=== PATIENT | male | born 1950 | race African-American/Black ===

== ENCOUNTER → 2017-03-17 | Outpatient (CLI) | payer MEDICARE, OTHER ==
--- NOTE | 2017-03-17 13:21 | XR ---
EXAMINATION TYPE: XR foot complete RT DATE OF EXAM: 03/17/2017 12:25 PM COMPARISON: NONE HISTORY: Nonhealing ulcer TECHNIQUE: Three views are submitted. FINDINGS: Arthropathy of all MTP joints with evidence of hammertoe deformities. There is destructive change change involving the base of the proximal phalanx and head of the metatar shaina of the third digit. Diffuse soft tissue edema noted. Ossification along the Achilles insertion in cidentally noted. IMPRESSION: 1. Findings are suggestive of osteoarthritis MTP joint involving proximal phalanx and head metatarsal third digit.
== END | disposition home or self-care (01) ==
LOC: RADXRMAIN 11:58
PROVIDERS: ATTEND Podiatrist Foot & Ankle Surgery
DX: M25.571 Pain in right ankle and joints of right foot (principal)

== ENCOUNTER 2017-03-28 12:04 | Inpatient (IN) | payer MEDICARE, OTHER ==
[2017-03-28] MEDS ORDERED: SODIUM CHLORIDE 0.9% 1,000 ML IV STA (12:18)
[2017-03-28] MEDS ORDERED: ACETAMINOPHEN TAB 500 MG TAB PO STA (12:19)
--- NOTE | 2017-03-28 12:23 | ED ---
Lower Extremity Injury HPI - General Source: patient, RN notes reviewed Mode of arrival: wheelchair Limitations: no limitations <Angeles Hawkins - Last Filed: 03/28/17 15:05> <Kip Kinney - Last Filed: 03/28/17 15:30> - General Chief Complaint: Extremity Injury, Lower Stated Complaint: Foot Infection Time Seen by Provider: 03/28/17 12:14 - History of Present Illness Initial Comments: 66-year-old male presents to the emergency Department chief complaint of right foot wound. Patient has had this on and off for the past 10 days or so. The patient states that he has not had any fever chills that he is aware of. Patient states that he has not had any nausea vomiting. Patient states that he had an x-ray outpatient and was called by his doctor and told to come into the emergency department. Patient states that he sees Dr. Mims as his infectious disease doctor. Patient states he is currently on Keflex. Patient states she was concerned due to his symptoms, he should be evaluated. Patient denies any recent fever, chills, shortness of breath, chest pain, back pain, abdominal pain , nausea vomiting, numbness or tingling, dysuria or hematuria, constipation or diarrhea, headaches or visual changes, or any other current symptoms. (Angeles Hawkins) - Related Data Home Medications Medication Instructions Recorded Confirmed Atorvastatin [Lipitor] 20 mg PO DAILY 03/28/17 03/28/17 Furosemide [Lasix] 20 mg PO DAILY 03/28/17 03/28/17 Insulin NPL/Insulin Lispro 48 unit SQ HS 03/28/17 03/28/17 [humaLOG MIX 75-25 VIAL] Insulin NPL/Insulin Lispro 50 unit SQ QAM 03/28/17 03/28/17 [humaLOG MIX 75-25 VIAL] Lisinopril 20 mg PO DAILY 03/28/17 03/28/17 metFORMIN HCL [Glucophage] 1,000 mg PO BID 03/28/17 03/28/17 oxyCODONE-APAP 10-325MG [Percocet 1 tab PO Q6H PRN 03/28/17 03/28/17 10-325 mg] Allergies Allergy/AdvReac Type Severity Reaction Status Date / Time egg Allergy Rash/Hives Verified 03/28/17 12:38 Review of Systems ROS Other: All systems not noted in ROS Statement are negative. <Angeles Hawkins - Last Filed: 03/28/17 15:05> ROS Other: All systems not noted in ROS Statement are negative. <Kip Kinney - Last Filed: 03/28/17 15:30> ROS Statement: Those systems with pertinent positive or pertinent negative responses have been documented in the HPI. Past Medical History Past Medical History: Diabetes Mellitus, Hyperlipidemia, Hypertension Additional Past Medical History / Comment(s): heart murmur History of Any Multi-Drug Resistant Organisms: None Reported Past Surgical History: Hernia Repair, Orthopedic Surgery Additional Past Surgical History / Comment(s): rt foot Past Psychological History: Depression Smoking Status: Never smoker Past Alcohol Use History: None Reported Past Drug Use History: None Reported <Angeles Hawkins - Last Filed: 03/28/17 15:05> General Exam Limitations: no limitations <Angeles Hawkins - Last Filed: 03/28/17 15:05> <Kip Kinney - Last Filed: 03/28/17 15:30> - General Exam Comments Initial Comments: General: The patient is awake and alert, in no distress, and does not appear acutely ill. Neck: The neck is supple, there is no tenderness. Cardiovascular: There is a regular rate and rhythm. No murmur, rub or gallop is appreciated. Respiratory: Lungs are clear to auscultation, respirations are non-labored, breath sounds are equal. No wheezes, stridor, rales, or rhonchi. Musculoskeletal: Sensation intact with 2+ positive Bernadine found to right knee and right ankle and right foot. Patient does appear to have a wound to the bottom of the right foot. There is no drainage. Does appear to be scabbed over. No associated erythema. Neurological: CN II-XII intact, There are no obvious motor or sensory deficits. Coordination appears grossly intact. Speech is normal. Skin: Skin is warm and dry and no rashes or lesions are noted. Psychiatric: Normal mood and affect. (Angeles Hawkins) Course <Angeles Hawkins - Last Filed: 03/28/17 15:05> <Kip Kinney - Last Filed: 03/28/17 15:30> Vital Signs 03/28/17 12:07 Temperature 99.9 F H Pulse Rate 89 Respiratory 20 Rate Blood Pressure 132/71 O2 Sat by Pulse 98 Oximetry - Reevaluation(s) Reevaluation #1: 03/28/17 15:05 At cole Time the patient is meeting septic criteria. (Angeles Hawkins) Medical Decision Making - Lab Data Result diagrams: 03/28/17 13:30 03/28/17 13:30 - Radiology Data Radiology results: report reviewed, image reviewed <Angeles Hawkins - Last Filed: 03/28/17 15:05> - Lab Data Result diagrams: 03/28/17 13:30 03/28/17 13:30 <Kip Kinney - Last Filed: 03/28/17 15:30> - Medical Decision Making 66-year-old male presents emergency room chief complaint of right foot pain. At this time patient's. Osteomyelitis. His white blood cell count is low. At this time we will start the patient on Unasyn Vanco was initially started due to the patient's presentation however we will add Unasyn due to sepsis protocol. We will admit the patient to admitting physician. Patient is in agreement. (Angeles Hawkins) Patient reevaluated by myself, Dr. Kinney. Patient does have ulcerative lesion on the plantar distal right foot. X-ray with concern for osteomyelitis. Patient does meet sepsis criteria. Case was discussed in detail with Dr. Santos who will admit. Continue Unasyn and Vanco. Consult with Dr. hawkins who patient has previously seen. (Kip Kinney) - Lab Data Lab Results 03/28/17 03/28/17 03/28/17 Range/Units 13:30 13:30 13:30 WBC 3.7 L (3.8-10.6) k/uL RBC 5.44 (4.30-5.90) m/uL Hgb 12.8 L (13.0-17.5) gm/dL Hct 40.7 (39.0-53.0) % MCV 74.7 L (80.0-100.0) fL MCH 23.5 L (25.0-35.0) pg MCHC 31.4 (31.0-37.0) g/dL RDW 15.5 (11.5-15.5) % Plt Count 185 (150-450) k/uL Neutrophils % 61 % Lymphocytes % 29 % Monocytes % 4 % Eosinophils % 5 % Basophils % 1 % Neutrophils # 2.2 (1.3-7.7) k/uL Lymphocytes # 1.1 (1.0-4.8) k/uL Monocytes # 0.1 (0-1.0) k/uL Eosinophils # 0.2 (0-0.7) k/uL Basophils # 0.0 (0-0.2) k/uL Hypochromasia Moderate Microcytosis Slight ESR 8 (0-15) mm/hr Sodium 142 (137-145) mmol/L Potassium 4.6 (3.5-5.1) mmol/L Chloride 108 H (98-107) mmol/L Carbon Dioxide 25 (22-30) mmol/L Anion Gap 9 mmol/L BUN 23 H (9-20) mg/dL Creatinine 1.40 H (0.66-1.25) mg/dL Est GFR (MDRD) Af Amer >60 (>60 ml/min/1.73 sqM) Est GFR (MDRD) Non-Af 51 (>60 ml/min/1.73 sqM) Glucose 181 H (74-99) mg/dL Plasma Lactic Acid Royce 1.4 (0.7-2.0) mmol/L Calcium 9.5 (8.4-10.2) mg/dL Total Bilirubin 0.5 (0.2-1.3) mg/dL AST 17 (17-59) U/L ALT 25 (21-72) U/L Alkaline Phosphatase 87 (38-126) U/L C-Reactive Protein 6.5 (<10.0) mg/L Total Protein 6.6 (6.3-8.2) g/dL Albumin 3.6 (3.5-5.0) g/dL Disposition Time of Disposition: 15:06 Decision Date: 03/28/17 Decision Time: 15:06 <Angeles Hawkins - Last Filed: 03/28/17 15:05> <Kip Kinney - Last Filed: 03/28/17 15:30> Clinical Impression: Sepsis, Foot osteomyelitis, right Disposition: ADMITTED IP TO THIS [facility] Condition: Stable Referrals: Tucker Nieto MD [Primary Care Provider] - 1-2 days
--- NOTE | 2017-03-28 13:12 | XR ---
EXAMINATION TYPE: XR foot complete RT DATE OF EXAM: 03/28/2017 12:56 PM COMPARISON: 03/17/2017 HISTORY: Pain TECHNIQUE: Three views are submitted. FINDINGS: There is loss of cortical margin which appears stable from the previous exam involving the head of th e third metatarsal. Osteomyelitis involving the third digit suspected. Hammertoe deformities noted. A rthropathy of the first MTP joint. Diffuse soft tissue edema. Calcaneal spurs noted. IMPRESSION: 1. Findings are suspicious for osteomyelitis involving the head of the third metatarsal with adjacent soft tissue edema.
[2017-03-28 13:49] LABS: Basophils % (A) 1 %; CH 22.8; CHCM 30.7; Eosinophils # (A) 0.2 k/uL (0-0.7); Eosinophils % (A) 5 %; HCT 40.7 % (39.0-53.0); HDW 2.76; HGB 12.8 gm/dL (13.0-17.5); Hypochromasia Moderate; Luc # (Auto) 0.05; Luc % (Auto) 1; Lymphocytes # (A) 1.1 k/uL (1.0-4.8); Lymphocytes % (A) 29 %; MCH 23.5 pg (25.0-35.0); MCHC 31.4 g/dL (31.0-37.0); MCV 74.7 fL (80.0-100.0); Mean Platelet Volume 6.9; Microcytosis Slight; Monocytes # (A) 0.1 k/uL (0-1.0); Monocytes % (A) 4 %; Neutrophils # (A) 2.2 k/uL (1.3-7.7); Neutrophils % (A) 61 %; RBC 5.44 m/uL (4.30-5.90); RDW 15.5 % (11.5-15.5); WBC 3.7 k/uL (3.8-10.6); WBC (Perox) 3.73
[2017-03-28 14:08] LABS: ALT 25 U/L (21-72); AST 17 U/L (17-59); Alkaline Phosphatase 87 U/L (38-126); Anion Gap 9 mmol/L; Blood Urea Nitrogen 23 mg/dL (9-20); C Reactive Protein 6.5 mg/L (<10.0); Calcium 9.5 mg/dL (8.4-10.2); Carbon Dioxide 25 mmol/L (22-30); Chloride 108 mmol/L (98-107); Glucose 181 mg/dL (74-99); Non-African American GFR(MDRD) 51 (>60 ml/min/1.73 sqM); Potassium 4.6 mmol/L (3.5-5.1); Sodium 142 mmol/L (137-145); Total Bilirubin 0.5 mg/dL (0.2-1.3); Total Protein 6.6 g/dL (6.3-8.2)
[2017-03-28] MEDS ORDERED: IV VANCOMYCIN PER PHARMACY 1 EACH MISC MISCELLANE PRN (14:09)
[2017-03-28 14:41] LABS: Erythrocyte Sedimentation Rate 8 mm/hr (0-15)
[2017-03-28] MEDS ORDERED: VANCOMYCIN 1,750 MG in SODIUM CHLORIDE 0.9% 250 ML IVPB ONE (15:00)
[2017-03-28] MEDS ORDERED: ONDANSETRON 4 MG/2 ML VIAL IVP PRN (15:26)
[2017-03-28] MEDS ORDERED: ACETAMINOPHEN TAB 325 MG TAB PO PRN (15:26)
[2017-03-28] MEDS ORDERED: IBUPROFEN 400 MG TAB PO PRN (15:26)
[2017-03-28] MEDS ORDERED: HYDROcodone/APAP 5-325MG 1 EACH TAB PO PRN (15:26)
[2017-03-28] MEDS ORDERED: NALOXONE 0.4 MG/ML 1 ML VIAL IV PRN (15:26)
[2017-03-28] MEDS ORDERED: AMPICILLIN-SULBACTAM 3 GM in SODIUM CHLORIDE 0.9% 100 ML IVPB STA (15:54)
[2017-03-28 17:24] LABS: Glucose,Whole Blood 76 mg/dL (75-99)
[2017-03-28] MEDS: INSULIN LISPRO (humaLOG) 300 UNIT/3 ML VIAL SQ SCH ×2 (17:39→22:12)
[2017-03-28] MEDS: SODIUM CHLORIDE 0.9% 1,000 ML IV SCH (17:42)
[2017-03-28 20:23] LABS: Glucose,Whole Blood 115 mg/dL (75-99)
[2017-03-28] MEDS ORDERED: INSULIN NPL/INSULIN LISPRO 100 UNIT/ML 10 ML VIAL (Humalog 75/25) SQ SCH (21:15)
[2017-03-29] MEDS ORDERED: AMPICILLIN-SULBACTAM 3 GM in SODIUM CHLORIDE 0.9% 100 ML IVPB SCH ×2
--- NOTE | 2017-03-29 06:36 | CONS ---
DATE OF CONSULTATION: DATE OF SERVICE: 03/28/2017 REASON FOR CONSULTATION: Right foot osteomyelitis. HISTORY OF PRESENT ILLNESS: The patient is a 66-year-old male well known to my service where the patient has been previously treated as an outpatient for an osteomyelitis of the right foot third metatarsal head. Cultures at that time was Proteus and Pseudomonas aeruginosa for which the patient has been treated with Fortaz. The patient had finished antibiotic therapy and his wound has completed healed as of 10/06/2016. Patient apparently continued to follow up with his forensic locksmith and he did mention that about 2 weeks ago he did have an x-ray in his office and he was told that the infection is coming back. The patient mentioned in the office Dr. Lowe did aspirate some poison out of his foot and he was advised to follow up with me in the office for further recommendation regarding antibiotic therapy. The patient subsequently presented to the [facility] ER, where the patient had been evaluated by the ER physician. The patient did have x-ray of the foot which did show suspicious finding of the osteomyelitis of the third metatarsal head with a soft tissue swelling. The patient was started on vancomycin and Unasyn and admitted to the hospital for further workup. The patient did have some dull aching. However, further he did have a small wound on the plantar aspect , but no significant drainage currently. The patient denies any high-grade fever, rigors, chills. Denies any chest pain, shortness of breath or cough. No vomiting. No diarrhea. REVIEW OF SYSTEMS: CONSTITUTIONAL: Positive for weakness. No high-grade fever. EYES: No complaint. ENT: No complaint. RESPIRATORY: No complaint. CARDIOVASCULAR: No complaint. GENITOURINARY: No complaint. GASTROINTESTINAL: No complaint. MUSCULOSKELETAL: As per HPI. INTEGUMENTARY: As per HPI. PSYCHOLOGIC: No complaint. ENDOCRINE: No complaint. NEUROLOGIC: No complaint. PAST MEDICAL HISTORY: Hypertension, hyperlipidemia, diabetes mellitus, history of right foot third metatarsal head osteomyelitis secondary to Proteus mirabilis and Pseudomonas aeruginosa. PAST SURGICAL HISTORY: Hernia repair, right foot surgery. SOCIAL HISTORY: No history of smoking, drinking or drug use. FAMILY HISTORY: No pertinent findings noticed. Allergies to EGG. Medications include the patient is currently include Tylenol, Novinger, Lipitor, Unasyn, vancomycin, pharmacy to dose, Lasix, Motrin, Humalog, Zestril, Narcan. On examination, blood pressure is 148/88 with a pulse of 64, temperature is 96.9. He is 100% on room air. General description is an elderly male, lying in bed in no distress. No tachypnea or accessory muscle of respiration use. HEENT examination shows pallor. No scleral icterus. Oral mucous membranes dry. NECK: Trachea central. No thyromegaly. LUNGS: Unlabored breathing. Clear to auscultation anteriorly. No wheeze or crackle. HEART: S1, S2. Regular rate and rhythm. ABDOMEN: Soft, no tenderness. Right foot on the plantar aspect did have a small wound under the callus, some swelling, no significant drainage. NEUROLOGICAL: The patient is awake, alert, oriented x3. Mood and affect normal. LABS: Hemoglobin is 12.8, white count 3.7, BUN of 23 with a creatinine 1.40. CRP has been normal. X-rays of the foot as mentioned above. DIAGNOSTIC IMPRESSION AND PLAN: Patient admitted to the hospital with an abnormal x-ray of the right foot and patient did have a previous history of osteomyelitis of the third metatarsal head. Currently, I see a small wound, but no significant definite changes surrounding it. Patient's Sed rate and CRP are normal with a question of what we see is a sequelae of his previous episode of osteomyelitis rather than acute osteomyelitis. PLAN: 1. We will obtain a bone scan of his right foot. 2. Patient with vancomycin; however, discontinue Unasy that he grew last time. 3. We will try to obtain a culture report from his podiatry office in the a.m. 4. Will follow up on the clinical condition and cultures to further adjust the medication if needed. Thank you for this consultation. We will follow this patient along with you. RACHEL
[2017-03-29] MEDS: SODIUM CHLORIDE 0.9% 1,000 ML IV SCH ×3 (06:50→23:24)
[2017-03-29 08:06] LABS: Basophils % (A) 1 %; CH 22.8; CHCM 30.2; Eosinophils # (A) 0.2 k/uL (0-0.7); Eosinophils % (A) 4 %; HCT 39.5 % (39.0-53.0); HGB 12.3 gm/dL (13.0-17.5); Hypochromasia Marked; Luc # (Auto) 0.05; Luc % (Auto) 1; Lymphocytes # (A) 1.2 k/uL (1.0-4.8); Lymphocytes % (A) 26 %; MCH 23.5 pg (25.0-35.0); MCHC 31.1 g/dL (31.0-37.0); MCV 75.7 fL (80.0-100.0); Mean Platelet Volume 6.7; Microcytosis Slight; Monocytes # (A) 0.2 k/uL (0-1.0); Monocytes % (A) 4 %; Neutrophils # (A) 2.8 k/uL (1.3-7.7); Neutrophils % (A) 64 %; RBC 5.21 m/uL (4.30-5.90); RDW 15.5 % (11.5-15.5); WBC 4.4 k/uL (3.8-10.6); WBC (Perox) 4.45
[2017-03-29 08:27] LABS: ALT 21 U/L (21-72); AST 16 U/L (17-59); Alkaline Phosphatase 79 U/L (38-126); Anion Gap 9 mmol/L; Blood Urea Nitrogen 23 mg/dL (9-20); Calcium 9.2 mg/dL (8.4-10.2); Carbon Dioxide 25 mmol/L (22-30); Chloride 107 mmol/L (98-107); Glucose 187 mg/dL (74-99); Non-African American GFR(MDRD) 56 (>60 ml/min/1.73 sqM); Sodium 141 mmol/L (137-145); Total Bilirubin 0.7 mg/dL (0.2-1.3); Total Protein 6.7 g/dL (6.3-8.2)
[2017-03-29] MEDS ORDERED: VANCOMYCIN 2,000 MG in SODIUM CHLORIDE 0.9% 500 ML IVPB SCH (09:00)
[2017-03-29 09:17] LABS: Glucose,Whole Blood 287 mg/dL (75-99)
[2017-03-29] MEDS: INSULIN LISPRO (humaLOG) 300 UNIT/3 ML VIAL SQ SCH ×4 (09:34→22:15)
[2017-03-29] MEDS: ATORVASTATIN 20 MG TAB PO SCH (09:34)
[2017-03-29] MEDS: INSULIN NPL/INSULIN LISPRO 100 UNIT/ML 10 ML VIAL (Humalog 75/25) SQ SCH (09:34)
[2017-03-29] MEDS: LISINOPRIL 20 MG TAB PO SCH (09:34)
[2017-03-29] MEDS: FUROSEMIDE 20 MG TAB PO SCH (09:34)
[2017-03-29 09:49] LABS: Erythrocyte Sedimentation Rate 11 mm/hr (0-15)
[2017-03-29 11:28] LABS: Glucose,Whole Blood 243 mg/dL (75-99)
[2017-03-29 11:43] LABS: Hemoglobin A1C 8.3 % (4.2-6.1)
[2017-03-29 13:40] VITALS: BMI 34.2
--- NOTE | 2017-03-29 14:17 | NM ---
EXAMINATION TYPE: NM bone 3 phase DATE OF EXAM: 03/29/2017 2:02 PM COMPARISON: Right foot 28 Mar 2017 HISTORY: Osteomyelitis Triple phase bone scintigraphy was performed following the injection of27.3 mCi Tc 99m MDP. Immediat e images, blood pool and 5.25 hours post injection images acquired. FINDINGS: Increased radiopharmaceutical uptake is noted to the distal forefoot likely in the region of the seco nd or third digit on the right on blood flow and blood pool images. Delayed images also show some rad io pharmaceutical accumulation in this region. Uptake is present bilaterally within the feet on delay ed images as well as the first digits. IMPRESSION: Findings could be indicative of osteomyelitis or cellulitis of the second or third digit. There are a dditional areas of uptake which could possibly be related to degenerative change or neuropathy
[2017-03-29] MEDS ORDERED: oxyCODONE-APAP 10-325MG 1 EACH TAB PO PRN (16:13)
--- NOTE | 2017-03-29 16:13 | P.HPIM ---
History of Present Illness H&P Date: 03/29/17 Chief Complaint: Right foot wound This is a 66-year-old -Mongolian male patient of Dr. Nieto with a past medical history of diabetes mellitus type 2 insulin requiring, diabetic neuropathy, asthma mild intermittent, hypertension, hyperlipidemia. Patient gives history that he initially had a callus on the bottom of his right foot about 5 months ago. He has been following with Dr. hawkins his infectious disease doctor as well as Dr. Mynor Cates from [facility] every 1-2 weeks. He has not seen a vascular surgeon. He thought the wound was getting better. He denies having any pain for the past 2 days. He denies any fever or chills. No nausea, vomiting, diarrhea. He states he has received antibiotics from Dr. Carlos Hall which have been Keflex. Patient states he had x-rays an outpatient and he was called by his doctor to come into [facility] emergency center for evaluation. He has undergone bone scan that is showing osteomyelitis or cellulitis of the second or third digit. There are additional areas of uptake which could possibly related to degenerative changes or neuropathy. The patient has been started on ceftazidime and vancomycin and is followed by Dr. Mims. Review of Systems All systems: negative Constitutional: Denies chills, Denies fever Eyes: denies blurred vision, denies pain Ears, nose, mouth and throat: Denies headache, Denies sore throat Cardiovascular: Denies chest pain, Denies shortness of breath Respiratory: Denies cough Gastrointestinal: Denies abdominal pain, Denies diarrhea, Denies nausea, Denies vomiting Musculoskeletal: Denies myalgias Integumentary: Reports wounds, Denies pruritus, Denies rash Neurological: Denies numbness, Denies weakness Psychiatric: Denies anxiety, Denies depression Endocrine: Denies fatigue, Denies weight change Past Medical History Past Medical History: Asthma, Diabetes Mellitus, Hyperlipidemia, Hypertension, Pneumonia Additional Past Medical History / Comment(s): heart murmur, neuropathy,"i think i had a small bleed behind rt eye" History of Any Multi-Drug Resistant Organisms: None Reported Past Surgical History: Hernia Repair, Orthopedic Surgery, Tonsillectomy Additional Past Surgical History / Comment(s): rt foot Past Anesthesia/Blood Transfusion Reactions: No Reported Reaction Past Psychological History: Depression Smoking Status: Never smoker Past Alcohol Use History: None Reported Additional Past Alcohol Use History / Comment(s): Patient is a lifelong nonsmoker. He denies any medical marijuana, marijuana, street drug or alcohol use. He states he stopped drinking alcohol 28 years ago. Past Drug Use History: None Reported - Past Family History Father Family Medical History: No Reported History Additional Family Medical History / Comment(s): Father at age 65 and patient does not know his medical problems. Mother Family Medical History: Rheumatoid Arthritis (RA) Additional Family Medical History / Comment(s): Mother at age 70 with history of rheumatoid arthritis. granmother also had ra Brother(s) Additional Family Medical History / Comment(s): Patient had 2 brothers and one during service and one from stillbirth. Patient does not have any sisters. Patient has 3 sons and 3 daughters with no major medical problems. Medications and Allergies Home Medications Medication Instructions Recorded Confirmed Type Atorvastatin [Lipitor] 20 mg PO DAILY 03/28/17 03/28/17 History Furosemide [Lasix] 20 mg PO DAILY 03/28/17 03/28/17 History Insulin NPL/Insulin Lispro 48 unit SQ HS 03/28/17 03/28/17 History [humaLOG MIX 75-25 VIAL] Insulin NPL/Insulin Lispro 50 unit SQ QAM 03/28/17 03/28/17 History [humaLOG MIX 75-25 VIAL] Lisinopril 20 mg PO DAILY 03/28/17 03/28/17 History metFORMIN HCL [Glucophage] 1,000 mg PO BID 03/28/17 03/28/17 History oxyCODONE-APAP 10-325MG [Percocet 1 tab PO Q6H PRN 03/28/17 03/28/17 History 10-325 mg] Allergies Allergy/AdvReac Type Severity Reaction Status Date / Time egg Allergy Rash/Hives Verified 03/28/17 20:01 Physical Exam Vitals: Vital Signs Temp Pulse Pulse Resp BP BP Pulse Ox 03/29/17 07:42 96.5 F L 64 16 157/85 99 03/29/17 02:35 98.3 F 63 16 134/53 99 03/28/17 20:00 96.9 F L 64 18 148/88 100 03/28/17 16:30 97.6 F 62 16 174/94 99 03/28/17 16:07 97.5 F L 63 16 165/91 100 Intake and Output 03/28/17 03/29/17 03/29/17 22:59 06:59 14:59 Intake Total 250 1200 480 Balance 250 1200 480 Intake: Intake, IV Titration 1200 Amount Ampicillin-Sulbactam 3 gm 100 In Sodium Chloride 0.9% 100 ml @ 100 mls/hr IVPB Q8HR MYRNA Rx#:[id number] cefTAZidime 2 gm In 1100 Sodium Chloride 0.9% 100 ml @ 100 mls/hr IVPB Q8HR MYRNA Rx#:[id number] Oral 250 480 Other: Voiding Method Toilet # Voids 1 1 Weight 117.934 kg Patient Weight 03/30/17 06:59 Weight 117.934 kg Gen: This is a 66-year-old -Mongolian male. He is laying in bed and appears to be in no acute distress. HEENT: Head is atraumatic, normocephalic. Pupils equal, round. Sclerae is anicteric. NECK: Supple. No JVD. No lymphadenopathy. No thyromegaly. LUNGS: Clear to auscultation. No wheezes or rhonchi. No intercostal retractions. HEART: Regular rate and rhythm. No murmur. ABDOMEN: Soft. Bowel sounds are present. No masses. No tenderness. EXTREMITIES: No pedal edema. No calf tenderness. To the plantar surface of the right foot there is a wound at the third metatarsal. No drainage. Decreased pulses bilaterally. NEUROLOGICAL: Patient is awake, alert and oriented x3. Cranial nerves 2 through 12 are grossly intact. Results CBC & Chem 7: 03/29/17 07:37 03/29/17 07:37 Labs: Abnormal Lab Results - Last 24 Hours (Table) 03/28/17 03/29/17 03/29/17 Range/Units 20:18 07:37 07:37 Hgb 12.3 L (13.0-17.5) gm/dL MCV 75.7 L (80.0-100.0) fL MCH 23.5 L (25.0-35.0) pg BUN (9-20) mg/dL Creatinine (0.66-1.25) mg/dL Glucose (74-99) mg/dL POC Glucose (mg/dL) 115 H (75-99) mg/dL Hemoglobin A1c 8.3 H (4.2-6.1) % AST (17-59) U/L Albumin (3.5-5.0) g/dL 03/29/17 03/29/17 03/29/17 Range/Units 07:37 09:16 11:22 Hgb (13.0-17.5) gm/dL MCV (80.0-100.0) fL MCH (25.0-35.0) pg BUN 23 H (9-20) mg/dL Creatinine 1.29 H (0.66-1.25) mg/dL Glucose 187 H (74-99) mg/dL POC Glucose (mg/dL) 287 H 243 H (75-99) mg/dL Hemoglobin A1c (4.2-6.1) % AST 16 L (17-59) U/L Albumin 3.4 L (3.5-5.0) g/dL Thrombosis Risk Factor Assmnt - DVT/VTE Prophylaxis DVT/VTE Prophylaxis: Pharmacologic Prophylaxis ordered - Choose All That Apply Any of the Below Risk Factors Present?: Yes Each Factor Represents 1 point: Obesity (BMI >25) Other Risk Factors: Yes Each Risk Factor Represents 2 Points: Age 61-74 years Thrombosis Risk Factor Assessment Total Risk Factor Score: 3 Thrombosis Risk Factor Assessment Level: Moderate Risk Assessment and Plan Plan: 1. Chronic nonhealing diabetic ulcer with possible peripheral artery disease as well to the right foot to rule out osteomyelitis in a patient with previous history of osteomyelitis of the third metatarsal head. Patient is followed by Dr Mims. Continue IV antibiotics in the form of ceftazidime and vancomycin. 2. Diabetes mellitus type 2, insulin requiring. Continue Humalog 75/25 50 units in the morning and 48 units at supper, metformin 1000 mg twice daily, Humalog scale before meals and at bedtime 3. Hypertension. Continue lisinopril 20 mg daily 4. Hyperlipidemia. Continue Lipitor 20 mg daily 5. DVT prophylaxis. Lovenox. 6. Gastritis prophylaxis, Pepcid. Patient will be admitted to the hospital for a minimum of 2 night stay. Discharge plan: Return home Impression and plan of care have been directed as dictated by the signing physician. Ro King nurse practitioner acting as scribe for signing physician.
[2017-03-29 17:19] LABS: Glucose,Whole Blood 84 mg/dL (75-99)
--- NOTE | 2017-03-29 17:20 | PN ---
DATE OF SERVICE: 03/29/2017 REASON FOR FOLLOWUP: Right foot osteomyelitis. INTERVAL HISTORY: The patient is afebrile. He has been breathing comfortably. Patient did mention that the swelling and redness of his foot has improved. Denies significant pain. There is no drainage. Denies having any chest pain, shortness of breath or cough. No abdominal pain or any diarrhea. On examination, blood pressure is 140/93 with a pulse of 72, temperature 97.1. He is 98% on room air. General description is an elderly male lying in bed in no distress. RESPIRATORY SYSTEM: Unlabored breathing. Clear to auscultation anteriorly. HEART: S1, S2. Regular rate and rhythm. ABDOMEN: Soft. No tenderness. Right foot is currently dressed up. No drainage was noticed. LABS: Hemoglobin 12.3, white count 4.4. BUN of 23, creatinine 1.29. The patient did have a bone scan completed that has been suspicious for osteomyelitis of the second and third digits. DIAGNOSTIC IMPRESSION AND PLAN: Patient with a wound to his right foot, suspicious for osteomyelitis. Patient did have cultures done by his switchboard operator supervisor, Dr. Cates, which grew Staphylococcus epidermidis, oxacillin-sensitive. These x-rays and bone scan will be reviewed with the radiologist. The patient will likely need a PICC line for outpatient IV antibiotic therapy. Continue with the vancomycin and Fortaz at this point. Continue supportive care.
[2017-03-29] MEDS ORDERED: INSULIN NPL/INSULIN LISPRO 100 UNIT/ML 10 ML VIAL (Humalog 75/25) SQ SCH (17:30)
[2017-03-29] MEDS ORDERED: INSULIN NPL/INSULIN LISPRO 100 UNIT/ML 10 ML VIAL (Humalog 75/25) SQ ONE (17:50)
[2017-03-29 21:29] LABS: Glucose,Whole Blood 77 mg/dL (75-99)
[2017-03-29] MEDS: metFORMIN 500 MG TAB PO SCH (22:15)
[2017-03-30] MEDS ORDERED: VANCOMYCIN 1,750 MG in SODIUM CHLORIDE 0.9% 250 ML IVPB SCH ×2
[2017-03-30 02:23] VITALS: RESP 16
[2017-03-30] MEDS: SODIUM CHLORIDE 0.9% 1,000 ML IV SCH (06:30)
[2017-03-30 07:06] LABS: Glucose,Whole Blood 96 mg/dL (75-99)
[2017-03-30 07:26] LABS: CH 22.8; CHCM 30.5; HCT 41.1 % (39.0-53.0); HDW 2.74; HGB 12.7 gm/dL (13.0-17.5); Hypochromasia Moderate; MCH 23.2 pg (25.0-35.0); MCHC 30.9 g/dL (31.0-37.0); MCV 75.2 fL (80.0-100.0); Mean Platelet Volume 6.7; Microcytosis Slight; RBC 5.47 m/uL (4.30-5.90); RDW 15.4 % (11.5-15.5); WBC 4.9 k/uL (3.8-10.6)
[2017-03-30] MEDS: INSULIN LISPRO (humaLOG) 300 UNIT/3 ML VIAL SQ SCH ×2 (07:52→12:34)
[2017-03-30 07:54] LABS: Anion Gap 9 mmol/L; Blood Urea Nitrogen 20 mg/dL (9-20); Calcium 9.3 mg/dL (8.4-10.2); Carbon Dioxide 23 mmol/L (22-30); Chloride 109 mmol/L (98-107); Glucose 96 mg/dL (74-99); Non-African American GFR(MDRD) 58 (>60 ml/min/1.73 sqM); Potassium 4.5 mmol/L (3.5-5.1); Sodium 141 mmol/L (137-145)
[2017-03-30] MEDS: FUROSEMIDE 20 MG TAB PO SCH (08:32)
[2017-03-30] MEDS: ATORVASTATIN 20 MG TAB PO SCH (08:32)
[2017-03-30] MEDS: metFORMIN 500 MG TAB PO SCH (08:32)
[2017-03-30] MEDS: INSULIN NPL/INSULIN LISPRO 100 UNIT/ML 10 ML VIAL (Humalog 75/25) SQ SCH (08:33)
[2017-03-30] MEDS: LISINOPRIL 20 MG TAB PO SCH (08:33)
[2017-03-30 09:32] VITALS: PULSE 64
[2017-03-30 12:02] LABS: Glucose,Whole Blood 168 mg/dL (75-99)
[2017-03-30] MEDS ORDERED: cefTRIAXone 2,000 MG in SODIUM CHLORIDE 0.9% 100 ML IVPB SCH (14:00)
[2017-03-30] MEDS ORDERED: LIDOCAINE 2% INJ 20 MG/ML SQ ONE (14:31)
[2017-03-30 15:47] VITALS: BP 150/86; TEMP 97.2
[2017-03-31] MEDS ORDERED: VANCOMYCIN TROUGH DUE 1 EACH MISC MISCELLANE ONE (07:00)
--- NOTE | 2017-03-31 08:09 | IR ---
PICC LINE PLACEMENT: HISTORY: Infection requiring long-term antibiotic therapy PROCEDURE: Ultrasound and fluoroscopic guidance of PICC line placement. COMPLICATIONS: None ANESTHESIA: 1. 1% Lidocaine locally. FINDINGS/TECHNIQUE: The procedure was explained to the patient. The risks, complications, benefits and alternatives were discussed and any questions were answered. Informed consent was obtained. The patient was placed supine on the fluoroscopic table and prepped and draped in the usual sterile fash ion. Utilizing a 21 gauge needle and sonographic and fluoroscopic guidance, access in the left ceph alic vein was achieved and there is placement of a 0.018 guidewire. The vein is patent. A 4-F sheat h was placed over the guidewire. The guidewire and dilator were removed and a 4-F. PICC line was chad mohinder through the sheath with the tip at the level of the SVC. The sheath was removed, the catheter wa s flushed and sutured into position. The patient was stable throughout the procedure and remained st able upon discharge from the Department of Radiology. The vein puncture was patent under ultrasound. A cerda scale image was obtained to document patency of the vein punctured. All elements of the maximal barrier technique were utilized. FLUOROSCOPY TIME: 0.8 minute IMPRESSION: Successful PICC line placement under ultrasound and fluoroscopic guidance.
--- NOTE | 2017-03-31 08:17 | PN ---
DATE OF SERVICE: 03/30/2017 REASON FOR FOLLOWUP: Right foot osteomyelitis. INTERVAL HISTORY: The patient was seen on rounds early this afternoon and discussed with the admitting team. The patient remains to be afebrile. Denies any worsening pain to his right foot area. He did have a big callus on the plantar aspect of his right foot. No significant drainage. He denies significant chest pain, shortness of breath or cough. No abdominal pain. No diarrhea. On examination, blood pressure is 150/86 with a pulse of 64, temperature of 97.2, he is 99% on room air. GENERAL DESCRIPTION: An elderly male lying in bed in no distress. RESPIRATORY SYSTEM: Unlabored breathing. Clear to auscultation anteriorly. HEART: S1, S2 with regular rate and rhythm. Right foot plantar aspect with a big callus. Did not appreciate any swelling, redness or any drainage from it. LABS: Hemoglobin 12.7, white count 4.9 with a BUN of 20, creatinine 1.25. Cultures were obtained from Dr. Mynor Rodriguez's office which just showed Staph which isoxacillin sensitive. The x-rays of the foot as well as the bone scan was reviewed with Dr. Goodrich from Radiology and it shows lytic lesion at the third metatarsal head with a corresponding increased uptake on the bone scan on all three. DIAGNOSTIC IMPRESSION AND PLAN: Patient with right foot osteomyelitis at the third metatarsal head. Outpatient cultures with Staph, oxacillin sensitive. We do not have anything to culture during this admission; hence, no cultures were done. Blood cultures are negative. Patient's antibiotic has been adjusted, Rocephin 2 grams will be continued for 6 weeks with outpatient follow-up. Continue supportive care. [facility]
--- NOTE | 2017-03-31 15:47 | P.DS ---
Providers Date of admission: 03/28/17 15:30 Expected date of discharge: 03/30/17 Attending physician: Harmony Santos Consults: 03/28/17 15:27 Consult Physician Routine Consulting Provider: Angelina Mims Consult Reason/Comments: osteomylelitis Do you want consulting provider notified?: Yes Primary care physician: Tucker [facility] Course: This is a 66-year-old -[place] male patient of Dr. Nieto with a past medical history of diabetes mellitus type 2 insulin requiring, diabetic neuropathy, asthma mild intermittent, hypertension, hyperlipidemia. Patient gives history that he initially had a callus on the bottom of his right foot about 5 months ago. He has been following with Dr. hawkins his infectious disease doctor as well as Dr. Mynor Cates from [facility] every 1-2 weeks. He has not seen a vascular surgeon. He thought the wound was getting better. He denies having any pain for the past 2 days. He denies any fever or chills. No nausea, vomiting, diarrhea. He states he has received antibiotics from Dr. Carlos Hall which have been Keflex. Patient states he had x-rays an outpatient and he was called by his doctor to come into [facility] emergency center for evaluation. He has undergone bone scan that is showing osteomyelitis or cellulitis of the second or third digit. There are additional areas of uptake which could possibly related to degenerative changes or neuropathy. The patient has been started on ceftazidime and vancomycin and is followed by Dr. Mims. 03/30: Dr. Mims has clarified home IV antibiotics with ceftriaxone. PICC line has been ordered. Case management is making arrangements for home. Patient will be discharged home today in stable condition. Discharge diagnoses: 1. Chronic nonhealing diabetic ulcer with possible peripheral artery disease as well to the right foot with osteomyelitis 2. Diabetes mellitus type 2, insulin requiring. 3. Hypertension. 4. Hyperlipidemia. Discharge plan: Return home Impression and plan of care have been directed as dictated by the signing physician. Ro King nurse practitioner acting as scribe for signing physician. Patient Condition at Discharge: Good Plan - Discharge Summary New Discharge Prescriptions: cefTRIAXone [Rocephin] 2,000 mg IVPB Q24HR #42 vial Discharge Medication List Atorvastatin [Lipitor] 20 mg PO DAILY 03/28/17 [History] Furosemide [Lasix] 20 mg PO DAILY 03/28/17 [History] Insulin NPL/Insulin Lispro [humaLOG MIX 75-25 VIAL] 48 unit SQ HS 03/28/17 [ History] Insulin NPL/Insulin Lispro [humaLOG MIX 75-25 VIAL] 50 unit SQ QAM 03/28/17 [ History] Lisinopril 20 mg PO DAILY 03/28/17 [History] metFORMIN HCL [Glucophage] 1,000 mg PO BID 03/28/17 [History] oxyCODONE-APAP 10-325MG [Percocet 10-325 mg] 1 tab PO Q6H PRN 03/28/17 [History] cefTRIAXone [Rocephin] 2,000 mg IVPB Q24HR #42 vial 03/30/17 [Rx] Follow up Appointment(s)/Referral(s): Tucker Nieto MD [Primary Care Provider] - 1-2 days (No answer at office. Patient to call and schedule follow up appointment.) [facility], [NON-STAFF] - 1 Week [facility], [REFERRING] - 1 Week Ambulatory/Diagnostic Orders: Basic Metabolic Panel [LAB.AMB] Location: Determined By Patient C Reactive Protein [LAB.AMB] Location: Determined By Patient Complete Blood Count w/diff [LAB.AMB] Location: Determined By Patient Erythrocyte Sedimentation Rate [LAB.AMB] Location: Determined By Patient Discharge Disposition: HOME WITH HOME HEALTH SERVICES
--- NOTE | 2017-04-05 11:01 | P.ARTDOP ---
Arterial Doppler LOWER EXTREMITY ARTERIAL DOPPLER: DATE OF SERVICE: 03/29/2017 Reason for study: Osteomyelitis right foot. Doppler waveforms: Multiphasic bilaterally throughout Pulse volume recording: Normal configuration. Pressure gradients: None. Ankle-brachial indices: Greater than 1 bilaterally. Toe pressures: 138 on the right, 136 on the left Impression: Normal study.
== END 2017-03-30 16:40 | disposition home health service (06) | DRG 638 ==
LOC: EC 12:04 → 3SUR 15:30
PROVIDERS: ADMIT Family Medicine; ATTEND Family Medicine
PROC: 02HV33Z Insertion of Infusion Device into Superior Vena Cava, Percutaneous Approach (ICD-10-PCS; principal; 2017-03-30 14:20)
PROC: B548ZZA Ultrasonography of Superior Vena Cava, Guidance (ICD-10-PCS; 2017-03-30 14:20)
DX: E11.69 Type 2 diabetes mellitus with other specified complication (principal); M86.671 Other chronic osteomyelitis, right ankle and foot; E11.40 Type 2 diabetes mellitus with diabetic neuropathy, unspecified; E11.621 Type 2 diabetes mellitus with foot ulcer; L03.115 Cellulitis of right lower limb; E11.622 Type 2 diabetes mellitus with other skin ulcer; J45.20 Mild intermittent asthma, uncomplicated; I10 Essential (primary) hypertension; E78.5 Hyperlipidemia, unspecified; F32.9 Major depressive disorder, single episode, unspecified; L97.511 Non-pressure chronic ulcer of other part of right foot limited to breakdown of skin; Z79.4 Long term (current) use of insulin; Z79.84 Long term (current) use of oral hypoglycemic drugs; Z79.899 Other long term (current) drug therapy
CPT/HCPCS: 36415; 36569; 76937; 77001; 78315; 80048; 80053; 83036; 83605; 85025; 85027; 85652; 86140; 87040; 93923

== ENCOUNTER 2018-09-28 10:41 | Emergency (ER) | payer MEDICARE, OTHER ==
[2018-09-28] MEDS ORDERED: ONDANSETRON 4 MG/2 ML VIAL IVP STA (10:57)
[2018-09-28] MEDS ORDERED: SODIUM CHLORIDE 0.9% 1,000 ML IV STA (10:57)
--- NOTE | 2018-09-28 11:12 | ED ---
General Adult HPI - General Chief complaint: Nausea/Vomiting/Diarrhea Stated complaint: altered mental status Source: patient, family Mode of arrival: ambulatory - History of Present Illness Initial comments: Dictation was produced using [employer] dictation software. please excuse any grammatical, word or spelling errors. Chief Complaint: 68-year-old male with past medical history of diabetes, dyslipidemia, hypertension presents with chief complaint of nausea, vomiting and diarrhea. History of Present Illness: States he had a large thinks he begin her yesterday. At approximate 10:30 PM last night patient had multiple episodes of nonbilious nonbloody emesis. Patient also had multiple bouts of watery diarrhea. Denies any blood or ileus characteristic to his diarrhea. She states that his emesis appears clear with a reddish tinge to it. Patient ate more food than usual yesterday. Patient denies any abdominal pain. Denies any vertiginous symptoms. Denies any ataxia. States that he feels lightheaded. The ROS documented in this emergency department record has been reviewed and confirmed by me. Those systems with pertinent positive or negative responses have been documented in the HPI. All other systems are other negative and/or noncontributory. - Related Data Home Medications Medication Instructions Recorded Confirmed Atorvastatin [Lipitor] 20 mg PO DAILY 03/28/17 09/28/18 Insulin NPL/Insulin Lispro 48 unit SQ HS 03/28/17 09/28/18 [humaLOG MIX 75-25 VIAL] Insulin NPL/Insulin Lispro 55 unit SQ QAM 03/28/17 09/28/18 [humaLOG MIX 75-25 VIAL] oxyCODONE-APAP 10-325MG [Percocet 1 tab PO Q4-6H PRN 03/28/17 09/28/18 10-325 mg] Liraglutide [Victoza 2-Eugene] 1.8 mg SQ DAILY 09/28/18 09/28/18 Lisinopril 40 mg PO DAILY 09/28/18 09/28/18 amLODIPine [Norvasc] 5 mg PO DAILY 09/28/18 09/28/18 Previous Rx's Medication Instructions Recorded Loperamide HCl [Loperamide] 2 mg PO DAILY PRN #30 capsule 09/28/18 Ondansetron Odt [Zofran Odt] 4 mg PO Q8HR PRN #12 tab 09/28/18 Allergies Allergy/AdvReac Type Severity Reaction Status Date / Time egg Allergy Rash/Hives Verified 09/28/18 11:13 Review of Systems ROS Statement: Those systems with pertinent positive or pertinent negative responses have been documented in the HPI. ROS Other: All systems not noted in ROS Statement are negative. Past Medical History Past Medical History: Asthma, Diabetes Mellitus, Hyperlipidemia, Hypertension, Pneumonia Additional Past Medical History / Comment(s): heart murmur, neuropathy,"i think i had a small bleed behind rt eye" History of Any Multi-Drug Resistant Organisms: None Reported Past Surgical History: Hernia Repair, Orthopedic Surgery, Tonsillectomy Additional Past Surgical History / Comment(s): rt foot Past Anesthesia/Blood Transfusion Reactions: No Reported Reaction Past Psychological History: Depression Smoking Status: Never smoker Past Alcohol Use History: None Reported Past Drug Use History: None Reported - Past Family History Father Family Medical History: No Reported History Additional Family Medical History / Comment(s): Father at age 65 and patient does not know his medical problems. Mother Family Medical History: Rheumatoid Arthritis (RA) Additional Family Medical History / Comment(s): Mother at age 70 with history of rheumatoid arthritis. granmother also had ra Brother(s) Additional Family Medical History / Comment(s): Patient had 2 brothers and one during service and one from stillbirth. Patient does not have any sisters. Patient has 3 sons and 3 daughters with no major medical problems. General Exam - General Exam Comments Initial Comments: PHYSICAL EXAM: General Impression: Alert and oriented x3, not in acute distress HEENT: Normocephalic atraumatic, extra-ocular movements intact, pupils equal and reactive to light bilaterally, mucous membranes moist. Cardiovascular: Heart regular rate and rhythm, S1&S2 audible, no murmurs, rubs or gallops Chest: Lungs clear to auscultation bilaterally, no rhonchi, no wheeze, no rales Abdomen: Bowel sounds present, abdomen soft, non-tender, non-distended, no organomegaly Musculoskeletal: Pulses present and equal in all extremities, no peripheral edema Motor: Power 5/5 bilaterally, no focal deficits noted Neurological: CN II-XII grossly intact, no focal motor or sensory deficits noted , no ataxia, no nystagmus Skin: Intact with no visualized rashes Psych: Normal affect and mood Course Vital Signs 09/28/18 10:45 Temperature 98.3 F Pulse Rate 98 Respiratory 20 Rate Blood Pressure 146/76 O2 Sat by Pulse 99 Oximetry Medical Decision Making - Medical Decision Making ED course: 68-year-old male presents with chief complaint of nausea, vomiting and diarrhea. Patient has any abdominal pain. Vital signs upon arrival are within acceptable limits. Physical examination is benign. Patient shows no signs of vertigo or ataxia.Lavatory evaluation obtained. CBC, metabolic panel and urinalysis are unremarkable. Patient is given Zofran and intravenous fluids. Patient tolerating by mouth at bedside. Patient given prescription for Zofran when necessary nausea and loperamide when necessary diarrhea. Patient told to follow-up with primary care physician upon discharge. Patient understandable and agreeable to plan. - Lab Data Result diagrams: 09/28/18 11:46 09/28/18 11:46 Lab Results 09/28/18 09/28/18 09/28/18 Range/Units 11:46 11:46 14:00 WBC 7.2 (3.8-10.6) k/uL RBC 6.77 H (4.30-5.90) m/uL Hgb 15.5 (13.0-17.5) gm/dL Hct 48.9 (39.0-53.0) % MCV 72.2 L (80.0-100.0) fL MCH 23.0 L (25.0-35.0) pg MCHC 31.8 (31.0-37.0) g/dL RDW 15.4 (11.5-15.5) % Plt Count 172 (150-450) k/uL Neutrophils % 83 % Lymphocytes % 11 % Monocytes % 4 % Eosinophils % 2 % Basophils % 0 % Neutrophils # 5.9 (1.3-7.7) k/uL Lymphocytes # 0.8 L (1.0-4.8) k/uL Monocytes # 0.3 (0-1.0) k/uL Eosinophils # 0.1 (0-0.7) k/uL Basophils # 0.0 (0-0.2) k/uL Hypochromasia Slight Microcytosis Moderate Sodium 140 (137-145) mmol/L Potassium 5.1 (3.5-5.1) mmol/L Chloride 105 (98-107) mmol/L Carbon Dioxide 24 (22-30) mmol/L Anion Gap 11 mmol/L BUN 27 H (9-20) mg/dL Creatinine 1.47 H (0.66-1.25) mg/dL Est GFR (CKD-EPI)AfAm 56 (>60 ml/min/1.73 sqM) Est GFR (CKD-EPI)NonAf 48 (>60 ml/min/1.73 sqM) Glucose 280 H (74-99) mg/dL Calcium 10.2 (8.4-10.2) mg/dL Total Bilirubin 0.8 (0.2-1.3) mg/dL AST 26 (17-59) U/L ALT 26 (21-72) U/L Alkaline Phosphatase 115 (38-126) U/L Total Protein 8.3 H (6.3-8.2) g/dL Albumin 4.3 (3.5-5.0) g/dL Lipase 145 (23-300) U/L Urine Color Yellow Urine Appearance Clear (Clear) Urine pH 5.5 (5.0-8.0) Ur Specific Damar 1.019 (1.001-1.035) Urine Protein 1+ H (Negative) Urine Glucose (UA) 4+ H (Negative) Urine Ketones Negative (Negative) Urine Blood Negative (Negative) Urine Nitrite Negative (Negative) Urine Bilirubin Negative (Negative) Urine Urobilinogen <2.0 (<2.0) mg/dL Ur Leukocyte Esterase Negative (Negative) Urine WBC 1 (0-5) /hpf Calcium Oxalate Crystal Occasional H (None) /hpf Hyaline Casts 1 (0-2) /lpf Urine Mucus Occasional H (None) /hpf Disposition Clinical Impression: Gastroenteritis Disposition: HOME SELF-CARE Instructions: Acute Nausea and Vomiting (ED) Prescriptions: Loperamide HCl [Loperamide] 2 mg PO DAILY PRN #30 capsule PRN Reason: Diarrhea Ondansetron Odt [Zofran Odt] 4 mg PO Q8HR PRN #12 tab PRN Reason: Nausea Is patient prescribed a controlled substance at d/c from ED?: No Referrals: Tucker Nieto MD [Primary Care Provider] - 1-2 days Time of Disposition: 15:00
[2018-09-28 11:54] LABS: Basophils % (A) 0 %; Eosinophils # (A) 0.1 k/uL (0-0.7); Eosinophils % (A) 2 %; HCT 48.9 % (39.0-53.0); HGB 15.5 gm/dL (13.0-17.5); Hypochromasia Slight; Lymphocytes # (A) 0.8 k/uL (1.0-4.8); Lymphocytes % (A) 11 %; MCHC 31.8 g/dL (31.0-37.0); MCV 72.2 fL (80.0-100.0); Mean Platelet Volume 8.5; Microcytosis Moderate; Monocytes # (A) 0.3 k/uL (0-1.0); Monocytes % (A) 4 %; Neutrophils # (A) 5.9 k/uL (1.3-7.7); Neutrophils % (A) 83 %; Platelet Count 172 k/uL (150-450); RBC 6.77 m/uL (4.30-5.90); RDW 15.4 % (11.5-15.5); WBC 7.2 k/uL (3.8-10.6)
[2018-09-28 12:32] LABS: Albumin 4.3 g/dL (3.5-5.0); Calcium 10.2 mg/dL (8.4-10.2); Potassium 5.1 mmol/L (3.5-5.1); Total Bilirubin 0.8 mg/dL (0.2-1.3); Total Protein 8.3 g/dL (6.3-8.2)
--- NOTE | 2018-09-28 12:57 | XR ---
Abdomen HISTORY: Vomiting and abdominal pain Frontal view of the abdomen on 2 images Lung bases are clear. There is no evident bowel obstruction or pneumoperitoneum. Degenerative disc ch anges are present in the visualized spine. No pathologic calcification. IMPRESSION: Nonobstructive bowel gas pattern.
[2018-09-28 14:48] LABS: Appearance,Urine Clear (Clear); Bilirubin,Urine Negative (Negative); Blood,Urine Negative (Negative); Calcium Oxalate Crystals,Urine Occasional /hpf; Color,Urine Yellow; Glucose,Urine (UA) 4+ (Negative); Hyaline Casts,Urine 1 /lpf (0-2); Ketones,Urine Negative (Negative); Leukocyte Esterase,Urine Negative (Negative); Mucus,Urine Occasional /hpf; Nitrite,Urine Negative (Negative); PH, Urine 5.5 (5.0-8.0); Protein,Urine 1+ (Negative); Specific Gravity,Urine 1.019 (1.001-1.035); Urobilinogen,Urine <2.0 mg/dL (<2.0); WBC,Urine 1 /hpf (0-5)
[2018-09-28 15:19] VITALS: BP 154/97; PULSE 101; RESP 18; TEMP 97
== END 2018-09-28 15:06 | disposition home or self-care (01) ==
LOC: EC 10:41
DX: K52.9 Noninfective gastroenteritis and colitis, unspecified (principal); J45.909 Unspecified asthma, uncomplicated; E11.40 Type 2 diabetes mellitus with diabetic neuropathy, unspecified; E78.5 Hyperlipidemia, unspecified; I10 Essential (primary) hypertension; F32.9 Major depressive disorder, single episode, unspecified; Z79.4 Long term (current) use of insulin; Z79.899 Other long term (current) drug therapy; Z91.012 Allergy to eggs
CPT/HCPCS: 36415; 80053; 83690; 85025; 81001; 74018; 99284; 96374; 96361; J2405

== ENCOUNTER 2018-11-25 10:16 | Inpatient (IN) | payer MEDICARE, OTHER ==
--- NOTE | 2018-11-25 10:40 | ED ---
General Adult HPI - General Chief complaint: Extremity Problem,Nontraumatic Stated complaint: Toe infection Time Seen by Provider: 11/25/18 10:30 Source: patient, RN notes reviewed Mode of arrival: wheelchair Limitations: no limitations - History of Present Illness Initial comments: Patient 68-year-old male presented to the emergency room today with a chief complaint of increased infection to the right foot. Patient does admit that started approximately a week and a half ago. He does admit that he has had some drainage coming from the right great toe. Patient admits that there is some pain but is a diabetic. Patient admits that his had increased swelling of the foot and calf area. Denies any injury or trauma. Admits to chills. Patient denies any recent fever, shortness of breath, chest pain, back pain, abdominal pain, nausea or vomiting, headaches or visual changes, or any other complaints. - Related Data Home Medications Medication Instructions Recorded Confirmed Atorvastatin [Lipitor] 20 mg PO DAILY 03/28/17 11/25/18 Insulin NPL/Insulin Lispro 45 unit SQ HS 03/28/17 11/25/18 [humaLOG MIX 75-25 VIAL] Insulin NPL/Insulin Lispro 55 unit SQ QAM 03/28/17 11/25/18 [humaLOG MIX 75-25 VIAL] oxyCODONE-APAP 10-325MG [Percocet 1 tab PO Q4-6H PRN 03/28/17 11/25/18 10-325 mg] Liraglutide [Victoza 2-Eugene] 1.8 mg SQ DAILY 09/28/18 11/25/18 Lisinopril 40 mg PO DAILY 09/28/18 11/25/18 amLODIPine [Norvasc] 5 mg PO DAILY 09/28/18 11/25/18 Previous Rx's Medication Instructions Recorded Loperamide HCl [Loperamide] 2 mg PO DAILY PRN #30 capsule 09/28/18 Allergies Allergy/AdvReac Type Severity Reaction Status Date / Time egg Allergy Rash/Hives Verified 11/25/18 12:29 Review of Systems ROS Statement: Those systems with pertinent positive or pertinent negative responses have been documented in the HPI. ROS Other: All systems not noted in ROS Statement are negative. Past Medical History Past Medical History: Asthma, Diabetes Mellitus, Hyperlipidemia, Hypertension, Pneumonia Additional Past Medical History / Comment(s): heart murmur, neuropathy,"i think i had a small bleed behind rt eye" History of Any Multi-Drug Resistant Organisms: None Reported Past Surgical History: Hernia Repair, Orthopedic Surgery, Tonsillectomy Additional Past Surgical History / Comment(s): rt foot Past Anesthesia/Blood Transfusion Reactions: No Reported Reaction Past Psychological History: Depression Smoking Status: Never smoker Past Alcohol Use History: None Reported Past Drug Use History: None Reported - Past Family History Father Family Medical History: No Reported History Additional Family Medical History / Comment(s): Father at age 65 and patient does not know his medical problems. Mother Family Medical History: Rheumatoid Arthritis (RA) Additional Family Medical History / Comment(s): Mother at age 70 with history of rheumatoid arthritis. granmother also had ra Brother(s) Additional Family Medical History / Comment(s): Patient had 2 brothers and one during service and one from stillbirth. Patient does not have any sisters. Patient has 3 sons and 3 daughters with no major medical problems. General Exam - General Exam Comments Initial Comments: General: The patient is awake and alert, in no distress, and does not appear acutely ill. Neck: The neck is supple. Cardiovascular: There is a regular rate and rhythm. No murmur, rub or gallop is appreciated. Respiratory: Lungs are clear to auscultation, respirations are non-labored, breath sounds are equal. No wheezes, stridor, rales, or rhonchi. Musculoskeletal: Normal ROM, no tenderness. Pedal pulses equal bilaterally 2+ . Neurological: A&O x 3. CN II-XII intact, There are no obvious motor or sensory deficits. Coordination appears grossly intact. Speech is normal. Skin: Patient does have increased redness swelling to the left foot up into the right calf. Does have eschar to the distal tip of the right great toe. Some clear drainage coming from the area. There is some white discharge between the first and second digit. Psychiatric: Cooperative, appropriate mood & affect, normal judgment. Limitations: no limitations Course Vital Signs 11/25/18 11/25/18 10:21 13:30 Temperature 98.3 F 98.3 F Pulse Rate 92 72 Respiratory 16 18 Rate Blood Pressure 120/70 142/85 O2 Sat by Pulse 100 97 Oximetry Medical Decision Making - Medical Decision Making Patient's labs been reviewed no elevated white count. Lactic acid negative. Patient does have an infection to the right great toe. X-ray obtained and does show evidence for osteomyelitis. Wound culture is obtained. Patient started on antibiotics of Zosyn, my severe in emergency room. Ultrasound was obtained of the right lower extremity which was negative for any evidence of DVT. Patient has been seen by attending physician Dr. Delong who did discuss with Dr. Domingo who will admit the patient. - Lab Data Result diagrams: 11/25/18 11:01 11/25/18 11:01 Lab Results 11/25/18 11/25/18 11/25/18 Range/Units 11:01 11: 11:01 WBC 7.3 (3.8-10.6) k/uL RBC 5.87 (4.30-5.90) m/uL Hgb 13.3 (13.0-17.5) gm/dL Hct 42.0 (39.0-53.0) % MCV 71.5 L (80.0-100.0) fL MCH 22.6 L (25.0-35.0) pg MCHC 31.6 (31.0-37.0) g/dL RDW 15.1 (11.5-15.5) % Plt Count 285 (150-450) k/uL Neutrophils % 77 % Lymphocytes % 13 % Monocytes % 6 % Eosinophils % 3 % Basophils % 0 % Neutrophils # 5.7 (1.3-7.7) k/uL Lymphocytes # 1.0 (1.0-4.8) k/uL Monocytes # 0.4 (0-1.0) k/uL Eosinophils # 0.2 (0-0.7) k/uL Basophils # 0.0 (0-0.2) k/uL Hypochromasia Slight Microcytosis Moderate Sodium 142 (137-145) mmol/L Potassium 5.7 H (3.5-5.1) mmol/L Chloride 106 (98-107) mmol/L Carbon Dioxide 30 (22-30) mmol/L Anion Gap 6 mmol/L BUN 38 H (9-20) mg/dL Creatinine 1.92 H (0.66-1.25) mg/dL Est GFR (CKD-EPI)AfAm 40 (>60 ml/min/1.73 sqM) Est GFR (CKD-EPI)NonAf 35 (>60 ml/min/1.73 sqM) Glucose 141 H (74-99) mg/dL Plasma Lactic Acid Royce 1.3 (0.7-2.0) mmol/L Calcium 9.5 (8.4-10.2) mg/dL Total Bilirubin 1.0 (0.2-1.3) mg/dL AST 22 (17-59) U/L ALT 18 L (21-72) U/L Alkaline Phosphatase 98 (38-126) U/L Total Protein 7.7 (6.3-8.2) g/dL Albumin 3.8 (3.5-5.0) g/dL Disposition Clinical Impression: Osteomyelitis of toe of right foot Disposition: ADMITTED IP TO THIS HOSP Condition: Stable Is patient prescribed a controlled substance at d/c from ED?: No Referrals: Tucker Nieto MD [Primary Care Provider] - 1-2 days Time of Disposition: 13:41
[2018-11-25 11:21] LABS: Basophils % (A) 0 %; Eosinophils # (A) 0.2 k/uL (0-0.7); Eosinophils % (A) 3 %; HGB 13.3 gm/dL (13.0-17.5); Hypochromasia Slight; Lymphocytes % (A) 13 %; MCH 22.6 pg (25.0-35.0); MCHC 31.6 g/dL (31.0-37.0); MCV 71.5 fL (80.0-100.0); Mean Platelet Volume 6.9; Microcytosis Moderate; Monocytes # (A) 0.4 k/uL (0-1.0); Monocytes % (A) 6 %; Neutrophils # (A) 5.7 k/uL (1.3-7.7); Neutrophils % (A) 77 %; Platelet Count 285 k/uL (150-450); RBC 5.87 m/uL (4.30-5.90); RDW 15.1 % (11.5-15.5); WBC 7.3 k/uL (3.8-10.6)
[2018-11-25 11:31] LABS: Albumin 3.8 g/dL (3.5-5.0); Calcium 9.5 mg/dL (8.4-10.2); Total Protein 7.7 g/dL (6.3-8.2)
[2018-11-25 11:52] LABS: Potassium 5.7 mmol/L (3.5-5.1)
[2018-11-25] MEDS ORDERED: PIPERACILLIN-TAZOBACTAM 3.375 GM in SODIUM CHLORIDE 0.9% 100 ML IVPB STA (12:01)
[2018-11-25] MEDS ORDERED: VANCOMYCIN IV PER PHARMACY 1 EACH MISC MISCELLANE PRN (12:01)
[2018-11-25] MEDS ORDERED: VANCOMYCIN 2,500 MG in SODIUM CHLORIDE 0.9% 500 ML 500 ML IVPB STA (12:12)
--- NOTE | 2018-11-25 12:26 | XR ---
EXAMINATION TYPE: XR foot complete RT , 3 VIEWS DATE OF EXAM ORDERED: 11/25/2018 HISTORY: Infected great toe. COMPARISON: Previous study dated 03/28/2017. FINDINGS: There is destruction of the distal phalanx of the great toe. There are degenerative change s in the right first MTP joint. There are hammertoe deformities of the second through fifth digits. N o fracture or dislocation is seen. IMPRESSION: DESTRUCTIVE LESION OF THE TUFT OF THE DISTAL PHALANX OF THE RIGHT GREAT TOE. THIS WOULD BE COMPATIBLE WITH OSTEOMYELITIS.
--- NOTE | 2018-11-25 12:53 | US ---
EXAMINATION TYPE: US venous doppler duplex LE RT DATE OF EXAM: 11/25/2018 11:59 AM COMPARISON: CLINICAL HISTORY: Pain. No hx of blood clots. No blood thinners. Swelling. SIDE PERFORMED: Right TECHNIQUE: The lower extremity deep venous system is examined utilizing real time linear array sonog cheyanne with graded compression, doppler sonography and color-flow sonography. VESSELS IMAGED: External Iliac Vein (EIV) Common Femoral Vein Deep Femoral Vein Greater Saphenous Vein * Femoral Vein Popliteal Vein Small Saphenous Vein * Proximal Calf Veins (* superficial vessels) Right Leg: Negative for DVT. Possible Lymph node appearing lesion seen in right groin = 5.9 x 2.8 x 1.8 cm No popliteal fossa lesion is seen. IMPRESSION: THIS EXAMINATION IS NEGATIVE FOR DVT WITHIN THE RIGHT LEG.
[2018-11-25] MEDS ORDERED: ONDANSETRON 4 MG/2 ML VIAL IVP PRN (13:51)
[2018-11-25] MEDS ORDERED: ACETAMINOPHEN TAB 325 MG TAB PO PRN (13:51)
[2018-11-25] MEDS ORDERED: MORPHINE SULFATE 4 MG/ML SYRINGE IV PRN (13:51)
[2018-11-25] MEDS ORDERED: NALOXONE 0.4 MG/ML 1 ML VIAL IV PRN (13:51)
[2018-11-25] MEDS ORDERED: HYDROcodone/APAP 5-325MG 1 EACH TAB PO PRN (13:51)
[2018-11-25] MEDS ORDERED: SODIUM CHLORIDE 0.9% 1,000 ML IV ONE (13:51)
[2018-11-25 15:24] VITALS: BMI 38.1
[2018-11-25 17:10] LABS: Glucose,Whole Blood 187 mg/dL (75-99)
[2018-11-25] MEDS: PIPERACILLIN-TAZOBACTAM 3.375 GM in SODIUM CHLORIDE 0.9% 100 ML IVPB SCH (17:54)
[2018-11-25] MEDS: INSULIN ASPART 100 UNIT/ML 1 ML 10 ML VIAL SQ SCH ×2 (17:55→21:06)
[2018-11-25 18:54] LABS: Amorphous Sediment,Urine Rare /hpf; Appearance,Urine Clear (Clear); Bilirubin,Urine Negative (Negative); Blood,Urine Moderate (Negative); Color,Urine Yellow; Glucose,Urine (UA) Negative (Negative); Ketones,Urine Negative (Negative); Leukocyte Esterase,Urine Small (Negative); Mucus,Urine Rare /hpf; Nitrite,Urine Negative (Negative); PH, Urine 5.5 (5.0-8.0); Protein,Urine 2+ (Negative); RBC,Urine 9 /hpf (0-5); Specific Gravity,Urine 1.017 (1.001-1.035); Squamous Epithelial Cell,Urine <1 /hpf (0-4); Urobilinogen,Urine <2.0 mg/dL (<2.0)
[2018-11-25 20:52] LABS: Glucose,Whole Blood 178 mg/dL (75-99)
[2018-11-25] MEDS: INSULN ASP PRT/INSULIN ASPART 100 UNIT/ML 10 ML VIAL SQ SCH (21:06)
[2018-11-25] MEDS ORDERED: LOPERAMIDE 2 MG CAP PO PRN (22:07)
[2018-11-25] MEDS ORDERED: oxyCODONE-APAP 10-325MG 1 EACH TAB PO PRN (22:07)
[2018-11-26] MEDS: PIPERACILLIN-TAZOBACTAM 3.375 GM in SODIUM CHLORIDE 0.9% 100 ML IVPB SCH ×3 (02:00→18:15)
[2018-11-26 07:18] LABS: Glucose,Whole Blood 91 mg/dL (75-99)
[2018-11-26] MEDS: INSULIN ASPART 100 UNIT/ML 1 ML 10 ML VIAL SQ SCH ×4 (08:12→21:26)
[2018-11-26] MEDS: amLODIPine 5 MG TAB PO SCH (08:13)
[2018-11-26] MEDS: INSULN ASP PRT/INSULIN ASPART 100 UNIT/ML 10 ML VIAL SQ SCH ×2 (08:13→21:26)
[2018-11-26] MEDS: ATORVASTATIN 20 MG TAB PO SCH (08:13)
[2018-11-26 09:56] LABS: Basophils % (A) 0 %; Eosinophils # (A) 0.2 k/uL (0-0.7); Eosinophils % (A) 3 %; HCT 36.5 % (39.0-53.0); HGB 11.3 gm/dL (13.0-17.5); Hypochromasia Slight; Lymphocytes % (A) 15 %; MCH 22.6 pg (25.0-35.0); MCHC 31.1 g/dL (31.0-37.0); MCV 72.7 fL (80.0-100.0); Mean Platelet Volume 6.5; Microcytosis Moderate; Monocytes # (A) 0.3 k/uL (0-1.0); Monocytes % (A) 4 %; Neutrophils # (A) 5.1 k/uL (1.3-7.7); Neutrophils % (A) 76 %; Platelet Count 236 k/uL (150-450); RBC 5.02 m/uL (4.30-5.90); RDW 15.2 % (11.5-15.5); WBC 6.7 k/uL (3.8-10.6)
[2018-11-26 09:58] LABS: Albumin 2.8 g/dL (3.5-5.0); C Reactive Protein 63.1 mg/L (<10.0); Calcium 8.9 mg/dL (8.4-10.2); Potassium 4.8 mmol/L (3.5-5.1); Total Bilirubin 0.4 mg/dL (0.2-1.3); Total Protein 6.1 g/dL (6.3-8.2)
--- NOTE | 2018-11-26 10:03 | P.HPIM ---
History of Present Illness H&P Date: 11/26/18 Chief Complaint: draining right great toe 68 years old -Japanese male with past medical history of asthma, type 2 diabetes, hyperlipidemia, hypertension presents with significant pain and drainage in the right great toe patient states he does have been going on for a few weeks. He denies previous infection in the same foot but did have some abscess in the 440 of the right foot a few years back which got treated with antibiotics with no intervention needed. He does admit to increased swelling of his lower extremities. Denies any injury or trauma. He denies any fever or chills. Vitals updated the ER shows a temp of 98.3 pulse 92 respiratory rate 16 blood pressure 120/70. Lactic acid was obtained. Was negative. Labs obtained with no leukocytosis CBC was unremarkable patient does appear to have chronic kidney disease with a creatinine of 1.92, BUN 38,. Glucose 141 potassium 5.7 and repeat labs were ordered. X-ray of the right lower extremity was positive for osteomyelitis of the great toe. Wound culture and blood culture was sent patient was initiated on Zosyn and vancomycin. ID and vascular surgery has been consulted. Review of Systems Constitutional: Denies chills, Denies fever, Denies lethargy, Denies malaise, Denies poor appetite, Denies weakness, Denies weight loss Eyes: denies decreased vision, denies diplopia, denies discharge, denies pain Ears: deny: decreased hearing Ears, nose, mouth and throat: Denies dental pain, Denies headache, Denies nasal discharge, Denies nose pain Cardiovascular: Denies chest pain, Denies decreased exercise tolerance, Denies edema, Denies high blood pressure, Denies irregular heart beat, Denies palpitations, Denies paroxysmal nocturnal dyspnea, Denies rapid heart beat, Denies shortness of breath Respiratory: Denies congestion, Denies cough, Denies cough with sputum, Denies dyspnea, Denies home oxygen, Denies wheezing Gastrointestinal: Denies abdominal pain, Denies change in bowel habits, Denies coffee ground emesis, Denies early satiety, Denies excessive gas, Denies heartburn, Denies hematemesis, Denies hematochezia, Denies loss of appetite, Denies nausea, Denies vomiting Genitourinary: Denies dysuria, Denies flank pain, Denies kidney stones, Denies menorrhagia, Denies urgency, Denies urinary frequency Musculoskeletal: Denies gait dysfunction, Denies limitation of motion, Denies morning stiffness, Denies muscle cramps endorses significant pain and drainage from the right lower extremity Integumentary: Denies rash, endorses draining wound, Denies brittle nails, Denies change in hair/nails, Denies darkening of skin Neurological: Denies balance difficulties, Denies change in speech, Denies double vision, Denies gait dysfunction, Denies loss of vision, Denies motor disturbance, Denies numbness, Denies paralysis, Denies paresthesias, Denies seizures Psychiatric: Denies anxiety, Denies depression Endocrine: Denies excessive sweating, Denies excessive thirst, Denies high blood sugars, Denies palpitations Hematologic/Lymphatic: Denies easy bruising, Denies lymphadenopathy Past Medical History Past Medical History: Asthma, Diabetes Mellitus, Hyperlipidemia, Hypertension, Pneumonia Additional Past Medical History / Comment(s): heart murmur, neuropathy,"i think i had a small bleed behind rt eye" History of Any Multi-Drug Resistant Organisms: None Reported Past Surgical History: Hernia Repair, Orthopedic Surgery, Tonsillectomy Additional Past Surgical History / Comment(s): rt foot Past Anesthesia/Blood Transfusion Reactions: No Reported Reaction Past Psychological History: Depression Smoking Status: Never smoker Past Alcohol Use History: None Reported Additional Past Alcohol Use History / Comment(s): Patient is a lifelong nonsmoker. He denies any medical marijuana, marijuana, street drug or alcohol use. He states he stopped drinking alcohol 28 years ago. Past Drug Use History: None Reported - Past Family History Father Family Medical History: No Reported History Additional Family Medical History / Comment(s): Father at age 65 and patient does not know his medical problems. Mother Family Medical History: Diabetes Mellitus, Rheumatoid Arthritis (RA) Additional Family Medical History / Comment(s): Mother at age 70 with history of rheumatoid arthritis. granmother also had ra Brother(s) Additional Family Medical History / Comment(s): Patient had 2 brothers and one during service and one from stillbirth. Patient does not have any sisters. Patient has 3 sons and 3 daughters with no major medical problems. Medications and Allergies Home Medications Medication Instructions Recorded Confirmed Type Atorvastatin [Lipitor] 20 mg PO DAILY 03/28/17 11/25/18 History Insulin NPL/Insulin Lispro 45 unit SQ HS 03/28/17 11/25/18 History [humaLOG MIX 75-25 VIAL] Insulin NPL/Insulin Lispro 55 unit SQ QAM 03/28/17 11/25/18 History [humaLOG MIX 75-25 VIAL] oxyCODONE-APAP 10-325MG [Percocet 1 tab PO Q4-6H PRN 03/28/17 11/25/18 History 10-325 mg] Liraglutide [Victoza 2-Eugene] 1.8 mg SQ DAILY 09/28/18 11/25/18 History Lisinopril 40 mg PO DAILY 09/28/18 11/25/18 History Loperamide HCl [Loperamide] 2 mg PO DAILY PRN #30 capsule 09/28/18 11/25/18 Rx amLODIPine [Norvasc] 5 mg PO DAILY 09/28/18 11/25/18 History Allergies Allergy/AdvReac Type Severity Reaction Status Date / Time egg Allergy Rash/Hives Verified 11/25/18 12:29 Physical Exam Vitals: Vital Signs Temp Pulse Pulse Resp BP BP Pulse Ox 11/26/18 07:00 98.0 F 77 16 156/81 99 11/25/18 23:00 98.3 F 80 18 149/60 98 11/25/18 15:23 97.3 F L 78 16 147/88 98 11/25/18 14:44 98.3 F 79 18 138/92 100 11/25/18 13:30 98.3 F 72 18 142/85 97 11/25/18 10:21 98.3 F 92 16 120/70 100 Intake and Output 11/25/18 11/26/18 11/26/18 22:59 06:59 14:59 Other: # Voids 2 Weight 131.088 kg - Constitutional General appearance: cooperative, no acute distress, obese - EENT Eyes: anicteric sclerae, PERRLA, normal appearance with slight blurry vision with evidence of cataract in both eyes ENT: hearing grossly normal - Neck Neck: no lymphadenopathy, normal ROM, no other, no rigidity, no stridor, no thyromegaly - Respiratory Respiratory: bilateral: CTA, negative: diminished, dullness, rales, rhonchi - Cardiovascular Rhythm: regular Heart sounds: normal: S1, S2 Abnormal Heart Sounds: no systolic murmur, no diastolic murmur, no rub, no S3 Gallop, no S4 Gallop, no click, no other - Gastrointestinal General gastrointestinal: normal bowel sounds, soft - Integumentary Integumentary: 5x 5 cm draining skin ulcer with granulomatous base with purulant drainage involving the tip of the great toe - Neurologic Neurologic: CNII-XII intact - Musculoskeletal Musculoskeletal: gait normal, strength equal bilaterally - Psychiatric Psychiatric: A&O x's 3, appropriate affect Results CBC & Chem 7: 11/25/18 11:11/25/18 11:01 Labs: Abnormal Lab Results - Last 24 Hours (Table) 11/25/18 11/25/18 11/25/18 Range/Units 11: 11: 17:08 MCV 71.5 L (80.0-100.0) fL MCH 22.6 L (25.0-35.0) pg Potassium 5.7 H (3.5-5.1) mmol/L BUN 38 H (9-20) mg/dL Creatinine 1.92 H (0.66-1.25) mg/dL Glucose 141 H (74-99) mg/dL POC Glucose (mg/dL) 187 H (75-99) mg/dL ALT 18 L (21-72) U/L Urine Protein (Negative) Urine Blood (Negative) Ur Leukocyte Esterase (Negative) Urine RBC (0-5) /hpf Urine WBC (0-5) /hpf Urine WBC Clumps (None) /hpf Amorphous Sediment (None) /hpf Urine Mucus (None) /hpf 11/25/18 11/25/18 Range/Units 18:30 20:41 MCV (80.0-100.0) fL MCH (25.0-35.0) pg Potassium (3.5-5.1) mmol/L BUN (9-20) mg/dL Creatinine (0.66-1.25) mg/dL Glucose (74-99) mg/dL POC Glucose (mg/dL) 178 H (75-99) mg/dL ALT (21-72) U/L Urine Protein 2+ H (Negative) Urine Blood Moderate H (Negative) Ur Leukocyte Esterase Small H (Negative) Urine RBC 9 H (0-5) /hpf Urine WBC 11 H (0-5) /hpf Urine WBC Clumps Rare H (None) /hpf Amorphous Sediment Rare H (None) /hpf Urine Mucus Rare H (None) /hpf Microbiology - Last 24 Hours (Table) 11/25/18 11:50 Gram Stain - Preliminary Toe - Right First Wound Culture - Preliminary Presumptive MRSA Thrombosis Risk Factor Assmnt - DVT/VTE Prophylaxis DVT/VTE Prophylaxis: Pharmacologic Prophylaxis ordered - Choose All That Apply Each Risk Factor Represents 2 Points: Age 61-74 years Each Risk Factor Represents 3 Points: Family history of DVT/PE Thrombosis Risk Factor Assessment Total Risk Factor Score: 5 Thrombosis Risk Factor Assessment Level: High Risk Assessment and Plan Plan: #1 osteomyelitis of the right foot wound culture sent. Blood cultures ordered. Continue patient on vancomycin and Zosyn. Infectious disease consulted. Vascular surgery consulted for possible debridement.ESR CRP pending. Repeat labs pending. #2 Type 2 diabetes insulin-dependent. HbA1c pending. Continue patient on NPH 75/25 55 units in a.m. and 40 units at bedtime. Hold Victoza while in the hospital. Continue glucose checks before meals and at bedtime #3 chronic kidney disease stage III creatinine at baseline continue to monitor CMP. Avoid nephrotoxic agents. Watch vancomycin trough levels pharmacy to dose vancomycin #4 bilateral lower extremity edema. No history of CHF. Echocardiogram ordered. No shortness of breath concerning for acute exacerbation. Monitor KODY was. Daily weights #5 hyperlipidemia continue Lipitor 20 mg by mouth daily #6 hypertension continue Norvasc 5 mg by mouth daily . #7 DVT prophylaxis with heparin every 12 #8 GI prophylaxis with Pepcid 20 daily CODE STATUS full code
[2018-11-26] MEDS ORDERED: LIDOCAINE 1% INJ 10MG/ML (20 ML MDV) SQ ONE (11:58)
[2018-11-26 12:06] LABS: Erythrocyte Sedimentation Rate 31 mm/hr (0-15)
[2018-11-26 12:13] LABS: Hemoglobin A1C 8.1 % (4.0-6.0)
--- NOTE | 2018-11-26 12:18 | PCN ---
PROCEDURE NOTE PREOPERATIVE DIAGNOSIS: Right foot chronic wound with possible osteo. OPERATION: Excision of the necrotic skin, right foot big toe. Patient was seen in the room, right foot was prepped and draped in a sterile manner and 1% lidocaine was infiltrated. Using a knife, we excised the necrotic skin down to subcutaneous tissue. No active bleeding was noted. Wound was irrigated with saline and dressing applied. Post wound debridement measurement is 1 x 2 cm. We will continue with local wound care. MMODL / IJN: [id number] /
--- NOTE | 2018-11-26 12:18 | CONS ---
CONSULTATION This is a 68-year-old male who has been admitted with the right foot, big toe wound, chronic wound of 2 weeks' duration. No history of trauma. Patient had a foot x-ray which showed osteo of the big toe. Patient is on Zosyn and vancomycin. MEDICAL HISTORY: History of diabetes, history of asthma, history of hypertension. On examination, neck is supple. No bruit appreciated. Chest is clear to auscultation. Abdomen is soft, femorals are palpable, DP not palpable. Foot is warm. The right foot big toe has at the tip of the big toe, there is a skin necrosis with some slight redness noted on around the wound area. Patient had a culture done which showed positive possible MRSA. PLAN: Wound debridement and will do a deep culture. Continue with IV antibiotic and local wound care. Will follow with you. MMODL / IJN: [id number] /
[2018-11-26 12:39] LABS: Glucose,Whole Blood 52 mg/dL (75-99)
[2018-11-26 12:59] LABS: Glucose,Whole Blood 67 mg/dL (75-99)
[2018-11-26] MEDS ORDERED: VANCOMYCIN 2,500 MG in SODIUM CHLORIDE 0.9% 500 ML IVPB SCH (13:00)
[2018-11-26 13:03] LABS: Glucose,Whole Blood 80 mg/dL (75-99)
[2018-11-26 16:57] LABS: Glucose,Whole Blood 173 mg/dL (75-99)
--- NOTE | 2018-11-26 17:11 | ECHOF ---
Referral Reason:LE edema MEASUREMENTS -------- HEIGHT: 185.4 cm WEIGHT: 131.1 kg BP: 156/81 IVSd: 1.4 cm (0.6 - 1.1) LVIDd: 4.5 cm (3.9 - 5.3) LVPWd: 1.4 cm (0.6 - 1.1) IVSs: 1.9 cm LVIDs: 3.1 cm LVPWs: 1.9 cm LA Diam: 3.9 cm (2.7 - 3.8) RVIDd: 3.3 cm (< 3.3) LAESV Index (A-L): 26.22 ml/m Ao Diam: 4.5 cm (2.0 - 3.7) AV Cusp: 2.6 cm (1.5 - 2.6) EPSS: 0.7 cm MV E Kareem: 0.91 m/s MV DecT: 184 ms MV A Kareem: 0.85 m/s MV E/A Ratio: 1.07 MV EF SLOPE: 32.48 mm/s (70 - 150) MV EXCURSION: 12.49 mm (> 18.000) FINDINGS -------- Sinus rhythm. This was a technically adequate study. The left ventricular size is normal. There is moderate concentric left ventricular hypertrophy. O verall left ventricular systolic function is normal with, an EF between 60 - 65 %. The right ventricle is mildly enlarged. Normal LA size by volume 22+/-6 ml/m2. The right atrium is normal in size. The aortic valve is trileaflet and appears structurally normal. The mitral valve is normal. The tricuspid valve appears structurally normal. Trace/mild (physiologic) pulmonic regurgitation. The aortic root is dilated measuring 4.5cm. The inferior vena cava is mildly dilated. There is no pericardial effusion. CONCLUSIONS -------- 1. Sinus rhythm. 2. This was a technically adequate study. 3. The left ventricular size is normal. 4. There is moderate concentric left ventricular hypertrophy. 5. Overall left ventricular systolic function is normal with, an EF between 60 - 65 %. 6. The right ventricle is mildly enlarged. 7. Normal LA size by volume 22+/-6 ml/m2. 8. The right atrium is normal in size. 9. The aortic valve is trileaflet and appears structurally normal. 10. The mitral valve is normal. 11. The tricuspid valve appears structurally normal. 12. Trace/mild (physiologic) pulmonic regurgitation. 13. The aortic root is dilated measuring 4.5cm. 14. The inferior vena cava is mildly dilated. 15. There is no pericardial effusion. [employer] SUPERVISOR: Deborah Phillips RDCS
[2018-11-26] MEDS ORDERED: DAPTOmycin 500 MG in SODIUM CHLORIDE 0.9% 50 ML IVPB SCH (20:00)
[2018-11-26] MEDS ORDERED: PIPERACILLIN-TAZOBACTAM 3.375 GM in SODIUM CHLORIDE 0.9% 100 ML IVPB SCH (21:00)
[2018-11-26] MEDS: HEPARIN SODIUM,PORCINE 5,000 UNIT/ML 1 ML VIAL SQ SCH (21:27)
[2018-11-26 21:34] LABS: Glucose,Whole Blood 170 mg/dL (75-99)
[2018-11-26] MEDS ORDERED: VANCOMYCIN IV PER PHARMACY 1 EACH MISC MISCELLANE PRN (21:53)
--- NOTE | 2018-11-27 00:06 | CONS ---
CONSULTATION DATE OF SERVICE: 11/26/2018 REASON FOR CONSULTATION: Right diabetic toe osteomyelitis. HISTORY OF PRESENT ILLNESS: The patient is a 68-year-old -[place] male, well known to my service, with a previous history of diabetic foot infection, presenting to the ER at [facility] last night with the chief complaints of pain and swelling and redness of his right big toe. The patient was started on antibiotic about 2 weeks ago, and his big toenail was kind of coming off. The patient did not recall any history of any trauma. Subsequently the area was becoming more swollen and red and painful. Pain was described to be throbbing, 6 to 7 out of 10, and no radiation. The patient says he did not have any way to to be brought into the ER and did not want to call the EMS. The patient was evaluated by the ER physician. On presentation to the hospital, the patient did have x-rays of the right great toe which showed destructive lesion of the tuft of the distal phalanx of the great toe, compatible with osteomyelitis. Subsequently the patient was admitted to hospital. He was started on vancomycin and Zosyn. Vascular Surgery saw the patient this morning and he is status post debridement of the necrotic end of the right big toe at the bedside. The patient tolerated the procedure. The patient denies having any chest pain or shortness of breath or cough. No abdominal pain or any diarrhea. REVIEW OF SYSTEMS: Positive points have been mentioned in the HPI. Rest of 14 systems has been negative. PAST MEDICAL HISTORY: 1. Previous history of right foot osteomyelitis. 2. Hypertension. 3. Hyperlipidemia. 4. Diabetes mellitus. PAST SURGICAL HISTORY: 1. Right foot surgery. 2. Hernia repair. SOCIAL HISTORY: No history of smoking, drinking or drug use. FAMILY HISTORY: No pertinent findings noticed. ALLERGIES: NO KNOWN DRUG ALLERGIES. CURRENT MEDICATIONS: 1. Vancomycin, Pharmacy to dose. 2. Tylenol. 3. [place]. 4. Norvasc. 5. Lipitor. 6. Heparin. 7. NovoLog. 8. Imodium. 9. Morphine. 10.Narcan. 11.Zofran. 12.Zosyn. PHYSICAL EXAMINATION: Blood pressure is 158/84 with a pulse of 76, temperature 97.8. He is 99% on room air. General description is an elderly male lying in bed in no distress. No tachypnea or accessory muscle of respiration use. HEENT examination shows slight pallor. No scleral icterus. Oral mucous membrane is dry. No pharyngeal erythema or thrush. NECK: Trachea is central. No thyromegaly. LUNGS: Unlabored breathing. Clear to auscultation anteriorly. No wheeze or crackle. HEART: S1, S2. Regular rate and rhythm. No murmur ABDOMEN: Soft. No tenderness. No guarding or rigidity. EXTREMITIES: No edema of the feet. The right foot big toe wound is currently dressed up. Minimal blood-stained drainage on the dressing. Dressing was not taken off, as the patient just has have surgery before my evaluation. Neurologically patient is awake, alert, oriented x3. Mood and affect normal. LABS: Hemoglobin 11.3, white count 6.7, BUN of 34, creatinine 1.88. Creatinine was 1.92 yesterday. CRP 63.1. UA has been negative. X-rays of the foot show destructive changes at the right big toe distal phalanx. DIAGNOSTIC IMPRESSION AND PLAN: Patient with right diabetic foot infection, Manjeet's grade 3, in this patient who did have osteomyelitis of the right distal phalanx on plain x-rays. This patient did have previous history of diabetic foot infection with culture showing presumptive MRSA, likely the infecting pathogen, with no evidence of any gram-negative, though he did have previous history of pseudomonas and Proteus mirabilis infections. Blood culture has been negative so far. PLAN: 1. Vancomycin, Pharmacy to dose. Target trough trough of 15, while watching his kidney function and blood culture closely. 2. Blood cultures have been obtained that was followed as well as tissue cultures done today. 3. The patient will likely need a PICC line for outpatient IV antibiotic therapy , discharge antibiotics to be determined on the basis of the deep tissue cultures. 4. We will follow up on his clinical condition and cultures to further adjust medication if needed. Thank you for this consultation. Will follow this patient along with you. MMODL / IJN: [id number] / RACHEL
[2018-11-27] MEDS: INSULIN ASPART 100 UNIT/ML 1 ML 10 ML VIAL SQ SCH ×4 (07:40→21:00)
[2018-11-27] MEDS: amLODIPine 5 MG TAB PO SCH (08:09)
[2018-11-27] MEDS: ATORVASTATIN 20 MG TAB PO SCH (08:09)
[2018-11-27] MEDS: HEPARIN SODIUM,PORCINE 5,000 UNIT/ML 1 ML VIAL SQ SCH ×2 (08:09→20:59)
[2018-11-27 08:12] LABS: Glucose,Whole Blood 109 mg/dL (75-99)
[2018-11-27 08:12] LABS: Glucose,Whole Blood 64 mg/dL (75-99)
[2018-11-27 08:12] LABS: Glucose,Whole Blood 62 mg/dL (75-99)
[2018-11-27 10:12] LABS: Glucose,Whole Blood 156 mg/dL (75-99)
[2018-11-27] MEDS: INSULN ASP PRT/INSULIN ASPART 100 UNIT/ML 10 ML VIAL SQ SCH (10:17)
[2018-11-27 12:52] LABS: Glucose,Whole Blood 114 mg/dL (75-99)
[2018-11-27] MEDS ORDERED: VANCOMYCIN 2,500 MG in SODIUM CHLORIDE 0.9% 500 ML IVPB SCH (13:00)
--- NOTE | 2018-11-27 14:21 | P.PN ---
Subjective Progress Note Date: 11/27/18 68 years old -[place] male with past medical history of asthma, type 2 diabetes, hyperlipidemia, hypertension presents with significant pain and drainage in the right great toe patient states he does have been going on for a few weeks. He denies previous infection in the same foot but did have some abscess in the 440 of the right foot a few years back which got treated with antibiotics with no intervention needed. He does admit to increased swelling of his lower extremities. Denies any injury or trauma. He denies any fever or chills. Vitals updated the ER shows a temp of 98.3 pulse 92 respiratory rate 16 blood pressure 120/70. Lactic acid was obtained. Was negative. Labs obtained with no leukocytosis CBC was unremarkable patient does appear to have chronic kidney disease with a creatinine of 1.92, BUN 38,. Glucose 141 potassium 5.7 and repeat labs were ordered. X-ray of the right lower extremity was positive for osteomyelitis of the great toe. Wound culture and blood culture was sent patient was initiated on Zosyn and vancomycin. ID and vascular surgery has been consulted. 11/27: Culture showing no growth after 48 hours and wound culture is positive for MRSA. He is currently on vancomycin. Blood sugars running 109-156 but was low this morning at 62. Insulin will be adjusted at bedtime to 30 units. He has ordered for 55 units this morning but only received 40 units per his request. He has been afebrile, pulse ox 99% on room air, blood pressure 158/79 , heart rate running in the 70s. Dr. Salcedo as performed I&D. Dr. Mims is following. The client will be ordered with possible discharge home tomorrow. Review of Systems Constitutional: Denies chills, Denies fever, Denies lethargy, Denies malaise, Denies poor appetite, Denies weakness Eyes: denies decreased vision, denies diplopia, denies discharge, denies pain Ears: deny: decreased hearing Ears, nose, mouth and throat: Denies dental pain, Denies headache, Denies nasal discharge, Denies nose pain Cardiovascular: Denies chest pain, Denies decreased exercise tolerance, Denies edema, Denies high blood pressure, Denies irregular heart beat, Denies palpitations, Denies paroxysmal nocturnal dyspnea, Denies rapid heart beat, Denies shortness of breath Respiratory: Denies congestion, Denies cough, Denies cough with sputum, Denies dyspnea, Denies home oxygen, Denies wheezing Gastrointestinal: Denies abdominal pain, Denies change in bowel habits, Denies coffee ground emesis, Denies early satiety, Denies excessive gas, Denies heartburn, Denies hematemesis, Denies hematochezia, Denies loss of appetite, Denies nausea, Denies vomiting Genitourinary: Denies dysuria, Denies flank pain, Denies kidney stones, Denies menorrhagia, Denies urgency, Denies urinary frequency Musculoskeletal: Denies gait dysfunction, Denies limitation of motion, Denies morning stiffness, Denies muscle cramps endorses significant pain and drainage from the right lower extremity Integumentary: Denies rash, endorses draining wound, Denies brittle nails, Denies change in hair/nails, Denies darkening of skin Neurological: Denies balance difficulties, Denies change in speech, Denies double vision, Denies gait dysfunction, Denies loss of vision, Denies motor disturbance, Denies numbness, Denies paralysis, Denies paresthesias, Denies seizures Psychiatric: Denies anxiety, Denies depression Endocrine: Denies excessive sweating, Denies excessive thirst, Denies high blood sugars, Denies palpitations Hematologic/Lymphatic: Denies easy bruising, Denies lymphadenopathy Objective - Vital Signs Vital signs: Vital Signs Temp 97.7 F 11/27/18 07:35 Pulse 75 11/27/18 07:35 Resp 18 11/27/18 07:35 BP 158/79 11/27/18 07:35 Pulse Ox 99 11/27/18 07:35 Intake & Output 11/26/18 11/27/18 11/27/18 18:59 06:59 18:59 Intake Total 200 Output Total 500 Balance -300 Weight 131 kg 130 kg Intake: Oral 200 Output: Urine 500 Other: # Voids 3 2 - Exam General appearance: cooperative, no acute distress, obese - EENT Eyes: anicteric sclerae, PERRLA, normal appearance with slight blurry vision with evidence of cataract in both eyes ENT: hearing grossly normal - Neck Neck: no lymphadenopathy, normal ROM, no other, no rigidity, no stridor, no thyromegaly - Respiratory Respiratory: bilateral: CTA, negative: diminished, dullness, rales, rhonchi - Cardiovascular Rhythm: regular Heart sounds: normal: S1, S2 Abnormal Heart Sounds: no systolic murmur, no diastolic murmur, no rub, no S3 Gallop, no S4 Gallop, no click, no other - Gastrointestinal General gastrointestinal: normal bowel sounds, soft - Integumentary Integumentary: 5x 5 cm draining skin ulcer with granulomatous base with purulant drainage involving the tip of the great toe--dressing in place and was not removed for evaluation. - Neurologic Neurologic: CNII-XII intact - Musculoskeletal Musculoskeletal: gait normal, strength equal bilaterally - Psychiatric Psychiatric: A&O x's 3, appropriate affect - Labs CBC & Chem 7: 11/26/18 09:14 11/26/18 09:14 Labs: Abnormal Lab Results - Last 24 Hours (Table) 11/25/18 11/26/18 11/26/18 Range/Units 11:01 09:14 12:19 ESR 31 H (0-15) mm/hr POC Glucose (mg/dL) 52 L (75-99) mg/dL Hemoglobin A1c 8.1 H (4.0-6.0) % 11/26/18 11/26/18 11/26/18 Range/Units 12:44 16:55 21:18 ESR (0-15) mm/hr POC Glucose (mg/dL) 67 L 173 H 170 H (75-99) mg/dL Hemoglobin A1c (4.0-6.0) % 11/27/18 11/27/18 11/27/18 Range/Units 07:34 07:52 08:08 ESR (0-15) mm/hr POC Glucose (mg/dL) 64 L 62 L 109 H (75-99) mg/dL Hemoglobin A1c (4.0-6.0) % 11/27/18 Range/Units 10:10 ESR (0-15) mm/hr POC Glucose (mg/dL) 156 H (75-99) mg/dL Hemoglobin A1c (4.0-6.0) % Microbiology - Last 24 Hours (Table) 11/25/18 11:50 Gram Stain - Final Toe - Right First Wound Culture - Final Methicillin resist S. aureus 11/26/18 12:15 Gram Stain - Preliminary Toe - Right First Tissue Culture - Preliminary Presumptive Staph aureus 11/25/18 11:01 Blood Culture - Preliminary Blood No Growth after 24 hours 11/25/18 18:30 Urine Culture - Preliminary Urine,Clean Catch Assessment and Plan Plan: #1 osteomyelitis of the right foot wound culture sent. Blood cultures ordered. Continue patient on vancomycin and Zosyn. Infectious disease consulted. Dr. Salcedo has provided I&D. PICC line ordered. #2 Type 2 diabetes insulin-dependent. HbA1c pending. Continue patient on NPH 75/25 55 units in a.m. and 40 units at bedtime. Hold Victoza while in the hospital. Continue glucose checks before meals and at bedtime #3 chronic kidney disease stage III creatinine at baseline continue to monitor CMP. Avoid nephrotoxic agents. Watch vancomycin trough levels pharmacy to dose vancomycin #4 bilateral lower extremity edema. No history of CHF. Echocardiogram ordered. No shortness of breath concerning for acute exacerbation. Monitor KODY was. Daily weights #5 hyperlipidemia continue Lipitor 20 mg by mouth daily #6 hypertension continue Norvasc 5 mg by mouth daily . #7 DVT prophylaxis with heparin every 12 #8 GI prophylaxis with Pepcid 20 daily CODE STATUS full code Discharge plan: Home with [facility] on Monday. Impression and plan of care have been directed as dictated by the signing physician. Ro King nurse practitioner acting as scribe for signing physician.
[2018-11-27 17:44] LABS: Glucose,Whole Blood 119 mg/dL (75-99)
[2018-11-27 20:58] LABS: Glucose,Whole Blood 193 mg/dL (75-99)
[2018-11-27] MEDS ORDERED: INSULN ASP PRT/INSULIN ASPART 100 UNIT/ML 10 ML VIAL SQ SCH (21:00)
--- NOTE | 2018-11-28 00:52 | PN ---
PROGRESS NOTE DATE OF SERVICE: 11/27/2018. REASON FOR FOLLOWUP: Right big toe osteomyelitis and MRSA. INTERVAL HISTORY: The patient is currently afebrile. He is breathing comfortably. Denies any chest pain or shortness of breath. No cough, abdominal pain, or any pain to the right big toe area. PHYSICAL EXAMINATION: Blood pressure 167/91 with a pulse of 83, temperature 98.4. He is 99% on room air. GENERAL DESCRIPTION: An elderly male lying in bed in no distress. RESPIRATORY SYSTEM: Unlabored breathing. Clear to auscultation anteriorly. HEART: S1, S2. Regular rate and rhythm. EXTREMITIES: Right big toe with wound. Minimal surrounding swelling. No drainage. DIAGNOSTIC IMPRESSION AND PLAN: Patient with acute right big toe MRSA Osteomyelitis in a patient with underlying diabetes mellitus. The patient will be getting a PICC line for outpatient IV antibiotic therapy. In view of borderline kidney function and high risk of nephrotoxicity. The patient will be transitioned to daptomycin for the duration. Once antibiotics have been arranged can go home from ID standpoint. Continue supportive care. MMODL / IJN: [id number] / RACHEL
[2018-11-28 08:10] LABS: Glucose,Whole Blood 69 mg/dL (75-99)
[2018-11-28] MEDS: INSULIN ASPART 100 UNIT/ML 1 ML 10 ML VIAL SQ SCH ×2 (08:15→11:45)
[2018-11-28 08:28] LABS: Glucose,Whole Blood 83 mg/dL (75-99)
[2018-11-28 08:50] LABS: HCT 39.7 % (39.0-53.0); HGB 12.6 gm/dL (13.0-17.5); Hypochromasia Slight; MCH 22.8 pg (25.0-35.0); MCHC 31.8 g/dL (31.0-37.0); MCV 71.6 fL (80.0-100.0); Mean Platelet Volume 6.9; Microcytosis Moderate; Platelet Count 279 k/uL (150-450); RBC 5.54 m/uL (4.30-5.90); RDW 15.1 % (11.5-15.5); WBC 6.3 k/uL (3.8-10.6)
[2018-11-28] MEDS: ATORVASTATIN 20 MG TAB PO SCH (08:50)
[2018-11-28] MEDS: amLODIPine 5 MG TAB PO SCH (08:50)
[2018-11-28 08:51] VITALS: BP 153/86; PULSE 83; RESP 16; TEMP 98.6
[2018-11-28 09:14] LABS: Calcium 9.1 mg/dL (8.4-10.2)
--- NOTE | 2018-11-28 09:20 | PN ---
PROGRESS NOTE This is a 68-year-old gentleman who had a right big toe chronic wound. We did a debridement. Patient has been treated with local wound care and IV antibiotics. X-ray of the foot shows the destructive changes, possible osteo. We have been treating with Aquacel Silver. PLAN: Patient to have a PICC line today and to start on IV antibiotic. I will follow in the [facility]ound Clinic this Monday. MMODL / IJN: [id number] /
[2018-11-28] MEDS ORDERED: LIDOCAINE 1% INJ 10MG/ML (20 ML MDV) ONE (10:45)
--- NOTE | 2018-11-28 10:50 | CDI ---
Documentation Clarification Form Date: 11/28/2018 10:16:39 AM From: Ruth Foster RN, CCDS Admit Date: 11/25/2018 1:54:00 PM Patient Name: Tex Jones Visit Number: [id number] Discharge Date: ATTENTION: The Clinical Documentation Specialists (CDI) and [facility] Coding Staff appreciate your assistance in clarifying documentation. Please respond to the clarification below the line at the bottom and electronically sign. The CDI & [facility] Coding staff will review the response and follow-up if needed. Please note: Queries are made part of the Legal Health Record. If you have any questions, please contact the author of this message via ITS. Dr. Angelina Mims Osteomyelitis has been documented the ED evaluation, H&P and your consult. History/Risk Factors: Asthma, Diabetes Mellitus, Hypertension Clinical Indicators: Presented with complaint of increased infection to the right great toe. Patient admits that it started approximately a week and a half ago. Patient has eschar to the distal tip of the right great toe with purulent drainage involving the tip of the great toe. Labs: WBC 7.3 CR 1.92, Lactic acid 1.3 X-Ray Results: Destructive lesion of the tuft of the distal phalanx of the right great toe. This would be compatible with osteomyelitis Treatment: Wound culture: MRSA Blood culture: No growth after 48 hours Vancomycin IV (Change to Daptomycin IV) Zosyn IV (DC) ID consult: Right diabetic foot infection Manjeet's grade 3 in this patient who did have osteomyelitis of the right mid and distal phalanx presumptive MRSA Vascular consult: Excision and debridement of necrotic skin right foot big toe In your professional opinion, please specify the acuity of the Osteomyelitis: Acute Osteomyelitis Chronic Osteomyelitis Subacute Osteomyelitis Unable to Determine Associated condition (if applicable): Diabetic Major osseous defect (specify site) Other (please specify): (Last Revision: August 2017) Acute right big toe osteomyelitis and MRSA with underlying diabetes mellitus MTDD
[2018-11-28] MEDS ORDERED: LIDOCAINE 1% INJ 10MG/ML (20 ML MDV) SQ ONE (11:12)
[2018-11-28] MEDS: HEPARIN SODIUM,PORCINE 5,000 UNIT/ML 1 ML VIAL SQ SCH (11:34)
[2018-11-28] MEDS: INSULN ASP PRT/INSULIN ASPART 100 UNIT/ML 10 ML VIAL SQ SCH (11:34)
[2018-11-28 11:36] LABS: Glucose,Whole Blood 173 mg/dL (75-99)
--- NOTE | 2018-11-28 14:03 | P.DS ---
Providers Date of admission: 11/25/18 13:54 Expected date of discharge: 11/28/18 Attending physician: Luz Domingo Consults: 11/25/18 22:32 Consult Physician Routine Consulting Provider: Angelina Mims Consult Reason/Comments: osteomlyelitis Do you want consulting provider notified?: Yes, Notify in am 11/26/18 08:06 Consult Physician Routine Consulting Provider: Olman Salcedo Consult Reason/Comments: right great toe ulcer Do you want consulting provider notified?: Yes Primary care physician: [place] [facility] Course: 68 years old -[place] male with past medical history of asthma, type 2 diabetes, hyperlipidemia, hypertension presents with significant pain and drainage in the right great toe patient states he does have been going on for a few weeks. He denies previous infection in the same foot but did have some abscess in the 440 of the right foot a few years back which got treated with antibiotics with no intervention needed. He does admit to increased swelling of his lower extremities. Denies any injury or trauma. He denies any fever or chills. Vitals updated the ER shows a temp of 98.3 pulse 92 respiratory rate 16 blood pressure 120/70. Lactic acid was obtained. Was negative. Labs obtained with no leukocytosis CBC was unremarkable patient does appear to have chronic kidney disease with a creatinine of 1.92, BUN 38,. Glucose 141 potassium 5.7 and repeat labs were ordered. X-ray of the right lower extremity was positive for osteomyelitis of the great toe. Wound culture and blood culture was sent patient was initiated on Zosyn and vancomycin. ID and vascular surgery has been consulted. 11/27: Culture showing no growth after 48 hours and wound culture is positive for MRSA. He is currently on vancomycin. Blood sugars running 109-156 but was low this morning at 62. Insulin will be adjusted at bedtime to 30 units. He has ordered for 55 units this morning but only received 40 units per his request. He has been afebrile, pulse ox 99% on room air, blood pressure 158/79 , heart rate running in the 70s. Dr. Salcedo as performed I&D. Dr. Mims is following. The client will be ordered with possible discharge home tomorrow. 11/28: Blood sugar was again low this morning and nighttime insulin will be decreased and plan to continue the decreased amount at home. White count was 6.3, BUN 29 creatinine 1.7 to Patient is followed by Dr. Salcedo in the wound center. Dr. Mims has ordered daptomycin for home. Patient will be discharged home today in stable condition. Discharge diagnoses: #1 acute osteomyelitis of the right foot #2 Type 2 diabetes insulin-dependent, uncontrolled with hypoglycemia. HbA1c 8.1. #3 chronic kidney disease stage III #4 bilateral lower extremity edema. No history of CHF. #5 hyperlipidemia #6 hypertension Discharge plan: Home with [facility] and [facility] Impression and plan of care have been directed as dictated by the signing physician. Ro King nurse practitioner acting as scribe for signing physician. Patient Condition at Discharge: Good Plan - Discharge Summary Discharge Rx Participant: No New Discharge Prescriptions: New DAPTOmycin [Daptomycin] 800 mg IV DAILY #40 vial Continue oxyCODONE-APAP 10-325MG [Percocet 10-325 mg] 1 tab PO Q4-6H PRN PRN Reason: Pain amLODIPine [Norvasc] 5 mg PO DAILY Liraglutide [Victoza 2-Eugene] 1.8 mg SQ DAILY Lisinopril 40 mg PO DAILY Loperamide HCl [Loperamide] 2 mg PO DAILY PRN #30 capsule PRN Reason: Diarrhea Changed Insulin NPL/Insulin Lispro [humaLOG MIX 75-25 VIAL] 25 unit SQ HS #0 Insulin NPL/Insulin Lispro [humaLOG MIX 75-25 VIAL] 45 unit SQ QAM #0 Discontinued Atorvastatin [Lipitor] 20 mg PO DAILY Discharge Medication List oxyCODONE-APAP 10-325MG [Percocet 10-325 mg] 1 tab PO Q4-6H PRN 03/28/17 [ History] Liraglutide [Victoza 2-Eugene] 1.8 mg SQ DAILY 09/28/18 [History] Lisinopril 40 mg PO DAILY 09/28/18 [History] Loperamide HCl [Loperamide] 2 mg PO DAILY PRN #30 capsule 09/28/18 [Rx] amLODIPine [Norvasc] 5 mg PO DAILY 09/28/18 [History] DAPTOmycin [Daptomycin] 800 mg IV DAILY #40 vial 11/28/18 [Rx] Insulin NPL/Insulin Lispro [humaLOG MIX 75-25 VIAL] 25 unit SQ HS #0 11/28/18 [ Rx] Insulin NPL/Insulin Lispro [humaLOG MIX 75-25 VIAL] 45 unit SQ QAM #0 11/28/18 [ Rx] Follow up Appointment(s)/Referral(s): Tucker Nieto MD [Primary Care Provider] - 1-2 days [facility], [NON-STAFF] - [facility], [REFERRING] - (Supplies antibiotics.) [facility] [NON-[facility]] - 12/03/18 2:00 pm (With Dr. Salcedo) Angelina Mims MD [STAFF PHYSICIAN] - 1 Week Activity/Diet/Wound Care/Special Instructions: Change PICC line dressing every 7 days by Home care nurse. Discharge Disposition: HOME WITH HOME HEALTH SERVICES
--- NOTE | 2018-11-28 14:16 | PN ---
PROGRESS NOTE DATE OF SERVICE: 11/28/2018 REASON FOR FOLLOWUP: Right big toe osteomyelitis MRSA. INTERVAL HISTORY: The patient is currently afebrile. He is breathing comfortably. The patient did get his PICC line, he is currently waiting for the outpatient IV antibiotic therapy. Denies having any chest pain, shortness of breath or cough. No abdominal pain, no diarrhea. PHYSICAL EXAMINATION: Blood pressure is 153/86, pulse of 83, temperature 98.6, 97% on room air. General description is an elderly male, up in the bed in no distress. RESPIRATORY SYSTEM: Unlabored breathing, clear to auscultation anteriorly. HEART: S1, S2. Regular rate and rhythm. ABDOMEN: Soft, no tenderness. Right toe is dressed, no obviously drainage on the dressing. LABS: Hemoglobin 12.1, white count of 6.3, BUN of 29, creatinine 1.72. DIAGNOSTIC IMPRESSION AND PLAN: Patient with right big toe acute osteomyelitis methicillin-resistant Staphylococcus aureus. With underlying diabetes mellitus Patient High risk nephrotoxicity with vancomycin in the outpatient setting. Hence, switched over to daptomycin 800 mg daily. This about 6 mg/kg for another 40 days, once antibiotic approved by insurance, will go home. Patient's CRP was 60.1, ESR of 31. Will monitor in the outpatient setting. Continue supportive care. MMODL / IJN: [id number] / RACHEL
--- NOTE | 2018-11-28 15:51 | IR ---
EXAMINATION TYPE: IR cvc insert >=5 years DATE OF EXAM: 11/28/2018 COMPARISON: NONE CLINICAL HISTORY: Infection Needs long-term intravenous access for antibiotics. PROCEDURE: After informed consent, the skin overlying the left brachial vein was localized with ultrasound and n oted to be compressible and patent. An ultrasound image was obtained and submitted on the patient's chart. The overlying skin was prepped and draped and Lidocaine was used for local anesthesia. A ski n heather was made with a scalpel. Access was gained to the vein under ultrasound guidance with a 21 ga uge needle and a 0.018 inch wire was advanced. Access site was dilated with Peel-Away sheath and cat heter tailored to the appropriate length and advanced such that the distal tip is at the cavoatrial j unction. Spot image was obtained verifying placement. Catheter was fixed to the skin and a sterile dressing was placed following hemostasis. Catheter was aspirated and flushed with saline. Patient w as discharged in stable condition without complication. Maximal barrier technique is utilized. Ultra sound image is documented on the chart. Ultrasound used with sterile technique. Fluoro time and fluoroscopic images submitted to document procedure: 0.3 minutes fluoroscopy time, 21 intraoperative images document the procedure IMPRESSION: STATUS POST ULTRASOUND AND FLUOROSCOPIC GUIDED PICC LINE PLACEMENT, READY FOR USE. THIS PROCEDURE WAS PERFORMED BY THE UNDERSIGNED.
== END 2018-11-28 14:39 | disposition home health service (06) | DRG 623 ==
LOC: EC 10:16 → 4MS4W 13:54
PROVIDERS: ADMIT Internal Medicine; ATTEND Internal Medicine
PROC: 0JBQ0ZZ Excision of Right Foot Subcutaneous Tissue and Fascia, Open Approach (ICD-10-PCS; principal; 2018-11-26)
PROC: 02HV33Z Insertion of Infusion Device into Superior Vena Cava, Percutaneous Approach (ICD-10-PCS; 2018-11-28)
DX: E11.69 Type 2 diabetes mellitus with other specified complication (principal); M86.171 Other acute osteomyelitis, right ankle and foot; E11.52 Type 2 diabetes mellitus with diabetic peripheral angiopathy with gangrene; I96 Gangrene, not elsewhere classified; B95.62 Methicillin resistant Staphylococcus aureus infection as the cause of diseases classified elsewhere; E11.22 Type 2 diabetes mellitus with diabetic chronic kidney disease; E11.628 Type 2 diabetes mellitus with other skin complications; E78.5 Hyperlipidemia, unspecified; F32.9 Major depressive disorder, single episode, unspecified; I12.9 Hypertensive chronic kidney disease with stage 1 through stage 4 chronic kidney disease, or unspecified chronic kidney disease; J45.909 Unspecified asthma, uncomplicated; L08.9 Local infection of the skin and subcutaneous tissue, unspecified; N18.3 Chronic kidney disease, stage 3 (moderate); R01.1 Cardiac murmur, unspecified; E11.40 Type 2 diabetes mellitus with diabetic neuropathy, unspecified; Z79.4 Long term (current) use of insulin; Z79.899 Other long term (current) drug therapy; Z91.012 Allergy to eggs; Z87.01 Personal history of pneumonia (recurrent); Z83.3 Family history of diabetes mellitus; Z82.61 Family history of arthritis
CPT/HCPCS: 36410; 36415; 36573; 76937; 80048; 80053; 81001; 83036; 83605; 85025; 85027; 85652; 86140; 87040; 87070; 87077; 87086; 87186; 87205; 93005; 93306; 96365; 96366; 96368; 99285

== ENCOUNTER 2018-12-16 10:56 | Emergency (ER) | payer MEDICARE, OTHER ==
[2018-12-16 11:35] VITALS: RESP 18
[2018-12-16 11:45] LABS: Glucose,Whole Blood 79 mg/dL (75-99)
[2018-12-16 11:45] LABS: Glucose,Whole Blood 60 mg/dL (75-99)
[2018-12-16 11:45] LABS: Glucose,Whole Blood 67 mg/dL (75-99)
[2018-12-16] MEDS ORDERED: ONDANSETRON 4 MG/2 ML VIAL IVP STA (11:46)
[2018-12-16] MEDS ORDERED: DEXTROSE 50%-WATER 50 ML SYRINGE IVP STA (11:46)
--- NOTE | 2018-12-16 12:11 | ED ---
General Adult HPI - General Chief complaint: Syncope Stated complaint: SYNCOPAL Time Seen by Provider: 12/16/18 11:15 Source: patient, EMS, RN notes reviewed Mode of arrival: EMS Limitations: no limitations - History of Present Illness Initial comments: Patient is a pleasant 68-year-old male presenting to the emergency department following a syncopal episode. Episode occurred prior to arrival at [facility]. Patient does admit to taking his insulin this morning without eating. Following the incident patient did eat a small amount of a granola bar. Patient feels nauseated and slightly drowsy at this time. No confusion or isolated area of weakness. No speech problems. No chest pain or dyspnea. Patient states recently his blood sugars have been running somewhat high overall normally since his toe infection. Patient has been seen his doctor for this regularly and been treated for. Patient states it is improving. - Related Data Home Medications Medication Instructions Recorded Confirmed oxyCODONE-APAP 10-325MG [Percocet 1 tab PO Q6H PRN 03/28/17 12/16/18 10-325 mg] Liraglutide [Victoza 2-Eugene] 1.8 mg SQ DAILY 09/28/18 12/16/18 Lisinopril 40 mg PO DAILY 09/28/18 12/16/18 amLODIPine [Norvasc] 5 mg PO DAILY 09/28/18 12/16/18 Ammonium Lactate Lotion 1 applic TOPICAL BID 12/16/18 12/16/18 [Lac-Hydrin 12% Lotion] Atorvastatin [Lipitor] 20 mg PO DAILY 12/16/18 12/16/18 Carvedilol [Coreg] 6.25 mg PO BID 12/16/18 12/16/18 DAPTOmycin [Cubicin Rf] 500 mg IV DAILY 12/16/18 12/16/18 Ferrous Sulfate [Feosol] 325 mg PO DAILY 12/16/18 12/16/18 Furosemide [Lasix] 20 mg PO DAILY 12/16/18 12/16/18 Insulin NPL/Insulin Lispro 45 unit SQ BID 12/16/18 12/16/18 [humaLOG MIX 75-25 VIAL] metFORMIN HCL 500 mg PO DAILY 12/16/18 12/16/18 Allergies Allergy/AdvReac Type Severity Reaction Status Date / Time egg Allergy Rash/Hives Verified 12/16/18 11:38 Review of Systems ROS Statement: Those systems with pertinent positive or pertinent negative responses have been documented in the HPI. ROS Other: All systems not noted in ROS Statement are negative. Constitutional: Denies: fever Eyes: Denies: eye pain ENT: Denies: ear pain Respiratory: Denies: cough, dyspnea Cardiovascular: Denies: chest pain Endocrine: Denies: fatigue Gastrointestinal: Reports: nausea. Denies: abdominal pain, vomiting Genitourinary: Denies: dysuria Musculoskeletal: Denies: back pain Skin: Denies: rash Neurological: Denies: headache, weakness, confusion Past Medical History Past Medical History: Asthma, Diabetes Mellitus, Hyperlipidemia, Hypertension, Pneumonia Additional Past Medical History / Comment(s): heart murmur, neuropathy,"i think i had a small bleed behind rt eye". wound rt great toe History of Any Multi-Drug Resistant Organisms: MRSA Date of last positivie culture/infection: 11/26/18 MDRO Source:: toe Past Surgical History: Hernia Repair, Orthopedic Surgery, Tonsillectomy Additional Past Surgical History / Comment(s): rt foot Past Anesthesia/Blood Transfusion Reactions: No Reported Reaction Past Psychological History: Depression Smoking Status: Never smoker Past Alcohol Use History: None Reported Past Drug Use History: None Reported - Past Family History Father Family Medical History: No Reported History Additional Family Medical History / Comment(s): Father at age 65 and patient does not know his medical problems. Mother Family Medical History: Diabetes Mellitus, Rheumatoid Arthritis (RA) Additional Family Medical History / Comment(s): Mother at age 70 with history of rheumatoid arthritis. granmother also had ra Brother(s) Additional Family Medical History / Comment(s): Patient had 2 brothers and one during service and one from stillbirth. Patient does not have any sisters. Patient has 3 sons and 3 daughters with no major medical problems. General Exam Limitations: no limitations General appearance: in no apparent distress Head exam: Present: atraumatic, normocephalic Eye exam: Present: normal appearance, PERRL, EOMI ENT exam: Present: normal oropharynx Neck exam: Present: normal inspection Respiratory exam: Present: normal lung sounds bilaterally Cardiovascular Exam: Present: regular rate, normal rhythm GI/Abdominal exam: Present: soft. Absent: tenderness Extremities exam: Present: pedal edema. Absent: calf tenderness Neurological exam: Present: oriented X3, CN II-XII intact, other (Patient is slightly drowsy.). Absent: motor sensory deficit Expanded Neurological exam: Present: protecting the airway Patient oriented to: Present: person, place, time Speech: Present: fluid speech Cranial nerves: EOM's Intact: Normal Motor strength exam: RUE: 5, LUE: 5, RLE: 5, LLE: 5 Psychiatric exam: Present: normal affect, normal mood Skin exam: Present: other (Ulcer of the left great toe.) Course Vital Signs 12/16/18 12/16/18 12/16/18 11:15 11:19 14:00 Temperature 98.3 F 97.8 F Pulse Rate 77 74 Pulse Rate [ 76 Research And Evaluation Manager ] Respiratory 18 18 Rate Blood Pressure 146/85 150/90 O2 Sat by Pulse 98 97 Oximetry EKG Findings - EKG Comments: EKG Findings:: Normal sinus rhythm 78. For screening AV block with ME of 206. QRS 78. QT 366. QTc 417. Normal axis. Inferior Q waves. No acute ST change. Medical Decision Making - Medical Decision Making Patient reevaluated and resting comfortably in bed, symptom-free. Patient is more alert. Patient states he has been up out of bed several times and did tolerate that well. Blood sugar has improved. Patient does have history of recent osteomyelitis and treatment with Cubicin. This could be partial reason for elevation of CPK. Case was discussed in detail with Dr. Santos who is comfortable with discharge of patient with follow-up and repeat CPK level. She does recommend holding Lipitor at this time. Patient is updated regarding this. - Lab Data Result diagrams: 12/16/18 11:00 12/16/18 11:00 Lab Results 12/16/18 12/16/18 12/16/18 Range/Units 11:00 11:00 11:00 WBC 9.0 (3.8-10.6) k/uL RBC 5.29 (4.30-5.90) m/uL Hgb 11.4 L (13.0-17.5) gm/dL Hct 37.3 L (39.0-53.0) % MCV 70.5 L (80.0-100.0) fL MCH 21.5 L (25.0-35.0) pg MCHC 30.5 L (31.0-37.0) g/dL RDW 16.4 H (11.5-15.5) % Plt Count 240 (150-450) k/uL Neutrophils % 73 % Lymphocytes % 13 % Monocytes % 5 % Eosinophils % 8 % Basophils % 1 % Neutrophils # 6.6 (1.3-7.7) k/uL Lymphocytes # 1.1 (1.0-4.8) k/uL Monocytes # 0.4 (0-1.0) k/uL Eosinophils # 0.7 (0-0.7) k/uL Basophils # 0.1 (0-0.2) k/uL Hypochromasia Slight Anisocytosis Slight Microcytosis Moderate PT (9.0-12.0) sec INR (<1.2) APTT (22.0-30.0) sec Sodium 142 (137-145) mmol/L Potassium 4.7 (3.5-5.1) mmol/L Chloride 109 H (98-107) mmol/L Carbon Dioxide 25 (22-30) mmol/L Anion Gap 8 mmol/L BUN 33 H (9-20) mg/dL Creatinine 2.12 H (0.66-1.25) mg/dL Est GFR (CKD-EPI)AfAm 36 (>60 ml/min/1.73 sqM) Est GFR (CKD-EPI)NonAf 31 (>60 ml/min/1.73 sqM) Glucose 50 L (74-99) mg/dL POC Glucose (mg/dL) (75-99) mg/dL POC Glu [employer] Operator ID Calcium 9.6 (8.4-10.2) mg/dL Total Bilirubin 0.6 (0.2-1.3) mg/dL AST 49 (17-59) U/L ALT 35 (21-72) U/L Alkaline Phosphatase 98 (38-126) U/L Total Creatine Kinase 1104 H* (55-170) U/L CK-MB (CK-2) 3.3 H (0.0-2.4) ng/mL CK-MB (CK-2) Rel Index 0.3 Troponin I <0.012 (0.000-0.034) ng/mL NT-Pro-B Natriuret Pep pg/mL Total Protein 7.1 (6.3-8.2) g/dL Albumin 3.6 (3.5-5.0) g/dL 12/16/18 12/16/18 12/16/18 Range/Units 11:00 11:00 11:02 WBC (3.8-10.6) k/uL RBC (4.30-5.90) m/uL Hgb (13.0-17.5) gm/dL Hct (39.0-53.0) % MCV (80.0-100.0) fL MCH (25.0-35.0) pg MCHC (31.0-37.0) g/dL RDW (11.5-15.5) % Plt Count (150-450) k/uL Neutrophils % % Lymphocytes % % Monocytes % % Eosinophils % % Basophils % % Neutrophils # (1.3-7.7) k/uL Lymphocytes # (1.0-4.8) k/uL Monocytes # (0-1.0) k/uL Eosinophils # (0-0.7) k/uL Basophils # (0-0.2) k/uL Hypochromasia Anisocytosis Microcytosis PT 10.7 (9.0-12.0) sec INR 1.0 (<1.2) APTT 26.7 (22.0-30.0) sec Sodium (137-145) mmol/L Potassium (3.5-5.1) mmol/L Chloride (98-107) mmol/L Carbon Dioxide (22-30) mmol/L Anion Gap mmol/L BUN (9-20) mg/dL Creatinine (0.66-1.25) mg/dL Est GFR (CKD-EPI)AfAm (>60 ml/min/1.73 sqM) Est GFR (CKD-EPI)NonAf (>60 ml/min/1.73 sqM) Glucose (74-99) mg/dL POC Glucose (mg/dL) 60 L (75-99) mg/dL POC Glu [employer] Operator ID Hugo Gonzalezle Calcium (8.4-10.2) mg/dL Total Bilirubin (0.2-1.3) mg/dL AST (17-59) U/L ALT (21-72) U/L Alkaline Phosphatase (38-126) U/L Total Creatine Kinase (55-170) U/L CK-MB (CK-2) (0.0-2.4) ng/mL CK-MB (CK-2) Rel Index Troponin I (0.000-0.034) ng/mL NT-Pro-B Natriuret Pep 764 pg/mL Total Protein (6.3-8.2) g/dL Albumin (3.5-5.0) g/dL 12/16/18 12/16/18 12/16/18 Range/Units 11:23 11:43 12:14 WBC (3.8-10.6) k/uL RBC (4.30-5.90) m/uL Hgb (13.0-17.5) gm/dL Hct (39.0-53.0) % MCV (80.0-100.0) fL MCH (25.0-35.0) pg MCHC (31.0-37.0) g/dL RDW (11.5-15.5) % Plt Count (150-450) k/uL Neutrophils % % Lymphocytes % % Monocytes % % Eosinophils % % Basophils % % Neutrophils # (1.3-7.7) k/uL Lymphocytes # (1.0-4.8) k/uL Monocytes # (0-1.0) k/uL Eosinophils # (0-0.7) k/uL Basophils # (0-0.2) k/uL Hypochromasia Anisocytosis Microcytosis PT (9.0-12.0) sec INR (<1.2) APTT (22.0-30.0) sec Sodium (137-145) mmol/L Potassium (3.5-5.1) mmol/L Chloride (98-107) mmol/L Carbon Dioxide (22-30) mmol/L Anion Gap mmol/L BUN (9-20) mg/dL Creatinine (0.66-1.25) mg/dL Est GFR (CKD-EPI)AfAm (>60 ml/min/1.73 sqM) Est GFR (CKD-EPI)NonAf (>60 ml/min/1.73 sqM) Glucose (74-99) mg/dL POC Glucose (mg/dL) 79 67 L 107 H (75-99) mg/dL POC Glu [employer] Operator Tana Aguiar Nicole Smith, Nicole Calcium (8.4-10.2) mg/dL Total Bilirubin (0.2-1.3) mg/dL AST (17-59) U/L ALT (21-72) U/L Alkaline Phosphatase (38-126) U/L Total Creatine Kinase (55-170) U/L CK-MB (CK-2) (0.0-2.4) ng/mL CK-MB (CK-2) Rel Index Troponin I (0.000-0.034) ng/mL NT-Pro-B Natriuret Pep pg/mL Total Protein (6.3-8.2) g/dL Albumin (3.5-5.0) g/dL 12/16/18 12/16/18 Range/Units 13:09 14:03 WBC (3.8-10.6) k/uL RBC (4.30-5.90) m/uL Hgb (13.0-17.5) gm/dL Hct (39.0-53.0) % MCV (80.0-100.0) fL MCH (25.0-35.0) pg MCHC (31.0-37.0) g/dL RDW (11.5-15.5) % Plt Count (150-450) k/uL Neutrophils % % Lymphocytes % % Monocytes % % Eosinophils % % Basophils % % Neutrophils # (1.3-7.7) k/uL Lymphocytes # (1.0-4.8) k/uL Monocytes # (0-1.0) k/uL Eosinophils # (0-0.7) k/uL Basophils # (0-0.2) k/uL Hypochromasia Anisocytosis Microcytosis PT (9.0-12.0) sec INR (<1.2) APTT (22.0-30.0) sec Sodium (137-145) mmol/L Potassium (3.5-5.1) mmol/L Chloride (98-107) mmol/L Carbon Dioxide (22-30) mmol/L Anion Gap mmol/L BUN (9-20) mg/dL Creatinine (0.66-1.25) mg/dL Est GFR (CKD-EPI)AfAm (>60 ml/min/1.73 sqM) Est GFR (CKD-EPI)NonAf (>60 ml/min/1.73 sqM) Glucose (74-99) mg/dL POC Glucose (mg/dL) 107 H 98 (75-99) mg/dL POC Glu [employer] Operator Tana Aguiar Nicole Calcium (8.4-10.2) mg/dL Total Bilirubin (0.2-1.3) mg/dL AST (17-59) U/L ALT (21-72) U/L Alkaline Phosphatase (38-126) U/L Total Creatine Kinase (55-170) U/L CK-MB (CK-2) (0.0-2.4) ng/mL CK-MB (CK-2) Rel Index Troponin I (0.000-0.034) ng/mL NT-Pro-B Natriuret Pep pg/mL Total Protein (6.3-8.2) g/dL Albumin (3.5-5.0) g/dL - Radiology Data Radiology results: report reviewed (Computed tomography scan of the brain shows suspected old subcortical infarct. No acute process.), image reviewed (Chest x- ray shows no acute process) Disposition Clinical Impression: Hypoglycemia Disposition: HOME SELF-CARE Condition: Stable Instructions (If sedation given, give patient instructions): Hypoglycemia in a Person with Diabetes (ED) Additional Instructions: Do not take insulin without eating. Hold Lipitor until follow-up with your doctor. Please follow-up with your doctor tomorrow. You will need to have repeat blood work done including CPK and kidney function tests. Return for uncontrolled blood sugar, low blood sugar, passing out, worsening or change in symptoms or other concerns. Is patient prescribed a controlled substance at d/c from ED?: No Referrals: Tucker Nieto MD [Primary Care Provider] - 1-2 days Time of Disposition: 15:31
[2018-12-16 12:36] LABS: Anisocytosis Slight; Basophils # (A) 0.1 k/uL (0-0.2); Basophils % (A) 1 %; Eosinophils # (A) 0.7 k/uL (0-0.7); Eosinophils % (A) 8 %; HCT 37.3 % (39.0-53.0); HGB 11.4 gm/dL (13.0-17.5); Hypochromasia Slight; Lymphocytes # (A) 1.1 k/uL (1.0-4.8); Lymphocytes % (A) 13 %; MCH 21.5 pg (25.0-35.0); MCHC 30.5 g/dL (31.0-37.0); MCV 70.5 fL (80.0-100.0); Mean Platelet Volume 6.3; Microcytosis Moderate; Monocytes # (A) 0.4 k/uL (0-1.0); Monocytes % (A) 5 %; Neutrophils # (A) 6.6 k/uL (1.3-7.7); Neutrophils % (A) 73 %; Platelet Count 240 k/uL (150-450); RBC 5.29 m/uL (4.30-5.90); RDW 16.4 % (11.5-15.5)
[2018-12-16 12:46] LABS: Albumin 3.6 g/dL (3.5-5.0); Calcium 9.6 mg/dL (8.4-10.2); Potassium 4.7 mmol/L (3.5-5.1); Total Bilirubin 0.6 mg/dL (0.2-1.3); Total Protein 7.1 g/dL (6.3-8.2)
[2018-12-16 12:48] LABS: Partial Thromboplastin Time 26.7 sec (22.0-30.0); Prothrombin Time 10.7 sec (9.0-12.0)
[2018-12-16 13:02] LABS: Creatine Kinase MB 3.3 ng/mL (0.0-2.4); Troponin I <0.012 ng/mL (0.000-0.034)
--- NOTE | 2018-12-16 13:10 | CT ---
EXAMINATION TYPE: CT brain wo con DATE OF EXAM: 12/16/2018 COMPARISON: None available at this location. INDICATION: Syncope DLP: 1071.4 mGycm, Automated exposure control for dose reduction was used. CONTRAST: None CT of the brain is performed utilizing 3 mm thick sections through the posterior fossa and 3 mm thick sections through the remaining calvarium. Study is performed within 24 hours of arrival to the hosp [facility]. No abnormal hyperdensity is present to suggest an acute intracranial hemorrhage. No mass lesion is evident. No acute infarcts are evident. Appears be an old subcortical infarct in the left centrum semiovale. N o mass effect on the adjacent sulci is evident. If this is felt to be acute, MRI could be performed f or confirmation. Ventricles and sulci are appropriate for the patient age. Paranasal sinuses and mastoid air cells within the [id number]-fmow are clear. IMPRESSIONS: 1. 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 2. No acute intracranial process.
--- NOTE | 2018-12-16 13:40 | XR ---
EXAMINATION TYPE: XR chest 2V DATE OF EXAM: 12/16/2018 COMPARISON: None INDICATION: Syncope cough TECHNIQUE: Frontal and lateral views of the chest are obtained. FINDINGS: The heart size is normal. The pulmonary vasculature is normal. The lungs are clear. IMPRESSION: 1. No acute pulmonary process.
[2018-12-16 13:54] LABS: Creatine Kinase 1104 U/L (55-170)
[2018-12-16 14:21] LABS: Glucose,Whole Blood 107 mg/dL (75-99)
[2018-12-16 14:21] LABS: Glucose,Whole Blood 107 mg/dL (75-99)
[2018-12-16 14:21] LABS: Glucose,Whole Blood 98 mg/dL (75-99)
[2018-12-16 15:47] VITALS: BP 160/98; PULSE 68; TEMP 98.2
[2018-12-16 16:13] LABS: Amorphous Sediment,Urine Occasional /hpf; Appearance,Urine Clear (Clear); Bacteria,Urine Rare /hpf; Bilirubin,Urine Negative (Negative); Blood,Urine Moderate (Negative); Color,Urine Yellow; Glucose,Urine (UA) Negative (Negative); Hyaline Casts,Urine 118 /lpf (0-2); Ketones,Urine Negative (Negative); Leukocyte Esterase,Urine Negative (Negative); Mucus,Urine Occasional /hpf; Nitrite,Urine Negative (Negative); Protein,Urine 2+ (Negative); RBC,Urine 5 /hpf (0-5); Specific Gravity,Urine 1.011 (1.001-1.035); Squamous Epithelial Cell,Urine <1 /hpf (0-4); Urobilinogen,Urine <2.0 mg/dL (<2.0); WBC,Urine 3 /hpf (0-5)
== END 2018-12-16 15:44 | disposition home or self-care (01) ==
LOC: EC 10:56
DX: E11.649 Type 2 diabetes mellitus with hypoglycemia without coma (principal); E78.5 Hyperlipidemia, unspecified; I10 Essential (primary) hypertension; E11.40 Type 2 diabetes mellitus with diabetic neuropathy, unspecified; M86.9 Osteomyelitis, unspecified; Z79.4 Long term (current) use of insulin; Z79.02 Long term (current) use of antithrombotics/antiplatelets; Z79.899 Other long term (current) drug therapy; Z91.012 Allergy to eggs
CPT/HCPCS: 99285 ×2; 96374 ×2; 96375 ×2; 36415; 93005; 83880; 80053; 82550; 82553; 84484; 85025; 85610; 85730; 81001; 71046; 70450; J2405

== ENCOUNTER → 2019-09-13 | Outpatient (CLI) | payer MEDICARE, OTHER ==
[~2019-09-13] MED LIST: ATROPINE SULFATE 0.1 MG/ML 10ML SYRINGE ONE; DOBUTamine DRIP for NUC MED 500 MG in DEXTROSE/WATER 1 250ML.BAG IV ONE; METOPROLOL TARTRATE 5 MG/5 ML VIAL IVP ONE
--- NOTE | 2019-09-13 12:48 | ECHOS ---
STRESS ECHOCARDIOGRAM INDICATIONS: Chest pain. BASELINE HEART RATE: 80 BASELINE BLOOD PRESSURE: 98/70 MAXIMUM HEART RATE: 151 MAXIMUM BLOOD PRESSURE: 149/65 85% MPHR: 128 100% MPHR: 150 MAXIMUM STAGE REACHED: 5 TOTAL EXERCISE TIME: 13:30 CLINICAL INFORMATION: Baseline EKG revealed normal sinus rhythm with nonspecific ST and T-wave abnormality. Patient was administered dobutamine as per protocol. Heart rate went up to 151 beats per minute. There was no evidence of any angina. There were rare PVCs noted. EKG demonstrated nonspecific chest changes making this an inconclusive dobutamine stress test by EKG criteria. Baseline echo images revealed normal wall motion and wall thickening of all segments. Echo contrast was used to enhance the quality of images. With dobutamine administration as per protocol, there was progressive increase in contractility suggesting that there is no evidence of any stress-induced ischemia on this study. FINAL IMPRESSION: 1. By EKG criteria this is an inconclusive stress test because of resting EKG changes, but no angina was reported on the dobutamine stress test. EKG part portion of the stress test is inconclusive because of resting EKG changes. 2. Normal dobutamine stress echocardiogram with progressive increase in contractility without any evidence of angina. MMODL / IJN: [id number] /
== END ==
LOC: RADNMMAIN 09:45
PROVIDERS: ATTEND Family Medicine
DX: R94.31 Abnormal electrocardiogram [ECG] [EKG] (principal); Z91.012 Allergy to eggs
CPT/HCPCS: C8930; J1250; Q9950; 93351

== ENCOUNTER 2020-07-28 10:25 | Emergency (ER) | payer MEDICARE, OTHER ==
--- NOTE | 2020-07-28 10:34 | ED ---
General Adult HPI - General Stated complaint: Altered Mental Time Seen by Provider: 07/28/20 10:33 - History of Present Illness Initial comments: Patient is 76-year-old type II diabetic male presenting to the emergency department with a chief complaint of altered mental status. Patient brought to the ED via EMS. Per EMS, goddaughter states the patient was feeling ill yesterday and he contacted heard this morning that he was feeling worse. Patient brought to the ED with altered mental status, blood glucose levels per EMS was 74. Patient was alert and oriented per EMS. Patient not alert in ED - Related Data Home Medications Medication Instructions Recorded Confirmed oxyCODONE-APAP 10-325MG [Percocet 1 tab PO Q6H PRN 03/28/17 02/04/19 10-325 mg] Liraglutide [Victoza 2-Eugene] 1.8 mg SQ DAILY 09/28/18 02/04/19 amLODIPine [Norvasc] 5 mg PO DAILY 09/28/18 02/04/19 lisinopriL 40 mg PO DAILY 09/28/18 02/04/19 Ammonium Lactate Lotion 1 applic TOPICAL BID 12/16/18 02/04/19 [Lac-Hydrin 12% Lotion] Atorvastatin [Lipitor] 20 mg PO DAILY 12/16/18 02/04/19 DAPTOmycin [Cubicin Rf] 500 mg IV DAILY 12/16/18 02/04/19 Ferrous Sulfate [Feosol] 325 mg PO DAILY 12/16/18 02/04/19 Furosemide [Lasix] 20 mg PO DAILY 12/16/18 02/04/19 Insulin NPL/Insulin Lispro 45 unit SQ BID 12/16/18 02/04/19 [humaLOG MIX 75-25 VIAL] carvediloL [Coreg] 6.25 mg PO BID 12/16/18 02/04/19 metFORMIN HCL 500 mg PO DAILY 12/16/18 02/04/19 Allergies Allergy/AdvReac Type Severity Reaction Status Date / Time egg Allergy Rash/Hives Verified 02/04/19 14:04 Review of Systems ROS Statement: Those systems with pertinent positive or pertinent negative responses have been documented in the HPI. ROS Other: All systems not noted in ROS Statement are negative. Past Medical History Past Medical History: Asthma, Diabetes Mellitus, Hyperlipidemia, Hypertension, Pneumonia Additional Past Medical History / Comment(s): heart murmur, neuropathy,"i think i had a small bleed behind rt eye". wound rt great toe History of Any Multi-Drug Resistant Organisms: MRSA Date of last positivie culture/infection: 11/26/18 MDRO Source:: toe Past Surgical History: Hernia Repair, Orthopedic Surgery, Tonsillectomy Additional Past Surgical History / Comment(s): rt foot Past Anesthesia/Blood Transfusion Reactions: No Reported Reaction Past Psychological History: Depression Past Alcohol Use History: None Reported Past Drug Use History: None Reported - Past Family History Father Family Medical History: No Reported History Additional Family Medical History / Comment(s): Father at age 65 and patient does not know his medical problems. Mother Family Medical History: Diabetes Mellitus, Rheumatoid Arthritis (RA) Additional Family Medical History / Comment(s): Mother at age 70 with history of rheumatoid arthritis. granmother also had ra Brother(s) Additional Family Medical History / Comment(s): Patient had 2 brothers and one during service and one from stillbirth. Patient does not have any sisters. Patient has 3 sons and 3 daughters with no major medical problems. General Exam Limitations: no limitations General appearance: alert, in no apparent distress, obese Head exam: Present: atraumatic, normocephalic, normal inspection Eye exam: Present: normal appearance, PERRL, EOMI. Absent: scleral icterus, conjunctival injection, nystagmus, periorbital swelling, periorbital tenderness Pupils: Present: normal accommodation ENT exam: Present: normal exam, normal oropharynx, mucous membranes moist, TM's normal bilaterally, normal external ear exam Neck exam: Present: normal inspection, full ROM. Absent: tenderness Respiratory exam: Present: normal lung sounds bilaterally. Absent: respiratory distress, wheezes, rales Cardiovascular Exam: Present: regular rate, normal rhythm, normal heart sounds GI/Abdominal exam: Present: soft. Absent: distended, tenderness Extremities exam: Present: normal inspection, normal capillary refill, other (+2 ulnar and radial pulses bilateral. +2 dorsalis pedis and posterior tibialis bilateral.). Absent: tenderness Back exam: Present: normal inspection, full ROM. Absent: tenderness Neurological exam: Present: altered. Absent: alert Skin exam: Present: intact, normal color, diaphoretic Course Vital Signs 07/28/20 07/28/20 07/28/20 10:32 10:53 11:47 Temperature 97.5 F L Pulse Rate 80 73 72 Respiratory 18 16 18 Rate Blood Pressure 97/59 97/51 122/77 O2 Sat by Pulse 96 98 Oximetry EKG Findings - EKG Comments: EKG Findings:: Sinus rhythm. Q waves in lead 3. Ventricular rate 77, IN 206, QRS 70, QTC 434. Similar EKG 12/16/2018 Medical Decision Making - Medical Decision Making Patient is 70-year-old male presenting to emergency Department with a chief complaint of altered mental status. Patient brought to the ED via EMS. On initial evaluation, patient is not alert. He is diaphoretic. Pupils are equal and responsive. Accu-Chek revealed hyperglycemia with blood glucose levels of 44. Patient was immediately given 1 amp of dextrose 50%. Laboratory work was initiated. Chest x-ray and CT of the brain is negative for any acute pathologies. CBC unremarkable. CMP reveals increased BUN and creatinine elbow that appears to be somewhat of his baseline. Patient was also hypotensive initially, IV fluids were initiated. On reevaluation, patient was alert and oriented 3. Patient was answering questions appropriately. He told me that his blood sugar was in the 400s earlier today so he took 65 units of Humalog. States this could've possibly tanked his glucose levels. Patient had food and drinks in the ED. Continuous glucose monitoring revealed improvement. His vitals also improved. Patient was advised to closely monitor his glucose levels at home. He is advised to follow-up with his primary care physician. Strict return parameters were thoroughly discussed with patient was understanding and agreeable. Case discussed with physician. - Lab Data Result diagrams: 07/28/20 10:46 07/28/20 10:46 Lab Results 07/28/20 07/28/20 07/28/20 Range/Units 10:40 10:46 10:46 WBC 4.5 (3.8-10.6) k/uL RBC 6.37 H (4.30-5.90) m/uL Hgb 14.3 (13.0-17.5) gm/dL Hct 45.3 (39.0-53.0) % MCV 71.1 L (80.0-100.0) fL MCH 22.5 L (25.0-35.0) pg MCHC 31.6 (31.0-37.0) g/dL RDW 15.0 (11.5-15.5) % Plt Count 137 L (150-450) k/uL Neutrophils % 70 % Lymphocytes % 20 % Monocytes % 7 % Eosinophils % 1 % Basophils % 2 % Neutrophils # 3.2 (1.3-7.7) k/uL Lymphocytes # 0.9 L (1.0-4.8) k/uL Monocytes # 0.3 (0-1.0) k/uL Eosinophils # 0.1 (0-0.7) k/uL Basophils # 0.1 (0-0.2) k/uL Microcytosis Moderate PT 10.5 (9.0-12.0) sec INR 1.0 (<1.2) APTT 26.1 (22.0-30.0) sec Sodium (137-145) mmol/L Potassium (3.5-5.1) mmol/L Chloride (98-107) mmol/L Carbon Dioxide (22-30) mmol/L Anion Gap mmol/L BUN (9-20) mg/dL Creatinine (0.66-1.25) mg/dL Est GFR (CKD-EPI)AfAm (>60 ml/min/1.73 sqM) Est GFR (CKD-EPI)NonAf (>60 ml/min/1.73 sqM) Glucose (74-99) mg/dL POC Glucose (mg/dL) 43 L (75-99) mg/dL POC Glu Alumni Relations Coordinator ID Sandy Wilson Calcium (8.4-10.2) mg/dL Total Bilirubin (0.2-1.3) mg/dL AST (17-59) U/L ALT (4-49) U/L Alkaline Phosphatase (38-126) U/L Troponin I (0.000-0.034) ng/mL Total Protein (6.3-8.2) g/dL Albumin (3.5-5.0) g/dL Urine Color Urine Appearance (Clear) Urine pH (5.0-8.0) Ur Specific [place] (1.001-1.035) Urine Protein (Negative) Urine Glucose (UA) (Negative) Urine Ketones (Negative) Urine Blood (Negative) Urine Nitrite (Negative) Urine Bilirubin (Negative) Urine Urobilinogen (<2.0) mg/dL Ur Leukocyte Esterase (Negative) Urine Opiates Screen (NotDetected) Ur Oxycodone Screen (NotDetected) Urine Methadone Screen (NotDetected) Ur Propoxyphene Screen (NotDetected) Ur Barbiturates Screen (NotDetected) U Tricyclic Antidepress (NotDetected) Ur Phencyclidine Scrn (NotDetected) Ur Amphetamines Screen (NotDetected) U Methamphetamines Scrn (NotDetected) U Benzodiazepines Scrn (NotDetected) Urine Cocaine Screen (NotDetected) U Marijuana (THC) Screen (NotDetected) Serum Alcohol mg/dL 07/28/20 07/28/20 07/28/20 Range/Units 10:46 10:46 10:56 WBC (3.8-10.6) k/uL RBC (4.30-5.90) m/uL Hgb (13.0-17.5) gm/dL Hct (39.0-53.0) % MCV (80.0-100.0) fL MCH (25.0-35.0) pg MCHC (31.0-37.0) g/dL RDW (11.5-15.5) % Plt Count (150-450) k/uL Neutrophils % % Lymphocytes % % Monocytes % % Eosinophils % % Basophils % % Neutrophils # (1.3-7.7) k/uL Lymphocytes # (1.0-4.8) k/uL Monocytes # (0-1.0) k/uL Eosinophils # (0-0.7) k/uL Basophils # (0-0.2) k/uL Microcytosis PT (9.0-12.0) sec INR (<1.2) APTT (22.0-30.0) sec Sodium 142 (137-145) mmol/L Potassium 4.4 (3.5-5.1) mmol/L Chloride 107 (98-107) mmol/L Carbon Dioxide 24 (22-30) mmol/L Anion Gap 11 mmol/L BUN 31 H (9-20) mg/dL Creatinine 2.01 H (0.66-1.25) mg/dL Est GFR (CKD-EPI)AfAm 38 (>60 ml/min/1.73 sqM) Est GFR (CKD-EPI)NonAf 32 (>60 ml/min/1.73 sqM) Glucose 44 L* (74-99) mg/dL POC Glucose (mg/dL) 147 H (75-99) mg/dL POC Glu Alumni Relations Coordinator ID Sandy Wilson Calcium 9.1 (8.4-10.2) mg/dL Total Bilirubin 0.7 (0.2-1.3) mg/dL AST 52 (17-59) U/L ALT 49 (4-49) U/L Alkaline Phosphatase 99 (38-126) U/L Troponin I <0.012 (0.000-0.034) ng/mL Total Protein 7.1 (6.3-8.2) g/dL Albumin 3.8 (3.5-5.0) g/dL Urine Color Urine Appearance (Clear) Urine pH (5.0-8.0) Ur Specific [place] (1.001-1.035) Urine Protein (Negative) Urine Glucose (UA) (Negative) Urine Ketones (Negative) Urine Blood (Negative) Urine Nitrite (Negative) Urine Bilirubin (Negative) Urine Urobilinogen (<2.0) mg/dL Ur Leukocyte Esterase (Negative) Urine Opiates Screen (NotDetected) Ur Oxycodone Screen (NotDetected) Urine Methadone Screen (NotDetected) Ur Propoxyphene Screen (NotDetected) Ur Barbiturates Screen (NotDetected) U Tricyclic Antidepress (NotDetected) Ur Phencyclidine Scrn (NotDetected) Ur Amphetamines Screen (NotDetected) U Methamphetamines Scrn (NotDetected) U Benzodiazepines Scrn (NotDetected) Urine Cocaine Screen (NotDetected) U Marijuana (THC) Screen (NotDetected) Serum Alcohol <10 mg/dL 07/28/20 07/28/20 Range/Units 11:28 11:46 WBC (3.8-10.6) k/uL RBC (4.30-5.90) m/uL Hgb (13.0-17.5) gm/dL Hct (39.0-53.0) % MCV (80.0-100.0) fL MCH (25.0-35.0) pg MCHC (31.0-37.0) g/dL RDW (11.5-15.5) % Plt Count (150-450) k/uL Neutrophils % % Lymphocytes % % Monocytes % % Eosinophils % % Basophils % % Neutrophils # (1.3-7.7) k/uL Lymphocytes # (1.0-4.8) k/uL Monocytes # (0-1.0) k/uL Eosinophils # (0-0.7) k/uL Basophils # (0-0.2) k/uL Microcytosis PT (9.0-12.0) sec INR (<1.2) APTT (22.0-30.0) sec Sodium (137-145) mmol/L Potassium (3.5-5.1) mmol/L Chloride (98-107) mmol/L Carbon Dioxide (22-30) mmol/L Anion Gap mmol/L BUN (9-20) mg/dL Creatinine (0.66-1.25) mg/dL Est GFR (CKD-EPI)AfAm (>60 ml/min/1.73 sqM) Est GFR (CKD-EPI)NonAf (>60 ml/min/1.73 sqM) Glucose (74-99) mg/dL POC Glucose (mg/dL) 102 H (75-99) mg/dL POC Glu Alumni Relations Coordinator ID Brandon Karyn Calcium (8.4-10.2) mg/dL Total Bilirubin (0.2-1.3) mg/dL AST (17-59) U/L ALT (4-49) U/L Alkaline Phosphatase (38-126) U/L Troponin I (0.000-0.034) ng/mL Total Protein (6.3-8.2) g/dL Albumin (3.5-5.0) g/dL Urine Color Yellow Urine Appearance Clear (Clear) Urine pH 6.0 (5.0-8.0) Ur Specific [place] 1.013 (1.001-1.035) Urine Protein Negative (Negative) Urine Glucose (UA) Negative (Negative) Urine Ketones Negative (Negative) Urine Blood Negative (Negative) Urine Nitrite Negative (Negative) Urine Bilirubin Negative (Negative) Urine Urobilinogen <2.0 (<2.0) mg/dL Ur Leukocyte Esterase Negative (Negative) Urine Opiates Screen Not Detected (NotDetected) Ur Oxycodone Screen Not Detected (NotDetected) Urine Methadone Screen Not Detected (NotDetected) Ur Propoxyphene Screen Not Detected (NotDetected) Ur Barbiturates Screen Not Detected (NotDetected) U Tricyclic Antidepress Not Detected (NotDetected) Ur Phencyclidine Scrn Not Detected (NotDetected) Ur Amphetamines Screen Not Detected (NotDetected) U Methamphetamines Scrn Not Detected (NotDetected) U Benzodiazepines Scrn Not Detected (NotDetected) Urine Cocaine Screen Not Detected (NotDetected) U Marijuana (THC) Screen Not Detected (NotDetected) Serum Alcohol mg/dL Disposition Clinical Impression: Hypoglycemia Disposition: HOME SELF-CARE Condition: Stable Instructions (If sedation given, give patient instructions): Hypoglycemia in a Person with Diabetes (ED) Additional Instructions: Monitor your blood glucose levels closely. Follow with a primary care physician. Return to emergency department if symptoms worsen. Is patient prescribed a controlled substance at d/c from ED?: No Referrals: Cresencio Kim MD [Primary Care Provider] - 1-2 days Time of Disposition: 12:23
[2020-07-28] MEDS ORDERED: DEXTROSE 50% SYRINGE 50 ML IVP STA (10:41)
[2020-07-28 10:50] LABS: Glucose,Whole Blood 43 mg/dL (75-99)
[2020-07-28 10:57] LABS: Basophils # (A) 0.1 k/uL (0-0.2); Basophils % (A) 2 %; Eosinophils # (A) 0.1 k/uL (0-0.7); Eosinophils % (A) 1 %; HCT 45.3 % (39.0-53.0); HGB 14.3 gm/dL (13.0-17.5); Lymphocytes # (A) 0.9 k/uL (1.0-4.8); Lymphocytes % (A) 20 %; MCH 22.5 pg (25.0-35.0); MCHC 31.6 g/dL (31.0-37.0); MCV 71.1 fL (80.0-100.0); Microcytosis Moderate; Monocytes # (A) 0.3 k/uL (0-1.0); Monocytes % (A) 7 %; Neutrophils # (A) 3.2 k/uL (1.3-7.7); Neutrophils % (A) 70 %; Platelet Count 137 k/uL (150-450); RBC 6.37 m/uL (4.30-5.90); WBC 4.5 k/uL (3.8-10.6)
[2020-07-28 10:57] LABS: Glucose,Whole Blood 147 mg/dL (75-99)
[2020-07-28] MEDS ORDERED: SODIUM CHLORIDE 0.9% 1,000 ML IV STA (11:00)
[2020-07-28 11:06] LABS: Partial Thromboplastin Time 26.1 sec (22.0-30.0); Prothrombin Time 10.5 sec (9.0-12.0)
[2020-07-28 11:11] LABS: ALT 49 U/L (4-49); AST 52 U/L (17-59); African American GFR (CKD) 38 (>60 ml/min/1.73 sqM); Albumin 3.8 g/dL (3.5-5.0); Alcohol <10 mg/dL; Alkaline Phosphatase 99 U/L (38-126); Anion Gap 11 mmol/L; Blood Urea Nitrogen 31 mg/dL (9-20); Calcium 9.1 mg/dL (8.4-10.2); Carbon Dioxide 24 mmol/L (22-30); Chloride 107 mmol/L (98-107); Non-African American GFR(CKD) 32 (>60 ml/min/1.73 sqM); Potassium 4.4 mmol/L (3.5-5.1); Sodium 142 mmol/L (137-145); Total Bilirubin 0.7 mg/dL (0.2-1.3); Total Protein 7.1 g/dL (6.3-8.2)
[2020-07-28 11:14] LABS: Glucose 44 mg/dL (74-99)
--- NOTE | 2020-07-28 11:33 | CT ---
EXAMINATION TYPE: CT brain shelliine wo con DATE OF EXAM: 07/28/2020 COMPARISON: 12/16/2018 HISTORY: AMS CT DLP: 1867.8 mGycm Automated exposure control for dose reduction was used. TECHNIQUE: CT scan of the head and cervical spine are performed without contrast. FINDINGS: Intracranial atherosclerotic changes. Moderate generalized degenerative change with low-a ttenuation the white matter most typical remote ischemia. More localized area of low attenuation left parietal lobe is stable from prior exam also compatible with remote ischemic change. No midline shift or mass effect. No acute hemorrhage. Calvarium intact. Hyperostosis of the calvarium noted. There is multilevel degenerative disc disease and facet arthropathy. Multilevel foraminal encroachmen t. Odontoid intact. No compression deformities. Odontoid is intact. Assessment spinal canal is limite d due to artifact and resolution and nondiagnostic. There is severe motion artifact. Shotty adenopath y in the soft tissues of the neck IMPRESSION: 1. There is no acute fracture or dislocation evident in the cervical spine. Multilevel degenerative d isc disease with facet arthropathy and foraminal encroachment. Limited assessment of the spinal canal . 2. No acute intracranial hemorrhage, mass effect, or midline shift is seen. Degenerative and remote i schemic change as discussed above.
[2020-07-28 11:34] LABS: Glucose,Whole Blood 102 mg/dL (75-99)
[2020-07-28 11:49] VITALS: RESP 18
--- NOTE | 2020-07-28 11:49 | XR ---
EXAMINATION TYPE: XR chest 2V DATE OF EXAM: 07/28/2020 COMPARISON: Prior chest x-ray 12/16/2018 HISTORY: Altered mental status, hypertension and asthma TECHNIQUE: Frontal and lateral views of the chest are obtained. FINDINGS: There is no focal air space opacity, pleural effusion, or pneumothorax seen. The cardiac silhouette size is within normal limits accounting for patient rotation, there are overlying cardiac leads. The osseous structures are intact. IMPRESSION: No acute cardiopulmonary process.
[2020-07-28 11:59] LABS: Appearance,Urine Clear (Clear); Bilirubin,Urine Negative (Negative); Blood,Urine Negative (Negative); Color,Urine Yellow; Glucose,Urine (UA) Negative (Negative); Ketones,Urine Negative (Negative); Leukocyte Esterase,Urine Negative (Negative); Nitrite,Urine Negative (Negative); Protein,Urine Negative (Negative); Specific Gravity,Urine 1.013 (1.001-1.035); Urobilinogen,Urine <2.0 mg/dL (<2.0)
[2020-07-28 12:11] LABS: Amphetamine Screen,Urine Not Detected (NotDetected); Barbiturate Screen,Urine Not Detected (NotDetected); Benzodiazepines Screen,Urine Not Detected (NotDetected); Cocaine Screen,Urine Not Detected (NotDetected); Methadone Screen, Urine Not Detected (NotDetected); Opiate Screen,Urine Not Detected (NotDetected); Oxycodone Screen, Urine Not Detected (NotDetected); Phencyclidine Screen,Urine Not Detected (NotDetected); Tricyclic Antidepressant,Urine Not Detected (NotDetected); Urn Cannabinoid Scrn Not Detected (NotDetected)
[2020-07-28 12:22] LABS: Glucose,Whole Blood 98 mg/dL (75-99)
[2020-07-28 13:09] VITALS: BP 108/54; PULSE 78; TEMP 98.3
== END 2020-07-28 13:09 | disposition home or self-care (01) ==
LOC: EC 10:25
DX: E11.649 Type 2 diabetes mellitus with hypoglycemia without coma (principal); I95.9 Hypotension, unspecified; E11.40 Type 2 diabetes mellitus with diabetic neuropathy, unspecified; E78.5 Hyperlipidemia, unspecified; F32.9 Major depressive disorder, single episode, unspecified; I10 Essential (primary) hypertension; Z79.4 Long term (current) use of insulin; Z79.899 Other long term (current) drug therapy; Z91.012 Allergy to eggs; Z86.14 Personal history of Methicillin resistant Staphylococcus aureus infection
CPT/HCPCS: 36415; 93005; 80053; 84484; 85025; 85610; 85730; 81003; 80306; 71046; 72125; 70450; 99285; 96374; 96361; G0480; 80320

== ENCOUNTER 2020-07-30 11:58 | Inpatient (IN) | payer MEDICARE, OTHER ==
--- NOTE | 2020-07-30 12:24 | ED ---
Recheck HPI - General Chief Complaint: Recheck/Abnormal Lab/Rx Stated Complaint: diabetic issues Time Seen by Provider: 07/30/20 12:13 Source: patient, EMS Mode of arrival: EMS Limitations: no limitations - History of Present Illness Initial Comments: 70-year-old male presenting today for chief complaint of fluctuating glucose, fatigue. Patient states he has had fluctuant glucose of past 2 days and felt very fatigued. Patient states he presented 2 days prior and was discharged home he states his symptoms only worsened. He denies a chest pain shortness of breath nausea vomiting abdominal pain fevers upper respiratory symptoms he denies any wounds. Patient denies a chest pain shortness of breath he denies any visual changes because of a specific extremity or sensation deficits. Patient denies speech changes. Patient states he just feels tired remaining review of systems negative upon arrival patient appears fatigued but not lethargic. Pt did take 65units of insulin prior to arrival due to HIGH blood sugar. - Related Data Home Medications Medication Instructions Recorded Confirmed Liraglutide [Victoza 2-Eugene] 1.8 mg SQ DAILY 09/28/18 07/30/20 lisinopriL 40 mg PO DAILY 09/28/18 07/30/20 Ferrous Sulfate [Feosol] 325 mg PO DAILY 12/16/18 07/30/20 Furosemide [Lasix] 20 mg PO DAILY 12/16/18 07/30/20 carvediloL [Coreg] 6.25 mg PO BID 12/16/18 07/30/20 Atorvastatin [Lipitor] 80 mg PO DAILY 07/30/20 07/30/20 Ergocalciferol (Vitamin D2) 50,000 unit PO QMONTHLY 07/30/20 07/30/20 [Vitamin D2] Insuln Asp Prt/Insulin Aspart 54 units SQ HS 07/30/20 07/30/20 [NovoLOG MIX 70-30 VIAL] Insuln Asp Prt/Insulin Aspart 60 units SQ QAM 07/30/20 07/30/20 [NovoLOG MIX 70-30 VIAL] Allergies Allergy/AdvReac Type Severity Reaction Status Date / Time egg Allergy Rash/Hives Verified 07/30/20 13:02 Review of Systems ROS Statement: Those systems with pertinent positive or pertinent negative responses have been documented in the HPI. ROS Other: All systems not noted in ROS Statement are negative. Past Medical History Past Medical History: Asthma, Diabetes Mellitus, Hyperlipidemia, Hypertension, Pneumonia Additional Past Medical History / Comment(s): heart murmur, neuropathy,"i think i had a small bleed behind rt eye". wound rt great toe History of Any Multi-Drug Resistant Organisms: MRSA Date of last positivie culture/infection: 11/26/18 MDRO Source:: toe Past Surgical History: Hernia Repair, Orthopedic Surgery, Tonsillectomy Additional Past Surgical History / Comment(s): rt foot Past Anesthesia/Blood Transfusion Reactions: No Reported Reaction Past Psychological History: Depression Smoking Status: Never smoker Past Alcohol Use History: None Reported Past Drug Use History: None Reported - Past Family History Father Family Medical History: No Reported History Additional Family Medical History / Comment(s): Father at age 65 and patient does not know his medical problems. Mother Family Medical History: Diabetes Mellitus, Rheumatoid Arthritis (RA) Additional Family Medical History / Comment(s): Mother at age 70 with history of rheumatoid arthritis. granmother also had ra Brother(s) Additional Family Medical History / Comment(s): Patient had 2 brothers and one during service and one from stillbirth. Patient does not have any sisters. Patient has 3 sons and 3 daughters with no major medical problems. General Exam - General Exam Comments Initial Comments: General: The patient is awake and alert, in no distress Eye: +3mm pupils are equal, round and reactive to light, extra-ocular movements are intact. No nystagmus. There is normal conjunctiva bilaterally. No signs of icterus. Ears, nose, mouth and throat: There are moist mucous membranes and no oral lesions. Neck: The neck is supple, there is no tenderness or JVD. Cardiovascular: There is a regular rate and rhythm. No murmur, rub or gallop is appreciated. Respiratory: Lungs are clear to auscultation, respirations are non-labored, breath sounds are equal. No wheezes, stridor, rales, or rhonchi. Gastrointestinal: Soft, non-distended, non-tender abdomen without masses or organomegaly noted. There is no rebound or guarding present. Musculoskeletal: Normal ROM, no tenderness. Strength 5/5. Sensation intact. Radial pulses equal bilaterally 2+. Neurological: A&O x 3. CN II-XII intact grossly, There are no obvious motor or sensory deficits. Coordination appears grossly intact. Speech is normal. Skin: Skin is warm and dry and no rashes or lesions are noted. Psychiatric: Cooperative, appropriate mood & affect, normal judgment. Limitations: no limitations Course Vital Signs 07/30/20 12:02 Temperature 98.2 F Pulse Rate 65 Respiratory 18 Rate Blood Pressure 91/58 O2 Sat by Pulse 98 Oximetry Medical Decision Making - Medical Decision Making Glucose remains low despite eating and drinking. Patient has increased Creatinine with concern for KARLY/developing kidney failure, patient also appears dry may be pre-renal in nature. Patient acetone (-). Gap normal. Patient will be placed on D5-45% and admitted for glucose monitoring q30 minutes and further evaluation of kidney function. Dr Emerson is agreeable to care plan and admission speaking with Dr. Kim who is agreeable to care plan/admission and will provide further care for patient beginning 13:47. Ventricular rate 72 beats or minute, CT 184 ms, QRS christian 90 ms, QT/QTC 394/463. There is some artifact noted no ST elevation or depression is appreciated. - Lab Data Result diagrams: 07/30/20 12:31 07/30/20 12:31 Lab Results 07/30/20 07/30/20 07/30/20 Range/Units 12:29 12:31 12:31 WBC 4.0 (3.8-10.6) k/uL RBC 6.43 H (4.30-5.90) m/uL Hgb 14.9 (13.0-17.5) gm/dL Hct 46.4 (39.0-53.0) % MCV 72.3 L (80.0-100.0) fL MCH 23.1 L (25.0-35.0) pg MCHC 32.0 (31.0-37.0) g/dL RDW 15.1 (11.5-15.5) % Plt Count 112 L (150-450) k/uL Neutrophils % 68 % Lymphocytes % 23 % Monocytes % 8 % Eosinophils % 0 % Basophils % 0 % Neutrophils # 2.7 (1.3-7.7) k/uL Lymphocytes # 0.9 L (1.0-4.8) k/uL Monocytes # 0.3 (0-1.0) k/uL Eosinophils # 0.0 (0-0.7) k/uL Basophils # 0.0 (0-0.2) k/uL Hypochromasia Slight Microcytosis Moderate Sodium 141 (137-145) mmol/L Potassium 4.3 (3.5-5.1) mmol/L Chloride 106 (98-107) mmol/L Carbon Dioxide 26 (22-30) mmol/L Anion Gap 9 mmol/L BUN 43 H (9-20) mg/dL Creatinine 3.29 H (0.66-1.25) mg/dL Est GFR (CKD-EPI)AfAm 21 (>60 ml/min/1.73 sqM) Est GFR (CKD-EPI)NonAf 18 (>60 ml/min/1.73 sqM) Glucose 64 L (74-99) mg/dL POC Glucose (mg/dL) 72 L (75-99) mg/dL POC Glu Assessment Expert ID Stephanie Villela Calcium 9.5 (8.4-10.2) mg/dL Phosphorus 3.7 (2.5-4.5) mg/dL Magnesium 2.3 (1.6-2.3) mg/dL Total Bilirubin 0.6 (0.2-1.3) mg/dL AST 60 H (17-59) U/L ALT 56 H (4-49) U/L Alkaline Phosphatase 107 (38-126) U/L Total Protein 7.5 (6.3-8.2) g/dL Albumin 4.1 (3.5-5.0) g/dL Acetone, Qual Negative (Negative) 07/30/20 Range/Units 13:17 WBC (3.8-10.6) k/uL RBC (4.30-5.90) m/uL Hgb (13.0-17.5) gm/dL Hct (39.0-53.0) % MCV (80.0-100.0) fL MCH (25.0-35.0) pg MCHC (31.0-37.0) g/dL RDW (11.5-15.5) % Plt Count (150-450) k/uL Neutrophils % % Lymphocytes % % Monocytes % % Eosinophils % % Basophils % % Neutrophils # (1.3-7.7) k/uL Lymphocytes # (1.0-4.8) k/uL Monocytes # (0-1.0) k/uL Eosinophils # (0-0.7) k/uL Basophils # (0-0.2) k/uL Hypochromasia Microcytosis Sodium (137-145) mmol/L Potassium (3.5-5.1) mmol/L Chloride (98-107) mmol/L Carbon Dioxide (22-30) mmol/L Anion Gap mmol/L BUN (9-20) mg/dL Creatinine (0.66-1.25) mg/dL Est GFR (CKD-EPI)AfAm (>60 ml/min/1.73 sqM) Est GFR (CKD-EPI)NonAf (>60 ml/min/1.73 sqM) Glucose (74-99) mg/dL POC Glucose (mg/dL) 59 L (75-99) mg/dL POC Glu Assessment Expert JORDAN Stephanie Villela Calcium (8.4-10.2) mg/dL Phosphorus (2.5-4.5) mg/dL Magnesium (1.6-2.3) mg/dL Total Bilirubin (0.2-1.3) mg/dL AST (17-59) U/L ALT (4-49) U/L Alkaline Phosphatase (38-126) U/L Total Protein (6.3-8.2) g/dL Albumin (3.5-5.0) g/dL Acetone, Qual (Negative) Disposition Clinical Impression: Low blood glucose measurement, KARLY (acute kidney injury), Generalized weakness Disposition: ADMITTED IP TO THIS [facility] Condition: Stable Is patient prescribed a controlled substance at d/c from ED?: No Referrals: Cresencio Kim MD [Primary Care Provider] - 1-2 days Time of Disposition: 13:28 Decision to Admit Reason: Admit from EC Decision Date: 07/30/20 Decision Time: 13:28
[2020-07-30] MEDS ORDERED: SODIUM CHLORIDE 0.9% 1,000 ML IV SCH (12:30)
[2020-07-30 12:31] LABS: Glucose,Whole Blood 72 mg/dL (75-99)
[2020-07-30 12:56] LABS: ALT 56 U/L (4-49); AST 60 U/L (17-59); African American GFR (CKD) 21 (>60 ml/min/1.73 sqM); Albumin 4.1 g/dL (3.5-5.0); Alkaline Phosphatase 107 U/L (38-126); Anion Gap 9 mmol/L; Blood Urea Nitrogen 43 mg/dL (9-20); Calcium 9.5 mg/dL (8.4-10.2); Carbon Dioxide 26 mmol/L (22-30); Chloride 106 mmol/L (98-107); Glucose 64 mg/dL (74-99); Magnesium 2.3 mg/dL (1.6-2.3); Non-African American GFR(CKD) 18 (>60 ml/min/1.73 sqM); Phosphorus 3.7 mg/dL (2.5-4.5); Potassium 4.3 mmol/L (3.5-5.1); Sodium 141 mmol/L (137-145); Total Bilirubin 0.6 mg/dL (0.2-1.3); Total Protein 7.5 g/dL (6.3-8.2)
[2020-07-30 13:05] LABS: Basophils % (A) 0 %; Eosinophils % (A) 0 %; HCT 46.4 % (39.0-53.0); HGB 14.9 gm/dL (13.0-17.5); Hypochromasia Slight; Lymphocytes # (A) 0.9 k/uL (1.0-4.8); Lymphocytes % (A) 23 %; MCH 23.1 pg (25.0-35.0); MCV 72.3 fL (80.0-100.0); Mean Platelet Volume 7.6; Microcytosis Moderate; Monocytes # (A) 0.3 k/uL (0-1.0); Monocytes % (A) 8 %; Neutrophils # (A) 2.7 k/uL (1.3-7.7); Neutrophils % (A) 68 %; Platelet Count 112 k/uL (150-450); RBC 6.43 m/uL (4.30-5.90); RDW 15.1 % (11.5-15.5)
[2020-07-30] MEDS ORDERED: SODIUM CHLORIDE 0.9% 500 ML 500 ML IV ONE (13:10)
[2020-07-30 13:20] LABS: Glucose,Whole Blood 59 mg/dL (75-99)
[2020-07-30] MEDS ORDERED: DEXTROSE 5%-0.45% NACL 1,000 ML IV ONE (13:23)
[2020-07-30] MEDS ORDERED: NALOXONE 0.4 MG/ML 1 ML VIAL IV PRN (13:28)
[2020-07-30 13:45] LABS: Glucose,Whole Blood 73 mg/dL (75-99)
[2020-07-30 14:27] LABS: Glucose,Whole Blood 90 mg/dL (75-99)
[2020-07-30] MEDS ORDERED: oxyCODONE-APAP 10-325MG 1 EACH TAB PO PRN (16:32)
[2020-07-30 17:02] LABS: Glucose,Whole Blood 97 mg/dL (75-99)
[2020-07-30] MEDS: INSULIN ASPART (NovoLOG) 100 UNIT/ML VIAL SQ SCH ×2 (17:45→21:22)
[2020-07-30 17:49] LABS: Appearance,Urine Clear (Clear); Bilirubin,Urine Negative (Negative); Blood,Urine Trace (Negative); Color,Urine Yellow; Glucose,Urine (UA) Negative (Negative); Hyaline Casts,Urine 54 /lpf (0-2); Ketones,Urine Negative (Negative); Leukocyte Esterase,Urine Negative (Negative); Mucus,Urine Rare /hpf; Nitrite,Urine Negative (Negative); PH, Urine 5.5 (5.0-8.0); Protein,Urine 1+ (Negative); RBC,Urine <1 /hpf (0-5); Specific Gravity,Urine 1.018 (1.001-1.035); Squamous Epithelial Cell,Urine <1 /hpf (0-4); Urobilinogen,Urine <2.0 mg/dL (<2.0); WBC,Urine 2 /hpf (0-5)
[2020-07-30 18:12] LABS: Glucose,Whole Blood 93 mg/dL (75-99)
[2020-07-30 19:35] LABS: Glucose,Whole Blood 122 mg/dL (75-99)
[2020-07-30 20:38] LABS: Glucose,Whole Blood 145 mg/dL (75-99)
[2020-07-30] MEDS: carvediloL 6.25 MG TAB PO SCH (21:10)
[2020-07-30 21:51] LABS: Glucose,Whole Blood 167 mg/dL (75-99)
[2020-07-30 22:47] LABS: Glucose,Whole Blood 178 mg/dL (75-99)
[2020-07-30 23:44] LABS: Glucose,Whole Blood 167 mg/dL (75-99)
[2020-07-31 00:51] LABS: Glucose,Whole Blood 145 mg/dL (75-99)
[2020-07-31 02:25] LABS: Glucose,Whole Blood 179 mg/dL (75-99)
[2020-07-31 03:42] LABS: Glucose,Whole Blood 151 mg/dL (75-99)
[2020-07-31 04:56] LABS: Glucose,Whole Blood 169 mg/dL (75-99)
[2020-07-31 05:52] LABS: Glucose,Whole Blood 145 mg/dL (75-99)
[2020-07-31 07:08] LABS: Glucose,Whole Blood 137 mg/dL (75-99)
[2020-07-31] MEDS: INSULIN ASPART (NovoLOG) 100 UNIT/ML VIAL SQ SCH ×4 (07:34→21:30)
[2020-07-31] MEDS: carvediloL 6.25 MG TAB PO SCH ×2 (07:42→20:54)
[2020-07-31] MEDS: FERROUS SULFATE 325 MG TAB PO SCH (07:42)
[2020-07-31] MEDS: ATORVASTATIN 80 MG TAB PO SCH (07:42)
[2020-07-31] MEDS: FUROSEMIDE 20 MG TAB PO SCH (07:42)
[2020-07-31] MEDS: lisinopriL 20 MG TAB PO SCH (07:42)
[2020-07-31 08:07] LABS: Glucose,Whole Blood 153 mg/dL (75-99)
[2020-07-31 09:57] LABS: Glucose,Whole Blood 198 mg/dL (75-99)
[2020-07-31 11:29] LABS: Glucose,Whole Blood 166 mg/dL (75-99)
[2020-07-31 16:58] LABS: Glucose,Whole Blood 114 mg/dL (75-99)
--- NOTE | 2020-07-31 17:32 | XR ---
EXAMINATION TYPE: XR chest 2V DATE OF EXAM: 07/31/2020 COMPARISON: 07/28/2020 INDICATION: Short of breath TECHNIQUE: Single frontal view of the chest is obtained. FINDINGS: The heart size is normal. The pulmonary vasculature is normal. The lungs are clear. IMPRESSION: 1. No acute pulmonary process.
--- NOTE | 2020-07-31 18:26 | HP ---
HISTORY AND PHYSICAL CHIEF COMPLAINT: Weakness. HISTORY OF PRESENT ILLNESS: This gentleman presented to the emergency room with history weakness and he only had a blood sugar of 62. Despite efforts in the ER, it was difficult to raise and it was felt that he should be admitted. He had called the office early in the day and said his blood sugar was 447 and he took extra insulin. Blood sugars are confusing. In the emergency room, he also had a creatinine of 3.29, and two days ago it had been 2. Last year his creatinine was 1.7. He denied any dysuria, frequency, urgency, edema, etc. REVIEW OF SYSTEMS: He has had no focal neurologic deficits, headaches, change in vision or hearing, chest pain, palpitations, orthopnea, PND, abdominal pain, back pain, difficulty in the extremities, etc. Past medical history, family history, and personal and social histories reveal that he is ALLERGIC TO EGGS. MEDICATIONS: His medications include: 1. Lasix 20 mg once a day. 2. Atorvastatin 80 mg at bedtime. 3. Lisinopril 40 twice a day. 4. Iron 325 once a day. 5. Carvedilol 6.25 twice a day. 6. NovoLog Mix 70/30, 64 units in the morning and 50 at night. 7. Percocet 10 q.4 p.r.n. 8. Victoza 1.8 mg once a day. 9. Vitamin D 50,000 once a month. Remainder of this history is unremarkable. He states he has never smoked. He does not drink. PHYSICAL EXAMINATION: Blood pressure 130/72 with a pulse of 83, respirations of 36, and he is afebrile. In general he appeared to be obese and in no acute distress. Skin color was normal. Skin was warm and dry. Lymph nodes were not enlarged. Head, ears, eyes, nose, mouth and throat were normal. Neck veins were not distended. Thyroid was not enlarged. Chest was clear. Cardiac exam demonstrated normal sinus rhythm and no murmurs or extra sounds. The abdomen was protuberant, soft and nontender without any visceromegaly or masses. Bowel sounds were present. Extremities were normal except for about 2 or 3+ edema. Neurologically he was intact. He was admitted to the hospital with diagnoses: 1. Uncontrolled insulin-dependent diabetes mellitus. 2. Iatrogenic hypotension. 3. Acute and chronic kidney disease. PLAN: 1. Bed rest. 2. IV fluids. 3. Support blood sugars. 4. Follow kidney function. 5. Nephrology consult. MMODL / IJN: [id number] /
[2020-07-31 18:28] LABS: HCT 38.6 % (39.0-53.0); HGB 12.9 gm/dL (13.0-17.5); MCH 23.2 pg (25.0-35.0); MCHC 33.3 g/dL (31.0-37.0); MCV 69.7 fL (80.0-100.0); Mean Platelet Volume 9.2; Microcytosis Moderate; Platelet Count 118 k/uL (150-450); RBC 5.54 m/uL (4.30-5.90); RDW 15.2 % (11.5-15.5); WBC 3.4 k/uL (3.8-10.6)
--- NOTE | 2020-07-31 18:38 | PN ---
PROGRESS NOTE DATE OF SERVICE: 07/31/2020 CHIEF COMPLAINT: Hypoglycemia and acute renal failure. HISTORY OF PRESENT ILLNESS: This gentleman is feeling fairly well and wants to leave the hospital. He was told that the deterioration in his renal function is concerning and that he will be referred to Nephrology. PHYSICAL EXAMINATION: His chest is clear. The cardiac exam is normal. Abdomen is soft, nontender. IMPRESSION: 1. Hypoglycemia. 2. Uncontrolled diabetes. 3. Chronic kidney disease with acute deterioration. PLAN: 1. Continue with IV fluids. 2. Repeat labs. 3. Nephrology consult. MMODL / IJN: [id number] /
[2020-07-31 18:47] LABS: Basophils # (M) 0.03 k/uL (0-0.2); Eosinophils # (M) 0.03 k/uL (0-0.7); Lymphocytes # (M) 1.05 k/uL (1.0-4.8); Monocytes # (M) 0.27 k/uL (0-1.0); Neutrophils # (M) 2.01 k/uL (1.3-7.7); Neutrophils % (M) 59 %; Nucleated Red Blood Cells 0 /100 WBC (0-0); Total Cells Counted 100
[2020-07-31 18:48] LABS: Hypochromasia (M) Present; Poikilocytosis (M) Present; Stomatocytes Present
[2020-07-31 20:06] LABS: Glucose,Whole Blood 115 mg/dL (75-99)
[2020-07-31 20:36] LABS: ALT 57 U/L (4-49); AST 59 U/L (17-59); African American GFR (CKD) 47 (>60 ml/min/1.73 sqM); Albumin 3.7 g/dL (3.5-5.0); Albumin/Globulin Ratio 1.1; Alkaline Phosphatase 105 U/L (38-126); Anion Gap 8 mmol/L; Blood Urea Nitrogen 34 mg/dL (9-20); Carbon Dioxide 24 mmol/L (22-30); Chloride 107 mmol/L (98-107); Globulin 3.4 g/dL; Glucose 129 mg/dL (74-99); Non-African American GFR(CKD) 40 (>60 ml/min/1.73 sqM); Potassium 5.7 mmol/L (3.5-5.1); Sodium 139 mmol/L (137-145); Total Bilirubin 0.6 mg/dL (0.2-1.3); Total Protein 7.1 g/dL (6.3-8.2)
[2020-07-31] MEDS: SODIUM POLYSTYRENE SULFONATE 15 GM/60 ML BOTTLE PO SCH (21:54)
[2020-08-01 06:19] LABS: HCT 45.4 % (39.0-53.0); HGB 14.8 gm/dL (13.0-17.5); Hypochromasia Slight; MCHC 32.5 g/dL (31.0-37.0); MCV 70.7 fL (80.0-100.0); Mean Platelet Volume 9.1; Microcytosis Moderate; Platelet Count 138 k/uL (150-450); RBC 6.42 m/uL (4.30-5.90); RDW 14.9 % (11.5-15.5); WBC 3.6 k/uL (3.8-10.6)
[2020-08-01 06:22] LABS: African American GFR (CKD) 49 (>60 ml/min/1.73 sqM); Anion Gap 9 mmol/L; Blood Urea Nitrogen 31 mg/dL (9-20); Carbon Dioxide 21 mmol/L (22-30); Chloride 108 mmol/L (98-107); Glucose 139 mg/dL (74-99); Non-African American GFR(CKD) 42 (>60 ml/min/1.73 sqM); Potassium 5.7 mmol/L (3.5-5.1); Sodium 138 mmol/L (137-145)
[2020-08-01 07:20] LABS: Glucose,Whole Blood 138 mg/dL (75-99)
[2020-08-01] MEDS: lisinopriL 20 MG TAB PO SCH (08:23)
[2020-08-01] MEDS: carvediloL 6.25 MG TAB PO SCH ×2 (08:24→21:40)
[2020-08-01] MEDS: ATORVASTATIN 80 MG TAB PO SCH (08:24)
[2020-08-01] MEDS: FUROSEMIDE 20 MG TAB PO SCH (08:24)
[2020-08-01] MEDS: SODIUM POLYSTYRENE SULFONATE 15 GM/60 ML BOTTLE PO SCH (08:25)
[2020-08-01] MEDS: FERROUS SULFATE 325 MG TAB PO SCH (08:25)
[2020-08-01] MEDS: INSULIN ASPART (NovoLOG) 100 UNIT/ML VIAL SQ SCH ×4 (08:26→21:40)
--- NOTE | 2020-08-01 11:31 | P.NPCON ---
History of Present Illness - Reason for Consult Consult date: 08/01/20 acute renal failure - Chief Complaint Acute kidney injury - History of Present Illness This is a 70-year-old male seen with acute kidney injury and chronic kidney disease. He was admitted because of low blood sugars. He is somewhat of a difficult historian. He has had no medications were changed, except Percocet was discontinued which she was taking for left thigh and leg. His appetite is less than normal but no nausea vomiting headache no fever chills cough shortness of breath no dysuria frequency diarrhea At home he was on Lasix and lisinopril And Atenolol Insulin Percocet. He has chronic kidney disease with baseline About 1.7 on 01/02/2019 and on admission her creatinine was 2.01 worsened to 3.29 on 07/30/2020 and is down to 1.6 to as of this morning Has not been seen by any motor expert. His urinalysis on 07/30/2020 shows 1+ protein and microscopy was unremarkable except for hyaline casts Past Medical History Past Medical History: Asthma, Diabetes Mellitus, Hyperlipidemia, Hypertension, Pneumonia Additional Past Medical History / Comment(s): heart murmur, neuropathy,"i think i had a small bleed behind rt eye". healed wound rt great toe History of Any Multi-Drug Resistant Organisms: MRSA Date of last positivie culture/infection: 11/26/18 MDRO Source:: toe Past Surgical History: Hernia Repair, Orthopedic Surgery, Tonsillectomy Additional Past Surgical History / Comment(s): rt foot Past Anesthesia/Blood Transfusion Reactions: No Reported Reaction Past Psychological History: Depression Smoking Status: Never smoker Past Alcohol Use History: None Reported Additional Past Alcohol Use History / Comment(s): Patient is a lifelong nonsmoker. He denies any medical marijuana, marijuana, street drug or alcohol use. He states he stopped drinking alcohol 28 years ago. Past Drug Use History: None Reported - Past Family History Father Family Medical History: No Reported History Additional Family Medical History / Comment(s): Father at age 65 and patient does not know his medical problems. Mother Family Medical History: Diabetes Mellitus, Rheumatoid Arthritis (RA) Additional Family Medical History / Comment(s): Mother at age 70 with history of rheumatoid arthritis. granmother also had ra Brother(s) Additional Family Medical History / Comment(s): Patient had 2 brothers and one during service and one from stillbirth. Patient does not have any sisters. Patient has 3 sons and 3 daughters with no major medical problems. Medications and Allergies Home Medications Medication Instructions Recorded Confirmed Type Liraglutide [Victoza 2-Eugene] 1.8 mg SQ DAILY 09/28/18 07/30/20 History lisinopriL 40 mg PO DAILY 09/28/18 07/30/20 History Ferrous Sulfate [Feosol] 325 mg PO DAILY 12/16/18 07/30/20 History Furosemide [Lasix] 20 mg PO DAILY 12/16/18 07/30/20 History carvediloL [Coreg] 6.25 mg PO BID 12/16/18 07/30/20 History Atorvastatin [Lipitor] 80 mg PO DAILY 07/30/20 07/30/20 History Ergocalciferol (Vitamin D2) 50,000 unit PO QMONTHLY 07/30/20 07/30/20 History [Vitamin D2] Insuln Asp Prt/Insulin Aspart 54 units SQ HS 07/30/20 07/30/20 History [NovoLOG MIX 70-30 VIAL] Insuln Asp Prt/Insulin Aspart 60 units SQ QAM 07/30/20 07/30/20 History [NovoLOG MIX 70-30 VIAL] Allergies Allergy/AdvReac Type Severity Reaction Status Date / Time egg Allergy Rash/Hives Verified 07/30/20 13:02 Physical Exam Vitals: Vital Signs Temp Pulse Pulse Resp BP Pulse Ox 08/01/20 05:30 99.6 F 74 18 140/74 95 08/01/20 00:00 14 07/31/20 20:19 100.2 F H 78 14 127/79 97 07/31/20 16:27 98.3 F 71 16 150/79 97 07/31/20 16:21 16 07/31/20 14:44 95 69 20 07/31/20 14:01 98.3 F 69 20 127/76 98 Intake and Output 07/31/20 08/01/20 08/01/20 22:59 06:59 14:59 Intake Total 480 Output Total 300 Balance -300 480 Intake: Oral 480 Output: Urine 300 Other: Voiding Method Toilet Toilet Toilet Urinal Urinal Urinal # Voids 1 2 On examination is awake alert oriented. HEENT exam no JVP neck supple no facial asymmetry Lungs are clear to auscultation with good air entry bilaterally Heart sounds are unremarkable for any murmur rub gallop Abdomen soft nontender no organomegaly ascites masses Extremity exam reveals no edema Neurologically awake alert oriented but slow to answer Results - Lab Results Most recent lab results Calcium 9.0 mg/dL (8.4-10.2) 08/01/20 05:46 Phosphorus 3.7 mg/dL (2.5-4.5) 07/30/20 12:31 Magnesium 2.3 mg/dL (1.6-2.3) 07/30/20 12:31 08/01/20 05:46 08/01/20 05:46 Assessment and Plan Assessment: Impression 1. Chronic kidney disease secondary to nephrosclerosis possible early diabetic nephropathy with 1+ protein baseline creatinine 1.6 2. Acute kidney injury secondary to low intake resolved with IV fluids 3. Mild degree of hyperkalemia potassium is 5.7, secondary to acute kidney injury and also he was on lisinopril at the time of admission, and is being continued. 4. Mild degree of non-gap acidosis from chronic kidney disease and acute kidney injury. Bicarb 24 on admission with a gap of 8, with IV fluids bicarb is down to 21, this is secondary to the normal saline. Recommendation 1. We will try to maintain the lisinopril but does need to be reduced to 20 mg because of the hyperkalemia, he will need to be maintained on Lasix to increase the potassium loss in the urine. 2. Add sodium bicarbonate 650 4 times a day. 3. Monitor lites potassium blood pressure Thank you for this consultation
[2020-08-01 11:44] LABS: Glucose,Whole Blood 155 mg/dL (75-99)
[2020-08-01] MEDS: SODIUM BICARBONATE TAB 650 MG TAB PO SCH ×3 (11:58→21:43)
--- NOTE | 2020-08-01 16:17 | PN ---
PROGRESS NOTE CHIEF COMPLAINT: Acute kidney injury. HISTORY OF PRESENT ILLNESS: This gentleman is feeling fairly well but he seems a little bit lethargic today. His potassium luis to 5.7 and he has been placed on Kayexalate. He is waiting to be seen by Nephrology. PHYSICAL EXAMINATION: His abdomen is soft, nontender. Chest is clear. Cardiac exam is normal. IMPRESSION: 1. Acute kidney injury. 2. Chronic renal failure. 3. Uncontrolled insulin-dependent diabetes mellitus. 4. Hyperkalemia. PLAN: 1. Start Kayexalate. 2. Await echo of the kidneys. 3. Await recommendations from Nephrology. MMODL / IJN: [id number] /
[2020-08-01 17:12] LABS: Glucose,Whole Blood 140 mg/dL (75-99)
[2020-08-01 20:14] LABS: Glucose,Whole Blood 174 mg/dL (75-99)
[2020-08-02 06:23] LABS: Glucose,Whole Blood 201 mg/dL (75-99)
[2020-08-02 07:09] LABS: Glucose,Whole Blood 209 mg/dL (75-99)
[2020-08-02] MEDS: INSULIN ASPART (NovoLOG) 100 UNIT/ML VIAL SQ SCH ×4 (07:34→21:25)
[2020-08-02] MEDS ORDERED: lisinopriL 20 MG TAB PO SCH (09:00)
[2020-08-02] MEDS: FERROUS SULFATE 325 MG TAB PO SCH (09:36)
[2020-08-02] MEDS: FUROSEMIDE 20 MG TAB PO SCH (09:36)
[2020-08-02] MEDS: ATORVASTATIN 80 MG TAB PO SCH (09:36)
[2020-08-02] MEDS: carvediloL 6.25 MG TAB PO SCH ×2 (09:36→21:25)
[2020-08-02] MEDS: SODIUM POLYSTYRENE SULFONATE 15 GM/60 ML BOTTLE PO SCH (09:36)
[2020-08-02] MEDS: SODIUM BICARBONATE TAB 650 MG TAB PO SCH ×4 (09:36→21:25)
[2020-08-02 11:40] LABS: Glucose,Whole Blood 258 mg/dL (75-99)
--- NOTE | 2020-08-02 12:08 | P.PN ---
Subjective Progress Note Date: 08/02/20 Principal diagnosis: This is a 70-year-old male seen in consultation because of acute kidney injury and chronic kidney disease. He was admitted with low blood sugars and is a difficult historian His acute kidney injury is assumed to be from low intake and improving with IV fluids. He has chronic kidney disease secondary to nephrosclerosis with early diabetic nephropathy with 1+ protein. His baseline creatinine is 1.6, This morning he is denying any complaints. He had significant difficulty standing up from the bed to sit in a chair and had to be helped out. He denied any dizziness when he was standing up No nausea vomiting good appetite no fever chills cough no dysuria frequency Is known with diabetes hyperlipidemia and hypertension Objective - Vital Signs Vital signs: Vital Signs Temp 98.4 F 08/02/20 11:44 Pulse 69 08/02/20 11:44 Resp 16 08/02/20 11:44 BP 130/70 08/02/20 11:44 Pulse Ox 95 08/02/20 11:44 Intake & Output 08/01/20 08/02/20 08/02/20 18:59 06:59 18:59 Intake Total 480 Balance 480 Intake: Oral 480 Other: Voiding Method Toilet Toilet Toilet Urinal Urinal Urinal # Voids 3 1 # Bowel Movements 1 Exam general awake alert oriented but fairly profound weakness HEENT exam no JVP neck is supple no facial asymmetry Lungs are clear to auscultation and good air entry bilaterally Heart sounds unremarkable for any murmur rub gallop Abdomen soft nontender Extremity exam reveals no edema Neuro logically awake alert oriented but profoundly weak - Labs CBC & Chem 7: 08/01/20 05:46 08/01/20 05:46 Labs: Abnormal Lab Results - Last 24 Hours (Table) 08/01/20 08/01/20 08/02/20 Range/Units 17:11 20:13 06:13 POC Glucose (mg/dL) 140 H 174 H 201 H (75-99) mg/dL 08/02/20 08/02/20 Range/Units 07:07 11:38 POC Glucose (mg/dL) 209 H 258 H (75-99) mg/dL Assessment and Plan Assessment: Impression 1. Chronic kidney disease secondary to nephrosclerosis possible early diabetic nephropathy with 1+ protein baseline creatinine 1.6 2. Acute kidney injury secondary to low intake resolved with IV fluids. Creatinine peaked at 3.29 is down to 1.6 to baseline 3. Mild degree of hyperkalemia potassium is 5.7, secondary to acute kidney injury and also he was on lisinopril at the time of admission, and is being continued. 4. Mild degree of non-gap acidosis from chronic kidney disease and acute kidney injury. Bicarb 24 on admission with a gap of 8, with IV fluids bicarb is down to 21, this is secondary to the normal saline. Recommendation 1. His lisinopril as this decreased from 40 mg to 20 mg because of the hyperkalemia. 2. Today's labs are pending to see how this lisinopril dose reduction has impacted his potassium 3. His blood sugars slightly high that might be cardioverted waiting his hyperkalemia 4. Watch his bicarb as have started her on oral bicarb 5. We will try to maintain the lisinopril but does need to be reduced to 20 mg because of the hyperkalemia, he will need to be maintained on Lasix to increase the potassium loss in the urine.
--- NOTE | 2020-08-02 12:12 | PN ---
PROGRESS NOTE CHIEF COMPLAINT: Acute kidney injury and diabetes. HISTORY OF PRESENT ILLNESS: This gentleman's kidney function seems to have leveled off. He seems to be lethargic and confused, however. He is not receiving any medications that would account for this. He has no focal neurologic deficits or symptoms. He has no headache. PHYSICAL EXAMINATION: His vital signs are normal. Chest is clear. Cardiac exam is normal. Abdomen is soft, nontender. IMPRESSION: 1. Acute on chronic renal failure. 2. Lethargy, confusion, etiology unknown. 3. Hypoglycemia. 4. Type 2 insulin dependent diabetes mellitus. PLAN: 1. CT of the brain without contrast. 2. EEG and carotid duplex imaging. 3. Repeat labs and follow hyperkalemia. 4. He will be discharged soon pending the outcome of these studies. It is not clear why he is lethargic. NATALIA / YENIFER: [id number] /
--- NOTE | 2020-08-02 12:32 | CT ---
EXAMINATION TYPE: CT brain wo con DATE OF EXAM: 08/02/2020 COMPARISON: 07/28/2020 INDICATION: MS Changes DLP: 1098.8 mGycm, Automated exposure control for dose reduction was used. CONTRAST: None CT of the brain is performed utilizing 3 mm thick sections through the posterior fossa and 3 mm thick sections through the remaining calvarium. Study is performed within 24 hours of arrival to the hosp [facility]. No abnormal hyperdensity is present to suggest an acute intracranial hemorrhage. No mass lesion is evident. No acute infarcts are evident. There is some hypodensity through the left watershed. Ischemic changes favored. This is old. Minimal periventricular white matter hypodensity is present, greatest in the l eft frontal region. Changes could be related to microvascular ischemic change. These findings are sta ble from the comparison. Ventricles and sulci are slightly prominent for the patient age. Paranasal sinuses and mastoid air cells within the [id number] are clear. IMPRESSIONS: 1. Microvascular ischemic changes with mild age-related atrophy. 2. Suspected prior mild infarct left watershed region, present previously.
[2020-08-02 12:43] LABS: ALT 51 U/L (4-49); AST 52 U/L (17-59); African American GFR (CKD) 51 (>60 ml/min/1.73 sqM); Albumin 3.3 g/dL (3.5-5.0); Albumin/Globulin Ratio 1.1; Alkaline Phosphatase 92 U/L (38-126); Anion Gap 8 mmol/L; Blood Urea Nitrogen 32 mg/dL (9-20); Calcium 8.7 mg/dL (8.4-10.2); Carbon Dioxide 24 mmol/L (22-30); Chloride 105 mmol/L (98-107); Glucose 261 mg/dL (74-99); Non-African American GFR(CKD) 44 (>60 ml/min/1.73 sqM); Potassium 5.3 mmol/L (3.5-5.1); Sodium 137 mmol/L (137-145); Total Bilirubin 0.7 mg/dL (0.2-1.3); Total Protein 6.3 g/dL (6.3-8.2)
[2020-08-02 13:57] LABS: Basophils % (A) 1 %; Eosinophils % (A) 1 %; HCT 44.2 % (39.0-53.0); HGB 14.4 gm/dL (13.0-17.5); Hypochromasia Slight; Lymphocytes # (A) 0.7 k/uL (1.0-4.8); Lymphocytes % (A) 21 %; MCH 23.1 pg (25.0-35.0); MCHC 32.6 g/dL (31.0-37.0); MCV 70.8 fL (80.0-100.0); Microcytosis Moderate; Monocytes # (A) 0.3 k/uL (0-1.0); Monocytes % (A) 8 %; Neutrophils # (A) 2.2 k/uL (1.3-7.7); Neutrophils % (A) 67 %; Platelet Count 128 k/uL (150-450); RBC 6.23 m/uL (4.30-5.90); WBC 3.3 k/uL (3.8-10.6)
[2020-08-02 16:22] LABS: Glucose,Whole Blood 240 mg/dL (75-99)
--- NOTE | 2020-08-02 18:27 | US ---
EXAMINATION TYPE: US carotid duplex BILAT DATE OF EXAM: 08/02/2020 COMPARISON: NONE CLINICAL HISTORY: confusion, lethargy. Very difficult and limited exam. Patient is unable to cooperat e, unable to turn his head either direction. EXAM MEASUREMENTS: RIGHT: Peak Systolic Velocity (PSV) cm/sec ----- Right CCA: 73.5 ----- Right ICA: 66.3 ----- Right ECA: 46.9 ICA/CCA ratio: 0.9 RIGHT: End Diastole cm/sec ----- Right CCA: 11.0 ----- Right ICA: 18.3 ----- Right ECA: 0 LEFT: Peak Systolic Velocity (PSV) cm/sec ----- Left CCA: 123.7 ----- Left ICA: Unable to visualize ----- Left ECA: 37.2 LEFT: End Diastole cm/sec ----- Left CCA: 10.7 ----- Left ICA: Unable to visualize ----- Left ECA: 0 VERTEBRALS (direction of flow): Right Vertebral: Antegrade Left Vertebral: Antegrade Rhythm: Normal Moderate amount of plaque and intimal thickening visualized, left greater than right. Unable to visua lize the left ICA. 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 We could not demon strate flow. Limited exam. Criteria for Assigning % of Stenosis / Diameter reduction (Estimation based on the indirect measurements of the internal carotid artery velocities (ICA PSV). 1. Normal (no stenosis)=ICA PSV < 125 cm/s: ratio < 2.0: ICA EDV<40 cm/s. 2. Less than 50% stenosis=ICA PSV < 125 cm/s: ratio < 2.0: ICA EDV<40 cm/s. 3. 50 to 69% stenosis=ICA PSV of 125 to 230 cm/s: ration 2.0 ? 4.0: ICA EDV 40-100 cm/s. 4. Greater than 70% stenosis to near occlusion= ICA PSV > 230 cm/s: ratio > 4.0: ICA EDV > 100 cm/s. 5. Near occlusion= ICA PSV velocities may be low or undetectable: variable ratio and ICA EDV. 6. Total occlusion=unable to detect flow.
[2020-08-02 19:52] LABS: Glucose,Whole Blood 195 mg/dL (75-99)
[2020-08-02] MEDS: INSULIN DETEMIR (LEVEMIR) 100 UNIT/ML SYR SQ SCH (21:25)
[2020-08-03 07:09] LABS: Glucose,Whole Blood 189 mg/dL (75-99)
[2020-08-03] MEDS: SODIUM BICARBONATE TAB 650 MG TAB PO SCH ×4 (08:57→21:24)
[2020-08-03] MEDS: carvediloL 6.25 MG TAB PO SCH ×2 (08:57→21:24)
[2020-08-03] MEDS: SODIUM POLYSTYRENE SULFONATE 15 GM/60 ML BOTTLE PO SCH (08:57)
[2020-08-03] MEDS: FUROSEMIDE 20 MG TAB PO SCH (08:57)
[2020-08-03] MEDS: INSULIN ASPART (NovoLOG) 100 UNIT/ML VIAL SQ SCH ×4 (08:57→21:28)
[2020-08-03] MEDS: ATORVASTATIN 80 MG TAB PO SCH (08:57)
[2020-08-03] MEDS: FERROUS SULFATE 325 MG TAB PO SCH (08:57)
--- NOTE | 2020-08-03 09:59 | XR ---
EXAMINATION TYPE: XR chest 2V DATE OF EXAM: 08/03/2020 COMPARISON: 07/31/2020 TECHNIQUE: PA and lateral views submitted. HISTORY: Shortness of breath FINDINGS: Heart size is normal. There is a interstitial changes seen bilaterally with subsegmental basilar donovan ges. Biapical pleural thickening. Tiny effusions not excluded. Thickening or tiny amount of fluid in the minor fissure. IMPRESSION: 1. Predominant interstitial pattern can be associated with atypical pneumonia, interstitial pneumonit is viral pneumonitis. Correlate clinically to exclude mild venous congestion.
[2020-08-03 11:21] LABS: Glucose,Whole Blood 226 mg/dL (75-99)
--- NOTE | 2020-08-03 11:40 | P.CRDCN ---
History of Present Illness Consult date: 08/03/20 History of present illness: CHIEF COMPLAINT: Increased lung markings HISTORY OF PRESENT ILLNESS: This is a 70-year old male with a past medical history significant for diabetes mellitus, hypertension, hyperlipidemia, and chronic kidney disease. Patient states he does not follow outpatient with a financial assistance advisor We have been asked to see the patient in consultation for increased lung markings. Patient examined this morning at the bedside. He denies chest pain or pressure. He reports mild shortness of breath that he states has been going on for a few days. Denies dizziness or lightheadedness. The patient did fall yesterday after walking back from the bathroom. No LOC or injury reported. However, nursing reports patient had a syncopal episode over the weekend as well. DIAGNOSTICS: EKG reveals sinus mechanism Chest xray predominant interstitial pattern can be associated with atypical pneumonia, interstitial pneumonitis or viral pneumonitis. Correlate clinically to exclude mild venous congestion. Laboratory data: WBC 3.3. Hemoglobin 14.4. Platelet count 128. Sodium 137. Potassium 5.3. BUN 32. Creatinine 1.56. Current home cardiac medications include Lipitor 80 mg daily, lisinopril 40 mg daily, Coreg 6.25 mg twice a day, and Lasix 20 mg daily. REVIEW OF SYSTEMS: At the time of my exam: CONSTITUTIONAL: Denies fever or chills. HEENT: Denies blurred vision, vision changes, or eye pain. Denies hemoptysis CARDIOVASCULAR: Denies chest pain, orthopnea, PND or palpitations RESPIRATORY: No shortness of breath. GASTROINTESTINAL: Denies abdominal pain. Denies nausea or vomiting. HEMATOLOGIC: Denies bleeding disorders. GENITOURINARY: Denies any blood in urine. SKIN: Denies pruitis. Denies rash. PHYSICAL EXAM: VITAL SIGNS: Reviewed. GENERAL: Well-developed in no acute distress. HEENT: Head is normocephalic. Pupils are equal, round. Sclerae anicteric. Mucous membranes of the mouth are moist. Neck supple. No JVD or thyromegaly LUNGS: Respirations even and unlabored. Lungs diminished. HEART: Regular rate and rhythm. S1 and S2 heard. ABDOMEN: Soft. Nondistended. Nontender. EXTREMITIES: Normal range of motion. No clubbing or cyanosis. Peripheral pulses intact. No lower extremity edema NEUROLOGIC: Awake and alert. Oriented x 3. ASSESSMENT: Possible syncope, rule out cardiac etiology Acute on chronic kidney disease Fever with possible pneumonia per CXR, no evidence of heart failure clinically Carotid stenosis, doppler reveals possible occlusion of left internal carotid artery Diabetes mellitus, type II Hypertension Hyperlipidemia Obesity BMI 38.0 PLAN: Continue oral lasix. Check BNP. Obtain 2D echo to assess cardiac structure and function Check orthostatic blood pressures Lisinopril on hold secondary to KARLY and hyperkalemia Infectious disease consulted secondary to fever. Await recommendations. Recommend vascular consult for possible occlusion of left ICA. Will defer to internal medicine. Further recommendations pending patient course Nurse practitioner note has been reviewed by physician. Signing provider agrees with the documented findings, assessment, and plan of care. Past Medical History Past Medical History: Asthma, Diabetes Mellitus, Hyperlipidemia, Hypertension, Pneumonia Additional Past Medical History / Comment(s): heart murmur, neuropathy,"i think i had a small bleed behind rt eye". healed wound rt great toe History of Any Multi-Drug Resistant Organisms: MRSA Date of last positivie culture/infection: 11/26/18 MDRO Source:: toe Past Surgical History: Hernia Repair, Orthopedic Surgery, Tonsillectomy Additional Past Surgical History / Comment(s): rt foot Past Anesthesia/Blood Transfusion Reactions: No Reported Reaction Past Psychological History: Depression Smoking Status: Never smoker Past Alcohol Use History: None Reported Additional Past Alcohol Use History / Comment(s): Patient is a lifelong nons moker. He denies any medical marijuana, marijuana, street drug or alcohol use. He states he stopped drinking alcohol 28 years ago. Past Drug Use History: None Reported - Past Family History Father Family Medical History: No Reported History Additional Family Medical History / Comment(s): Father at age 65 and patient does not know his medical problems. Mother Family Medical History: Diabetes Mellitus, Rheumatoid Arthritis (RA) Additional Family Medical History / Comment(s): Mother at age 70 with history of rheumatoid arthritis. granmother also had ra Brother(s) Additional Family Medical History / Comment(s): Patient had 2 brothers and one during service and one from stillbirth. Patient does not have any sisters. Patient has 3 sons and 3 daughters with no major medical problems. Medications and Allergies Home Medications Medication Instructions Recorded Confirmed Type Liraglutide [Victoza 2-Eugene] 1.8 mg SQ DAILY 09/28/18 07/30/20 History lisinopriL 40 mg PO DAILY 09/28/18 07/30/20 History Ferrous Sulfate [Feosol] 325 mg PO DAILY 12/16/18 07/30/20 History Furosemide [Lasix] 20 mg PO DAILY 12/16/18 07/30/20 History carvediloL [Coreg] 6.25 mg PO BID 12/16/18 07/30/20 History Atorvastatin [Lipitor] 80 mg PO DAILY 07/30/20 07/30/20 History Ergocalciferol (Vitamin D2) 50,000 unit PO QMONTHLY 07/30/20 07/30/20 History [Vitamin D2] Insuln Asp Prt/Insulin Aspart 54 units SQ HS 07/30/20 07/30/20 History [NovoLOG MIX 70-30 VIAL] Insuln Asp Prt/Insulin Aspart 60 units SQ QAM 07/30/20 07/30/20 History [NovoLOG MIX 70-30 VIAL] Allergies Allergy/AdvReac Type Severity Reaction Status Date / Time egg Allergy Rash/Hives Verified 07/30/20 13:02 Physical Exam Vitals: Vital Signs Temp Pulse Resp BP BP BP Pulse Ox 08/03/20 05:00 100.1 F H 78 20 145/77 93 L 08/02/20 23:50 14 08/02/20 21:17 99.1 F 84 14 150/75 95 08/02/20 16:42 95 08/02/20 16:34 81 112/64 95 08/02/20 11:44 98.4 F 69 16 130/70 95 Intake and Output 08/02/20 08/03/20 08/03/20 22:59 06:59 14:59 Intake Total 200 200 Output Total 300 Balance -100 200 Intake: Oral 200 200 Output: Urine 300 Other: Voiding Method Toilet Bedside Commode Bedside Commode Urinal Urinal Urinal # Voids 2 Results 08/02/20 11:39 08/02/20 11:39 Cardiac Enzymes 08/02/20 Range/Units 11:39 AST 52 (17-59) U/L CBC 08/02/20 Range/Units 11:39 WBC 3.3 L (3.8-10.6) k/uL RBC 6.23 H (4.30-5.90) m/uL Hgb 14.4 (13.0-17.5) gm/dL Hct 44.2 (39.0-53.0) % Plt Count 128 L (150-450) k/uL Comprehensive Metabolic Panel 08/02/20 Range/Units 11:39 Sodium 137 (137-145) mmol/L Potassium 5.3 H (3.5-5.1) mmol/L Chloride 105 (98-107) mmol/L Carbon Dioxide 24 (22-30) mmol/L BUN 32 H (9-20) mg/dL Creatinine 1.56 H (0.66-1.25) mg/dL Glucose 261 H (74-99) mg/dL Calcium 8.7 (8.4-10.2) mg/dL AST 52 (17-59) U/L ALT 51 H (4-49) U/L Alkaline Phosphatase 92 (38-126) U/L Total Protein 6.3 (6.3-8.2) g/dL Albumin 3.3 L (3.5-5.0) g/dL Current Medications Generic Name Dose Route Start Last Admin Trade Name Freq PRN Reason Stop Dose Admin Atorvastatin Calcium 80 mg 07/31/20 09:00 08/03/20 08:57 Atorvastatin 80 Mg Tab PO 80 mg DAILY MYRNA Administration Carvedilol 6.25 mg 07/30/20 21:00 08/03/20 08:57 Carvedilol 6.25 Mg Tab PO 6.25 mg BID MYRNA Administration Ferrous Sulfate 325 mg 07/31/20 09:00 08/03/20 08:57 Ferrous Sulfate 325 Mg Tab PO 325 mg DAILY MYRNA Administration Furosemide 20 mg 07/31/20 09:00 08/03/20 08:57 Furosemide 20 Mg Tab PO 20 mg DAILY MYRNA Administration Insulin Aspart 0 unit 07/30/20 17:30 08/03/20 08:57 Insulin Aspart (Novolog) 100 Unit/Ml Vial SQ 2 unit ACHS MYRNA Administration Protocol Insulin Detemir 8 unit 08/02/20 21:00 08/02/20 21:25 Insulin Detemir (Levemir) 100 Unit/Ml Syr SQ 8 unit HS MYRNA Administration Naloxone HCl 0.2 mg 07/30/20 13:28 Naloxone 0.4 Mg/Ml 1 Ml Vial IV Q2M PRN Opioid Reversal Oxycodone/Acetaminophen 1 each 07/30/20 16:32 Oxycodone-Apap 10-325mg 1 Each Tab PO TID PRN Pain Sodium Bicarbonate 650 mg 08/01/20 13:00 08/03/20 08:57 Sodium Bicarbonate Tab 650 Mg Tab PO 650 mg QID MYRNA Administration Sodium Polystyrene Sulfonate 15 gm 07/31/20 21:30 08/03/20 08:57 Sodium Polystyrene Sulfonate 15 Gm/60 Ml Bottle PO 15 gm DAILY MYRNA Administration Intake and Output 08/02/20 08/03/20 08/03/20 22:59 06:59 14:59 Intake Total 200 200 Output Total 300 Balance -100 200 Intake: Oral 200 200 Output: Urine 300 Other: Voiding Method Toilet Bedside Commode Bedside Commode Urinal Urinal Urinal # Voids 2 08/02/20 11:39 08/02/20 11:39
[2020-08-03] MEDS ORDERED: ASPIRIN 325 MG TAB PO STA (14:02)
--- NOTE | 2020-08-03 14:06 | P.CNNES ---
History of Present Illness Consult date: 08/03/20 Requesting physician: Cresencio Kim Reason for Consult: altered mental status History of Present Illness: This is a 70-year-old right-handed gentleman with medical history of diabetes mellitus, chronic kidney injury disease, hypertension, hyperlipidemia, pneumonia and that presented to the ED because of low blood sugars on 07/30/2020. Patient is a poor historian so history is obtained from medical record. Patient's glucose has been labile for the last 2 days prior to presentation. He felt very fatigued. It is documented the patient took 65 units of insulin prior to arrival due to high blood sugar. He has been eating and drinking appropriately according to the documentation. Upon initial presentation that POC glucose was 72. Repeated was 59. He was in the ED was placed on D5 45%. Per the patient's nurse, she stated that the patient had 2 episodes of the loss of consciousness. She stated that yesterday early in the morning he was on a toilet and then he passed out and she is not sure for what was a duration. There is no jerking episode related with this episode episode or any gaze deviation. Then another episode yesterday while the patient was walking back from his bathroom he had another fall episode. It's documented there is no loss of consciousness or injury reported. But the patient's nurse stated it was reported to her that he did lose consciousness but unsure duration. There is no jerking episode related with this. Patient denies history of seizures. He said that he had history of diabetes for years but could not tell me exactly for how long. Work-up in hospital: CT of the head was done and was reported as microvascular ischemic change with mild age-related atrophy. Suspected prior mild infarct left watershed region present previously upon comparison with the 07/28/2020. I personally reviewed it and it looks like an old ischemic infarct over the border of left the temporal occipital region. Carotid duplex was completed and it was reported as there is possible occlusion over the left internal carotid artery at. We could not demonstrate flow. Limited exam. Review of Systems Review of systems Limited but the pertinent positive and negative per HPI. Past Medical History Past Medical History: Asthma, Diabetes Mellitus, Hyperlipidemia, Hypertension, Pneumonia Additional Past Medical History / Comment(s): heart murmur, neuropathy,"i think i had a small bleed behind rt eye". healed wound rt great toe History of Any Multi-Drug Resistant Organisms: MRSA Date of last positivie culture/infection: 11/26/18 MDRO Source:: toe Past Surgical History: Hernia Repair, Orthopedic Surgery, Tonsillectomy Additional Past Surgical History / Comment(s): rt foot Past Anesthesia/Blood Transfusion Reactions: No Reported Reaction Past Psychological History: Depression Smoking Status: Never smoker Past Alcohol Use History: None Reported Additional Past Alcohol Use History / Comment(s): Patient is a lifelong nonsmoker. He denies any medical marijuana, marijuana, street drug or alcohol use. He states he stopped drinking alcohol 28 years ago. Past Drug Use History: None Reported - Past Family History Father Family Medical History: No Reported History Additional Family Medical History / Comment(s): Father at age 65 and patient does not know his medical problems. Mother Family Medical History: Diabetes Mellitus, Rheumatoid Arthritis (RA) Additional Family Medical History / Comment(s): Mother at age 70 with history of rheumatoid arthritis. granmother also had ra Brother(s) Additional Family Medical History / Comment(s): Patient had 2 brothers and one during service and one from stillbirth. Patient does not have any sisters. Patient has 3 sons and 3 daughters with no major medical problems. Medications and Allergies Home Medications Medication Instructions Recorded Confirmed Type Liraglutide [Victoza 2-Eugene] 1.8 mg SQ DAILY 09/28/18 07/30/20 History lisinopriL 40 mg PO DAILY 09/28/18 07/30/20 History Ferrous Sulfate [Feosol] 325 mg PO DAILY 12/16/18 07/30/20 History Furosemide [Lasix] 20 mg PO DAILY 12/16/18 07/30/20 History carvediloL [Coreg] 6.25 mg PO BID 12/16/18 07/30/20 History Atorvastatin [Lipitor] 80 mg PO DAILY 07/30/20 07/30/20 History Ergocalciferol (Vitamin D2) 50,000 unit PO QMONTHLY 07/30/20 07/30/20 History [Vitamin D2] Insuln Asp Prt/Insulin Aspart 54 units SQ HS 07/30/20 07/30/20 History [NovoLOG MIX 70-30 VIAL] Insuln Asp Prt/Insulin Aspart 60 units SQ QAM 07/30/20 07/30/20 History [NovoLOG MIX 70-30 VIAL] Allergies Allergy/AdvReac Type Severity Reaction Status Date / Time egg Allergy Rash/Hives Verified 07/30/20 13:02 Physical Examination - Vital Signs Vital Signs: Vital Signs Temp Pulse Resp BP BP BP Pulse Ox 08/03/20 11:55 98.6 F 94 20 121/74 136/73 92 L 08/03/20 05:00 100.1 F H 78 20 145/77 93 L 08/02/20 23:50 14 08/02/20 21:17 99.1 F 84 14 150/75 95 08/02/20 16:42 95 08/02/20 16:34 81 112/64 95 Intake and Output 08/02/20 08/03/20 08/03/20 22:59 06:59 14:59 Intake Total 200 200 Output Total 300 Balance -100 200 Intake: Oral 200 200 Output: Urine 300 Other: Voiding Method Toilet Bedside Commode Bedside Commode Urinal Urinal Urinal # Voids 2 GENERAL: The patient is lying in bed and is not in acute distress. CHEST: The heart rate is regular rate rhythm. No murmurs to auscultation. LUNG: Clear to auscultation bilaterally no wheezing noted throughout. Not labored breathing. ABDOMEN/GI: Bowel sounds present in all 4 quadrants. No tenderness to palpation throughout. NEUROLOGICAL: Higher mental function: The patient is awake, alert, oriented to self, place and time. Patient is following simple commands but is slow on following commands. No aphasia and no neglect. Cranial nerves: The pupils are round, equal and reactive to light and accommodation. Visual hunter are full to confrontation throughout. Extraocular movement is intact no nystagmus is noted. Facial sensation is normal to touch throughout. The facial strength is normal throughout. Hearing is normal bilaterally to hand rub. Tongue is midline and moved [id number] without any difficulty. No dysarthria is noted. Shoulder shrug is normal bilaterally. Motor: Gait was not assessed because of lack of cooperation. The strength is 5 over 5 throughout. Normal tone and bulk. Cerebellum: Normal finger to nose bilaterally. Sensation: Sensation is normal to touch throughout. Reflexes (right/left): Hard to assess because of patient lack of cooperation (was resisting upon testing his reflexes). Plantars are downgoing bilaterally. Results TSH of 1.880. AST of 52 ALTs of 51. Urinalysis was negative for urinary tract infection. Acetone was negative - Laboratory Findings CBC and BMP: 08/03/20 14:53 08/03/20 14:53 Abnormal Lab Findings: Abnormal Labs 07/30/20 07/30/20 07/30/20 12:29 12:31 12:31 WBC RBC 6.43 H Hgb Hct MCV 72.3 L MCH 23.1 L Plt Count 112 L Lymphocytes # 0.9 L Potassium Chloride Carbon Dioxide BUN Creatinine Glucose POC Glucose (mg/dL) 72 L AST ALT Albumin Urine Protein 1+ H Urine Blood Trace H Hyaline Casts 54 H Urine Mucus Rare H 07/30/20 07/30/20 07/30/20 12:31 13:17 13:44 WBC RBC Hgb Hct MCV MCH Plt Count Lymphocytes # Potassium Chloride Carbon Dioxide BUN 43 H Creatinine 3.29 H Glucose 64 L POC Glucose (mg/dL) 59 L 73 L AST 60 H ALT 56 H Albumin Urine Protein Urine Blood Hyaline Casts Urine Mucus 07/30/20 07/30/20 07/30/20 19:33 20:37 21:41 WBC RBC Hgb Hct MCV MCH Plt Count Lymphocytes # Potassium Chloride Carbon Dioxide BUN Creatinine Glucose POC Glucose (mg/dL) 122 H 145 H 167 H AST ALT Albumin Urine Protein Urine Blood Hyaline Casts Urine Mucus 07/30/20 07/30/20 07/31/20 22:36 23:32 00:50 WBC RBC Hgb Hct MCV MCH Plt Count Lymphocytes # Potassium Chloride Carbon Dioxide BUN Creatinine Glucose POC Glucose (mg/dL) 178 H 167 H 145 H AST ALT Albumin Urine Protein Urine Blood Hyaline Casts Urine Mucus 07/31/20 07/31/20 07/31/20 02:24 03:41 04:44 WBC RBC Hgb Hct MCV MCH Plt Count Lymphocytes # Potassium Chloride Carbon Dioxide BUN Creatinine Glucose POC Glucose (mg/dL) 179 H 151 H 169 H AST ALT Albumin Urine Protein Urine Blood Hyaline Casts Urine Mucus 07/31/20 07/31/20 07/31/20 05:50 07:04 08:05 WBC RBC Hgb Hct MCV MCH Plt Count Lymphocytes # Potassium Chloride Carbon Dioxide BUN Creatinine Glucose POC Glucose (mg/dL) 145 H 137 H 153 H AST ALT Albumin Urine Protein Urine Blood Hyaline Casts Urine Mucus 07/31/20 07/31/20 07/31/20 09:44 11:28 16:57 WBC RBC Hgb Hct MCV MCH Plt Count Lymphocytes # Potassium Chloride Carbon Dioxide BUN Creatinine Glucose POC Glucose (mg/dL) 198 H 166 H 114 H AST ALT Albumin Urine Protein Urine Blood Hyaline Casts Urine Mucus 07/31/20 07/31/20 07/31/20 18:00 19:54 20:05 WBC 3.4 L RBC Hgb 12.9 L Hct 38.6 L MCV 69.7 L MCH 23.2 L Plt Count 118 L Lymphocytes # Potassium 5.7 H Chloride Carbon Dioxide BUN 34 H Creatinine 1.68 H Glucose 129 H POC Glucose (mg/dL) 115 H AST ALT 57 H Albumin Urine Protein Urine Blood Hyaline Casts Urine Mucus 08/01/20 08/01/20 08/01/20 05:46 05:46 07:19 WBC 3.6 L RBC 6.42 H Hgb Hct MCV 70.7 L MCH 23.0 L Plt Count 138 L Lymphocytes # Potassium 5.7 H Chloride 108 H Carbon Dioxide 21 L BUN 31 H Creatinine 1.62 H Glucose 139 H POC Glucose (mg/dL) 138 H AST ALT Albumin Urine Protein Urine Blood Hyaline Casts Urine Mucus 08/01/20 08/01/20 08/01/20 11:43 17:11 20:13 WBC RBC Hgb Hct MCV MCH Plt Count Lymphocytes # Potassium Chloride Carbon Dioxide BUN Creatinine Glucose POC Glucose (mg/dL) 155 H 140 H 174 H AST ALT Albumin Urine Protein Urine Blood Hyaline Casts Urine Mucus 08/02/20 08/02/20 08/02/20 06:13 07:07 11:38 WBC RBC Hgb Hct MCV MCH Plt Count Lymphocytes # Potassium Chloride Carbon Dioxide BUN Creatinine Glucose POC Glucose (mg/dL) 201 H 209 H 258 H AST ALT Albumin Urine Protein Urine Blood Hyaline Casts Urine Mucus 08/02/20 08/02/20 08/02/20 11:39 11:39 16:20 WBC 3.3 L RBC 6.23 H Hgb Hct MCV 70.8 L MCH 23.1 L Plt Count 128 L Lymphocytes # 0.7 L Potassium 5.3 H Chloride Carbon Dioxide BUN 32 H Creatinine 1.56 H Glucose 261 H POC Glucose (mg/dL) 240 H AST ALT 51 H Albumin 3.3 L Urine Protein Urine Blood Hyaline Casts Urine Mucus 08/02/20 08/03/20 08/03/20 19:50 07:01 11:17 WBC RBC Hgb Hct MCV MCH Plt Count Lymphocytes # Potassium Chloride Carbon Dioxide BUN Creatinine Glucose POC Glucose (mg/dL) 195 H 189 H 226 H AST ALT Albumin Urine Protein Urine Blood Hyaline Casts Urine Mucus Assessment and Plan Assessment: Syncopal episodes. One of episode was vasovagal. Possibly cardiac in etiology another possibility is autonomic dysfunction especially with history of diabe summer. Unlikely seizures. 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 2-D echo is pending Recommend checking orthostatic vitals of blood pressure with heart rate. Regarding the carotid stenosis recommend CTA of the head and neck once and creatinine improves or we can repeat the the carotid duplex affect creatinine does not improve. Recommend vascular consult. Patient is currently on the Lipitor 80 mg daily. I'll start the patient on Aspirin 325mg once stat then 81 mg daily. I will not start the patient on the Plavix in addition because of the patient's multiple episodes of passing out to prevent any bleed. Please avoid any episodes of hypotension. Recommend systolic blood pressure to be in the range of 110-150. Ordered lipid profile. Cardiac monitoring PT/OT are on board. There is no family members at bedside. I'll attempt to contact the family via phone. Cardiology is on board. Regarding the patient's management of diabetes as well as episodes of hypoglycemia will defer the management to the primary team. Thank you for the consult. Rick Munoz M.D. Neuro-hospitalist Time with Patient: Greater than 30
[2020-08-03 15:20] LABS: Basophils % (A) 0 %; Eosinophils % (A) 1 %; HCT 47.1 % (39.0-53.0); HGB 14.7 gm/dL (13.0-17.5); Hypochromasia Slight; Lymphocytes # (A) 0.8 k/uL (1.0-4.8); Lymphocytes % (A) 15 %; MCH 22.2 pg (25.0-35.0); MCHC 31.2 g/dL (31.0-37.0); MCV 71.2 fL (80.0-100.0); Mean Platelet Volume 7.2; Microcytosis Moderate; Monocytes # (A) 0.2 k/uL (0-1.0); Monocytes % (A) 4 %; Neutrophils # (A) 4.2 k/uL (1.3-7.7); Neutrophils % (A) 80 %; Platelet Count 148 k/uL (150-450); RBC 6.62 m/uL (4.30-5.90); RDW 14.7 % (11.5-15.5); WBC 5.3 k/uL (3.8-10.6)
--- NOTE | 2020-08-03 15:53 | CDI ---
Documentation Clarification Form Date: 08/03/2020 CDS: Gifty Tapia, CCS, CCDS Admit Date: 07/30/2020 Patient Name: Tex Jones Discharge Date: ATTENTION: The Clinical Documentation Specialists (CDI) and [facility] Coding Staff appreciate your assistance in clarifying documentation. Please respond to the clarification below the line at the bottom and electronically sign. The CDI & [facility] Coding staff will review the response and follow-up if needed. Please note: Queries are made part of the Legal Health Record. If you have any questions, please contact the author of this message via ITS. Dear Dr. Melissa Edgar: Per the 08/01 Nephrology Consult: "Chronic kidney disease secondary to nephrosclerosis possible early diabetic nephropathy with 1+ protein baseline creatinine 1.6." History/Risk Factors: IDDM II, CKD nos, Asthma, Hyperlipidemia, Hypertension, Pneumonia, Heart Murmur. Clinical Indicators: Patient presented to ED on 07/30 via EMS with fatigue & fluctuating glucose levels. Admitted with low blood glucose & Acute kidney injury. Per the Nephrology Consult on 08/01: "He has chronic kidney disease with baseline About 1.7 on 01/02/2019 and on admission her creatinine was 2.01 worsened to 3.29 on 07/30/2020 and is down to 1.6 to as of this morning." LAB 07/30: BUN 43^, Cr 3.29^, Glucose 64*, GFR 44 - 51. Glucose levels: 64 on 07/30 - 258 on 08/02 BUN 07/30: 43 - 31 on 08/01. Creatinine 07/30: 3.29 - 1.56 on 08/02 GFR 05/08/17: 51 - >60 Treatment on admission 07/30: IV fluid 1,000 mls @ 75 mls/hr, IV fluid 500 mls @ 999 mls/hr, IV Dextrose/NaCl 1,000 mls @ 100 mls/hr, Insulin sq, In order to capture the severity of condition, please clarify the stage of the CKD, if known: CKD Stage 2 (GFR 60-89) CKD Stage 3 (GFR 30-59) Other, please specify Unable to determine (Last Revision: December 2019) stage 3 MTDD
--- NOTE | 2020-08-03 16:16 | EEG ---
ELECTROENCEPHALOGRAM REPORT DATE OF SERVICE: 08/03/2020 CLINICAL HISTORY: This is a 70-year-old gentleman with a reported history of diabetes, chronic stroke over the border of the temporo-occipital region who presented to the hospital on 07/30/2020 for labile blood sugar. During the hospital stay he had 2 episodes of loss of consciousness. This video EEG was obtained to evaluate for seizure and epileptiform activity. RELEVANT MEDICATION: None. DESCRIPTION: Wakefulness, drowsiness and stage II sleep are obtained. During wakefulness, there is a posterior-dominant rhythm of low to moderate voltage of 6-7 hertz activity symmetrically. During drowsiness there is slowing and attenuation of the background activity. During stage II sleep there are sleep spindle and K complexes. There is rare to occasional medium to high voltage of 1 to 1.5 hertz of generalized rhythmic delta activity with frontal predominance. Interictal and ictal: None. ACTIVATION PROCEDURE: Photic stimulation did not evoke a posterior driving response. Hyperventilation was not performed because of the patient's clinical history. CLINICAL INTERPRETATION: This is an abnormal awake, drowsy and asleep routine EEG. The background slowing as well as the generalized rhythmic delta activity is suggestive of mild to moderate encephalopathy of unspecified etiology. There is no focal slowing, no epileptiform activity or seizure detected during this routine EEG. Clinical correlation is recommended. MMZEFERINO / ABEN: [id number] / MTDD
[2020-08-03 16:42] LABS: Appearance,Urine Clear (Clear); Bilirubin,Urine Negative (Negative); Blood,Urine Small (Negative); Color,Urine Yellow; Glucose,Urine (UA) 2+ (Negative); Hyaline Casts,Urine 1 /lpf (0-2); Ketones,Urine Negative (Negative); Leukocyte Esterase,Urine Negative (Negative); Mucus,Urine Rare /hpf; Nitrite,Urine Negative (Negative); PH, Urine 5.5 (5.0-8.0); Protein,Urine 2+ (Negative); RBC,Urine <1 /hpf (0-5); Specific Gravity,Urine 1.019 (1.001-1.035); Urobilinogen,Urine <2.0 mg/dL (<2.0); WBC,Urine 1 /hpf (0-5)
--- NOTE | 2020-08-03 16:58 | PN ---
PROGRESS NOTE His serum creatinine has improved with creatinine down to 1.5 yesterday from peak of 3.29 mg/dL. PHYSICAL EXAMINATION: Patient is comfortable. He denies any significant complaints. Blood pressure was 136/73, heart rate 94 per minute, he is afebrile. However, he did have a temp earlier this morning of 100.1 degrees Fahrenheit. Examination of the heart S1, S2. Examination of the lungs, bilateral breath sounds are heard. Abdomen is soft, nontender. Examination of the lower extremities shows no significant edema. NURSE RN BSN exam grossly intact. LABS: Show sodium 137, potassium 5.3 from yesterday, serum creatinine 1.56, BUN 32, hemoglobin of 14.4 g/dL. ASSESSMENT: 1. Chronic kidney disease secondary to nephrosclerosis. Baseline creatinine about 1.5- 1.6 mg/dL. 2. Acute kidney injury, currently improving, associated with acute kidney injury and underlying CKD, fairly stable. 3. Mild non gap metabolic acidosis, maintained on oral sodium bicarb. PLAN: 1. Check labs in a.m. Continue off MARKIE inhibitors for now. Continue with oral Lasix as well. MMODL / IJN: [id number] /
[2020-08-03 17:17] LABS: Glucose,Whole Blood 232 mg/dL (75-99)
--- NOTE | 2020-08-03 18:00 | ECHOF ---
Referral Reason:assess LV function MEASUREMENTS -------- HEIGHT: 177.8 cm WEIGHT: 127.0 kg BP: IVSd: 1.6 cm (0.6 - 1.1) LVIDd: 2.9 cm (3.9 - 5.3) LVPWd: 1.5 cm (0.6 - 1.1) IVSs: 2.2 cm LVIDs: 1.8 cm LVPWs: 1.6 cm Ao Diam: 4.6 cm (2.0 - 3.7) AV Cusp: 1.8 cm (1.5 - 2.6) LA Diam: 3.0 cm (2.7 - 3.8) MV EXCURSION: 12.685 mm (> 18.000) MV EF SLOPE: 34 mm/s (70 - 150) EPSS: 1.1 cm MV E Kareem: 0.60 m/s MV DecT: 288 ms MV A Kareem: 0.87 m/s MV E/A Ratio: 0.69 RAP: 5.00 mmHg RVSP: 9.33 mmHg FINDINGS -------- This was a technically difficult study with suboptimal views. The left ventricular size is normal. There is moderate concentric left ventricular hypertrophy. O verall left ventricular systolic function is low-normal with, an EF between 50 - 55 %. The right ventricle is normal in size. The left atrial size is normal. The right atrial size is normal. 5.0mg of Lumason was utilized for enhancement of images The aortic valve is trileaflet and appears structurally normal. The mitral valve is normal. There is trace mitral regurgitation. The tricuspid valve appears structurally normal. Trace tricuspid regurgitation present. Right ilya tricular systolic pressure is normal at < 35 mmHg. There is no pulmonic regurgitation present. The aortic root is dilated measuring 4.6 cm. IVC Not well visulized. There is no pericardial effusion. CONCLUSIONS -------- 1. The left ventricular size is normal. 2. There is moderate concentric left ventricular hypertrophy. 3. Overall left ventricular systolic function is low-normal with, an EF between 50 - 55 %. 4. There is trace mitral regurgitation. 5. Trace tricuspid regurgitation present. 6. The aortic root is dilated measuring 4.6 cm 7. There is no pericardial effusion. QUALITY ASSURANCE SUPERVISOR CHASSIS: Carmen Downing RD
[2020-08-03 18:43] LABS: Albumin 3.8 g/dL (3.80-4.90); Albumin/Globulin Ratio 1.36 (1.60-3.17); Anion Gap 8.5 mmol/L (4.00-12.00); BUN/Creat Ratio 17.65 Ratio (12.00-20.00); Calcium 8.9 mg/dL (8.7-10.3); Carbon Dioxide 26.5 mmol/L (21.6-31.8); Globulin 2.8 g/dL (1.6-3.3); Non-African American GFR(CKD) 39.7 (60.0-200.0); Potassium 4.7 mmol/L (3.5-5.5); Total Bilirubin 0.7 mg/dL (0.3-1.2); Total Protein 6.6 g/dL (6.2-8.2)
[2020-08-03 18:52] LABS: C Reactive Protein 9.9 mg/dL (0.0-0.8); Chol/HDL Ratio 4.11; LDL Cholesterol,Calculated 37.6 mg/dL (0.0-131.0); VLDL Calculation 18.4 mg/dL (5.00-40.00)
--- NOTE | 2020-08-03 21:23 | P.CONS ---
History of Present Illness - Reason for Consult Consult date: 08/03/20 Fever Requesting physician: Cresencio Kim - Chief Complaint Fatigue and weakness x few days - History of Present Illness Patient is a 70-year-old -[place] male presenting to the hospital 4 days ago on 07/30/2020 for evaluation of fatigue and fluctuating blood sugar have been going off for 2 days before he presented to the hospital, the patient denies having any chest shortness with no nausea no vomiting no bone pain or any diarrhea, on relatively and the patient was afebrile subsequently he did have low-grade fever 100.2 on 07/31/2020 and he did have low-grade fever 100.1 early this morning that probably this infection disease consultation, the patient did have a normal white count during this hospital stay with occasional leukopenia and did have evidence of lymphopenia, patient did have a creatinine of 3.29 on admission that seemed to have improved after IV hydration is down to 1.7 today AST mildly elevated at 50, patient did have a UA done on admission as well as one repeated today and has been negative, patient did have a chest x-ray we did shows predominant interstitial pattern can be associated with atypical pneumonia interstitial pneumonitis for pneumonitis, patient denies significant cough or any sputum reduction for nausea no vomiting no abdominal pain no diarrhea and no urinary symptoms Review of Systems Positive point has been mentioned in the HPI rest of the systems are negative Past Medical History Past Medical History: Asthma, Diabetes Mellitus, Hyperlipidemia, Hypertension, Pneumonia Additional Past Medical History / Comment(s): heart murmur, neuropathy,"i think i had a small bleed behind rt eye". healed wound rt great toe History of Any Multi-Drug Resistant Organisms: MRSA Year Discovered:: 11/26/18 MDRO Source:: toe Past Surgical History: Hernia Repair, Orthopedic Surgery, Tonsillectomy Additional Past Surgical History / Comment(s): rt foot Past Anesthesia/Blood Transfusion Reactions: No Reported Reaction Past Psychological History: Depression Smoking Status: Never smoker Past Alcohol Use History: None Reported Additional Past Alcohol Use History / Comment(s): Patient is a lifelong nonsmoker. He denies any medical marijuana, marijuana, street drug or alcohol use. He states he stopped drinking alcohol 28 years ago. Past Drug Use History: None Reported - Past Family History Father Family Medical History: No Reported History Additional Family Medical History / Comment(s): Father at age 65 and patient does not know his medical problems. Mother Family Medical History: Diabetes Mellitus, Rheumatoid Arthritis (RA) Additional Family Medical History / Comment(s): Mother at age 70 with h istory of rheumatoid arthritis. granmother also had ra Brother(s) Additional Family Medical History / Comment(s): Patient had 2 brothers and one during service and one from stillbirth. Patient does not have any sisters. Patient has 3 sons and 3 daughters with no major medical problems. Medications and Allergies Home Medications Medication Instructions Recorded Confirmed Type Liraglutide [Victoza 2-Eugene] 1.8 mg SQ DAILY 09/28/18 07/30/20 History lisinopriL 40 mg PO DAILY 09/28/18 07/30/20 History Ferrous Sulfate [Feosol] 325 mg PO DAILY 12/16/18 07/30/20 History Furosemide [Lasix] 20 mg PO DAILY 12/16/18 07/30/20 History carvediloL [Coreg] 6.25 mg PO BID 12/16/18 07/30/20 History Atorvastatin [Lipitor] 80 mg PO DAILY 07/30/20 07/30/20 History Ergocalciferol (Vitamin D2) 50,000 unit PO QMONTHLY 07/30/20 07/30/20 History [Vitamin D2] Insuln Asp Prt/Insulin Aspart 54 units SQ HS 07/30/20 07/30/20 History [NovoLOG MIX 70-30 VIAL] Insuln Asp Prt/Insulin Aspart 60 units SQ QAM 07/30/20 07/30/20 History [NovoLOG MIX 70-30 VIAL] Allergies Allergy/AdvReac Type Severity Reaction Status Date / Time egg Allergy Rash/Hives Verified 07/30/20 13:02 Physical Exam Vitals: Vital Signs Temp Pulse Resp BP BP Pulse Ox 08/03/20 11:55 98.6 F 94 20 121/74 136/73 92 L 08/03/20 05:00 100.1 F H 78 20 145/77 93 L 08/02/20 23:50 14 Intake and Output 08/03/20 08/03/20 08/03/20 06:59 14:59 22:59 Intake Total 200 Output Total 400 Balance 200 -400 Intake: Oral 200 Output: Urine 400 Other: Voiding Method Bedside Commode Bedside Commode Bedside Commode Urinal Urinal Urinal # Voids 2 2 GENERAL DESCRIPTION: An elderly male lying in bed, no distress. No tachypnea or accessory muscle of respiration use. HEENT: Shows Pallor , no scleral icterus. Oral mucous membrane is dry. No pharyngeal erythema or thrush NECK: Trachea central, no thyromegaly. LUNGS: Unlabored breathing. Decreased breath sound the bases. No wheeze or crackle. HEART: S1, S2, regular rate and rhythm. No loud murmur ABDOMEN: Soft, no tenderness , guarding or rigidity, no organomegaly EXTREMITIES: No edema of feet. SKIN: No rash, no masses palpable. NEUROLOGICAL: The patient is awake, alert, oriented x3, mood and affect normal. Results CBC & Chem 7: 08/03/20 14:53 08/03/20 14:53 Labs: Abnormal Lab Results - Last 24 Hours (Table) 08/03/20 08/03/20 08/03/20 Range/Units 07:01 11:17 14:53 RBC 6.62 H (4.30-5.90) m/uL MCV 71.2 L (80.0-100.0) fL MCH 22.2 L (25.0-35.0) pg Plt Count 148 L (150-450) k/uL Lymphocytes # 0.8 L (1.0-4.8) k/uL BUN (9.0-27.0) mg/dL Creatinine (0.6-1.5) mg/dL Est GFR (CKD-EPI)AfAm (60.0-200.0) Est GFR (CKD-EPI)NonAf (60.0-200.0) Glucose (70-110) mg/dL POC Glucose (mg/dL) 189 H 226 H (75-99) mg/dL AST (14-35) U/L Lactate Dehydrogenase (120-246) U/L C-Reactive Protein (0.0-0.8) mg/dL Albumin/Globulin Ratio (1.60-3.17) g/dL HDL Cholesterol (40.0-60.0) mg/dL Procalcitonin (0.02-0.09) ng/mL Urine Protein (Negative) Urine Glucose (UA) (Negative) Urine Blood (Negative) Urine Mucus (None) /hpf 08/03/20 08/03/20 08/03/20 Range/Units 14:53 14:53 14:53 RBC (4.30-5.90) m/uL MCV (80.0-100.0) fL MCH (25.0-35.0) pg Plt Count (150-450) k/uL Lymphocytes # (1.0-4.8) k/uL BUN 30.0 H (9.0-27.0) mg/dL Creatinine 1.7 H (0.6-1.5) mg/dL Est GFR (CKD-EPI)AfAm 46.0 L (60.0-200.0) Est GFR (CKD-EPI)NonAf 39.7 L (60.0-200.0) Glucose 202 H (70-110) mg/dL POC Glucose (mg/dL) (75-99) mg/dL AST 50 H (14-35) U/L Lactate Dehydrogenase 376 H (120-246) U/L C-Reactive Protein 9.9 H (0.0-0.8) mg/dL Albumin/Globulin Ratio 1.36 L (1.60-3.17) g/dL HDL Cholesterol 18.0 L (40.0-60.0) mg/dL Procalcitonin 0.15 H (0.02-0.09) ng/mL Urine Protein (Negative) Urine Glucose (UA) (Negative) Urine Blood (Negative) Urine Mucus (None) /hpf 08/03/20 08/03/20 Range/Units 16:20 17:04 RBC (4.30-5.90) m/uL MCV (80.0-100.0) fL MCH (25.0-35.0) pg Plt Count (150-450) k/uL Lymphocytes # (1.0-4.8) k/uL BUN (9.0-27.0) mg/dL Creatinine (0.6-1.5) mg/dL Est GFR (CKD-EPI)AfAm (60.0-200.0) Est GFR (CKD-EPI)NonAf (60.0-200.0) Glucose (70-110) mg/dL POC Glucose (mg/dL) 232 H (75-99) mg/dL AST (14-35) U/L Lactate Dehydrogenase (120-246) U/L C-Reactive Protein (0.0-0.8) mg/dL Albumin/Globulin Ratio (1.60-3.17) g/dL HDL Cholesterol (40.0-60.0) mg/dL Procalcitonin (0.02-0.09) ng/mL Urine Protein 2+ H (Negative) Urine Glucose (UA) 2+ H (Negative) Urine Blood Small H (Negative) Urine Mucus Rare H (None) /hpf Assessment and Plan Assessment: 1- patient presented to the hospital with generalized weakness and inability fluctuating blood sugar this patient was noticed to be dehydrated on admission with elevated BUN and creatinine this seemed to have responded to the high fluids with overall improvement in creatinine at 1.7 now the patient did have low-grade fever of 100.1-100.2F however did not have significant respiratory symptoms though chest x-ray has been suggested of interstitial pneumonitis with question of possible viral versus atypical bacterial pneumonia (1) Fever Current Visit: Yes Status: Acute Code(s): R50.9 - FEVER, UNSPECIFIED SNOMED Code(s): 937756922 (2) Interstitial pneumonitis Current Visit: Yes Status: Acute Code(s): J84.89 - OTHER SPECIFIED INTERSTITIAL PULMONARY DISEASES SNOMED Code(s): 34313927 Plan: 1- Roldan PCR has been requested we'll also request influenza PCR 2-we will check CRP, pro-calcitonin, LDH level 3- empirically add Levaquin 500 mg by mouth daily We will follow on clinical condition and cultures to further adjust medication if needed Thank you for this consultation will follow this patient with you Time with Patient: Greater than 30
[2020-08-03] MEDS: INSULIN DETEMIR (LEVEMIR) 100 UNIT/ML SYR SQ SCH (21:24)
[2020-08-03 21:27] LABS: Glucose,Whole Blood 188 mg/dL (75-99)
[2020-08-03] MEDS ORDERED: LEVOFLOXACIN 500 MG TAB PO SCH (21:30)
[2020-08-04 07:26] LABS: Glucose,Whole Blood 174 mg/dL (75-99)
[2020-08-04] MEDS: SODIUM POLYSTYRENE SULFONATE 15 GM/60 ML BOTTLE PO SCH (08:56)
[2020-08-04] MEDS: INSULIN ASPART (NovoLOG) 100 UNIT/ML VIAL SQ SCH ×4 (09:04→20:41)
[2020-08-04] MEDS: ASPIRIN 81 MG PO SCH (09:04)
[2020-08-04] MEDS: FUROSEMIDE 20 MG TAB PO SCH (09:04)
[2020-08-04] MEDS: FERROUS SULFATE 325 MG TAB PO SCH (09:04)
[2020-08-04] MEDS: SODIUM BICARBONATE TAB 650 MG TAB PO SCH ×4 (09:04→20:41)
[2020-08-04] MEDS: carvediloL 6.25 MG TAB PO SCH ×2 (09:04→20:41)
[2020-08-04] MEDS: ATORVASTATIN 80 MG TAB PO SCH (09:04)
[2020-08-04 11:47] LABS: Glucose,Whole Blood 192 mg/dL (75-99)
--- NOTE | 2020-08-04 11:58 | P.PN ---
Subjective Progress Note Date: 08/04/20 CHIEF COMPLAINT: Increased lung markings HISTORY OF PRESENT ILLNESS: Patient examined this morning at the bedside. He denies shortness of breath. Denies chest pain or pressure. Echocardiogram completed yesterday reveals ejection fraction between 50 and 55%. PHYSICAL EXAM: VITAL SIGNS: Reviewed. GENERAL: Well-developed in no acute distress. HEENT: Head is normocephalic. Pupils are equal, round. Sclerae anicteric. Mucous membranes of the mouth are moist. Neck supple. No JVD or thyromegaly LUNGS: Respirations even and unlabored. Lungs diminished. HEART: Regular rate and rhythm. S1 and S2 heard. ABDOMEN: Soft. Nondistended. Nontender. EXTREMITIES: Normal range of motion. No clubbing or cyanosis. Peripheral pulses intact. No lower extremity edema NEUROLOGIC: Awake and alert. Oriented x 3. ASSESSMENT: Possible syncope Acute Covid 19 Acute on chronic kidney disease Fever with possible pneumonia per CXR, no evidence of heart failure clinically Carotid stenosis, doppler reveals possible occlusion of left internal carotid artery Diabetes mellitus, type II Hypertension Hyperlipidemia Obesity BMI 38.0 PLAN: Obtain orthostatic blood pressures Continue current cardiac medications Lisinopril on hold secondary to KARLY and hyperkalemia Recommend vascular consult for possible occlusion of left ICA. Will defer to internal medicine. We will follow on an as-needed basis. Please call with questions or concerns. Nurse practitioner note has been reviewed by physician. Signing provider agrees with the documented findings, assessment, and plan of care. Objective - Vital Signs Vital signs: Vital Signs Temp 100.2 F H 08/04/20 08:07 Pulse 77 08/04/20 08:20 Resp 20 08/04/20 08:20 BP 154/69 08/04/20 08:07 Pulse Ox 96 08/04/20 08:07 Intake & Output 08/03/20 08/04/20 08/04/20 18:59 06:59 18:59 Intake Total 200 Output Total 400 Balance -400 200 Intake: Oral 200 Output: Urine 400 Other: Voiding Method Bedside Commode Bedside Commode Bedpan Urinal Urinal Urinal # Voids 2 - Labs CBC & Chem 7: 08/03/20 14:53 08/03/20 14:53 Labs: Abnormal Lab Results - Last 24 Hours (Table) 08/03/20 08/03/20 08/03/20 Range/Units 13:00 14:53 14:53 RBC 6.62 H (4.30-5.90) m/uL MCV 71.2 L (80.0-100.0) fL MCH 22.2 L (25.0-35.0) pg Plt Count 148 L (150-450) k/uL Lymphocytes # 0.8 L (1.0-4.8) k/uL BUN 30.0 H (9.0-27.0) mg/dL Creatinine 1.7 H (0.6-1.5) mg/dL Est GFR (CKD-EPI)AfAm 46.0 L (60.0-200.0) Est GFR (CKD-EPI)NonAf 39.7 L (60.0-200.0) Glucose 202 H (70-110) mg/dL POC Glucose (mg/dL) (75-99) mg/dL AST 50 H (14-35) U/L Lactate Dehydrogenase (120-246) U/L C-Reactive Protein (0.0-0.8) mg/dL Albumin/Globulin Ratio 1.36 L (1.60-3.17) g/dL HDL Cholesterol (40.0-60.0) mg/dL Procalcitonin (0.02-0.09) ng/mL Urine Protein (Negative) Urine Glucose (UA) (Negative) Urine Blood (Negative) Urine Mucus (None) /hpf Coronavirus (PCR) Detected H (Not Detected) 08/03/20 08/03/20 08/03/20 Range/Units 14:53 14:53 16:20 RBC (4.30-5.90) m/uL MCV (80.0-100.0) fL MCH (25.0-35.0) pg Plt Count (150-450) k/uL Lymphocytes # (1.0-4.8) k/uL BUN (9.0-27.0) mg/dL Creatinine (0.6-1.5) mg/dL Est GFR (CKD-EPI)AfAm (60.0-200.0) Est GFR (CKD-EPI)NonAf (60.0-200.0) Glucose (70-110) mg/dL POC Glucose (mg/dL) (75-99) mg/dL AST (14-35) U/L Lactate Dehydrogenase 376 H (120-246) U/L C-Reactive Protein 9.9 H (0.0-0.8) mg/dL Albumin/Globulin Ratio (1.60-3.17) g/dL HDL Cholesterol 18.0 L (40.0-60.0) mg/dL Procalcitonin 0.15 H (0.02-0.09) ng/mL Urine Protein 2+ H (Negative) Urine Glucose (UA) 2+ H (Negative) Urine Blood Small H (Negative) Urine Mucus Rare H (None) /hpf Coronavirus (PCR) (Not Detected) 08/03/20 08/03/20 08/04/20 Range/Units 17:04 21:02 07:22 RBC (4.30-5.90) m/uL MCV (80.0-100.0) fL MCH (25.0-35.0) pg Plt Count (150-450) k/uL Lymphocytes # (1.0-4.8) k/uL BUN (9.0-27.0) mg/dL Creatinine (0.6-1.5) mg/dL Est GFR (CKD-EPI)AfAm (60.0-200.0) Est GFR (CKD-EPI)NonAf (60.0-200.0) Glucose (70-110) mg/dL POC Glucose (mg/dL) 232 H 188 H 174 H (75-99) mg/dL AST (14-35) U/L Lactate Dehydrogenase (120-246) U/L C-Reactive Protein (0.0-0.8) mg/dL Albumin/Globulin Ratio (1.60-3.17) g/dL HDL Cholesterol (40.0-60.0) mg/dL Procalcitonin (0.02-0.09) ng/mL Urine Protein (Negative) Urine Glucose (UA) (Negative) Urine Blood (Negative) Urine Mucus (None) /hpf Coronavirus (PCR) (Not Detected) 08/04/20 Range/Units 11:41 RBC (4.30-5.90) m/uL MCV (80.0-100.0) fL MCH (25.0-35.0) pg Plt Count (150-450) k/uL Lymphocytes # (1.0-4.8) k/uL BUN (9.0-27.0) mg/dL Creatinine (0.6-1.5) mg/dL Est GFR (CKD-EPI)AfAm (60.0-200.0) Est GFR (CKD-EPI)NonAf (60.0-200.0) Glucose (70-110) mg/dL POC Glucose (mg/dL) 192 H (75-99) mg/dL AST (14-35) U/L Lactate Dehydrogenase (120-246) U/L C-Reactive Protein (0.0-0.8) mg/dL Albumin/Globulin Ratio (1.60-3.17) g/dL HDL Cholesterol (40.0-60.0) mg/dL Procalcitonin (0.02-0.09) ng/mL Urine Protein (Negative) Urine Glucose (UA) (Negative) Urine Blood (Negative) Urine Mucus (None) /hpf Coronavirus (PCR) (Not Detected)
[2020-08-04] MEDS ORDERED: REMDESIVIR (EUA) 200 MG in SODIUM CHLORIDE 0.9% 250 ML IVPB ONE (14:00)
[2020-08-04] MEDS: ENOXAPARIN 40 MG/0.4 ML SYRINGE SQ SCH (14:51)
[2020-08-04] MEDS: ZINC SULFATE 220 MG CAP PO SCH (14:51)
[2020-08-04] MEDS: dexAMETHasone 2 MG TAB PO SCH (14:51)
--- NOTE | 2020-08-04 15:05 | PN ---
PROGRESS NOTE Patient is seen for followup for acute kidney injury. Renal function has been improving. Patient is currently lying in bed. He denies any significant complaints. PHYSICAL EXAMINATION: Today, blood pressure was 154/69, heart rate 77 per minute. He did have a fever of 100.2 degrees Fahrenheit. Examination of the heart S1, S2. Examination of the lungs, bilateral breath sounds are heard. Abdomen is soft, obese, nontender. Examination of lower extremities edema 1+ bilaterally. PHARMACY TEACHER exam grossly intact. LABS: From yesterday show serum creatinine 1.7, sodium 139, potassium 4.7. No labs available from today. Hemoglobin was 14.7 g/dL. ASSESSMENT: 1. Acute kidney injury, currently improved. Serum creatinine had decreased to 1.5 and then back up to 1.7 yesterday. Lasix is currently at 20 mg p.o. daily. The patient has good urine output. 2. Mild non gap metabolic acidosis, currently improved. Maintained on oral sodium bicarb. 3. COVID-19 pneumonia, currently stable. 4. Chronic kidney disease secondary to nephrosclerosis. Baseline creatinine 1.5-1.6 mg/dL. PLAN: Continue with current dose of Lasix. The patient is also maintained on . Repeat labs in a.m. MMODL / IJN: [id number] /
--- NOTE | 2020-08-04 16:44 | P.GSCN ---
History of Present Illness Consult date: 08/04/20 Reason for Consult: Occlusion left internal carotid artery stenosis Requesting physician: Cresencio Kim History of present illness: This is a 70-year-old gentleman who follows with Dr. Cresencio Kim on an out patient basis. He is past medical history significant for hypertension, hyperlipidemia, obesity, insulin-dependent diabetes mellitus, chronic kidney disease with a baseline creatinine of around 1.7 and asthma. On 07/30/2020 the patient presented to the emergency department here at [facility] with complaints of weakness, fatigue and fluctuating blood glucose. The patient denies any recent fever, chills, focal neurological deficits, change in vision or hearing, presyncope or syncope, orthopnea or edema. On admission his laboratory results showed a WBC count of 4.0, hemoglobin 14.9, platelets 112, BUN 43, creatinine 3.29 and a blood glucose of 64. A 12-lead EKG was completed which showed normal sinus rhythm with occasional PVCs with a heart rate of 72 BPM. Due to the patient's mental status changes and weakness a computed tomography scan of his brain without contrast was completed which the report shows microvascular ischemic changes with mild age-related atrophy and suspected prior mild infarct left watershed region, present previously. For further evaluation a carotid duplex was completed with the impression showing possible occlusion of the left internal carotid artery. The patient is somewhat of a poor historian, although the nursing staff reports that over the weekend the patient did have a syncopal event. On 08/03/2020 the patient did test positive for COVID 19 and is currently on COVID 19 precautions. A 2-D echo was also completed on 08/03/2020 which showed a normal left ventricular size, moderate concentric left ventricular hypertrophy, and overall left ventricular systolic function to be low normal with an ejection fraction between 50 and 55%, trace mitral valve regurgitation and trace tricuspid valve regurgitation. Subsequently, due to the patient's presenting symptoms and findings of possible occlusion of the left internal carotid artery a consult was placed to Dr. Tomi Bernal for further evaluation and treatment recommendations. Review of Systems A 14 point review of systems was completed was negative except as mentioned in the HPI. Past Medical History Past Medical History: Asthma, Diabetes Mellitus, Hyperlipidemia, Hypertension, Pneumonia Additional Past Medical History / Comment(s): heart murmur, diabetic neuropathy,"i think i had a small bleed behind rt eye". healed wound rt great toe History of Any Multi-Drug Resistant Organisms: MRSA Year Discovered:: 11/26/18 MDRO Source:: toe Past Surgical History: Hernia Repair, Orthopedic Surgery, Tonsillectomy Additional Past Surgical History / Comment(s): rt foot Past Anesthesia/Blood Transfusion Reactions: No Reported Reaction Past Psychological History: Depression Smoking Status: Never smoker Past Alcohol Use History: None Reported Additional Past Alcohol Use History / Comment(s): Patient is a lifelong nonsmoker. He denies any medical marijuana, marijuana, street drug or alcohol use. He states he stopped drinking alcohol 28 years ago. Past Drug Use History: None Reported - Past Family History Father Family Medical History: No Reported History Additional Family Medical History / Comment(s): Father at age 65 and patient does not know his medical problems. Mother Family Medical History: Diabetes Mellitus, Rheumatoid Arthritis (RA) Additional Family Medical History / Comment(s): Mother at age 70 with history of rheumatoid arthritis. granmother also had ra Brother(s) Additional Family Medical History / Comment(s): Patient had 2 brothers and one during service and one from stillbirth. Patient does not have any sisters. Patient has 3 sons and 3 daughters with no major medical problems. Medications and Allergies Home Medications Medication Instructions Recorded Confirmed Type Liraglutide [Victoza 2-Eugene] 1.8 mg SQ DAILY 09/28/18 07/30/20 History lisinopriL 40 mg PO DAILY 09/28/18 07/30/20 History Ferrous Sulfate [Feosol] 325 mg PO DAILY 12/16/18 07/30/20 History Furosemide [Lasix] 20 mg PO DAILY 12/16/18 07/30/20 History carvediloL [Coreg] 6.25 mg PO BID 12/16/18 07/30/20 History Atorvastatin [Lipitor] 80 mg PO DAILY 07/30/20 07/30/20 History Ergocalciferol (Vitamin D2) 50,000 unit PO QMONTHLY 07/30/20 07/30/20 History [Vitamin D2] Insuln Asp Prt/Insulin Aspart 54 units SQ HS 07/30/20 07/30/20 History [NovoLOG MIX 70-30 VIAL] Insuln Asp Prt/Insulin Aspart 60 units SQ QAM 07/30/20 07/30/20 History [NovoLOG MIX 70-30 VIAL] Allergies Allergy/AdvReac Type Severity Reaction Status Date / Time egg Allergy Rash/Hives Verified 07/30/20 13:02 Surgical - Exam Vital Signs Temp Pulse Resp BP Pulse Ox 98.2 F 65 18 91/58 98 07/30/20 12:02 07/30/20 12:02 07/30/20 12:02 07/30/20 12:02 07/30/20 12:02 - General well developed, well nourished, no distress, no pain, obese - Eyes PERRL, normal ocular movement - ENT normal pinna, normal nares, normal mucosa, no hearing loss, no congestion - Neck Neck is supple, no lymphadenopathy. no masses, no bruits, trachea midline, no venous distension - Respiratory Lungs sounds essentially clear throughout, diminished to his bilateral bases. Respirations are symmetrical and nonlabored. No wheezes, rhonchi or crackles. - Cardiovascular Regular rhythm and rate. S1 and S2 present, negative for S3, gallop or murmur. No edema present. - Abdomen Abdomen is soft, nontender and nondistended. Normal bowel sounds present in all 4 abdominal quadrants. No guarding or rigidity. No organomegaly appreciated. - Genitourinary Deferred - Rectum Deferred - Integumentary no rash, no growths, no abnormal pigmentation - Neurologic Cranial nerves II through XII intact. He is awake, alert and oriented 3. - Musculoskeletal Generalized weakness. normal gait, normal posture - Psychiatric oriented to time, oriented to person, oriented to place, speech is normal, memory intact Results - Labs 08/03/20 14:53 08/03/20 14:53 Abnormal Lab Results - Last 24 Hours (Table) 08/03/20 08/03/20 08/03/20 Range/Units 13:00 14:53 14:53 RBC 6.62 H (4.30-5.90) m/uL MCV 71.2 L (80.0-100.0) fL MCH 22.2 L (25.0-35.0) pg Plt Count 148 L (150-450) k/uL Lymphocytes # 0.8 L (1.0-4.8) k/uL BUN 30.0 H (9.0-27.0) mg/dL Creatinine 1.7 H (0.6-1.5) mg/dL Est GFR (CKD-EPI)AfAm 46.0 L (60.0-200.0) Est GFR (CKD-EPI)NonAf 39.7 L (60.0-200.0) Glucose 202 H (70-110) mg/dL POC Glucose (mg/dL) (75-99) mg/dL AST 50 H (14-35) U/L Lactate Dehydrogenase (120-246) U/L C-Reactive Protein (0.0-0.8) mg/dL Albumin/Globulin Ratio 1.36 L (1.60-3.17) g/dL HDL Cholesterol (40.0-60.0) mg/dL Procalcitonin (0.02-0.09) ng/mL Urine Protein (Negative) Urine Glucose (UA) (Negative) Urine Blood (Negative) Urine Mucus (None) /hpf Coronavirus (PCR) Detected H (Not Detected) 08/03/20 08/03/20 08/03/20 Range/Units 14:53 14:53 16:20 RBC (4.30-5.90) m/uL MCV (80.0-100.0) fL MCH (25.0-35.0) pg Plt Count (150-450) k/uL Lymphocytes # (1.0-4.8) k/uL BUN (9.0-27.0) mg/dL Creatinine (0.6-1.5) mg/dL Est GFR (CKD-EPI)AfAm (60.0-200.0) Est GFR (CKD-EPI)NonAf (60.0-200.0) Glucose (70-110) mg/dL POC Glucose (mg/dL) (75-99) mg/dL AST (14-35) U/L Lactate Dehydrogenase 376 H (120-246) U/L C-Reactive Protein 9.9 H (0.0-0.8) mg/dL Albumin/Globulin Ratio (1.60-3.17) g/dL HDL Cholesterol 18.0 L (40.0-60.0) mg/dL Procalcitonin 0.15 H (0.02-0.09) ng/mL Urine Protein 2+ H (Negative) Urine Glucose (UA) 2+ H (Negative) Urine Blood Small H (Negative) Urine Mucus Rare H (None) /hpf Coronavirus (PCR) (Not Detected) 08/03/20 08/03/20 08/04/20 Range/Units 17:04 21:02 07:22 RBC (4.30-5.90) m/uL MCV (80.0-100.0) fL MCH (25.0-35.0) pg Plt Count (150-450) k/uL Lymphocytes # (1.0-4.8) k/uL BUN (9.0-27.0) mg/dL Creatinine (0.6-1.5) mg/dL Est GFR (CKD-EPI)AfAm (60.0-200.0) Est GFR (CKD-EPI)NonAf (60.0-200.0) Glucose (70-110) mg/dL POC Glucose (mg/dL) 232 H 188 H 174 H (75-99) mg/dL AST (14-35) U/L Lactate Dehydrogenase (120-246) U/L C-Reactive Protein (0.0-0.8) mg/dL Albumin/Globulin Ratio (1.60-3.17) g/dL HDL Cholesterol (40.0-60.0) mg/dL Procalcitonin (0.02-0.09) ng/mL Urine Protein (Negative) Urine Glucose (UA) (Negative) Urine Blood (Negative) Urine Mucus (None) /hpf Coronavirus (PCR) (Not Detected) 08/04/20 Range/Units 11:41 RBC (4.30-5.90) m/uL MCV (80.0-100.0) fL MCH (25.0-35.0) pg Plt Count (150-450) k/uL Lymphocytes # (1.0-4.8) k/uL BUN (9.0-27.0) mg/dL Creatinine (0.6-1.5) mg/dL Est GFR (CKD-EPI)AfAm (60.0-200.0) Est GFR (CKD-EPI)NonAf (60.0-200.0) Glucose (70-110) mg/dL POC Glucose (mg/dL) 192 H (75-99) mg/dL AST (14-35) U/L Lactate Dehydrogenase (120-246) U/L C-Reactive Protein (0.0-0.8) mg/dL Albumin/Globulin Ratio (1.60-3.17) g/dL HDL Cholesterol (40.0-60.0) mg/dL Procalcitonin (0.02-0.09) ng/mL Urine Protein (Negative) Urine Glucose (UA) (Negative) Urine Blood (Negative) Urine Mucus (None) /hpf Coronavirus (PCR) (Not Detected) Diabetes panel 08/03/20 08/03/20 Range/Units 14:53 14:53 Sodium 139 (135-145) mmol/L Potassium 4.7 (3.5-5.5) mmol/L Chloride 104 (96-109) mmol/L Carbon Dioxide 26.5 (21.6-31.8) mmol/L BUN 30.0 H (9.0-27.0) mg/dL Creatinine 1.7 H (0.6-1.5) mg/dL Glucose 202 H (70-110) mg/dL Calcium 8.9 (8.7-10.3) mg/dL AST 50 H (14-35) U/L ALT 47 (10-49) U/L Alkaline Phosphatase 98 (41-126) U/L Total Protein 6.6 (6.2-8.2) g/dL Albumin 3.80 (3.80-4.90) g/dL Triglycerides 92.0 (0.0-149.0) mg/dL HDL Cholesterol 18.0 L (40.0-60.0) mg/dL Calcium panel 08/03/20 Range/Units 14:53 Calcium 8.9 (8.7-10.3) mg/dL Albumin 3.80 (3.80-4.90) g/dL Pituitary panel 08/03/20 Range/Units 14:53 Sodium 139 (135-145) mmol/L Potassium 4.7 (3.5-5.5) mmol/L Chloride 104 (96-109) mmol/L Carbon Dioxide 26.5 (21.6-31.8) mmol/L BUN 30.0 H (9.0-27.0) mg/dL Creatinine 1.7 H (0.6-1.5) mg/dL Glucose 202 H (70-110) mg/dL Calcium 8.9 (8.7-10.3) mg/dL Adrenal panel 08/03/20 Range/Units 14:53 Sodium 139 (135-145) mmol/L Potassium 4.7 (3.5-5.5) mmol/L Chloride 104 (96-109) mmol/L Carbon Dioxide 26.5 (21.6-31.8) mmol/L BUN 30.0 H (9.0-27.0) mg/dL Creatinine 1.7 H (0.6-1.5) mg/dL Glucose 202 H (70-110) mg/dL Calcium 8.9 (8.7-10.3) mg/dL Total Bilirubin 0.7 (0.3-1.2) mg/dL AST 50 H (14-35) U/L ALT 47 (10-49) U/L Alkaline Phosphatase 98 (41-126) U/L Total Protein 6.6 (6.2-8.2) g/dL Albumin 3.80 (3.80-4.90) g/dL - Imaging Additional studies: Carotid duplex studies results discussed with Dr. Bernal. Assessment and Plan Assessment: 1. Carotid duplex study shows left carotid occlusion, likely chronic in nature 2. Possible syncopal event, rule out cardiac etiology 3. Hypertension 4. Hyperlipidemia 5. Uncontrolled insulin-dependent diabetes mellitus 6. Acute on chronic kidney disease 7. Obesity with a current BMI 38.0 kg/m Plan: The patient was seen and examined at his bedside on the medical surgical unit. His case was discussed in detail with Dr. Tomi Bernal from vascular surgery. The carotid duplex results showed a possible occlusion of the left internal carotid artery which is probably chronic in nature. No surgical intervention is warranted at this time and the patient can be followed up on an outpatient basis and 2-3 weeks. Continue to maximize medical therapy. Medical and other comorbidities management per primary care service, neurology, cardiology and nephrology. Thank you Dr. Kim for this consult and please call Dr. Bernal for any further questions. Time with Patient: Greater than 30
[2020-08-04 17:20] LABS: Glucose,Whole Blood 229 mg/dL (75-99)
--- NOTE | 2020-08-04 18:17 | PN ---
PROGRESS NOTE DATE OF SERVICE: 08/03/2020 CHIEF COMPLAINT: Unstable diabetes and acute kidney injury. HISTORY OF PRESENT ILLNESS: This gentleman is still having trouble. He still seems a little bit lethargic and he is running low-grade temperatures up to around 100.1. He has had no cough, urinary complaints, etc. He did apparently fall during the night. REVIEW OF SYSTEMS: He denies any pain, shortness of breath, etc. He does seem lethargic. This is not normal for him. PHYSICAL EXAMINATION: His chest is clear and the cardiac exam is normal. The abdomen is soft and nontender. Neck is supple. IMPRESSION: 1. Mental status changes. 2. Low-grade fever. 3. Uncontrolled diabetes. PLAN: Re-evaluate, especially given his elevated temperature. Will obtain blood cultures, UA, C&S and a chest x-ray. He will also be seen by Neurology and Infectious Disease. Lactic acid, CBC and chem profile will be obtained along with a COVID-19 swab. MMODL / IJN: [id number] /
--- NOTE | 2020-08-04 18:32 | PN ---
PROGRESS NOTE DATE OF SERVICE: 08/04/2020 CHIEF COMPLAINT: SARS, COV2. HISTORY OF PRESENT ILLNESS: This gentleman is just about the same. He still seems a little bit lethargic. Vital signs have been normal. PHYSICAL EXAMINATION: His chest is clear. The cardiac exam is normal. The abdomen is soft, nontender. IMPRESSION: 1. COVID-19 infection and pneumonitis. 2. Hypertension. PLAN: Continue with supportive care. At the present time he seems stable. MMODL / IJN: [id number] /
--- NOTE | 2020-08-04 18:42 | P.PN ---
Subjective Progress Note Date: 08/04/20 She was seen at bedside and he denies of any complaints. He denies of any weakness any numbness any visual disturbance. Objective - Vital Signs Vital signs: Vital Signs Temp 97.5 F L 08/04/20 13:00 Pulse 67 08/04/20 16:15 Resp 16 08/04/20 16:15 BP 123/74 08/04/20 17:12 Pulse Ox 93 L 08/04/20 13:00 Intake & Output 08/03/20 08/04/20 08/04/20 18:59 06:59 18:59 Intake Total 200 Output Total 400 400 Balance -400 200 -400 Intake: Oral 200 Output: Urine 400 400 Other: Voiding Method Bedside Commode Bedside Commode Bedpan Urinal Urinal Urinal # Voids 2 2 # Bowel Movements 1 - Exam GENERAL: The patient is lying in bed and is not in acute distress. CHEST: The heart rate is regular rate rhythm. No murmurs to auscultation. LUNG: Clear to auscultation bilaterally no wheezing noted throughout. Not labored breathing. ABDOMEN/GI: Bowel sounds present in all 4 quadrants. No tenderness to palpation throughout. NEUROLOGICAL: Higher mental function: The patient is awake, alert, oriented to self, place and time. Patient is following simple commands but is slow on following commands. No aphasia and no neglect. Cranial nerves: The pupils are round, equal and reactive to light and accommodation. Visual hunter are full to confrontation throughout. Extraocular movement is intact no nystagmus is noted. Facial sensation is normal to touch throughout. The facial strength is normal throughout. Hearing is normal bilaterally to hand rub. Tongue is midline and moved [id number] without any difficulty. No dysarthria is noted. Shoulder shrug is normal bilaterally. Motor: Gait was not assessed because of lack of cooperation. The strength is 5 over 5 throughout. Normal tone and bulk. Cerebellum: Normal finger to nose bilaterally. Sensation: Sensation is normal to touch throughout. Reflexes (right/left): Hard to assess because of patient lack of cooperation (was resisting upon testing his reflexes). Plantars are downgoing bilaterally. - Labs CBC & Chem 7: 08/03/20 14:53 08/03/20 14:53 Labs: Abnormal Lab Results - Last 24 Hours (Table) 08/03/20 08/03/20 08/03/20 Range/Units 13:00 14:53 14:53 BUN 30.0 H (9.0-27.0) mg/dL Creatinine 1.7 H (0.6-1.5) mg/dL Est GFR (CKD-EPI)AfAm 46.0 L (60.0-200.0) Est GFR (CKD-EPI)NonAf 39.7 L (60.0-200.0) Glucose 202 H (70-110) mg/dL POC Glucose (mg/dL) (75-99) mg/dL AST 50 H (14-35) U/L Lactate Dehydrogenase 376 H (120-246) U/L C-Reactive Protein 9.9 H (0.0-0.8) mg/dL Albumin/Globulin Ratio 1.36 L (1.60-3.17) g/dL HDL Cholesterol 18.0 L (40.0-60.0) mg/dL Coronavirus (PCR) Detected H (Not Detected) 08/03/20 08/04/20 08/04/20 Range/Units 21:02 07:22 11:41 BUN (9.0-27.0) mg/dL Creatinine (0.6-1.5) mg/dL Est GFR (CKD-EPI)AfAm (60.0-200.0) Est GFR (CKD-EPI)NonAf (60.0-200.0) Glucose (70-110) mg/dL POC Glucose (mg/dL) 188 H 174 H 192 H (75-99) mg/dL AST (14-35) U/L Lactate Dehydrogenase (120-246) U/L C-Reactive Protein (0.0-0.8) mg/dL Albumin/Globulin Ratio (1.60-3.17) g/dL HDL Cholesterol (40.0-60.0) mg/dL Coronavirus (PCR) (Not Detected) 08/04/20 Range/Units 17:05 BUN (9.0-27.0) mg/dL Creatinine (0.6-1.5) mg/dL Est GFR (CKD-EPI)AfAm (60.0-200.0) Est GFR (CKD-EPI)NonAf (60.0-200.0) Glucose (70-110) mg/dL POC Glucose (mg/dL) 229 H (75-99) mg/dL AST (14-35) U/L Lactate Dehydrogenase (120-246) U/L C-Reactive Protein (0.0-0.8) mg/dL Albumin/Globulin Ratio (1.60-3.17) g/dL HDL Cholesterol (40.0-60.0) mg/dL Coronavirus (PCR) (Not Detected) Microbiology - Last 24 Hours (Table) 08/03/20 14:53 Blood Culture - Preliminary Blood No Growth after 24 hours Assessment and Plan Assessment: Syncopal episodes. One of episode was vasovagal. Possibly cardiac in etiology another possibility is autonomic dysfunction especially with history of diabetes. Unlikely seizures. 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 There is no focal slowing, epileptiform activity or seizure activity. 2-D echo: Left ventricular systolic function is 50-55%. There is moderate concentric left ventricular hypertrophy. Recommend checking orthostatic vitals of blood pressure with heart rate. The lungs that was performed recently did not have a heart rate recommend repeating in that the with heart rate. Regarding the carotid stenosis recommend CTA of the head and neck once and creatinine improves or we can repeat the the carotid duplex affect creatinine does not improve. Surgical team evaluated patient for carotid stenosis and they stated that patient is not a surgical candidate at this time. Continue Lipitor 80 mg daily. Continue Aspirin 81 mg daily. Did not start Plavix 75mg because patient multiple episode of passing out. Please avoid any episodes of hypotension. Recommend systolic blood pressure to be in the range of 110-150. lipid profile: Triglyceride of 92, cholesterol 74, LDLs 37, HDL of 18 Cardiac monitoring PT/OT are on board. Cardiology is on board. Regarding the patient's management of diabetes as well as episodes of hypoglycemia will defer the management to the primary team. Rick Munoz M.D. Neuro-hospitalist Time with Patient: Greater than 30
[2020-08-04 20:38] LABS: Glucose,Whole Blood 247 mg/dL (75-99)
[2020-08-04] MEDS: LEVOFLOXACIN 250 MG TAB PO SCH (20:41)
[2020-08-04] MEDS: INSULIN DETEMIR (LEVEMIR) 100 UNIT/ML SYR SQ SCH (20:41)
--- NOTE | 2020-08-05 00:59 | PN ---
PROGRESS NOTE DATE OF SERVICE: 08/04/2020 REASON FOR FOLLOWUP: Acute COVID-19 pneumonia. The patient is currently afebrile, has been breathing, complaining of shortness of breath. He did have a cough, not bringing up any sputum. No nausea, no vomiting. No abdominal pain. No diarrhea. PHYSICAL EXAMINATION: Blood pressure 120/71 with a pulse of 57, temperature 98.8. He is 95% on 2 L nasal cannula. General description is an elderly male up in the chair in no distress. Respiratory system: Unlabored breathing, decreased intensity of breath sounds. No wheeze. Heart S1, S2. Regular rate and rhythm. Abdomen soft, no tenderness. LABS: No new labs have been obtained today. IMPRESSION/PLAN: Patient with acute COVID-19 infection. The patient has been started Remdesivir after discussion with the pharmacy. Dexamethasone and Lovenox has been added along with zinc and monitor clinical course closely. Continue supportive care. MMODL / ABEN: [id number] /
[2020-08-05 07:49] LABS: Glucose,Whole Blood 275 mg/dL (75-99)
[2020-08-05] MEDS: carvediloL 6.25 MG TAB PO SCH ×2 (08:31→21:31)
[2020-08-05] MEDS: ENOXAPARIN 40 MG/0.4 ML SYRINGE SQ SCH (08:31)
[2020-08-05] MEDS: dexAMETHasone 2 MG TAB PO SCH (08:31)
[2020-08-05] MEDS: ASPIRIN 81 MG PO SCH (08:31)
[2020-08-05] MEDS: INSULIN ASPART (NovoLOG) 100 UNIT/ML VIAL SQ SCH ×4 (08:31→21:32)
[2020-08-05] MEDS: ZINC SULFATE 220 MG CAP PO SCH (08:31)
[2020-08-05] MEDS: FERROUS SULFATE 325 MG TAB PO SCH (08:31)
[2020-08-05] MEDS: FUROSEMIDE 20 MG TAB PO SCH (08:31)
[2020-08-05] MEDS: ATORVASTATIN 80 MG TAB PO SCH (08:31)
[2020-08-05] MEDS: SODIUM BICARBONATE TAB 650 MG TAB PO SCH ×4 (08:32→21:31)
[2020-08-05] MEDS: SODIUM POLYSTYRENE SULFONATE 15 GM/60 ML BOTTLE PO SCH (08:33)
--- NOTE | 2020-08-05 08:49 | CDI ---
Documentation Clarification Form Date: 08/05/2020 08:24:09 AM From: Gifty SextonTapiaTHOR, CCDS Admit Date: 07/30/2020 01:28:00 PM Patient Name: Tex Jones Visit Number: [id number] Discharge Date: ATTENTION: The Clinical Documentation Specialists (CDI) and [facility] Coding Staff appreciate your assistance in clarifying documentation. Please respond to the clarification below the line at the bottom and electronically sign. The CDI & [facility] Coding staff will review the response and follow-up if needed. Please note: Queries are made part of the Legal Health Record. If you have any questions, please contact the author of this message via ITS. Dr. Cresencio Kim: Per the 08/04 Attending Progress Note: "COVID-19 infection and pneumonitis." History/Risk Factors: IDDM II, Chronic kidney disease, Asthma, Hyperlipidemia, Hypertension, Pneumonia and MRSA. Clinical Indicators: Patient presented to the ED on 07/30 with fluctuating glucose & fatigue. Patient had presented to the ED 2 days prior & was discharged. Admitted with Low Blood Glucose, KARLY & Generalized Weakness, Pneumonia & COVID positive. 07/30 VS: T 98.2, P 65, R 18, BP 91/58*, PO 98 RA 07/30 LAB: Pl Ct 112*, BUN 43^, Cr 3.29^, Glucose 64*, AST 60^, ALT 56^. 07/31 Glucose 129 - 08/02 261^ 08/03: COVID Positive Treatment 07/30: IV fluid 1,000 mls @ 75, IV fluid 500 mls @ 999 mls/hr, IV Dextrose 1,000 mls @ 100 mls/hr. Treatment 08/04: IV Remdesivir & po Levaquin Definition of Present on Admission (POA): A diagnosis present at the time the order for admission to inpatient status was written. For each diagnosis, documentation must be clear to determine if the condition was present at the time of the patients inpatient admission or developed during the hospital stay. Please clarify if COVID was POA: ____Y = Yes, the condition was present at the time of the order for inpatient admission. ____N = No, the condition was not present at the time of the order for inpatient admission. (Last Revision: Oct 2018) MTDD
--- NOTE | 2020-08-05 09:07 | CDI ---
Documentation Clarification Form Date: 08/05/2020 08:52:24 AM From: Gifty SextonTapiaTHOR santana, CCDS Admit Date: 07/30/2020 01:28:00 PM Patient Name: Tex Jones Visit Number: [id number] Discharge Date: ATTENTION: The Clinical Documentation Specialists (CDI) and [facility] Coding Staff appreciate your assistance in clarifying documentation. Please respond to the clarification below the line at the bottom and electronically sign. The CDI & [facility] Coding staff will review the response and follow-up if needed. Please note: Queries are made part of the Legal Health Record. If you have any questions, please contact the author of this message via ITS. Dr. Rick Munoz: Per the 08/03 Neurology Consult: "Reason for Consult: Altered mental status. Per the patient's nurse, the patient had two episodes of loss of consciousness at home. Patient did have a fall at home with no injury. Assessment: Syncopal episodes. One episode was vasovagal. Possibly cardiac in etiology, another possibility is autonomic dysfunction with history of diabetes." History/Risk Factors: Asthma, IDDM II, Hyperlipidemia, Hypertension, Pneumonia, Heart Murmur, Neuropathy, previous bleed behind right eye, Wound rt great toe, MRSA. Clinical Indicators: Patient presented to the ED on 07/30 with fluctuating blood sugars & syncopal episode. Admitted with Low blood glucose, KARLY & generalized weakness. Patient was diagnosed with Pneumonia & COVID-19 on 08/04 per Serology & Chest Xray. Labs 07/30: Pl Ct 112*, BUN 43^, Cr 3.29^, Gluc 64*, Cr 3.29^, Glucose 64*, AST 60^, ALT 56^. UA: clear, 1+ protein, Trace Blood, Hyaline Cast 54. Acetone negative EEG 08/03: Abnormal awake, drowsy & asleep routine EEG. Background slowing as well as generalized rhythmic delta activity suggestive of mild to moderate encephalopathy of unspecified etiology. CT Brain 08/02: Microvascular ischemic changes with mild age-related atrophy. Suspected prior mild infarct left watershed region, present previously. Treatment 07/30: Telemetry, Blood glucose monitoring, Insulin sliding scale, IV fluid 1,000 mls @ 75 mls/hr, IV 500 mls @ 999 mls/hr, IV Dextrose 1,000 mls @ 100 mls/hr, 08/03: Orthostatic blood pressures 08/04 IV Remdesiviir 200 mg 250 mls @ 250 mls/hr, po Levaquin. In your professional opinion, can you please clarify the specific type of Encephalopathy, if known? Metabolic Encephalopathy<----- Toxic Encephalopathy Other, please specify Unable to determine (Last Revision: February 2018) MTDD
[2020-08-05 10:34] LABS: Anion Gap 16.2 mmol/L (4.00-12.00); BUN/Creat Ratio 24.71 Ratio (12.00-20.00); Carbon Dioxide 20.8 mmol/L (21.6-31.8); Non-African American GFR(CKD) 39.7 (60.0-200.0); Potassium 4.7 mmol/L (3.5-5.5)
[2020-08-05 11:32] LABS: Glucose,Whole Blood 319 mg/dL (75-99)
--- NOTE | 2020-08-05 15:54 | PN ---
PROGRESS NOTE Patient is seen for followup for acute kidney injury. Currently he is being treated for COVID infection and acute COVID-19 pneumonia. The patient is status post remdesivir. Overall, he has improved. His mentation is better today. Patient is sitting up on a bedside chair. He is comfortable. Denies any significant complaints. PHYSICAL EXAMINATION: Blood pressure is 123/73, heart rate 90 per minute. He is afebrile. Abdomen is soft, nontender. Examination of lower extremities shows no evidence of significant edema. OAKES MACHINE OPERATOR exam grossly intact. Patient is moving all 4 extremities. LABS: Labs from today show sodium 140, potassium 4.7. CO2 is 20.8, BUN 42, serum creatinine 1.7 mg/dL. ASSESSMENT: 1. Acute kidney injury, acute tubular necrosis, currently nonoliguric with good urine output. Patient is maintained on a small dose of oral Lasix, which I will hold off for now since he has not been eating much and does not appear to be volume- overloaded. ATN and acute kidney injury can be directly caused by underlying COVID- 19 infection as well. 2. pneumonia, status post remdesivir. 3. Metabolic acidosis, maintained on sodium bicarb. 4. Mental status changes, currently improving. 5. Chronic kidney disease secondary to nephrosclerosis. Baseline creatinine 1.5 to 1.6 mg/dL. PLAN: Hold Lasix. Encourage increased oral intake. May continue with the current dose of Coreg. Repeat labs in a.m. MMBRITTANYL / IJN: [id number] /
[2020-08-05] MEDS: REMDESIVIR (EUA) 100 MG in SODIUM CHLORIDE 0.9% 250 ML IVPB SCH (16:01)
[2020-08-05 16:57] LABS: Glucose,Whole Blood 378 mg/dL (75-99)
--- NOTE | 2020-08-05 19:09 | P.PN ---
Subjective Progress Note Date: 08/05/20 Patient was seen at bedside and that he said that he is doing well. Denies any new weakness numbness. Patient had orthostatic done on him and the patient the supine blood pressure is 134/83 with a heart rate of 81 sitting is 123/73 with a heart rate of 84 and standing is the one 113/84 with a heart rate of 90 Objective - Vital Signs Vital signs: Vital Signs Temp 98.1 F 08/05/20 14:50 Pulse 78 08/05/20 16:00 Resp 16 08/05/20 16:00 BP 132/79 08/05/20 14:50 Pulse Ox 92 L 08/05/20 14:50 Intake & Output 08/05/20 08/05/20 08/06/20 06:59 18:59 06:59 Intake Total 150 1000 Output Total 450 Balance -300 1000 Intake: Intake, IV Titration 250 Amount Remdesivir (Eua) 100 mg 250 In Sodium Chloride 0.9% 250 ml @ 250 mls/hr IVPB Q24H [facility] Rx#:[id number] Oral 150 750 Output: Urine 450 Other: Voiding Method Bedpan Bedpan Urinal Urinal # Voids 4 # Bowel Movements 1 1 - Exam GENERAL: The patient is lying in bed and is not in acute distress. CHEST: The heart rate is regular rate rhythm. No murmurs to auscultation. LUNG: Clear to auscultation bilaterally no wheezing noted throughout. Not labored breathing. ABDOMEN/GI: Bowel sounds present in all 4 quadrants. No tenderness to palpation throughout. NEUROLOGICAL: Higher mental function: The patient is awake, alert, oriented to self, place and time. Patient is following simple commands but is slow on following commands. No aphasia and no neglect. Cranial nerves: The pupils are round, equal and reactive to light and ac commodation. Visual hunter are full to confrontation throughout. Extraocular movement is intact no nystagmus is noted. Facial sensation is normal to touch throughout. The facial strength is normal throughout. Hearing is normal bilaterally to hand rub. Tongue is midline and moved [id number] without any difficulty. No dysarthria is noted. Shoulder shrug is normal bilaterally. Motor: Gait was not assessed because of lack of cooperation. The strength is 5 over 5 throughout. Normal tone and bulk. Cerebellum: Normal finger to nose bilaterally. Sensation: Sensation is normal to touch throughout. Reflexes (right/left): Hard to assess because of patient lack of cooperation (was resisting upon testing his reflexes). Plantars are downgoing bilaterally. - Labs CBC & Chem 7: 08/03/20 14:53 08/05/20 06:13 Labs: Abnormal Lab Results - Last 24 Hours (Table) 08/04/20 08/05/20 08/05/20 Range/Units 20:37 06:13 07:48 Carbon Dioxide 20.8 L (21.6-31.8) mmol/L Anion Gap 16.20 H (4.00-12.00) mmol/L BUN 42.0 H (9.0-27.0) mg/dL Creatinine 1.7 H (0.6-1.5) mg/dL Est GFR (CKD-EPI)AfAm 46.0 L (60.0-200.0) Est GFR (CKD-EPI)NonAf 39.7 L (60.0-200.0) BUN/Creatinine Ratio 24.71 H (12.00-20.00) Ratio Glucose 299 H (70-110) mg/dL POC Glucose (mg/dL) 247 H 275 H (75-99) mg/dL 08/05/20 08/05/20 Range/Units 11:30 16:52 Carbon Dioxide (21.6-31.8) mmol/L Anion Gap (4.00-12.00) mmol/L BUN (9.0-27.0) mg/dL Creatinine (0.6-1.5) mg/dL Est GFR (CKD-EPI)AfAm (60.0-200.0) Est GFR (CKD-EPI)NonAf (60.0-200.0) BUN/Creatinine Ratio (12.00-20.00) Ratio Glucose (70-110) mg/dL POC Glucose (mg/dL) 319 H 378 H (75-99) mg/dL Microbiology - Last 24 Hours (Table) 08/03/20 14:53 Blood Culture - Preliminary Blood No Growth after 48 hours Assessment and Plan Assessment: Syncopal episodes. One of episode was vasovagal. Possibly cardiac in etiology another possibility is autonomic dysfunction especially with history of diabetes. Unlikely seizures. 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 There is no focal slowing, epileptiform activity or seizure activity. 2-D echo: Left ventricular systolic function is 50-55%. There is moderate concentric left ventricular hypertrophy. Regarding the carotid stenosis recommend CTA of the head and neck once and crea tinine improves or we can repeat the the carotid duplex affect creatinine does not improve. Surgical team evaluated patient for carotid stenosis and they stated that patient is not a surgical candidate at this time. Continue Lipitor 80 mg daily. Continue Aspirin 81 mg daily. Did not start Plavix 75mg because patient multiple episode of passing out. Please avoid any episodes of hypotension. Recommend systolic blood pressure to be in the range of 110-150. lipid profile: Triglyceride of 92, cholesterol 74, LDLs 37, HDL of 18 Cardiac monitoring PT/OT are on board. Cardiology is on board. Regarding the patient's management of diabetes as well as episodes of hypoglycemia will defer the management to the primary team. No further workup is needed from neurology perspective. We'll sign off. Please reconsult if needed Rick Munoz M.D. Neuro-hospitalist Time with Patient: Greater than 30
[2020-08-05 21:09] LABS: Glucose,Whole Blood 310 mg/dL (75-99)
[2020-08-05] MEDS: LEVOFLOXACIN 250 MG TAB PO SCH (21:32)
--- NOTE | 2020-08-06 03:22 | PN ---
PROGRESS NOTE DATE OF SERVICE: 08/05/2020 REASON FOR FOLLOWUP: Acute COVID-19 pneumonia. INTERVAL HISTORY: The patient is currently afebrile. Patient is breathing comfortably. Denies having any chest pain or shortness of breath. No nausea, vomiting or diarrhea. PHYSICAL EXAMINATION: Blood pressure 109/71 with a pulse of 82, temperature 98.1. He is 94% on room air. General description is an elderly male lying in bed in no distress. RESPIRATORY SYSTEM: Unlabored breathing. Decreased intense breath sounds. No wheeze. HEART: S1, S2. Regular rate and rhythm. ABDOMEN: Soft. No tenderness. LABS: BUN of 22, creatinine 1.7. Blood cultures have been negative. DIAGNOSTIC IMPRESSION AND PLAN: Patient with acute COVID-19 pneumonia. Patient seemed to have shown some clinical improvement. Fever resolved. He is his breathing more comfortably. The patient to continue with dexamethasone, Lovenox, and Remdesivir and will monitor his clinical course closely. MMODL / IJN: [id number] /
[2020-08-06] MEDS ORDERED: INSULIN DETEMIR (LEVEMIR) 100 UNIT/ML SYR SQ SCH (07:00)
[2020-08-06 07:44] LABS: Glucose,Whole Blood 323 mg/dL (75-99)
[2020-08-06] MEDS: SODIUM POLYSTYRENE SULFONATE 15 GM/60 ML BOTTLE PO SCH (09:02)
[2020-08-06] MEDS: ZINC SULFATE 220 MG CAP PO SCH (09:06)
[2020-08-06] MEDS: ASPIRIN 81 MG PO SCH (09:06)
[2020-08-06] MEDS: SODIUM BICARBONATE TAB 650 MG TAB PO SCH ×4 (09:06→21:00)
[2020-08-06] MEDS: INSULIN ASPART (NovoLOG) 100 UNIT/ML VIAL SQ SCH ×4 (09:06→20:59)
[2020-08-06] MEDS: ENOXAPARIN 40 MG/0.4 ML SYRINGE SQ SCH (09:06)
[2020-08-06] MEDS: FERROUS SULFATE 325 MG TAB PO SCH (09:06)
[2020-08-06] MEDS: carvediloL 6.25 MG TAB PO SCH ×2 (09:06→21:00)
[2020-08-06] MEDS: ATORVASTATIN 80 MG TAB PO SCH (09:06)
[2020-08-06] MEDS: dexAMETHasone 2 MG TAB PO SCH (09:06)
[2020-08-06 11:42] LABS: Glucose,Whole Blood 352 mg/dL (75-99)
[2020-08-06 13:21] VITALS: BMI 38.0
[2020-08-06 15:27] LABS: Basophils % (A) 0 %; Eosinophils % (A) 0 %; HCT 48.1 % (39.0-53.0); HGB 14.9 gm/dL (13.0-17.5); Hypochromasia Slight; Lymphocytes # (A) 0.4 k/uL (1.0-4.8); Lymphocytes % (A) 4 %; MCH 21.9 pg (25.0-35.0); MCHC 30.9 g/dL (31.0-37.0); MCV 70.9 fL (80.0-100.0); Mean Platelet Volume 9.3; Microcytosis Moderate; Monocytes # (A) 0.3 k/uL (0-1.0); Monocytes % (A) 3 %; Neutrophils # (A) 10.1 k/uL (1.3-7.7); Neutrophils % (A) 92 %; Platelet Count 235 k/uL (150-450); RBC 6.79 m/uL (4.30-5.90); RDW 14.9 % (11.5-15.5)
--- NOTE | 2020-08-06 15:59 | XR ---
EXAMINATION TYPE: XR chest 1V portable DATE OF EXAM: 08/06/2020 COMPARISON: 08/03/2020 HISTORY: Cough TECHNIQUE: Single frontal view of the chest is obtained. FINDINGS: Left perihilar lower lobe infiltrate with coarsened central interstitium. No pneumothorax. Heart size stable. Findings are unchanged. IMPRESSION: 1. Stable findings correlate for pneumonia or atypical pneumonia. Venous congestion not excluded.
[2020-08-06 16:00] LABS: Hemoglobin A1C 9.1 % (4.0-6.0)
[2020-08-06] MEDS: REMDESIVIR (EUA) 100 MG in SODIUM CHLORIDE 0.9% 250 ML IVPB SCH (16:17)
[2020-08-06 16:48] LABS: Glucose,Whole Blood 312 mg/dL (75-99)
--- NOTE | 2020-08-06 17:12 | PN ---
PROGRESS NOTE Patient is seen for followup for acute kidney injury. Renal function is fairly stable, with creatinine about 1.7 yesterday. Overall patient is doing better. His Lasix was discontinued. He has had good urine output. There was no urine retention noted. Patient is also eating better and he states he wants to go home. PHYSICAL EXAMINATION: On examination today, blood pressure 158/83, heart rate 61 per minute. He is afebrile. Examination of lower extremities shows no significant edema. MIDDLE SCHOOL ART TEACHER exam is grossly intact. LABS: Labs from yesterday show serum creatinine 1.7, sodium 140, potassium 4.7. CO2 is 20.8. ASSESSMENT: 1. Acute kidney injury, nonoliguric, currently stable, mostly acute tubular necrosis. Lasix was held yesterday. Etiology COVID-19 infection. 2. COVID-19 pneumonia, status post remdesivir. 3. Metabolic acidosis, maintained on sodium bicarb. 4. Chronic kidney disease secondary to nephrosclerosis. Baseline creatinine 1.5 to 1.6 mg/dL. PLAN: Continue to hold off on Lasix. Encourage increased oral intake. Repeat labs in a.m. MMODL / IJN: [id number] /
[2020-08-06 20:18] LABS: Glucose,Whole Blood 289 mg/dL (75-99)
[2020-08-06] MEDS: INSULIN DETEMIR (LEVEMIR) 100 UNIT/ML SYR SQ SCH (20:58)
[2020-08-06] MEDS: LEVOFLOXACIN 250 MG TAB PO SCH (21:00)
[2020-08-07 00:21] LABS: Anion Gap 14.2 mmol/L (4.00-12.00); Calcium 9.4 mg/dL (8.7-10.3); Carbon Dioxide 19.8 mmol/L (21.6-31.8); Non-African American GFR(CKD) 39.7 (60.0-200.0); Potassium 5.3 mmol/L (3.5-5.5)
--- NOTE | 2020-08-07 02:31 | PN ---
PROGRESS NOTE DATE OF SERVICE: 08/05/2020 CHIEF COMPLAINT: 1. Pneumonitis. 2. COVID-19. HISTORY OF PRESENT ILLNESS: This gentleman seems to be doing a little bit better. Mentally he seems a little bit quicker and a little bit more clear. He has had no fever, chills, shortness of breath, chest pain, etc. PHYSICAL EXAMINATION: The chest is more clear, but there are fewer rales and rhonchi. Cardiac exam is normal. Abdomen is soft, nontender. IMPRESSION: 1. Pneumonitis. 2. Encephalopathy. 3. COVID-19. 4. Obesity. 5. Diabetes. PLAN: Continue with current treatment and if he continues to improve, he will be able to go home in the next day or 2. MMODL / IJN: [id number] /
--- NOTE | 2020-08-07 03:31 | PN ---
PROGRESS NOTE DATE OF SERVICE: 08/06/2020 CHIEF COMPLAINT: COVID pneumonia. HISTORY OF PRESENT ILLNESS: This gentleman is doing better. He is more awake and more alert. He is oriented to time, place, and person today. PHYSICAL EXAMINATION: Chest is actually fairly clear. There are very few rales or rhonchi. Cardiac exam is normal. IMPRESSION: 1. Slowly resolving COVID pneumonia. 2. Uncontrolled diabetes. 3. Renal failure. PLAN: If he continues to do this well, he will probably go home soon. Blood sugars have been slightly elevated and these will be addressed. This may be related to the steroids. Labs and chest x-ray will be repeated. MMODL / IJN: [id number] /
[2020-08-07 04:07] LABS: Albumin 3.8 g/dL (3.80-4.90); Albumin/Globulin Ratio 1.36 (1.60-3.17); Bilirubin, Conjugated 0.3 mg/dL (0.20-0.40); Bilirubin,Unconjugated 0.3 mg/dL; Globulin 2.8 g/dL (1.6-3.3); Total Bilirubin 0.6 mg/dL (0.3-1.2); Total Protein 6.6 g/dL (6.2-8.2)
--- NOTE | 2020-08-07 04:52 | PN ---
PROGRESS NOTE DATE OF SERVICE: 08/06/2020 REASON FOR FOLLOWUP: Acute COVID-19 pneumonia. INTERVAL HISTORY: The patient is currently afebrile. Patient is breathing comfortably on room air. Denies having any chest pain, shortness of breath. Occasional cough. No nausea, no vomiting. No abdominal pain, no diarrhea. PHYSICAL EXAMINATION: Blood pressure 144/69 with a pulse of 53, temperature is 97.7. He is 96% on room air. General description is an elderly male lying in bed in no distress. RESPIRATORY SYSTEM: Unlabored breathing, decreased intense breath sounds in the bases. No wheeze. HEART: S1, S2. Regular rate and rhythm. ABDOMEN: Soft, no tenderness. LABS: Hemoglobin is 14.9, white count 11. Blood culture negative. DIAGNOSTIC IMPRESSION AND PLAN: Patient with acute COVID-19 pneumonia. The patient clinically responded to the remdesivir, dexamethasone and Lovenox, to continue. X-rays with stable findings and monitor clinical course closely. MMODL / IJN: [id number] /
[2020-08-07 08:26] LABS: Glucose,Whole Blood 232 mg/dL (75-99)
--- NOTE | 2020-08-07 08:38 | CDI ---
Documentation Clarification Form Date: 08/07/2020 08:28:23 AM From: Gifty Tapia CCS, CCDS Admit Date: 07/30/2020 01:28:00 PM Patient Name: Tex Jones Visit Number: [id number] Discharge Date: ATTENTION: The Clinical Documentation Specialists (CDI) and [facility] Coding Staff appreciate your assistance in clarifying documentation. Please respond to the clarification below the line at the bottom and electronically sign. The CDI & [facility] Coding staff will review the response and follow-up if needed. Please note: Queries are made part of the Legal Health Record. If you have any questions, please contact the author of this message via ITS. Dr. Cresencio Kim: Per the 08/06 Attending Progress Note: "Uncontrolled diabetes." "Blood sugars have been slightly elevated and these will be addressed. This may be related to the steroids. Labs and chest x-ray will be repeated." History/Risk Factors: IDDM II, Hyperlipidemia, Hypertension, Pneumonia. Clinical Indicators: Presented to the ED on 07/30 with fluctuating blood sugars. Admitted with low blood glucose, KARLY & generalized weakness. Glucose 07/30: 64*. 07/31: 129. 08/06: 350^. Treatment 07/30: IV fluid 1,000 mls @ 75 mls/hr, IV fluid bolus 500 mls @ 999 mls/hr, IV Dextrose 1,000 mls @ 100 mls/hr, Insulin sq ACHS. 08/04 IV Remdesivir, po Levaquin, Insulin 14 unit sq Daily. In order to capture the severity of Illness and necessary documentation specificity, please clarify: IDDM Type 2 With Hyperglycemia, please specify cause if known: Without Hyperglycemia, please specify cause if known: Other, please specify Unable to Determine (Last Revision: August 2017) MTDD
[2020-08-07] MEDS: ZINC SULFATE 220 MG CAP PO SCH (09:54)
[2020-08-07] MEDS: FERROUS SULFATE 325 MG TAB PO SCH (09:55)
[2020-08-07] MEDS: carvediloL 6.25 MG TAB PO SCH (09:55)
[2020-08-07] MEDS: INSULIN ASPART (NovoLOG) 100 UNIT/ML VIAL SQ SCH ×4 (09:55→21:36)
[2020-08-07] MEDS: ASPIRIN 81 MG PO SCH (09:55)
[2020-08-07] MEDS: ATORVASTATIN 80 MG TAB PO SCH (09:55)
[2020-08-07] MEDS: SODIUM BICARBONATE TAB 650 MG TAB PO SCH ×4 (09:55→21:36)
[2020-08-07] MEDS: ENOXAPARIN 40 MG/0.4 ML SYRINGE SQ SCH (09:55)
[2020-08-07] MEDS: dexAMETHasone 2 MG TAB PO SCH (09:55)
[2020-08-07] MEDS: SODIUM POLYSTYRENE SULFONATE 15 GM/60 ML BOTTLE PO SCH (09:56)
[2020-08-07 11:47] LABS: Glucose,Whole Blood 247 mg/dL (75-99)
--- NOTE | 2020-08-07 14:56 | PN ---
PROGRESS NOTE Patient is seen for followup for acute kidney injury. Renal function is stable. He is being treated for Covid-19 pneumonia. Serum creatinine staying at 1.7 mg/dL. Patient denies any chest pains or shortness of breath. He is not on any IV fluids or diuretics currently. PHYSICAL EXAMINATION: On examination today, blood pressure was 142/79, heart rate 52 per minute. Patient is afebrile. Examination: No significant edema is noted. Chronic skin changes lower extremities. TRICOT KNITTING MACHINE OPERATOR exam grossly intact. LABS: Not available from today. On 08/06/2020, serum creatinine 1.7, BUN 51, CO2 19.8, sodium 137, potassium 5.3. ASSESSMENT: 1. Acute kidney injury ATN currently stable. 2. Chronic kidney disease, baseline creatinine 1.5-1.6. Renal function close to baseline NKF stage III, secondary to nephrosclerosis. 3. Covid-19 pneumonia status post Remdesivir. 4. Metabolic acidosis maintained on oral sodium bicarb. 5. Mental status changes secondary to underlying COVID-19 pneumonia and infection currently improved. 6. Hypertension, stable. PLAN: May continue with the sodium bicarb. Encourage increased oral intake. The patient will need followup as outpatient post discharge. MMODL / IJN: [id number] /
[2020-08-07] MEDS: REMDESIVIR (EUA) 100 MG in SODIUM CHLORIDE 0.9% 250 ML IVPB SCH (15:12)
[2020-08-07 16:56] LABS: Glucose,Whole Blood 235 mg/dL (75-99)
--- NOTE | 2020-08-07 19:44 | PN ---
PROGRESS NOTE DATE OF SERVICE: 08/07/2020 CHIEF COMPLAINT: Covid pneumonia, encephalopathy. HISTORY OF PRESENT ILLNESS: This gentleman is doing better. He is a little bit more awake and alert and his orientation is definitely improved. He is back to normal with regard to that. PHYSICAL EXAMINATION: Chest demonstrated scattered rales and occasional rhonchi. Cardiac exam is normal. The abdomen is protuberant, soft. IMPRESSION: 1. Covid pneumonia. 2. Encephalopathy. 3. Hypertension. 4. Elevated blood sugars. PLAN: He is doing quite well and will probably be able to be discharged in the next day or 2. MMODL / IJN: [id number] /
--- NOTE | 2020-08-07 20:14 | PN ---
PROGRESS NOTE DATE OF SERVICE: 08/07/2020 CHIEF COMPLAINT: Pneumonitis, COVID-19. HISTORY OF PRESENT ILLNESS: This gentleman is improving. He is much more awake and alert now. He is doing better. He is less short of breath. PHYSICAL EXAMINATION: Chest is improving. There are very few rales or rhonchi. Cardiac exam is normal. The abdomen is soft and nontender. Extremities are normal. IMPRESSION: 1. Pneumonitis. 2. COVID-19. 3. Encephalopathy, improving. 4. Hypertension. 5. Diabetes. PLAN: Probably home tomorrow. MMODL / IJN: [id number] /
[2020-08-07 20:40] LABS: Glucose,Whole Blood 214 mg/dL (75-99)
--- NOTE | 2020-08-07 21:26 | PN ---
PROGRESS NOTE DATE OF SERVICE: 08/07/2020. REASON FOR FOLLOW UP: Acute COVID-19 pneumonia. INTERVAL HISTORY: Patient is currently afebrile. The patient is breathing comfortably. The patient denies having any chest pain, shortness of breath or cough. No nausea, vomiting. No abdominal pain or diarrhea. PHYSICAL EXAMINATION: Blood pressure 144/70 with a pulse of 61, temperature 97.5. He is 100% on room air. General description: The patient is an elderly male lying in bed in no distress. Respiratory system: Unlabored breathing, decreased intensity of breath sounds. No wheeze. HEART: S1, S2. Regular rate and rhythm. ABDOMEN: Soft, no tenderness. LABS: No new labs have been obtained today. DIAGNOSTIC IMPRESSION AND PLAN: Patient with acute COVID-19 pneumonia in this patient whose infection has clinically improved with response to Zinc, Lovenox and dexamethasone. He will complete his 5-day course of steroids by tomorrow. As the patient, is clinically improved, he will be able to go home. All his questions and concerns were answered. MMODL / IJN: [id number] /
[2020-08-07] MEDS: INSULIN DETEMIR (LEVEMIR) 100 UNIT/ML SYR SQ SCH (21:36)
[2020-08-07] MEDS: LEVOFLOXACIN 250 MG TAB PO SCH (21:36)
[2020-08-08] MEDS: carvediloL 6.25 MG TAB PO SCH ×2 (04:25→08:01)
[2020-08-08 07:15] LABS: Basophils % (A) 0 %; Eosinophils % (A) 1 %; HCT 50.1 % (39.0-53.0); HGB 15.5 gm/dL (13.0-17.5); Hypochromasia Moderate; Lymphocytes % (A) 13 %; MCH 21.9 pg (25.0-35.0); MCHC 30.9 g/dL (31.0-37.0); MCV 71.1 fL (80.0-100.0); Mean Platelet Volume 8.7; Microcytosis Moderate; Monocytes # (A) 0.4 k/uL (0-1.0); Monocytes % (A) 6 %; Neutrophils # (A) 5.8 k/uL (1.3-7.7); Neutrophils % (A) 79 %; Platelet Count 232 k/uL (150-450); RDW 14.6 % (11.5-15.5); WBC 7.3 k/uL (3.8-10.6)
[2020-08-08 07:16] LABS: RBC 7.05 m/uL (4.30-5.90)
[2020-08-08 07:44] LABS: Glucose,Whole Blood 187 mg/dL (75-99)
--- NOTE | 2020-08-08 07:46 | XR ---
EXAMINATION TYPE: XR chest 1V portable DATE OF EXAM: 08/08/2020 COMPARISON: Prior chest x-ray 08/06/2020 HISTORY: Pneumonia TECHNIQUE: Single frontal view of the chest is obtained. FINDINGS: Lung volumes are low. Heart size is stable. Patchy densities present bilaterally within th e lungs. No evident pneumothorax or pleural effusion. IMPRESSION: Findings consistent with patient's history of pneumonia, edema not excluded. Expiratory rotated exam. Follow-up suggested.
--- NOTE | 2020-08-08 07:52 | MISC ---
MISCELLANOUS REPORT QUERY The answer is no. Condition was not present at the time of the order for inpatient admission. Hypoglycemia due to diabetes mellitus. MMODL / IJN: [id number] /
[2020-08-08] MEDS: ENOXAPARIN 40 MG/0.4 ML SYRINGE SQ SCH (08:00)
[2020-08-08] MEDS: INSULIN ASPART (NovoLOG) 100 UNIT/ML VIAL SQ SCH ×2 (08:01→12:59)
[2020-08-08] MEDS: FERROUS SULFATE 325 MG TAB PO SCH (08:01)
[2020-08-08] MEDS: SODIUM BICARBONATE TAB 650 MG TAB PO SCH ×2 (08:01→14:24)
[2020-08-08] MEDS: ZINC SULFATE 220 MG CAP PO SCH (08:01)
[2020-08-08] MEDS: dexAMETHasone 2 MG TAB PO SCH (08:01)
[2020-08-08] MEDS: ASPIRIN 81 MG PO SCH (08:01)
[2020-08-08] MEDS: ATORVASTATIN 80 MG TAB PO SCH (08:01)
[2020-08-08] MEDS: SODIUM POLYSTYRENE SULFONATE 15 GM/60 ML BOTTLE PO SCH (08:02)
[2020-08-08 09:35] VITALS: BP 145/87; PULSE 69; RESP 18; TEMP 97.7
[2020-08-08 10:01] LABS: C Reactive Protein 3.1 mg/dL (0.0-0.8)
--- NOTE | 2020-08-08 10:42 | P.PN ---
Subjective patient is seen in follow-up for acute kidney injury and chronic kidney disease. creatinine stable at 1.7 as of yesterday. Awake and alert. Denies chest pain or shortness of breath. No vomiting or diarrhea. Oral intake is good. Good urine output. Vital signs are stable. General: The patient appeared well nourished and normally developed. HEENT: Head exam is unremarkable. Neck is without jugular venous distension. LUNGS: Lungs are clear to auscultation and percussion. Breath sounds decreased. HEART: Rate and Rhythm are regular. First and second heart sounds normal. No murmurs, rubs or gallops. ABDOMEN: soft, nontender. EXTREMITITES: No clubbing, cyanosis, or edema. Objective - Vital Signs Vital signs: Vital Signs Temp 97.7 F 08/08/20 07:00 Pulse 69 08/08/20 07:00 Resp 18 08/08/20 07:00 BP 145/87 08/08/20 07:00 Pulse Ox 94 L 08/08/20 07:00 Intake & Output 08/07/20 08/08/20 08/08/20 18:59 06:59 18:59 Intake Total 600 Output Total 600 Balance 600 -600 Intake: Oral 600 Output: Urine 600 Other: # Voids 3 - Labs CBC & Chem 7: 08/08/20 06:13 08/06/20 13:17 Labs: Abnormal Lab Results - Last 24 Hours (Table) 08/07/20 08/07/20 08/07/20 Range/Units 11:44 16:54 20:39 RBC (4.30-5.90) m/uL MCV (80.0-100.0) fL MCH (25.0-35.0) pg MCHC (31.0-37.0) g/dL D-Dimer (<0.60) mg/L FEU POC Glucose (mg/dL) 247 H 235 H 214 H (75-99) mg/dL Lactate Dehydrogenase (120-246) U/L C-Reactive Protein (0.0-0.8) mg/dL 08/08/20 08/08/20 08/08/20 Range/Units 06:13 06:13 06:13 RBC 7.05 H (4.30-5.90) m/uL MCV 71.1 L (80.0-100.0) fL MCH 21.9 L (25.0-35.0) pg MCHC 30.9 L (31.0-37.0) g/dL D-Dimer 2.60 H (<0.60) mg/L FEU POC Glucose (mg/dL) (75-99) mg/dL Lactate Dehydrogenase 396 H (120-246) U/L C-Reactive Protein 3.1 H (0.0-0.8) mg/dL 08/08/20 Range/Units 07:37 RBC (4.30-5.90) m/uL MCV (80.0-100.0) fL MCH (25.0-35.0) pg MCHC (31.0-37.0) g/dL D-Dimer (<0.60) mg/L FEU POC Glucose (mg/dL) 187 H (75-99) mg/dL Lactate Dehydrogenase (120-246) U/L C-Reactive Protein (0.0-0.8) mg/dL Microbiology - Last 24 Hours (Table) 08/03/20 14:53 Blood Culture - Preliminary Blood No Growth after 96 hours Assessment and Plan Plan: assessment: 1. acute kidney injury secondary to ATN secondary to COVID-19 infection. Renal function stable. 2. Chronic kidney disease stage III with baseline creatinine 1.5-1.6. Etiology is nephrosclerosis. 3. Covid 19 pneumonia status post remdesivir. maintained on steroids and zinc. 4. Hypertension with chronic kidney disease. Controlled. 5. Metabolic acidosis secondary to chronic kidney disease maintained on oral bicarb. 6. Insulin-dependent diabetes mellitus. plan: no changes from nephrology standpoint. Tight blood sugar control. Avoid nephrotoxins. Follow up outpatient in 1-2 weeks.
[2020-08-08 11:25] LABS: Glucose,Whole Blood 233 mg/dL (75-99)
[2020-08-08] MEDS: REMDESIVIR (EUA) 100 MG in SODIUM CHLORIDE 0.9% 250 ML IVPB SCH (14:25)
--- NOTE | 2020-08-08 17:16 | PN ---
PROGRESS NOTE DATE OF SERVICE: 08/08/2020 REASON FOR FOLLOWUP: Acute COVID-19 pneumonia. INTERVAL HISTORY: The patient is currently afebrile. The patient is breathing comfortably on room air. Denies having any chest pain or shortness of breath. No nausea, vomiting, abdominal pain or diarrhea. PHYSICAL EXAMINATION: Blood pressure 145/87, pulse of 69, temperature is 97.7, he is 94% on room air. General description is an elderly male lying in bed in no distress. Respiratory system: Unlabored breathing, clear to auscultation anteriorly. Heart S1, S2. Regular rate and rhythm. Abdomen soft, no tenderness. LABS: Hemoglobin is 15.5, white count 7.3, creatinine 3.1. LDH is 396. IMPRESSION/PLAN: Patient has acute COVID-19 pneumonia. Patient seemed to have shown improvement. He has completed a 5-day course of ertapenem 7. He will be continued on dexamethasone for about a week ( ) and close outpatient followup. MMODL / IJN: [id number] /
--- NOTE | 2020-08-08 18:31 | DS ---
DISCHARGE SUMMARY CHIEF COMPLAINT: Erratic blood sugars with hypertension. HISTORY OF PRESENT ILLNESS AND PHYSICAL EXAMINATION: Details of this man's history and physical can be found in the initial workup. LABORATORY STUDIES: While he was in the hospital, he had laboratory studies, details of which can be found in the laboratory section of his chart. COURSE IN THE HOSPITAL: After admission, he was placed on bedrest, started on intravenous fluids and efforts are being made to control blood sugars. He started to develop a fever and went on to develop pneumonia. His SARs COV2 swab came back positive and he was started on the Remdesivir and steroids. He was fairly confused for several days, but this was improving. Blood sugars were still a bit high, but this was thought to be related to the steroids that he was on to a certain extent. It was felt that he could go home on the . He will go home on light activity about the house and will be followed up in the office in several days. FINAL DIAGNOSES: 1. Uncontrolled insulin-dependent diabetes mellitus. 2. Covid-19 pneumonitis. 3. Viral encephalopathy. 4. Elevated blood sugars. OPERATIONS: None. CONSULTATIONS: Infectious Disease. He is improved. MMODL / IJN: [id number] /
[2020-08-08] MEDS ORDERED: INSULIN DETEMIR (LEVEMIR) 100 UNIT/ML SYR SQ SCH (21:00)
== END 2020-08-08 15:44 | disposition home or self-care (01) | DRG 637 ==
LOC: EC 11:58 → 6NMEDSUR 13:28 → 4SSUR 08-04 01:59
PROVIDERS: ADMIT Family Medicine; ATTEND Family Medicine
DX: E11.649 Type 2 diabetes mellitus with hypoglycemia without coma (principal); U07.1 COVID-19; J12.89 Other viral pneumonia; G93.41 Metabolic encephalopathy; E87.2 Acidosis; N17.0 Acute kidney failure with tubular necrosis; J84.89 Other specified interstitial pulmonary diseases; E11.40 Type 2 diabetes mellitus with diabetic neuropathy, unspecified; E11.22 Type 2 diabetes mellitus with diabetic chronic kidney disease; E86.0 Dehydration; E87.5 Hyperkalemia; E66.9 Obesity, unspecified; E78.5 Hyperlipidemia, unspecified; I12.9 Hypertensive chronic kidney disease with stage 1 through stage 4 chronic kidney disease, or unspecified chronic kidney disease; I49.3 Ventricular premature depolarization; W19.XXXA Unspecified fall, initial encounter; I65.22 Occlusion and stenosis of left carotid artery; N18.30 Chronic kidney disease, stage 3 unspecified; Z79.899 Other long term (current) drug therapy; Z91.012 Allergy to eggs; Z83.3 Family history of diabetes mellitus; Z68.38 Body mass index [BMI] 38.0-38.9, adult; Z79.52 Long term (current) use of systemic steroids; Z79.4 Long term (current) use of insulin; Z86.14 Personal history of Methicillin resistant Staphylococcus aureus infection
CPT/HCPCS: 36415; 70450; 71045; 71046; 72125; 80048; 80053; 80061; 80076; 80306; 80320; 81001; 81003; 82009; 83036; 83605; 83615; 83735; 83880; 84100; 84145; 84443; 84484; 85025; 85027; 85379; 85610; 85730; 86140; 87040; 87502; 93005; 93306; 93880; 95816; 96360; 96361; 96374; 99285

== ENCOUNTER 2020-08-13 17:19 | Inpatient (IN) | payer MEDICARE, OTHER ==
[2020-08-13] MEDS ORDERED: SODIUM CHLORIDE 0.9% 1,000 ML IV STA ×2 (17:42)
--- NOTE | 2020-08-13 17:46 | ED ---
General Adult HPI - General Chief complaint: Shortness of Breath Stated complaint: Weakness Time Seen by Provider: 08/13/20 17:31 Source: patient, EMS, RN notes reviewed, old records reviewed Mode of arrival: EMS Limitations: no limitations - History of Present Illness Initial comments: Patient is a pleasant 70-year-old male presenting to the emergency department with complaints of general weakness. Patient is a poor historian. Patient has no specific complaints however admits to feeling fatigued and generally weak. Apparently expanded function dental assistant feels patient is having difficulty taking care of himself at home. Patient denies dyspnea. No isolated area of weakness. No confusion. Sugars have been as high as 280. No urinary symptoms. Patient reportedly had similar symptoms previously and was in the hospital. - Related Data Home Medications Medication Instructions Recorded Confirmed lisinopriL 40 mg PO DAILY 09/28/18 08/13/20 Ferrous Sulfate [Iron (65 MG 325 mg PO DAILY 12/16/18 08/13/20 Elemental)] Furosemide [Lasix] 20 mg PO DAILY 12/16/18 08/13/20 carvediloL [Coreg] 6.25 mg PO BID 12/16/18 08/13/20 Atorvastatin [Lipitor] 80 mg PO DAILY 07/30/20 08/13/20 Ergocalciferol (Vitamin D2) 50,000 unit PO Q30D 07/30/20 08/13/20 [Vitamin D2] Liraglutide [Victoza 3-Eugene] 1.8 mg SQ DAILY 08/13/20 08/13/20 Previous Rx's Medication Instructions Recorded Aspirin 81 mg PO DAILY #100 chew 08/08/20 Insulin Detemir (Levemir) [Levemir] 36 unit SQ HS 30 Days #1 pen 08/08/20 Sodium Bicarbonate Tab 650 mg PO QID #120 tab 08/08/20 Sodium Polystyrene Sulfonate 15 gm PO DAILY #30 ml 08/08/20 [Kayexalate] Zinc Sulfate [Orazinc] 220 mg PO DAILY #30 cap 08/08/20 dexAMETHasone [Hexadrol] 6 mg PO DAILY #10 tab 08/08/20 Allergies Allergy/AdvReac Type Severity Reaction Status Date / Time egg Allergy Rash/Hives Verified 08/13/20 18:18 Review of Systems ROS Statement: Those systems with pertinent positive or pertinent negative responses have been documented in the HPI. ROS Other: All systems not noted in ROS Statement are negative. Constitutional: Denies: fever Eyes: Denies: eye pain ENT: Denies: ear pain Respiratory: Denies: cough Cardiovascular: Denies: chest pain Endocrine: Denies: fatigue Gastrointestinal: Denies: abdominal pain Genitourinary: Denies: dysuria Musculoskeletal: Denies: back pain Skin: Denies: rash Neurological: Reports: as per HPI. Denies: headache, confusion Past Medical History Past Medical History: Asthma, Heart Failure, COPD, Diabetes Mellitus, Hyperlipidemia, Hypertension, Pneumonia Additional Past Medical History / Comment(s): heart murmur, diabetic neuropathy,"i think i had a small bleed behind rt eye". healed wound rt great toe History of Any Multi-Drug Resistant Organisms: MRSA Date of last positivie culture/infection: 11/26/18 MDRO Source:: toe Past Surgical History: Hernia Repair, Orthopedic Surgery, Tonsillectomy Additional Past Surgical History / Comment(s): rt foot Past Anesthesia/Blood Transfusion Reactions: No Reported Reaction Past Psychological History: Depression Smoking Status: Never smoker Past Alcohol Use History: None Reported Past Drug Use History: None Reported - Past Family History Father Family Medical History: No Reported History Additional Family Medical History / Comment(s): Father at age 65 and pa tient does not know his medical problems. Mother Family Medical History: Diabetes Mellitus, Rheumatoid Arthritis (RA) Additional Family Medical History / Comment(s): Mother at age 70 with history of rheumatoid arthritis. granmother also had ra Brother(s) Additional Family Medical History / Comment(s): Patient had 2 brothers and one during service and one from stillbirth. Patient does not have any sisters. Patient has 3 sons and 3 daughters with no major medical problems. General Exam Limitations: physical limitation General appearance: alert, in no apparent distress Head exam: Present: normocephalic Eye exam: Present: normal appearance, PERRL, EOMI ENT exam: Present: mucous membranes dry Neck exam: Present: normal inspection Respiratory exam: Present: normal lung sounds bilaterally Cardiovascular Exam: Present: regular rate, normal rhythm GI/Abdominal exam: Present: soft. Absent: tenderness Extremities exam: Present: normal inspection. Absent: pedal edema, calf tenderness Neurological exam: Present: alert, oriented X3, CN II-XII intact. Absent: motor sensory deficit Expanded Neurological exam: Present: protecting the airway Patient oriented to: Present: person, place, time Speech: Present: fluid speech Cranial nerves: EOM's Intact: Normal Sensory exam: Upper Extremity Light Touch: Normal, Lower Extremity Light Touch: Normal Motor strength exam: RUE: 5, LUE: 5, RLE: 5, LLE: 5 Eye Response: (3) open to voice Motor Response: (6) obeys commands Verbal Response: (5) oriented Psychiatric exam: Present: normal affect, normal mood Skin exam: Present: normal color Course Vital Signs 08/13/20 08/13/20 08/13/20 17:20 17:31 18:05 Temperature 97.8 F Pulse Rate 90 89 82 Respiratory 14 14 14 Rate Blood Pressure 88/68 88/68 110/74 O2 Sat by Pulse 93 L 94 L 97 Oximetry 08/13/20 08/13/20 18:52 20:05 Temperature 98.1 F Pulse Rate 84 80 Respiratory 14 18 Rate Blood Pressure 118/70 144/94 O2 Sat by Pulse 96 95 Oximetry EKG Findings - EKG Comments: EKG Findings:: Normal sinus rhythm at 80. WI 180. QRS 64. QT 406. QTc 468. Left axis. Inferior Q waves. Septal Q waves. No acute ST change. Motion artifact is present. Medical Decision Making - Medical Decision Making Patient reevaluated and unchanged. Case was discussed in detail with Dr. Kim who is familiar with this patient and will admit. He does request neurology consult and computed tomography scan of the brain. Blood pressure has improved. - Lab Data Result diagrams: 08/13/20 17:49 08/13/20 17:49 Lab Results 08/13/20 08/13/20 08/13/20 Range/Units 17:49 17:49 17:49 WBC 8.6 (3.8-10.6) k/uL RBC 7.37 H (4.30-5.90) m/uL Hgb 16.2 (13.0-17.5) gm/dL Hct 53.0 (39.0-53.0) % MCV 72.0 L (80.0-100.0) fL MCH 21.9 L (25.0-35.0) pg MCHC 30.5 L (31.0-37.0) g/dL RDW 14.8 (11.5-15.5) % Plt Count 226 (150-450) k/uL Neutrophils % 83 % Lymphocytes % 10 % Monocytes % 4 % Eosinophils % 1 % Basophils % 1 % Neutrophils # 7.1 (1.3-7.7) k/uL Lymphocytes # 0.9 L (1.0-4.8) k/uL Monocytes # 0.3 (0-1.0) k/uL Eosinophils # 0.1 (0-0.7) k/uL Basophils # 0.0 (0-0.2) k/uL Hypochromasia Moderate Microcytosis Moderate PT 11.7 (9.0-12.0) sec INR 1.1 (<1.2) APTT 25.1 (22.0-30.0) sec Sodium 139 (137-145) mmol/L Potassium 5.7 H (3.5-5.1) mmol/L Chloride 108 H (98-107) mmol/L Carbon Dioxide 16 L (22-30) mmol/L Anion Gap 15 mmol/L BUN 52 H (9-20) mg/dL Creatinine 2.11 H (0.66-1.25) mg/dL Est GFR (CKD-EPI)AfAm 35 (>60 ml/min/1.73 sqM) Est GFR (CKD-EPI)NonAf 31 (>60 ml/min/1.73 sqM) Glucose 243 H (74-99) mg/dL Lactic Ac Sepsis Rflx Plasma Lactic Acid Royce (0.7-2.0) mmol/L Calcium 9.8 (8.4-10.2) mg/dL Magnesium 2.1 (1.6-2.3) mg/dL Total Bilirubin 1.8 H (0.2-1.3) mg/dL AST 39 (17-59) U/L ALT 39 (4-49) U/L Alkaline Phosphatase 112 (38-126) U/L Creatine Kinase 96 (55-170) U/L Troponin I (0.000-0.034) ng/mL Total Protein 7.7 (6.3-8.2) g/dL Albumin 3.8 (3.5-5.0) g/dL TSH 1.820 (0.465-4.680) mIU/L Free T4 2.10 (0.78-2.19) ng/dL Free T3 pg/mL 2.4 L (2.8-5.3) pg/ml Urine Color Urine Appearance (Clear) Urine pH (5.0-8.0) Ur Specific [place] (1.001-1.035) Urine Protein (Negative) Urine Glucose (UA) (Negative) Urine Ketones (Negative) Urine Blood (Negative) Urine Nitrite (Negative) Urine Bilirubin (Negative) Urine Urobilinogen (<2.0) mg/dL Ur Leukocyte Esterase (Negative) 08/13/20 08/13/20 08/13/20 Range/Units 17:49 17:49 18:12 WBC (3.8-10.6) k/uL RBC (4.30-5.90) m/uL Hgb (13.0-17.5) gm/dL Hct (39.0-53.0) % MCV (80.0-100.0) fL MCH (25.0-35.0) pg MCHC (31.0-37.0) g/dL RDW (11.5-15.5) % Plt Count (150-450) k/uL Neutrophils % % Lymphocytes % % Monocytes % % Eosinophils % % Basophils % % Neutrophils # (1.3-7.7) k/uL Lymphocytes # (1.0-4.8) k/uL Monocytes # (0-1.0) k/uL Eosinophils # (0-0.7) k/uL Basophils # (0-0.2) k/uL Hypochromasia Microcytosis PT (9.0-12.0) sec INR (<1.2) APTT (22.0-30.0) sec Sodium (137-145) mmol/L Potassium (3.5-5.1) mmol/L Chloride (98-107) mmol/L Carbon Dioxide (22-30) mmol/L Anion Gap mmol/L BUN (9-20) mg/dL Creatinine (0.66-1.25) mg/dL Est GFR (CKD-EPI)AfAm (>60 ml/min/1.73 sqM) Est GFR (CKD-EPI)NonAf (>60 ml/min/1.73 sqM) Glucose (74-99) mg/dL Lactic Ac Sepsis Rflx Y Plasma Lactic Acid Royce 2.3 H* (0.7-2.0) mmol/L Calcium (8.4-10.2) mg/dL Magnesium (1.6-2.3) mg/dL Total Bilirubin (0.2-1.3) mg/dL AST (17-59) U/L ALT (4-49) U/L Alkaline Phosphatase (38-126) U/L Creatine Kinase (55-170) U/L Troponin I <0.012 (0.000-0.034) ng/mL Total Protein (6.3-8.2) g/dL Albumin (3.5-5.0) g/dL TSH (0.465-4.680) mIU/L Free T4 (0.78-2.19) ng/dL Free T3 pg/mL (2.8-5.3) pg/ml Urine Color Urine Appearance (Clear) Urine pH (5.0-8.0) Ur Specific [place] (1.001-1.035) Urine Protein (Negative) Urine Glucose (UA) (Negative) Urine Ketones (Negative) Urine Blood (Negative) Urine Nitrite (Negative) Urine Bilirubin (Negative) Urine Urobilinogen (<2.0) mg/dL Ur Leukocyte Esterase (Negative) 08/13/20 Range/Units 20:05 WBC (3.8-10.6) k/uL RBC (4.30-5.90) m/uL Hgb (13.0-17.5) gm/dL Hct (39.0-53.0) % MCV (80.0-100.0) fL MCH (25.0-35.0) pg MCHC (31.0-37.0) g/dL RDW (11.5-15.5) % Plt Count (150-450) k/uL Neutrophils % % Lymphocytes % % Monocytes % % Eosinophils % % Basophils % % Neutrophils # (1.3-7.7) k/uL Lymphocytes # (1.0-4.8) k/uL Monocytes # (0-1.0) k/uL Eosinophils # (0-0.7) k/uL Basophils # (0-0.2) k/uL Hypochromasia Microcytosis PT (9.0-12.0) sec INR (<1.2) APTT (22.0-30.0) sec Sodium (137-145) mmol/L Potassium (3.5-5.1) mmol/L Chloride (98-107) mmol/L Carbon Dioxide (22-30) mmol/L Anion Gap mmol/L BUN (9-20) mg/dL Creatinine (0.66-1.25) mg/dL Est GFR (CKD-EPI)AfAm (>60 ml/min/1.73 sqM) Est GFR (CKD-EPI)NonAf (>60 ml/min/1.73 sqM) Glucose (74-99) mg/dL Lactic Ac Sepsis Rflx Plasma Lactic Acid Royce (0.7-2.0) mmol/L Calcium (8.4-10.2) mg/dL Magnesium (1.6-2.3) mg/dL Total Bilirubin (0.2-1.3) mg/dL AST (17-59) U/L ALT (4-49) U/L Alkaline Phosphatase (38-126) U/L Creatine Kinase (55-170) U/L Troponin I (0.000-0.034) ng/mL Total Protein (6.3-8.2) g/dL Albumin (3.5-5.0) g/dL TSH (0.465-4.680) mIU/L Free T4 (0.78-2.19) ng/dL Free T3 pg/mL (2.8-5.3) pg/ml Urine Color Yellow Urine Appearance Clear (Clear) Urine pH 5.0 (5.0-8.0) Ur Specific [place] 1.019 (1.001-1.035) Urine Protein Trace H (Negative) Urine Glucose (UA) Trace H (Negative) Urine Ketones 1+ H (Negative) Urine Blood Negative (Negative) Urine Nitrite Negative (Negative) Urine Bilirubin Negative (Negative) Urine Urobilinogen 3.0 (<2.0) mg/dL Ur Leukocyte Esterase Negative (Negative) - Radiology Data Radiology results: image reviewed (Chest x-ray shows stable findings concerning for multifocal bronchopneumonia) Critical Care Time Critical Care Time: Yes Total Critical Care Time: 31 Disposition Clinical Impression: Hypotension, Encephalopathy, Coronavirus infection, Dehydration Disposition: ADMITTED IP TO THIS HOSP Condition: Serious Is patient prescribed a controlled substance at d/c from ED?: No Referrals: Cresencio Kim MD [Primary Care Provider] - 1-2 days Decision Time: 20:28
[2020-08-13 18:04] LABS: Basophils % (A) 1 %; Eosinophils # (A) 0.1 k/uL (0-0.7); Eosinophils % (A) 1 %; HGB 16.2 gm/dL (13.0-17.5); Hypochromasia Moderate; Lymphocytes # (A) 0.9 k/uL (1.0-4.8); Lymphocytes % (A) 10 %; MCH 21.9 pg (25.0-35.0); MCHC 30.5 g/dL (31.0-37.0); Mean Platelet Volume 7.4; Microcytosis Moderate; Monocytes # (A) 0.3 k/uL (0-1.0); Monocytes % (A) 4 %; Neutrophils # (A) 7.1 k/uL (1.3-7.7); Neutrophils % (A) 83 %; Platelet Count 226 k/uL (150-450); RBC 7.37 m/uL (4.30-5.90); RDW 14.8 % (11.5-15.5); WBC 8.6 k/uL (3.8-10.6)
[2020-08-13 18:05] LABS: INR 1.1 (<1.2); Partial Thromboplastin Time 25.1 sec (22.0-30.0); Prothrombin Time 11.7 sec (9.0-12.0)
--- NOTE | 2020-08-13 18:22 | XR ---
EXAMINATION: XR chest 2V DATE AND TIME: 08/13/2020 6:02 PM CLINICAL INDICATION: PHH; Weakness TECHNIQUE: Departmental protocol COMPARISON: 08/08/2020 FINDINGS: The previously seen multifocal ill-defined consolidated opacities are redemonstrated, with overall similar distribution as when compared to the examination 5 days ago. The pleural spaces are negative as seen. The cardiac silhouette is not enlarged. The remainder of the mediastinal silhouette is unremarkable. The skeletal structures and soft tissues are negative for acute findings. IMPRESSION: Stable radiographic appearance; radiographic findings can correlate with a clinical diagnosis of mult ifocal bronchopneumonia.
[2020-08-13 18:23] LABS: T4, Free (Free Thyroxine) 2.1 ng/dL (0.78-2.19)
[2020-08-13 18:41] LABS: Albumin 3.8 g/dL (3.5-5.0); Calcium 9.8 mg/dL (8.4-10.2); Magnesium 2.1 mg/dL (1.6-2.3); Potassium 5.7 mmol/L (3.5-5.1); Total Bilirubin 1.8 mg/dL (0.2-1.3); Total Protein 7.7 g/dL (6.3-8.2)
[2020-08-13 20:18] LABS: Appearance,Urine Clear (Clear); Bilirubin,Urine Negative (Negative); Blood,Urine Negative (Negative); Color,Urine Yellow; Glucose,Urine (UA) Trace (Negative); Ketones,Urine 1+ (Negative); Leukocyte Esterase,Urine Negative (Negative); Nitrite,Urine Negative (Negative); Protein,Urine Trace (Negative); Specific Gravity,Urine 1.019 (1.001-1.035)
[2020-08-13] MEDS ORDERED: ACETAMINOPHEN TAB 325 MG TAB PO PRN (20:29)
[2020-08-13] MEDS ORDERED: NALOXONE 0.4 MG/ML 1 ML VIAL IV PRN (20:29)
--- NOTE | 2020-08-13 21:27 | CT ---
EXAMINATION: CT brain wo con DATE AND TIME: 08/13/2020 9:01 PM CLINICAL INDICATION: PHH; ams TECHNIQUE: Standard departmental protocol DLP: 1099.4 mGy-cm COMPARISON: 08/02/2020 FINDINGS: The calvarium is intact. There is no intracranial hemorrhage. There is no intracranial mass or mass effect. No definite new intra-axial or extra-axial attenuation defect. The previously seen left parietal encephalomalacia is redemonstrated, without interval change. The paranasal sinuses, middle ear cavities, and mastoid sinus air cells are clear. The orbits are unremarkable. IMPRESSION: NO ACUTE PROCESS.
[2020-08-13 22:33] LABS: Glucose,Whole Blood 175 mg/dL (75-99)
[2020-08-13] MEDS: SODIUM CHLORIDE 0.9% 1,000 ML IV SCH (22:38)
[2020-08-13] MEDS: INSULIN ASPART (NovoLOG) 100 UNIT/ML VIAL SQ SCH (22:41)
[2020-08-14 07:12] LABS: Glucose,Whole Blood 118 mg/dL (75-99)
[2020-08-14] MEDS: INSULIN ASPART (NovoLOG) 100 UNIT/ML VIAL SQ SCH ×4 (08:52→20:43)
[2020-08-14] MEDS: lisinopriL 20 MG TAB PO SCH (09:02)
[2020-08-14] MEDS: SODIUM BICARBONATE TAB 650 MG TAB PO SCH ×4 (09:02→20:43)
[2020-08-14] MEDS: carvediloL 6.25 MG TAB PO SCH ×2 (09:04→17:05)
[2020-08-14] MEDS: ATORVASTATIN 80 MG TAB PO SCH (09:04)
[2020-08-14] MEDS: ASPIRIN 81 MG PO SCH (09:04)
[2020-08-14] MEDS: ZINC SULFATE 220 MG CAP PO SCH (09:04)
[2020-08-14] MEDS: dexAMETHasone 2 MG TAB PO SCH ×4 (09:04→20:43)
[2020-08-14] MEDS: FERROUS SULFATE 325 MG TAB PO SCH (09:04)
[2020-08-14] MEDS: FUROSEMIDE 20 MG TAB PO SCH (09:04)
[2020-08-14 10:51] LABS: Urine Alcohol Negative (Negative); Urine Barbiturate Negative (Negative); Urine Cocaine Negative (Negative); Urine Methadone Negative (Negative); Urine Opiates Negative (Negative); Urine Phencyclidine Negative (Negative)
[2020-08-14 11:46] LABS: Glucose,Whole Blood 191 mg/dL (75-99)
[2020-08-14] MEDS: SODIUM CHLORIDE 0.9% 1,000 ML IV SCH (11:58)
--- NOTE | 2020-08-14 13:42 | MR ---
EXAMINATION TYPE: MR brain/cspine wo DATE OF EXAM: 08/14/2020 COMPARISON: CT brain from yesterday and older CTs. CT cervical spine July 28, 2020 HISTORY: AMS and neck pain. TECHNIQUE: Multiplanar, multisequence imaging of the cervical spine, brain, and brainstem are all per formed without IV contrast. FINDINGS: BRAIN: Diffusion weighted images demonstrate no evidence of a recent infarct or other diffusion abnormality. There is no worrisome extra-axial fluid collection. Moderate diffuse ventricular and sulcal prominenc e redemonstrated. Scattered focal and confluent areas of T2 hyperintensity throughout the deep and pe riventricular white matter again seen. There is old infarct left parietal lobe near axial image 21 no yifan. Midline structures demonstrate normal morphology. The craniocervical junction appears within normal limits. Normal vascular flow voids are present. The visualized sinuses are clear and the globes are i ntact. IMPRESSION: No MRI evidence for recent infarct. 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 MRI CERVICAL SPINE: FINDINGS: Coronal images show levoconvex scoliotic curvature centered upper thoracic spine Sagittal i mages of the cervical spine show the craniocervical junction to appear within normal limits. The cer vical and upper thoracic spinal cord is normal in course, caliber, and signal. Slight grade 1 retroli sthesis C3 on C4 and C4-C5 redemonstrated. The vertebral body and intravertebral disk heights are no rmal. The bone marrow signal intensity is within normal limits. Axial images show C2-C3 level to appear within normal limits. Axial images at C3-C4 level show uncovertebral facet spurring causing moderate bilateral neural daisy inal narrowing. Axial images at C4-C5 level showed broad based posterior disc protrusion and uncovertebral facet spur ring, there is effacement of the anterior thecal sac, there is severe left and moderate right-sided n eural foraminal narrowing. Axial images at C5-C6 level shows a right paracentral/foraminal disc protrusion effaces the anterolat eral thecal sac and causing moderate to severe right-sided neural foraminal narrowing. Axial images at C6-C7 levels with left paracentral/foraminal disc protrusion and uncovertebral facet spurring effacing anteriorly on the thecal sac and causing severe left-sided neural foraminal narrowi ng, [id number] right-sided neural foraminal narrowing noted due to right-sided disc herniation. Axial images at C7-T1 level are thought within normal limits. IMPRESSION: Multilevel spondylolisthesis and degenerative changes in cervical spine as detailed above .
--- NOTE | 2020-08-14 14:06 | XR ---
EXAMINATION TYPE: XR chest 2V DATE OF EXAM: 08/14/2020 COMPARISON: Prior chest x-ray 08/13/2020 HISTORY: Pneumonitis, abnormal chest x-ray TECHNIQUE: Frontal and lateral views of the chest are obtained. FINDINGS: Patchy bilateral airspace disease is again seen. There is no evident pneumothorax or pleur al effusion. Heart is stable. IMPRESSION: Correlate for pneumonia.
--- NOTE | 2020-08-14 15:45 | P.CNNES ---
History of Present Illness Consult date: 08/14/20 Requesting physician: Kip Kinney Reason for Consult: altered mental status History of Present Illness: This is a 70-year-old right-handed gentleman with medical history of Chronic left parietal stroke, left carotid stenosis, recent positive COVID-19 (08/03/2020) diabetes, chronic kidney disease, hypertension, hyperlipidemia that presented to the emergency department on 08/13/2020 for generalized weakness. Patient is on not presented to the ED he stated that she just feels fatigue and generally weak. Caregiver felt patient's having difficulty getting care of himself at home. Sugars at home has been in the 280s. Upon seeing the patient, he was drowsy but was responsive and he stated he is currently in the hospital because of low blood sugar. He said that the he hasn't been eating well since he was discharged recently because he doesn't like the food that was performed. He denies of any weakness, numbness or any visual disturbance. He denies of any dizziness or feeling lightheaded. In the hospital consisted of: Initial vital signs is a blood pressure of 88/68, heart rate of 90, respiratory of 14, temperature of 97.8 Fahrenheit orally and pulse ox of 93 L at room air. CT of the head was reported as no acute process. There was left parietal encephalomalacia redemonstrated. I did review the CT of the head and I do agree there is no acute ischemia, hemorrhage. I do appreciate the Ancef unless over the left parietal region. Initial blood tests as a plasma lactic acid is 2.3. His glucose serum was 243. EKG was reported as normal sinus rhythm. Ventricular rate of 80. Inferior infarct, age undetermined. Anterior infarct, age undetermined. Abnormal EKG. Chest x-ray was reported as stable radiographic appearance; radiographic finding can correlate with the clinical diagnosis of multifocal bronchopneumonia. Primary team ordered MRI of the spine, C-spine as well as EEG. MRI the brain as well as C-spine was ordered by the primary team. MRI Brain was reported as no evidence for recent infarct. Background moderate diffuse cerebral atrophy and chronic small vessel ischemic change with old left parietal lobe infarct are old redemonstrated. MRI the C-spine was reported as multilevel spondylolithiasis and degenerative change in the cervical spine. At C4 to C5 there is severe left and moderate right sided neural former knowing. At C5 and C6 shows moderate to severe right- sided neural former and narrowing. C6 to C7 there is severe left-sided neural foraminal narrowing with mild to moderate right-sided neuroforaminal narrowing. I personally saw the patient on 08/03/2020 for also altered mental status. During that time patient had low blood sugar and the in the hospital was 59. During that admission patient had the 2 episodes of loss of consciousness. He was on a toilet then passed out and should have duration. There is no jerk in of any extremities related that with the episode. And another episode the patient was walking back from his bathroom and he had another fall episode. Workup in the hospital consisted of an EEG and was abnormal. There was background slowing and generalized rhythmic activity with frontal predominance. This slowing was mild to moderate encephalopathy. There is no focal slowing, ablative from activity or seizure during the EEG. Positive COVID-19 (08/03/2020) Carotid duplex and it was reported moderate moderate plaque and intimal thickening visualized, left greater than the right. Unable to visualize the left ICA. Very limited evaluation of the left carotid artery. On an impression was reported as there is possible occlusion of the left internal carotid artery. Vascular at team was consulted for the carotid stenosis and they stated that the patient is not a surgical candidate. Follow-up in 2-3 weeks. Patient was on aspirin 81 mg and and Lipitor 80 mg. 2-D echo showed left ventricular systolic function of 50-55%. There is moderate concentric left ventricular hypertrophy. Lipid profile: Triglyceride 92, cholesterol 74, LDL 37 and HDL is 18. Onset the patient's episodes were more syncopal one of him was possibly vasovagal in the other possibly autonomic dysfunction with a history of diabetes. Patient uses a cane but could not tell for what reason. Review of Systems Review of system is limited but per her positive and negative per HPI. Past Medical History Past Medical History: Asthma, Heart Failure, COPD, Diabetes Mellitus, Hyperlipid emia, Hypertension, Pneumonia Additional Past Medical History / Comment(s): heart murmur, diabetic neuropathy,"i think i had a small bleed behind rt eye". healed wound rt great toe History of Any Multi-Drug Resistant Organisms: MRSA Date of last positivie culture/infection: 11/26/18 MDRO Source:: toe Past Surgical History: Hernia Repair, Orthopedic Surgery, Tonsillectomy Additional Past Surgical History / Comment(s): rt foot Past Anesthesia/Blood Transfusion Reactions: No Reported Reaction Past Psychological History: Depression Smoking Status: Never smoker Past Alcohol Use History: None Reported Additional Past Alcohol Use History / Comment(s): Patient is a lifelong nonsmoker. He denies any medical marijuana, marijuana, street drug or alcohol use. He states he stopped drinking alcohol 28 years ago. Past Drug Use History: None Reported - Past Family History Father Family Medical History: No Reported History Additional Family Medical History / Comment(s): Father at age 65 and patient does not know his medical problems. Mother Family Medical History: Diabetes Mellitus, Rheumatoid Arthritis (RA) Additional Family Medical History / Comment(s): Mother at age 70 with history of rheumatoid arthritis. granmother also had ra Brother(s) Additional Family Medical History / Comment(s): Patient had 2 brothers and one during service and one from stillbirth. Patient does not have any sisters. Patient has 3 sons and 3 daughters with no major medical problems. Medications and Allergies Home Medications Medication Instructions Recorded Confirmed Type lisinopriL 40 mg PO DAILY 09/28/18 08/13/20 History Ferrous Sulfate [Iron (65 MG 325 mg PO DAILY 12/16/18 08/13/20 History Elemental)] Furosemide [Lasix] 20 mg PO DAILY 12/16/18 08/13/20 History carvediloL [Coreg] 6.25 mg PO BID 12/16/18 08/13/20 History Atorvastatin [Lipitor] 80 mg PO DAILY 07/30/20 08/13/20 History Ergocalciferol (Vitamin D2) 50,000 unit PO Q30D 07/30/20 08/13/20 History [Vitamin D2] Aspirin 81 mg PO DAILY #100 chew 08/08/20 08/13/20 Rx Insulin Detemir (Levemir) [Levemir] 36 unit SQ HS 30 Days #1 pen 08/08/20 08/13/20 Rx Sodium Bicarbonate Tab 650 mg PO QID #120 tab 08/08/20 08/13/20 Rx Sodium Polystyrene Sulfonate 15 gm PO DAILY #30 ml 08/08/20 08/13/20 Rx [Kayexalate] Zinc Sulfate [Orazinc] 220 mg PO DAILY #30 cap 08/08/20 08/13/20 Rx dexAMETHasone [Hexadrol] 6 mg PO DAILY #10 tab 08/08/20 08/13/20 Rx Liraglutide [Victoza 3-Eugene] 1.8 mg SQ DAILY 08/13/20 08/13/20 History Allergies Allergy/AdvReac Type Severity Reaction Status Date / Time egg Allergy Rash/Hives Verified 08/13/20 18:18 Physical Examination - Vital Signs Vital Signs: Vital Signs Temp Pulse Pulse Resp BP BP Pulse Ox 08/14/20 07:07 97.8 F 73 16 145/85 95 08/14/20 01:16 98.0 F 69 20 112/71 95 08/14/20 00:00 84 08/13/20 22:24 99.5 F 84 22 134/83 97 08/13/20 21:35 86 17 130/80 96 08/13/20 20:05 80 18 144/94 95 08/13/20 18:52 98.1 F 84 14 118/70 96 08/13/20 18:05 82 14 110/74 97 08/13/20 17:31 89 14 88/68 94 L 08/13/20 17:20 97.8 F 90 14 88/68 93 L Intake and Output 08/13/20 08/14/20 08/14/20 22:59 06:59 14:59 Intake Total 600 Output Total 350 Balance 250 Intake: Intake, IV Titration 600 Amount Sodium Chloride 0.9% 1, 600 000 ml @ 75 mls/hr IV . [id number] [facility] Rx#:[id number] Output: Urine 350 Other: Voiding Method Urinal # Voids 3 Weight 127.006 kg 127.006 kg GENERAL: The patient is lying in bed and is not in acute distress. CHEST: The heart rate is regular rate rhythm. No murmurs to auscultation. No carotid bruit bilaterally. LUNG: Clear to auscultation bilaterally no wheezing noted throughout. Not labored breathing. ABDOMEN/GI: Bowel sounds present in all 4 quadrants. No tenderness to palpation throughout. NEUROLOGICAL: Higher mental function: The patient is drowsy but awakeable, oriented to self, place and time. Patient is following commands. No aphasia and no neglect. Cranial nerves: The pupils are round, equal and reactive to light and accommodation. Visual hunter are full to confrontation throughout. Extraocular movement is intact no nystagmus is noted. Facial sensation is normal to touch throughout. The facial strength is normal throughout. Hearing is normal bilaterally to hand rub. Tongue is midline and moved [id number] without any difficulty. No dysarthria is noted. Shoulder shrug is normal bilaterally. Motor: Gait is deferred. The strength is 5 over 5 throughout. Normal tone and bulk. Cerebellum: Normal finger to nose bilaterally. Sensation: Sensation is normal to touch throughout. Reflexes (right/left): 1+ throughout. Plantars are downgoing bilaterally. Results Creatinine is 2.1. Baseline is 1.3-1.7. And previous hospital visit he presented with the creatinine of the 2.01 but a got as high as 3.29 and upon discharged was 1.7. AST of 39, ALT of 39 as well. All call possibly the 112. TSH of 1.82, free T4 is 2.10. Free T3 is 2.4. Calcium of 9.8. Vibration study: PT of 11.7, INR 1.1, PTT of 25.1. Urinalysis is negative for urinary tract infection Urine toxicology screen is negative. - Laboratory Findings CBC and BMP: 08/14/20 15:32 08/13/20 17:49 Abnormal Lab Findings: Abnormal Labs 08/13/20 08/13/20 08/13/20 17:49 17:49 17:49 RBC 7.37 H MCV 72.0 L MCH 21.9 L MCHC 30.5 L Lymphocytes # 0.9 L Potassium 5.7 H Chloride 108 H Carbon Dioxide 16 L BUN 52 H Creatinine 2.11 H Glucose 243 H POC Glucose (mg/dL) Plasma Lactic Acid Royce 2.3 H* Total Bilirubin 1.8 H Free T3 pg/mL 2.4 L Urine Protein Urine Glucose (UA) Urine Ketones 08/13/20 08/13/20 08/14/20 20:05 22:32 07:08 RBC MCV MCH MCHC Lymphocytes # Potassium Chloride Carbon Dioxide BUN Creatinine Glucose POC Glucose (mg/dL) 175 H 118 H Plasma Lactic Acid Royce Total Bilirubin Free T3 pg/mL Urine Protein Trace H Urine Glucose (UA) Trace H Urine Ketones 1+ H 08/14/20 11:42 RBC MCV MCH MCHC Lymphocytes # Potassium Chloride Carbon Dioxide BUN Creatinine Glucose POC Glucose (mg/dL) 191 H Plasma Lactic Acid Royce Total Bilirubin Free T3 pg/mL Urine Protein Urine Glucose (UA) Urine Ketones Assessment and Plan Assessment: Toxic metabolic encephalopathy--improving (KARLY on CKD, recent COVID and possible pneumonia) Generalized weakness--improved Chronic Left parietal stroke (likely artery to artery) Left ICA stenosis Recent COVID-19 +ve (08/03/2020) Syncopal episodes Acute kidney injury on chronic kidney insufficiency. Diabetes type 2 with previous episodes of hypoglycemia Plan: MR the brain did not show any acute stroke. EEG is pending. Order vitamin B12 as well as folate. Also ordered ammonia level. There is no reason to repeat TSH since it was recently performed and was normal. Because of the patient prior two episodes of falls, recommend getting orthostatics (blood pressure as well as heart rate) once the patient is stable t o participate. Consider a tilt table test if orthostatics are negative. PT and OT are consulted. Regarding the patient's old stroke to continue on aspirin 81mg and Lipitor 80 mg daily for secondary stroke prophylaxis. I did not start Plavix because of the patient falls episodes (to avoid risk of bleed). If patient has no further falls and condition improves then we'll consider placing him on dual antiplatelets because of the carotid stenosis. Vascular surgery seen the patient on previous recent admission they said that he is not surgical candidate. And to follow up with them in 2-3 weeks. Regarding the patient the management of his diabetes, KARLY on CKD as well as the rest of medical management will defer to the primary team. Thank you for the consultation. Rick Munoz M.D. Neuro-hospitalist Time with Patient: Greater than 30
[2020-08-14 16:18] LABS: Basophils % (A) 0 %; Eosinophils % (A) 1 %; HCT 50.6 % (39.0-53.0); HGB 15.5 gm/dL (13.0-17.5); Hypochromasia Marked; Lymphocytes # (A) 0.4 k/uL (1.0-4.8); Lymphocytes % (A) 6 %; MCH 22.5 pg (25.0-35.0); MCHC 30.6 g/dL (31.0-37.0); MCV 73.3 fL (80.0-100.0); Mean Platelet Volume 8.5; Microcytosis Slight; Monocytes # (A) 0.2 k/uL (0-1.0); Monocytes % (A) 2 %; Neutrophils # (A) 6.3 k/uL (1.3-7.7); Neutrophils % (A) 91 %; Platelet Count 135 k/uL (150-450); RDW 14.8 % (11.5-15.5); WBC 6.9 k/uL (3.8-10.6)
[2020-08-14 17:02] LABS: Glucose,Whole Blood 252 mg/dL (75-99)
--- NOTE | 2020-08-14 18:16 | EEG ---
ELECTROENCEPHALOGRAM REPORT DATE OF SERVICE: 08/14/2020. CLINICAL HISTORY: This is a 70-year-old gentleman with history of left parietal stroke, diabetes, labile blood sugar, that presented to the hospital for generalized weakness and altered mental status. This video EEG was obtained to evaluate for seizure and epileptiform activity. RELEVANT MEDICATION: The patient is not on any centrally active medication. EEG TYPE: A routine 21 channel EEG was performed with video using the 10/20 electrode placement system. DESCRIPTION: Wakefulness and drowsiness are only obtained. During wakefulness, there is a posterior dominant rhythm of low to moderate voltage, reactive, well modulated, of 8-8.5 hertz activity. During drowsiness, there is slowing attenuation of the background. There is no physiological stage 2 sleep seen. There are rare moderate voltage of 1-1.5 hertz generalized rhythmic delta activity with frontal predominance. INTERICTAL AND ICTAL: None. ACTIVATION PROCEDURE: Photic stimulation did not evoke a posterior driving response. Hyperventilation was not performed because of the patient clinical history. CLINICAL INTERPRETATION: This is an abnormal routine EEG. The generalized rhythmic delta activity with frontal predominance is suggestive of mild encephalopathy of unspecified etiology. There are no focal slowing, epileptiform activity or seizures seen during this study. Clinical correlation is recommended. MMODL / IJN: [id number] / MTDD
[2020-08-14 19:06] LABS: Hemoglobin A1C 9.8 % (4.0-6.0)
--- NOTE | 2020-08-14 19:16 | HP ---
HISTORY AND PHYSICAL CHIEF COMPLAINT: Uncontrolled diabetes in an encephalopathy. HISTORY OF PRESENT ILLNESS: This 70-year-old Afro-[place]ov[place] male just left the hospital several days ago. When he was in the hospital he was treated for pneumonia and found to have Covid-19. He received a 7 or 8 day course of Remdesivir. His mentation improved while he was in the hospital but he went home and on two different telehealth visits, he seemed to be confused and having difficulty talking. He lives with a relative who thought he was getting worse. They checked his blood sugar and it was "over 500." He was sent to the emergency room. In the emergency room, his blood sugar was around 250. There has been confusion as to whether or not he appropriately can administer insulin and/or perform Accu-Cheks. He is having more difficulty with speech and he is admitted because of progressive mental status changes, cognitive decline, uncontrolled diabetes and presumed encephalopathy. REVIEW OF SYSTEMS: Unobtainable. Past medical history, family history and personal and social histories are all unchanged from his recent admission and discharge. It is not entirely clear what medications he is taking at this time. PHYSICAL EXAMINATION: Blood pressure is 129/64 with a pulse of 81, respirations of 16 and he is afebrile. In general, he appeared to be well developed, well nourished, but he appeared to be dehydrated. He looks as though he is losing weight. Head, ears, eyes, nose and mouth were normal. Neck veins were not distended. The chest was clear. Breath sounds were diminished. Cardiac exam demonstrates sinus rhythm. Abdomen is soft, nontender and there are no masses. Extremities seem to be normal. Neurologically, he had slurred speech and seemed to be slow and inappropriate in answering questions. Sensory and motor exam was difficult to assess. He is admitted to the hospital with diagnoses: 1. Progressive mental status changes. 2. Encephalopathy, etiology unknown. 3. Uncontrolled diabetes mellitus. 4. Recent Covid-19 pneumonitis. PLAN: 1. Bedrest. 2. IV fluids. 3. Frequent monitoring of his neurologic status and vital signs. 4. Neurology consult. 5. EEG. 6. Probable MRI and MRA. MMODL / IJN: [id number] /
--- NOTE | 2020-08-14 19:53 | PN ---
PROGRESS NOTE CHIEF COMPLAINT: Encephalopathy. HISTORY OF PRESENT ILLNESS: This gentleman, indeed, is having difficulty with speech as well as loss of cognitive function. He complains of no other symptoms including diplopia, change in vision or hearing, localized weakness, etc. PHYSICAL EXAMINATION: Chest is clear. Cardiac exam is normal. Abdomen is soft, nontender. IMPRESSION: Encephalopathy, etiology unknown. PLAN: 1. EEG. 2. Neurology evaluation. MMODL / IJN: [id number] /
[2020-08-14 20:40] LABS: Glucose,Whole Blood 259 mg/dL (75-99)
[2020-08-14] MEDS ORDERED: INSULIN DETEMIR (LEVEMIR) 100 UNIT/ML SYR SQ SCH (21:00)
[2020-08-15] MEDS: SODIUM CHLORIDE 0.9% 1,000 ML IV SCH ×2 (03:12→12:10)
[2020-08-15 03:26] LABS: African American GFR (CKD) 53.5 (60.0-200.0); Albumin 3.3 g/dL (3.80-4.90); Albumin/Globulin Ratio 1.06 (1.60-3.17); Anion Gap 9.9 mmol/L (4.00-12.00); BUN/Creat Ratio 29.33 Ratio (12.00-20.00); Carbon Dioxide 22.1 mmol/L (21.6-31.8); Globulin 3.1 g/dL (1.6-3.3); Non-African American GFR(CKD) 46.2 (60.0-200.0); Potassium 5.6 mmol/L (3.5-5.5); Total Bilirubin 1.1 mg/dL (0.2-1.2); Total Protein 6.4 g/dL (6.2-8.2)
[2020-08-15 03:34] LABS: Folate, Serum 8.1 ng/mL
[2020-08-15 06:34] LABS: Basophils % (A) 0 %; Eosinophils # (A) 0.1 k/uL (0-0.7); Eosinophils % (A) 1 %; HCT 46.9 % (39.0-53.0); HGB 15.1 gm/dL (13.0-17.5); Hypochromasia Slight; Lymphocytes # (A) 0.7 k/uL (1.0-4.8); Lymphocytes % (A) 6 %; MCH 23.3 pg (25.0-35.0); MCHC 32.2 g/dL (31.0-37.0); MCV 72.5 fL (80.0-100.0); Mean Platelet Volume 7.8; Microcytosis Slight; Monocytes # (A) 0.3 k/uL (0-1.0); Monocytes % (A) 2 %; Neutrophils # (A) 11.8 k/uL (1.3-7.7); Neutrophils % (A) 91 %; Platelet Count 177 k/uL (150-450); RBC 6.47 m/uL (4.30-5.90); RDW 14.8 % (11.5-15.5)
[2020-08-15 07:56] LABS: Glucose,Whole Blood 239 mg/dL (75-99)
[2020-08-15] MEDS: SODIUM BICARBONATE TAB 650 MG TAB PO SCH ×4 (08:04→20:32)
[2020-08-15] MEDS: FERROUS SULFATE 325 MG TAB PO SCH (08:04)
[2020-08-15] MEDS: ZINC SULFATE 220 MG CAP PO SCH (08:04)
[2020-08-15] MEDS: lisinopriL 20 MG TAB PO SCH (08:04)
[2020-08-15] MEDS: ASPIRIN 81 MG PO SCH (08:04)
[2020-08-15] MEDS: ATORVASTATIN 80 MG TAB PO SCH (08:04)
[2020-08-15] MEDS: dexAMETHasone 2 MG TAB PO SCH ×4 (08:04→20:30)
[2020-08-15] MEDS: FUROSEMIDE 20 MG TAB PO SCH (08:04)
[2020-08-15] MEDS: carvediloL 6.25 MG TAB PO SCH ×2 (08:04→17:03)
[2020-08-15] MEDS: Liraglutide [Victoza] 0.6 MG/0.1 ML SQ SCH (08:05)
[2020-08-15] MEDS: INSULIN ASPART (NovoLOG) 100 UNIT/ML VIAL SQ SCH ×4 (08:05→20:31)
[2020-08-15] MEDS: SODIUM POLYSTYRENE SULFONATE 15 GM/60 ML BOTTLE PO SCH (08:13)
[2020-08-15 09:34] LABS: African American GFR (CKD) 63.6 (60.0-200.0); Anion Gap 10.2 mmol/L (4.00-12.00); BUN/Creat Ratio 31.54 Ratio (12.00-20.00); Calcium 9.3 mg/dL (8.7-10.3); Carbon Dioxide 19.8 mmol/L (21.6-31.8); Non-African American GFR(CKD) 54.9 (60.0-200.0); Potassium 5.1 mmol/L (3.5-5.5)
[2020-08-15 12:04] LABS: Glucose,Whole Blood 242 mg/dL (75-99)
--- NOTE | 2020-08-15 16:06 | PN ---
PROGRESS NOTE DATE OF SERVICE: 08/15/2020 CHIEF COMPLAINT: Mental status changes. HISTORY OF PRESENT ILLNESS: This gentleman seems a lot better. He is seems a lot more alert and oriented. Blood sugars are still slightly high as is his blood pressure. PHYSICAL EXAMINATION: Chest is clear. Cardiac exam is normal. Abdomen is soft, nontender. Extremities are normal. IMPRESSION: 1. Mental status changes. 2. Encephalopathy, etiology unknown. 3. Uncontrolled diabetes. 4. Uncontrolled hypertension. PLAN: 1. Increase Levemir from 36 to 46 units. 2. Start Apresoline 25 mg q.i.d. 3. Continue to monitor him neurologically. MMODL / IJN: [id number] /
[2020-08-15 16:52] LABS: Glucose,Whole Blood 265 mg/dL (75-99)
[2020-08-15] MEDS: hydrALAZINE HCL 25 MG TAB PO SCH ×3 (17:00→20:30)
--- NOTE | 2020-08-15 17:16 | P.PN ---
Subjective Progress Note Date: 08/15/20 The patient is a 70-year-old male who is seen in neurologic follow-up via teleneurology, on August 15, 2020. The patient reports that he is feeling better today. He is not quite sure why he is in the hospital. He does feel as if it may be related to his blood sugar. History of chief complaint is reviewed. Chart results are reviewed. Objective - Vital Signs Vital signs: Vital Signs Temp 97.8 F 08/15/20 15:00 Pulse 70 08/15/20 15:00 Resp 16 08/15/20 15:00 BP 131/78 08/15/20 15:00 Pulse Ox 92 L 08/15/20 15:00 Intake & Output 08/14/20 08/15/20 08/15/20 18:59 06:59 18:59 Weight 127.006 kg 134 kg Other: Voiding Method Urinal # Voids 3 2 3 - Exam Gen.: The patient is well-nourished, well-developed and in no acute distress. HEENT: Has atraumatic, normocephalic. Fundus not visualized. There is no scleral icterus. Neurological examination Mental status: The patient is awake, alert and oriented 3. His speech is clear. He is able to accurately report the date. He is unable to accurately state the day of the week. He believes it is Monday. Cranial nerves: 2-12 grossly intact Gait: The patient is observed walking to and from the restroom. There is no evidence of ataxia. Motor: Strength is full - Labs CBC & Chem 7: 08/15/20 06:09 08/15/20 06:09 Labs: Abnormal Lab Results - Last 24 Hours (Table) 08/13/20 08/14/20 08/14/20 Range/Units 17:49 15:32 16:59 WBC (3.8-10.6) k/uL RBC (4.30-5.90) m/uL MCV (80.0-100.0) fL MCH (25.0-35.0) pg Neutrophils # (1.3-7.7) k/uL Lymphocytes # (1.0-4.8) k/uL Potassium 5.6 H (3.5-5.5) mmol/L Carbon Dioxide (21.6-31.8) mmol/L BUN 44.0 H (9.0-27.0) mg/dL Est GFR (CKD-EPI)AfAm 53.5 L (60.0-200.0) Est GFR (CKD-EPI)NonAf 46.2 L (60.0-200.0) BUN/Creatinine Ratio 29.33 H (12.00-20.00) Ratio Glucose 274 H (70-110) mg/dL POC Glucose (mg/dL) 252 H (75-99) mg/dL Hemoglobin A1c 9.8 H (4.0-6.0) % Albumin 3.30 L (3.80-4.90) g/dL Albumin/Globulin Ratio 1.06 L (1.60-3.17) g/dL Vitamin B12 1619.0 H (200.0-944.0) pg/mL 08/14/20 08/15/20 08/15/20 Range/Units 20:39 06:09 06:09 WBC 13.0 H (3.8-10.6) k/uL RBC 6.47 H (4.30-5.90) m/uL MCV 72.5 L (80.0-100.0) fL MCH 23.3 L (25.0-35.0) pg Neutrophils # 11.8 H (1.3-7.7) k/uL Lymphocytes # 0.7 L (1.0-4.8) k/uL Potassium (3.5-5.5) mmol/L Carbon Dioxide 19.8 L (21.6-31.8) mmol/L BUN 41.0 H (9.0-27.0) mg/dL Est GFR (CKD-EPI)AfAm (60.0-200.0) Est GFR (CKD-EPI)NonAf 54.9 L (60.0-200.0) BUN/Creatinine Ratio 31.54 H (12.00-20.00) Ratio Glucose 241 H (70-110) mg/dL POC Glucose (mg/dL) 259 H (75-99) mg/dL Hemoglobin A1c (4.0-6.0) % Albumin (3.80-4.90) g/dL Albumin/Globulin Ratio (1.60-3.17) g/dL Vitamin B12 (200.0-944.0) pg/mL 08/15/20 08/15/20 Range/Units 07:48 11:49 WBC (3.8-10.6) k/uL RBC (4.30-5.90) m/uL MCV (80.0-100.0) fL MCH (25.0-35.0) pg Neutrophils # (1.3-7.7) k/uL Lymphocytes # (1.0-4.8) k/uL Potassium (3.5-5.5) mmol/L Carbon Dioxide (21.6-31.8) mmol/L BUN (9.0-27.0) mg/dL Est GFR (CKD-EPI)AfAm (60.0-200.0) Est GFR (CKD-EPI)NonAf (60.0-200.0) BUN/Creatinine Ratio (12.00-20.00) Ratio Glucose (70-110) mg/dL POC Glucose (mg/dL) 239 H 242 H (75-99) mg/dL Hemoglobin A1c (4.0-6.0) % Albumin (3.80-4.90) g/dL Albumin/Globulin Ratio (1.60-3.17) g/dL Vitamin B12 (200.0-944.0) pg/mL Assessment and Plan Assessment: 1. Toxic-metabolic encephalopathy-clearing Normal ammonia level. B12 and folate levels have not resulted yet 2. Poorly controlled diabetes mellitus Plan: 1. Continue your medical care Thank you for allowing me to participate in care of this patient if there are any questions is on hesitate to contact me. Will sign off at this time Time with Patient: Less than 30 (spent 25 minutes with patient via teleneurology)
[2020-08-15 20:21] LABS: Glucose,Whole Blood 272 mg/dL (75-99)
[2020-08-16] MEDS: SODIUM CHLORIDE 0.9% 1,000 ML IV SCH ×2 (05:39→17:28)
[2020-08-16 07:24] LABS: Basophils % (A) 0 %; Eosinophils # (A) 0.1 k/uL (0-0.7); Eosinophils % (A) 1 %; HCT 49.3 % (39.0-53.0); HGB 15.7 gm/dL (13.0-17.5); Hypochromasia Slight; Lymphocytes # (A) 0.8 k/uL (1.0-4.8); Lymphocytes % (A) 5 %; MCH 23.1 pg (25.0-35.0); MCHC 31.8 g/dL (31.0-37.0); MCV 72.5 fL (80.0-100.0); Microcytosis Slight; Monocytes # (A) 0.5 k/uL (0-1.0); Monocytes % (A) 3 %; Neutrophils # (A) 13.7 k/uL (1.3-7.7); Neutrophils % (A) 90 %; Platelet Count 193 k/uL (150-450); RDW 14.8 % (11.5-15.5); WBC 15.2 k/uL (3.8-10.6)
[2020-08-16 07:26] LABS: Glucose,Whole Blood 210 mg/dL (75-99)
[2020-08-16] MEDS: hydrALAZINE HCL 25 MG TAB PO SCH ×4 (09:06→20:50)
[2020-08-16] MEDS: lisinopriL 20 MG TAB PO SCH (09:06)
[2020-08-16] MEDS: SODIUM POLYSTYRENE SULFONATE 15 GM/60 ML BOTTLE PO SCH (09:07)
[2020-08-16] MEDS: ZINC SULFATE 220 MG CAP PO SCH (09:07)
[2020-08-16] MEDS: dexAMETHasone 4 MG TAB PO SCH ×4 (09:07→20:50)
[2020-08-16] MEDS: ATORVASTATIN 80 MG TAB PO SCH (09:07)
[2020-08-16] MEDS: FUROSEMIDE 20 MG TAB PO SCH (09:07)
[2020-08-16] MEDS: FERROUS SULFATE 325 MG TAB PO SCH (09:07)
[2020-08-16] MEDS: ASPIRIN 81 MG PO SCH (09:07)
[2020-08-16] MEDS: INSULIN ASPART (NovoLOG) 100 UNIT/ML VIAL SQ SCH ×4 (09:07→20:50)
[2020-08-16] MEDS: carvediloL 6.25 MG TAB PO SCH ×2 (09:07→17:33)
[2020-08-16] MEDS: SODIUM BICARBONATE TAB 650 MG TAB PO SCH ×4 (09:08→20:50)
[2020-08-16] MEDS: Liraglutide [Victoza] 0.6 MG/0.1 ML SQ SCH (09:08)
[2020-08-16] MEDS: INSULIN DETEMIR (LEVEMIR) 100 UNIT/ML SYR SQ SCH (09:08)
[2020-08-16 11:31] LABS: Glucose,Whole Blood 267 mg/dL (75-99)
[2020-08-16 11:52] LABS: African American GFR (CKD) 58.2 (60.0-200.0); Anion Gap 10.5 mmol/L (4.00-12.00); BUN/Creat Ratio 27.86 Ratio (12.00-20.00); Calcium 9.6 mg/dL (8.7-10.3); Carbon Dioxide 21.5 mmol/L (21.6-31.8); Non-African American GFR(CKD) 50.2 (60.0-200.0); Potassium 5.5 mmol/L (3.5-5.5)
--- NOTE | 2020-08-16 11:57 | PN ---
PROGRESS NOTE CHIEF COMPLAINT: Encephalopathy. HISTORY OF PRESENT ILLNESS: This gentleman is doing much better. He is clearing significantly in terms of mental function. PHYSICAL EXAMINATION: Vital signs are normal. Chest is clear. Cardiac exam is normal. Abdomen is soft, nontender. IMPRESSION: 1. Encephalopathy, etiology unknown. 2. Recent Covid-19 pneumonitis. 3. Diabetes mellitus. PLAN: Increase activity and possibly home tomorrow. His sugars are still slightly high, but he could be further managed regarding his insulin as an outpatient and will hopefully get him home tomorrow. MMODL / IJN: [id number] /
[2020-08-16 16:32] LABS: Glucose,Whole Blood 314 mg/dL (75-99)
[2020-08-16 20:43] LABS: Glucose,Whole Blood 267 mg/dL (75-99)
[2020-08-17] MEDS: SODIUM CHLORIDE 0.9% 1,000 ML IV SCH (03:20)
[2020-08-17 06:50] LABS: Glucose,Whole Blood 251 mg/dL (75-99)
[2020-08-17 07:36] VITALS: BP 137/84; PULSE 50; TEMP 97.7
[2020-08-17] MEDS: Liraglutide [Victoza] 0.6 MG/0.1 ML SQ SCH (08:04)
[2020-08-17] MEDS: FUROSEMIDE 20 MG TAB PO SCH (08:09)
[2020-08-17] MEDS: hydrALAZINE HCL 25 MG TAB PO SCH (08:09)
[2020-08-17] MEDS: carvediloL 6.25 MG TAB PO SCH (08:09)
[2020-08-17] MEDS: ATORVASTATIN 80 MG TAB PO SCH (08:09)
[2020-08-17] MEDS: FERROUS SULFATE 325 MG TAB PO SCH (08:09)
[2020-08-17] MEDS: lisinopriL 20 MG TAB PO SCH (08:10)
[2020-08-17] MEDS: ASPIRIN 81 MG PO SCH (08:10)
[2020-08-17] MEDS: SODIUM BICARBONATE TAB 650 MG TAB PO SCH (08:10)
[2020-08-17] MEDS: INSULIN ASPART (NovoLOG) 100 UNIT/ML VIAL SQ SCH (08:11)
[2020-08-17] MEDS: INSULIN DETEMIR (LEVEMIR) 100 UNIT/ML SYR SQ SCH (08:11)
[2020-08-17] MEDS: dexAMETHasone 4 MG TAB PO SCH (08:13)
[2020-08-17] MEDS: SODIUM POLYSTYRENE SULFONATE 15 GM/60 ML BOTTLE PO SCH (08:15)
[2020-08-17] MEDS: ZINC SULFATE 220 MG CAP PO SCH (08:46)
[2020-08-17 09:18] VITALS: RESP 18
[2020-08-17 11:15] LABS: Glucose,Whole Blood 223 mg/dL (75-99)
[2020-08-17 13:37] VITALS: BMI 38.0
--- NOTE | 2020-08-17 18:06 | DS ---
DISCHARGE SUMMARY DATE OF SERVICE/DISCHARGE: 08/17/2020 CHIEF COMPLAINT: Encephalopathy. HISTORY OF PRESENT ILLNESS AND PHYSICAL EXAMINATION: The details of this man's history and physical can be found in the initial workup. LABORATORY STUDIES: While he was in the hospital he had laboratory studies, details of which can be found in the laboratory section of his chart. COURSE IN THE HOSPITAL: After admission he was placed on bedrest, started on intravenous fluids and started on a neurologic workup and evaluation. He was quite lethargic and confused initially and had difficulty with speech. However, while he was in a hospital his mentation slowly cleared. His sensory and motor and function, cranial nerve capacity and cognitive function returned over the next 3-4 days. He was doing quite well and it was felt that he could go home on August 17. He will be followed as an outpatient. He will go home on his usual activity, diet and medications, but he will be given a Medrol Dosepak by way of tapering him off the steroids. FINAL DIAGNOSES: 1. Encephalopathy. 2. COVID-19 pneumonitis. 3. Diabetes. OPERATIONS: None. CONSULTATION: Neurology. He is improved. MMODL / IJN: [id number] /
[2020-08-18] MEDS ORDERED: INSULIN DETEMIR (LEVEMIR) 100 UNIT/ML SYR SQ SCH (07:00)
== END 2020-08-17 11:51 | disposition home health service (06) | DRG 92 ==
LOC: EC 17:19 → 4SSUR 20:29
PROVIDERS: ADMIT Family Medicine; ATTEND Family Medicine
DX: G92 Toxic encephalopathy (principal); N17.9 Acute kidney failure, unspecified; I13.0 Hypertensive heart and chronic kidney disease with heart failure and stage 1 through stage 4 chronic kidney disease, or unspecified chronic kidney disease; E78.5 Hyperlipidemia, unspecified; E11.22 Type 2 diabetes mellitus with diabetic chronic kidney disease; E11.40 Type 2 diabetes mellitus with diabetic neuropathy, unspecified; E11.65 Type 2 diabetes mellitus with hyperglycemia; E86.0 Dehydration; I65.22 Occlusion and stenosis of left carotid artery; I50.9 Heart failure, unspecified; N18.9 Chronic kidney disease, unspecified; Z79.4 Long term (current) use of insulin; Z79.82 Long term (current) use of aspirin; Z79.899 Other long term (current) drug therapy; Z83.3 Family history of diabetes mellitus; Z86.73 Personal history of transient ischemic attack (TIA), and cerebral infarction without residual deficits; Z86.19 Personal history of other infectious and parasitic diseases
CPT/HCPCS: 36415; 70450; 70551; 71046; 72141; 80048; 80053; 80306; 81003; 82024; 82140; 82550; 82607; 82746; 82747; 83036; 83605; 83735; 84439; 84443; 84481; 84484; 85025; 85610; 85730; 93005; 95816; 96360; 96361; 99291

== ENCOUNTER 2020-08-28 12:52 | Inpatient (IN) | payer MEDICARE, OTHER ==
[2020-08-28] MEDS ORDERED: SODIUM CHLORIDE 0.9% 1,000 ML IV ONE ×2 (13:17→13:28)
[2020-08-28] MEDS ORDERED: SODIUM CHLORIDE 0.9% 1,000 ML IV STA (13:19)
[2020-08-28 13:26] LABS: Glucose,Whole Blood 196 mg/dL (75-99)
--- NOTE | 2020-08-28 13:36 | ED ---
Weakness HPI - General Chief complaint: Weakness Stated complaint: Weakness Time Seen by Provider: 08/28/20 12:55 Source: patient, EMS Mode of arrival: EMS Limitations: no limitations - History of Present Illness Initial comments: 70-year-old male with past medical history of COPD, diabetes who presents to the emergency department with generalized weakness. Patient is a very poor historian and cannot provide much history. It was reported by EMS that he sustained a fall in the bathroom onto his shoulder however he did not hit his head. Patient arrives and states that he was weak. Denies syncope. Denies hitting his head. Denies chest pain or shortness of breath. Admits to nausea. Poor appetite. Denies any fevers or chills. The patient was recently hospitalized he was positive for Covid. No other alleviating, precipitating or modifying factors - Related Data Home Medications Medication Instructions Recorded Confirmed lisinopriL 40 mg PO DAILY 09/28/18 08/28/20 Ferrous Sulfate [Iron (65 MG 325 mg PO DAILY 12/16/18 08/28/20 Elemental)] Furosemide [Lasix] 20 mg PO DAILY 12/16/18 08/28/20 carvediloL [Coreg] 6.25 mg PO BID 12/16/18 08/28/20 Atorvastatin [Lipitor] 80 mg PO DAILY 07/30/20 08/28/20 Ergocalciferol (Vitamin D2) 50,000 unit PO Q30D 07/30/20 08/28/20 [Vitamin D2] Liraglutide [Victoza 3-Eugene] 1.8 mg SQ DAILY 08/13/20 08/28/20 Insulin Detemir [Levemir Flextouch] 60 units SQ DAILY 08/28/20 08/28/20 Previous Rx's Medication Instructions Recorded Sodium Polystyrene Sulfonate 15 gm PO DAILY #30 ml 08/08/20 [Kayexalate] Allergies Allergy/AdvReac Type Severity Reaction Status Date / Time egg Allergy Rash/Hives Verified 08/28/20 15:53 Review of Systems ROS Statement: Those systems with pertinent positive or pertinent negative responses have been documented in the HPI. ROS Other: All systems not noted in ROS Statement are negative. Past Medical History Past Medical History: Asthma, Heart Failure, COPD, Diabetes Mellitus, Hyperlipidemia, Hypertension, Pneumonia Additional Past Medical History / Comment(s): heart murmur, diabetic neuropathy,"i think i had a small bleed behind rt eye". healed wound rt great toe History of Any Multi-Drug Resistant Organisms: MRSA Date of last positivie culture/infection: 11/26/18 MDRO Source:: toe Past Surgical History: Hernia Repair, Orthopedic Surgery, Tonsillectomy Additional Past Surgical History / Comment(s): rt foot Past Anesthesia/Blood Transfusion Reactions: No Reported Reaction Past Psychological History: Depression Smoking Status: Never smoker Past Alcohol Use History: None Reported Past Drug Use History: None Reported - Past Family History Father Family Medical History: No Reported History Additional Family Medical History / Comment(s): Father at age 65 and pat jerson does not know his medical problems. Mother Family Medical History: Diabetes Mellitus, Rheumatoid Arthritis (RA) Additional Family Medical History / Comment(s): Mother at age 70 with history of rheumatoid arthritis. granmother also had ra Brother(s) Additional Family Medical History / Comment(s): Patient had 2 brothers and one during service and one from stillbirth. Patient does not have any sisters. Patient has 3 sons and 3 daughters with no major medical problems. General Exam Limitations: altered mental status General appearance: lethargic, other (arouses to verbal stimuli) Head exam: Present: atraumatic, normocephalic, normal inspection Eye exam: Present: normal appearance, PERRL, EOMI. Absent: scleral icterus, conjunctival injection, periorbital swelling ENT exam: Present: mucous membranes dry Neck exam: Present: normal inspection. Absent: tenderness, meningismus, lymphadenopathy Respiratory exam: Present: normal lung sounds bilaterally. Absent: respiratory distress, wheezes, rales, rhonchi, stridor Cardiovascular Exam: Present: regular rate, normal rhythm, normal heart sounds. Absent: systolic murmur, diastolic murmur, rubs, gallop, clicks GI/Abdominal exam: Present: soft, normal bowel sounds. Absent: distended, tende rness, guarding, rebound, rigid Extremities exam: Present: normal inspection, full ROM, normal capillary refill. Absent: tenderness, pedal edema, joint swelling, calf tenderness Back exam: Present: normal inspection Neurological exam: Present: altered (sedated), CN II-XII intact Psychiatric exam: Present: flat affect Skin exam: Present: warm, dry, intact, normal color. Absent: rash Course Vital Signs 08/28/20 08/28/20 08/28/20 12:55 13:54 14:34 Temperature 97.9 F 97.4 F L Pulse Rate 80 71 75 Respiratory 18 18 16 Rate Blood Pressure 76/43 78/57 103/90 O2 Sat by Pulse 99 94 L 99 Oximetry 08/28/20 08/28/20 15:50 17:10 Temperature 98.2 F Pulse Rate 71 75 Respiratory 18 16 Rate Blood Pressure 100/69 128/80 O2 Sat by Pulse 95 97 Oximetry EKG Findings - EKG Comments: EKG Findings:: EKG demonstrates a normal sinus rhythm with a ventricular rate of 83. [place] interval 176. QRS 82. QTC 439. No acute ST segment elevations or depressions concerning for ischemic changes Medical Decision Making - Medical Decision Making Upon arrival the patient is placed into room 30. Vitals are obtained and the patient is hypotensive. He is moved to room 5. Peripheral IV is established. The patient was given a 2 L bolus and does have rapid improvement in his blood pressures. His mentation does improve with improved blood pressures. I did conduct laboratory studies. Laboratory studies are remarkable for a creatinine of 2.5 which is much worse than the patient's baseline. Accu-Cheks are stable. Urinalysis is clean of infection. Chest x-ray demonstrates a continued pneumonia. I discussed the results with the patient. I did recommend hospital admission for jason and dehydration for which patient did agree to. Bridging orders were placed. Discussed the case with Dr. Kim who accepted admission - Lab Data Result diagrams: 08/29/20 08:07 08/29/20 08:07 Lab Results 08/28/20 08/28/20 08/28/20 Range/Units 13:25 13:49 13:49 WBC 7.7 (3.8-10.6) k/uL RBC 6.44 H (4.30-5.90) m/uL Hgb 14.7 (13.0-17.5) gm/dL Hct 46.4 (39.0-53.0) % MCV 72.1 L (80.0-100.0) fL MCH 22.8 L (25.0-35.0) pg MCHC 31.6 (31.0-37.0) g/dL RDW 15.1 (11.5-15.5) % Plt Count 125 L (150-450) k/uL Neutrophils % 73 % Lymphocytes % 17 % Monocytes % 4 % Eosinophils % 5 % Basophils % 0 % Neutrophils # 5.6 (1.3-7.7) k/uL Lymphocytes # 1.3 (1.0-4.8) k/uL Monocytes # 0.3 (0-1.0) k/uL Eosinophils # 0.4 (0-0.7) k/uL Basophils # 0.0 (0-0.2) k/uL Hypochromasia Slight Microcytosis Moderate PT 11.2 (9.0-12.0) sec INR 1.1 (<1.2) APTT 23.4 (22.0-30.0) sec Sodium (137-145) mmol/L Potassium (3.5-5.1) mmol/L Chloride (98-107) mmol/L Carbon Dioxide (22-30) mmol/L Anion Gap mmol/L BUN (9-20) mg/dL Creatinine (0.66-1.25) mg/dL Est GFR (CKD-EPI)AfAm (>60 ml/min/1.73 sqM) Est GFR (CKD-EPI)NonAf (>60 ml/min/1.73 sqM) Glucose (74-99) mg/dL POC Glucose (mg/dL) 196 H (75-99) mg/dL POC Glu Statuary Painter ID [facility] Plasma Lactic Acid Royce (0.7-2.0) mmol/L Calcium (8.4-10.2) mg/dL Magnesium (1.6-2.3) mg/dL Total Bilirubin (0.2-1.3) mg/dL AST (17-59) U/L ALT (4-49) U/L Alkaline Phosphatase (38-126) U/L Creatine Kinase (55-170) U/L Troponin I (0.000-0.034) ng/mL NT-Pro-B Natriuret Pep pg/mL Total Protein (6.3-8.2) g/dL Albumin (3.5-5.0) g/dL TSH (0.465-4.680) mIU/L Urine Color Urine Appearance (Clear) Urine pH (5.0-8.0) Ur Specific [place] (1.001-1.035) Urine Protein (Negative) Urine Glucose (UA) (Negative) Urine Ketones (Negative) Urine Blood (Negative) Urine Nitrite (Negative) Urine Bilirubin (Negative) Urine Urobilinogen (<2.0) mg/dL Ur Leukocyte Esterase (Negative) 08/28/20 08/28/20 08/28/20 Range/Units 13:49 13:49 13:49 WBC (3.8-10.6) k/uL RBC (4.30-5.90) m/uL Hgb (13.0-17.5) gm/dL Hct (39.0-53.0) % MCV (80.0-100.0) fL MCH (25.0-35.0) pg MCHC (31.0-37.0) g/dL RDW (11.5-15.5) % Plt Count (150-450) k/uL Neutrophils % % Lymphocytes % % Monocytes % % Eosinophils % % Basophils % % Neutrophils # (1.3-7.7) k/uL Lymphocytes # (1.0-4.8) k/uL Monocytes # (0-1.0) k/uL Eosinophils # (0-0.7) k/uL Basophils # (0-0.2) k/uL Hypochromasia Microcytosis PT (9.0-12.0) sec INR (<1.2) APTT (22.0-30.0) sec Sodium 134 L (137-145) mmol/L Potassium 5.5 H (3.5-5.1) mmol/L Chloride 104 (98-107) mmol/L Carbon Dioxide 23 (22-30) mmol/L Anion Gap 7 mmol/L BUN 50 H (9-20) mg/dL Creatinine 2.50 H (0.66-1.25) mg/dL Est GFR (CKD-EPI)AfAm 29 (>60 ml/min/1.73 sqM) Est GFR (CKD-EPI)NonAf 25 (>60 ml/min/1.73 sqM) Glucose 218 H (74-99) mg/dL POC Glucose (mg/dL) (75-99) mg/dL POC Glu Statuary Painter ID Plasma Lactic Acid Royce 1.6 (0.7-2.0) mmol/L Calcium 9.3 (8.4-10.2) mg/dL Magnesium 2.0 (1.6-2.3) mg/dL Total Bilirubin 1.3 (0.2-1.3) mg/dL AST 25 (17-59) U/L ALT 27 (4-49) U/L Alkaline Phosphatase 80 (38-126) U/L Creatine Kinase 32 L (55-170) U/L Troponin I (0.000-0.034) ng/mL NT-Pro-B Natriuret Pep pg/mL Total Protein 6.2 L (6.3-8.2) g/dL Albumin 3.0 L (3.5-5.0) g/dL TSH 3.810 (0.465-4.680) mIU/L Urine Color Yellow Urine Appearance Clear (Clear) Urine pH 5.5 (5.0-8.0) Ur Specific [place] 1.011 (1.001-1.035) Urine Protein Trace H (Negative) Urine Glucose (UA) Negative (Negative) Urine Ketones Negative (Negative) Urine Blood Negative (Negative) Urine Nitrite Negative (Negative) Urine Bilirubin Negative (Negative) Urine Urobilinogen <2.0 (<2.0) mg/dL Ur Leukocyte Esterase Negative (Negative) 08/28/20 08/28/20 Range/Units 13:49 13:49 WBC (3.8-10.6) k/uL RBC (4.30-5.90) m/uL Hgb (13.0-17.5) gm/dL Hct (39.0-53.0) % MCV (80.0-100.0) fL MCH (25.0-35.0) pg MCHC (31.0-37.0) g/dL RDW (11.5-15.5) % Plt Count (150-450) k/uL Neutrophils % % Lymphocytes % % Monocytes % % Eosinophils % % Basophils % % Neutrophils # (1.3-7.7) k/uL Lymphocytes # (1.0-4.8) k/uL Monocytes # (0-1.0) k/uL Eosinophils # (0-0.7) k/uL Basophils # (0-0.2) k/uL Hypochromasia Microcytosis PT (9.0-12.0) sec INR (<1.2) APTT (22.0-30.0) sec Sodium (137-145) mmol/L Potassium (3.5-5.1) mmol/L Chloride (98-107) mmol/L Carbon Dioxide (22-30) mmol/L Anion Gap mmol/L BUN (9-20) mg/dL Creatinine (0.66-1.25) mg/dL Est GFR (CKD-EPI)AfAm (>60 ml/min/1.73 sqM) Est GFR (CKD-EPI)NonAf (>60 ml/min/1.73 sqM) Glucose (74-99) mg/dL POC Glucose (mg/dL) (75-99) mg/dL POC Glu Statuary Painter ID Plasma Lactic Acid Royce (0.7-2.0) mmol/L Calcium (8.4-10.2) mg/dL Magnesium (1.6-2.3) mg/dL Total Bilirubin (0.2-1.3) mg/dL AST (17-59) U/L ALT (4-49) U/L Alkaline Phosphatase (38-126) U/L Creatine Kinase (55-170) U/L Troponin I <0.012 (0.000-0.034) ng/mL NT-Pro-B Natriuret Pep 125 pg/mL Total Protein (6.3-8.2) g/dL Albumin (3.5-5.0) g/dL TSH (0.465-4.680) mIU/L Urine Color Urine Appearance (Clear) Urine pH (5.0-8.0) Ur Specific [place] (1.001-1.035) Urine Protein (Negative) Urine Glucose (UA) (Negative) Urine Ketones (Negative) Urine Blood (Negative) Urine Nitrite (Negative) Urine Bilirubin (Negative) Urine Urobilinogen (<2.0) mg/dL Ur Leukocyte Esterase (Negative) Disposition Clinical Impression: Acute encephalopathy, Acute hypotension, Fall, Coronavirus infection, Gene ralized weakness Disposition: ADMITTED IP TO THIS HOSP Condition: Serious Is patient prescribed a controlled substance at d/c from ED?: No Decision to Admit Reason: Admit from EC Decision Date: 08/28/20 Decision Time: 14:53
[2020-08-28 13:59] LABS: Basophils % (A) 0 %; Eosinophils # (A) 0.4 k/uL (0-0.7); Eosinophils % (A) 5 %; HCT 46.4 % (39.0-53.0); HGB 14.7 gm/dL (13.0-17.5); Hypochromasia Slight; Lymphocytes # (A) 1.3 k/uL (1.0-4.8); Lymphocytes % (A) 17 %; MCH 22.8 pg (25.0-35.0); MCHC 31.6 g/dL (31.0-37.0); MCV 72.1 fL (80.0-100.0); Mean Platelet Volume 9.2; Microcytosis Moderate; Monocytes # (A) 0.3 k/uL (0-1.0); Monocytes % (A) 4 %; Neutrophils # (A) 5.6 k/uL (1.3-7.7); Neutrophils % (A) 73 %; Platelet Count 125 k/uL (150-450); RBC 6.44 m/uL (4.30-5.90); RDW 15.1 % (11.5-15.5); WBC 7.7 k/uL (3.8-10.6)
[2020-08-28 14:11] LABS: Calcium 9.3 mg/dL (8.4-10.2); Total Bilirubin 1.3 mg/dL (0.2-1.3); Total Protein 6.2 g/dL (6.3-8.2)
[2020-08-28 14:17] LABS: Potassium 5.5 mmol/L (3.5-5.1)
[2020-08-28 14:24] LABS: INR 1.1 (<1.2); Partial Thromboplastin Time 23.4 sec (22.0-30.0); Prothrombin Time 11.2 sec (9.0-12.0)
--- NOTE | 2020-08-28 14:37 | XR ---
EXAMINATION TYPE: XR chest 1V portable DATE OF EXAM: 08/28/2020 COMPARISON: Prior chest x-ray 08/14/2020 HISTORY: Weakness TECHNIQUE: Single frontal view of the chest is obtained. FINDINGS: Exam is expiratory and rotated, there are overlying cardiac leads. Patchy bilateral densit y within the lungs is again noted. There is no evident pneumothorax or pleural effusion. Heart is lik mason stable. Aorta is dense. IMPRESSION: Expiratory rotated exam. Correlate for possible pneumonia. Follow-up is recommended.
[2020-08-28] MEDS ORDERED: NALOXONE 0.4 MG/ML 1 ML VIAL IV PRN (14:53)
[2020-08-28 15:57] LABS: Appearance,Urine Clear (Clear); Bilirubin,Urine Negative (Negative); Blood,Urine Negative (Negative); Color,Urine Yellow; Glucose,Urine (UA) Negative (Negative); Ketones,Urine Negative (Negative); Leukocyte Esterase,Urine Negative (Negative); Nitrite,Urine Negative (Negative); PH, Urine 5.5 (5.0-8.0); Protein,Urine Trace (Negative); Specific Gravity,Urine 1.011 (1.001-1.035); Urobilinogen,Urine <2.0 mg/dL (<2.0)
[2020-08-28 15:59] LABS: Glucose,Whole Blood 176 mg/dL (75-99)
[2020-08-28 20:10] LABS: Glucose,Whole Blood 130 mg/dL (75-99)
--- NOTE | 2020-08-28 21:05 | CT ---
EXAMINATION TYPE: CT brain wo con DATE OF EXAM: 08/28/2020 COMPARISON: 08/13/2020. HISTORY: Fall. CT DLP: 1173.[address] images of the brain was performed without contrast. Coronal and sagittal reformats were gene rated and reviewed. Automated exposure control for dose reduction was used. FINDINGS: There is no acute intracranial hemorrhage, midline shift or hydrocephalus. 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 Otherwise mild parenchymal volume loss and white matter disease. No calvarial f racture. The paranasal sinuses and mastoid air cells are adequately aerated. IMPRESSION: NO ACUTE INTRACRANIAL ABNORMALITY.
[2020-08-29 06:12] LABS: Glucose,Whole Blood 130 mg/dL (75-99)
[2020-08-29] MEDS: INSULIN DETEMIR (LEVEMIR) 100 UNIT/ML SYR SQ SCH (06:28)
[2020-08-29] MEDS ORDERED: INSULIN DETEMIR (LEVEMIR) 100 UNIT/ML SYR SQ SCH (07:00)
[2020-08-29 08:32] LABS: Basophils # (A) 0.1 k/uL (0-0.2); Basophils % (A) 1 %; Eosinophils # (A) 0.3 k/uL (0-0.7); Eosinophils % (A) 4 %; HCT 43.9 % (39.0-53.0); HGB 13.6 gm/dL (13.0-17.5); Hypochromasia Slight; Lymphocytes # (A) 1.1 k/uL (1.0-4.8); Lymphocytes % (A) 15 %; MCH 22.6 pg (25.0-35.0); MCHC 30.9 g/dL (31.0-37.0); Mean Platelet Volume 8.6; Microcytosis Slight; Monocytes # (A) 0.3 k/uL (0-1.0); Monocytes % (A) 5 %; Neutrophils # (A) 5.3 k/uL (1.3-7.7); Neutrophils % (A) 74 %; Platelet Count 103 k/uL (150-450); RBC 6.01 m/uL (4.30-5.90); WBC 7.1 k/uL (3.8-10.6)
[2020-08-29 08:42] LABS: Calcium 9.1 mg/dL (8.4-10.2); Potassium 4.6 mmol/L (3.5-5.1)
[2020-08-29] MEDS ORDERED: ATORVASTATIN 80 MG TAB PO SCH (09:00)
[2020-08-29] MEDS: SODIUM POLYSTYRENE SULFONATE 15 GM/60 ML BOTTLE PO SCH (09:23)
[2020-08-29 11:16] LABS: Albumin 2.9 g/dL (3.5-5.0); Total Bilirubin 0.9 mg/dL (0.2-1.3); Total Protein 5.9 g/dL (6.3-8.2)
[2020-08-29 11:46] LABS: Glucose,Whole Blood 137 mg/dL (75-99)
--- NOTE | 2020-08-29 15:42 | XR ---
EXAMINATION TYPE: XR chest 1V portable DATE OF EXAM: 08/29/2020 COMPARISON: Yesterday HISTORY: Short of breath TECHNIQUE: FINDINGS: There is some patchy infiltrate which is predominantly interstitial in the lower lung field s. This is more on the left side. There is no heart failure. There are chest leads. Costophrenic angl es are clear. IMPRESSION: Bilateral pneumonia that is worse on the left side and unchanged compared to yesterday. N o heart failure seen.
[2020-08-29 16:56] LABS: Glucose,Whole Blood 149 mg/dL (75-99)
--- NOTE | 2020-08-29 17:09 | HP ---
HISTORY AND PHYSICAL CHIEF COMPLAINT: Weakness, hypertension, encephalopathy, and possible pneumonia. HISTORY OF PRESENT ILLNESS: This is another recent admission for this 70-year-old white male. He was recently in the hospital for a pneumonitis and was found to have coronavirus. At that time, he seemed to become more lethargic and confused. It was felt that he probably had encephalopathy. This seemed to clear and he was sent home and seemed to be doing well, but then his roommate stated that he had become weak, more confused and unsteady. He was brought to the emergency room where he also had a low blood pressure 79/43, and he was admitted. BUN was up to 50 with a creatinine of 2.5. He was lethargic. REVIEW OF SYSTEMS: Not reliably obtained due to his lethargy and encephalopathy. Past medical history, family history and personal and social histories are essentially unchanged from his recent admitting and discharge summaries. He is on carvedilol 6.25 twice a day, furosemide 20 mg once a day, atorvastatin 80 mg once a day, lisinopril 40 once a day, ferrous sulfate 325 once a day, NovoLog 70/30 64 units in the morning and 50 at night, Percocet p.r.n., and Victoza. He does not smoke or drink. PHYSICAL EXAMINATION: Blood pressure is 76/43 with a pulse of 59, respirations of 16 and he is afebrile. In general he appeared to be slightly dehydrated. He is awake, but slow to respond. Head, ears, eyes, nose, mouth, throat were normal except for dry mucous membranes. Chest is clear. Respiratory effort was low. Cardiac exam demonstrated what sounded like normal sinus rhythm and no murmurs or extra sounds. Abdomen is soft and no masses or visceromegaly. Extremities are normal. IMPRESSION: 1. Hypotension. 2. Dehydration. 3. Encephalopathy. 4. Generalized weakness. 5. Possible pneumonitis. 6. Insulin-dependent diabetes mellitus. 7. Prerenal azotemia. 8. Chronic renal failure. PLAN: 1. Bedrest. 2. IV fluids. 3. Monitor renal function. 4. Physical therapy and occupational therapy. 5. Monitor blood sugars. 6. Consider different discharge plan. MMODL / IJN: [id number] /
--- NOTE | 2020-08-29 17:09 | PN ---
PROGRESS NOTE DATE: 08/29/2020. CHIEF COMPLAINT: Lethargy, hypotension, dehydration, renal failure. HISTORY OF PRESENT ILLNESS: This gentleman seems a little bit better. He is still dehydrated. He is still cognitively slow. He denies any pain, shortness of breath, etc. PHYSICAL EXAM: Pupils equally round and reactive and gaze is conjugate. Neck veins are not distended. Chest is clear. Cardiac exam demonstrates normal sinus rhythm and no murmurs or extra sounds. Abdomen is soft and nontender without any masses or visceromegaly. Extremities are normal. IMPRESSION: 1. Hypotension. 2. Encephalopathy. 3. Dehydration. 4. Prerenal azotemia. 5. Renal failure. 6. Insulin-dependent diabetes mellitus. PLAN: Repeat blood work and continue with IV fluids. He may require further neurologic evaluation and a better discharge plan. MMODL / IJN: [id number] /
[2020-08-29 20:00] LABS: Glucose,Whole Blood 126 mg/dL (75-99)
[2020-08-29 21:16] LABS: Hemoglobin A1C 9.8 % (4.0-6.0)
[2020-08-30 06:17] LABS: Glucose,Whole Blood 123 mg/dL (75-99)
[2020-08-30] MEDS: INSULIN DETEMIR (LEVEMIR) 100 UNIT/ML SYR SQ SCH (07:02)
[2020-08-30 11:50] LABS: Glucose,Whole Blood 162 mg/dL (75-99)
[2020-08-30 14:02] VITALS: BMI 26.3
[2020-08-30] MEDS: SODIUM POLYSTYRENE SULFONATE 15 GM/60 ML BOTTLE PO SCH (16:25)
[2020-08-30 16:53] LABS: Glucose,Whole Blood 174 mg/dL (75-99)
--- NOTE | 2020-08-30 20:02 | PN ---
PROGRESS NOTE CHIEF COMPLAINT: Weakness, encephalopathy and possible pneumonitis as well as hypotension. HISTORY OF PRESENT ILLNESS: This gentleman seems to be doing a lot better. His blood pressure is improving with his lowest one being 105/56 in the last 24 hours. Rest of his vital signs are normal. Laboratory studies reveal that his blood sugars are in reasonably good range. His BUN is 40 with a creatinine of 1.825. PHYSICAL EXAMINATION: His hydration is better and he is more alert. Seems that his orientation and speech seem improved. Chest is clear. Cardiac exam is normal. Abdomen is soft, nontender. Extremities are normal. IMPRESSION: 1. Hypotension. 2. Dehydration. 3. Insulin dependent diabetes mellitus. 4. Encephalopathy. 5. CKD. PLAN: Increase activity and he might be able to go home in the next day or 2. MMODL / IJN: [id number] /
[2020-08-30 20:06] LABS: Glucose,Whole Blood 196 mg/dL (75-99)
[2020-08-31 06:31] LABS: Glucose,Whole Blood 110 mg/dL (75-99)
[2020-08-31] MEDS: INSULIN DETEMIR (LEVEMIR) 100 UNIT/ML SYR SQ SCH (07:02)
[2020-08-31] MEDS: SODIUM POLYSTYRENE SULFONATE 15 GM/60 ML BOTTLE PO SCH (09:42)
[2020-08-31 10:00] VITALS: BP 118/72; PULSE 76; RESP 18; TEMP 98
--- NOTE | 2020-08-31 10:33 | CDI ---
Documentation Clarification Form Date: 08/31/2020 09:57:00 AM From: Ruth Foster RN, CCDS Admit Date: 08/28/2020 03:03:00 PM Patient Name: Tex Jones Visit Number: [id number] Discharge Date: ATTENTION: The Clinical Documentation Specialists (CDI) and [facility] Coding Staff appreciate your assistance in clarifying documentation. Please respond to the clarification below the line at the bottom and electronically sign. The CDI & [facility] Coding staff will review the response and follow-up if needed. Please note: Queries are made part of the Legal Health Record. If you have any questions, please contact the author of this message via ITS. Dr. Cresencio Kim Altered Mental Status was documented in the H/P and subsequent progress notes as encephalopathy. Please provide further specificity of the type of encephalopathy. History/Risk Factors: Diabetes Mellitus, Heart failure, Hypertension, Asthma, pneumonia, Covid-19 positive Clinical Indicators: 70-year-old male who present to ED on 08/28 with generalized weakness. 08/28 Labs: WBC 7.7, Plt Count 125, Sodium 134, Potassium 5.5 BUN 50, Cr 2.50 GFR 25 08/28 CXR: Correlate for possible pneumonia; CXR: Bilateral pneumonia that is worse on the left side and unchanged compared to 08/28. [address]: No acute intracranial abnormality Treatment: Neurological assessment per protocol .9NS 1,000 mls bolus x2 08/28 In your professional opinion, please clarify the etiology of the Altered Mental Status, if known. Metabolic Encephalopathy (specify Underlying Medical Illness) Other condition (please specify) Unable to determine (Last Revision: February 2018) MTDD
--- NOTE | 2020-08-31 11:33 | MISC ---
MISCELLANOUS REPORT QUERY: Etiology of altered mental status is COVID-19. MMODL / IJN: [id number] /
[2020-08-31 12:31] LABS: Glucose,Whole Blood 145 mg/dL (75-99)
--- NOTE | 2020-08-31 18:15 | DS ---
DISCHARGE SUMMARY CHIEF COMPLAINT: Fall, syncope, mental status changes and hypotension. HISTORY OF PRESENT ILLNESS AND PHYSICAL EXAMINATION: Details of this man's history and physical can be found in the initial workup. LABORATORY STUDIES: While he was in the hospital he had laboratory studies, details of which can be found in the laboratory section of his chart. COURSE IN THE HOSPITAL: After admission he was placed on bedrest and started on intravenous fluids. Medication dosages were dropped back, and when his blood pressure came up, he did quite well. His mentation improved and his strength and ambulation also improved. He was doing well enough that it was felt that he could be discharged home on 08/31/2020. He will go home on light activity about the house and his usual diet, and he will be set up for home care. We will follow him in the office in several days and continue to monitor his neurologic status and blood pressure. FINAL DIAGNOSES: 1. Syncope. 2. Hypotension. 3. Dehydration. 4. Encephalopathy. 5. Recent SARS COV-2 infection. 6. Insulin-dependent diabetes mellitus. OPERATIONS: None. CONSULTATIONS: None. He is improved. MMODL / IJN: [id number] /
--- NOTE | 2020-09-01 08:45 | CDI ---
Documentation Clarification Form Date: 09/01/2020 08:38:28 AM From: Ruth Foster RN, CCDS Admit Date: 08/28/2020 03:03:00 PM Patient Name: Tex Jones Visit Number: [id number] Discharge Date: 08/31/2020 01:32:00 PM ATTENTION: The Clinical Documentation Specialists (CDI) and [facility] Coding Staff appreciate your assistance in clarifying documentation. Please respond to the clarification below the line at the bottom and electronically sign. The CDI & [facility] Coding staff will review the response and follow-up if needed. Please note: Queries are made part of the Legal Health Record. If you have any questions, please contact the author of this message via ITS. Dr. Cresencio Kim Altered Mental Status was documented in the H/P and subsequent progress notes as encephalopathy. Please provide further specificity of the type of encephalopathy. History/Risk Factors: Diabetes Mellitus, Heart failure, Hypertension, Asthma, pneumonia, Recent history Covid-19 Clinical Indicators: 70-year-old male who present to ED on 08/28 with generalized weakness. 08/28 Labs: WBC 7.7, Plt Count 125, Sodium 134, Potassium 5.5 BUN 50, Cr 2.50 GFR 25 08/28 CXR: Correlate for possible pneumonia; 08/29 CXR: Bilateral pneumonia that is worse on the left side and unchanged compared to 08/28. [address]: No acute intracranial abnormality Treatment: Neurological assessment per protocol .9NS 1,000 mls bolus x2 08/28 In your professional opinion, please clarify the type of the Altered Mental Status, if known. Metabolic Encephalopathy (specify Underlying Medical Illness) Other condition (please specify) Unable to determine (Last Revision: February 2018) MTDD
--- NOTE | 2020-09-01 09:33 | CDI ---
Documentation Clarification Form Date: 09/01/2020 08:46:32 AM From: Ruth Foster RN, CCDS Admit Date: 08/28/2020 03:03:00 PM Patient Name: Tex Jones Visit Number: [id number] Discharge Date: 08/31/2020 01:32:00 PM ATTENTION: The Clinical Documentation Specialists (CDI) and [facility] Coding Staff appreciate your assistance in clarifying documentation. Please respond to the clarification below the line at the bottom and electronically sign. The CDI & [facility] Coding staff will review the response and follow-up if needed. Please note: Queries are made part of the Legal Health Record. If you have any questions, please contact the author of this message via ITS. Dr. Cresencio Kim Acute kidney injury was documented in the ED assessment on 08/28. H/P and subsequent documentation has chronic renal failure. Please render your opinion on the most appropriate diagnosis. History/Risk Factors: Diabetes Mellitus, Heart failure, Hypertension, Asthma, pneumonia, Recent history Covid-19 Patients baseline 08/01/2020 Nephrology () CR 1.7 Clinical Indicators: 70-year-old male who present to ED on 08/28 with generalized weakness. ED assessment found him to be hypotensive. His creatinine of 2.5 which is much worse than the patient's baseline per ED. 08/28 Vital signs: 76/43 80 18 97.9 99 % RA. ED recommend hospital admission for acute kidney injury and dehydration. 08/28 BUN 50, Cr 2.50 GFR 29 08/29 BUN40 Cr 1.85 GFR 42 Treatment: Monitor renal function .9NS 1,000 ML Bolus x2 08/28 In order to capture the severity of condition, please clarify if the condition signifies: Acute renal failure, Please specify etiology (if known): Cortical Necrosis Medullary Necrosis Tubular Necrosis Acute kidney injury Acute on chronic renal failure CKD Stage 1 GFR >90 CKD Stage 2 GFR 60-89 CKD Stage 3 GFR 30-59 (Specify stage 3a or stage 3b) CKD Stage 4 GFR 15-29 CKD Stage 5 GFR <15 Chronic renal failure/Chronic Kidney disease (CKD) please stage (if known): CKD Stage 1 GFR >90 CKD Stage 2 GFR 60-89 CKD Stage 3 GFR 30-59 (Specify stage 3a or stage 3b) CKD Stage 4 GFR 15-29 CKD Stage 5 GFR <15 Other, please specify Unable to determine (Last Revision: February 2018) MTDD
--- NOTE | 2020-09-01 09:56 | CDI ---
Documentation Clarification Form Date: 09/01/2020 09:41:21 AM From: Ruth Foster RN, CCDS Admit Date: 08/28/2020 03:03:00 PM Patient Name: Tex Jones Visit Number: [id number] Discharge Date: 08/31/2020 01:32:00 PM ATTENTION: The Clinical Documentation Specialists (CDI) and [facility] Coding Staff appreciate your assistance in clarifying documentation. Please respond to the clarification below the line at the bottom and electronically sign. The CDI & [facility] Coding staff will review the response and follow-up if needed. Please note: Queries are made part of the Legal Health Record. If you have any questions, please contact the author of this message via ITS. Dr. Cresencio Kim CHF is documented in the past medical history with current ongoing treatment. Please clarify the type and acuity of the heart failure. History/Risk Factors: Diabetes Mellitus, Heart failure, Hypertension, Asthma, pneumonia, Recent history Covid-19 Clinical Indicators: 70-year-old male who present to ED on 08/28 with generalized weakness 08/28 Vital signs: 76/43 80 18 97.9 99 % RA 08/28 BNP: 1125 08/03/2020 Echocardiogram Results: Overall left systolic function is low-normal with, an EF 50-55 % 08/28 Chest X Ray: Correlate for possible pneumonia 08/29 Chest X-ray: Bilateral pneumonia that is worse on the left side and unchanged compared to yesterday (08/28). No heart failure seen. Treatment: Lipitor 80 mg po daily Lasix 20 mg po daily (discharge medication list) Corge 6.25 po twice a day (discharge medication list) Lisinopril 40 mg po daily (discharge medication list) In your professional opinion, can you please clarify the acuity and type of CHF if known? Chronic Systolic Heart Failure: Chronic Diastolic Heart Failure: Chronic Systolic & Diastolic Heart Failure: Unable to Determine Other, please specify (Last Revision: February 2018) MTDD
--- NOTE | 2020-09-01 12:59 | MISC ---
MISCELLANOUS REPORT QUERY: Metabolic cephalopathy secondary to COVID-19. GFR is 42 after rehydration, so that would be stage IIIB chronic renal failure. Chronic diastolic. MMODL / IJN: [id number] /
--- NOTE | 2020-09-04 13:36 | CDI ---
Documentation Clarification Form Date: 09/04/2020 12:25:00 PM From: Rochelle Juarez Phone: If you have a question about this query, please contact Robyn Tejada, Medical Billing Representative at [phone] between 8am and 5pm. Admit Date: 08/28/2020 03:03:00 PM Patient Name: Tex Jones Visit Number: [id number] Discharge Date: 08/31/2020 01:32:00 PM ATTENTION: The Clinical Documentation Specialists (CDI) and [facility] Coding Staff appreciate your assistance in clarifying documentation. Please respond to the clarification below the line at the bottom and electronically sign. The CDI & [facility] Coding staff will review the response and follow-up if needed. Please note: Queries are made part of the Legal Health Record. If you have any questions, please contact the author of this message via ITS. Dr. Cresencio Kim Hypotension is documented in the ED notes, PN's and DCS. Patient is hypotensive.in ER and given 2/L Bolus which rapidly improves blood pressure and mentation. History/Risk Factors: Recnt Covid, dehydration Patients B/P: 76/43 Labs: Sodium low at 134 Potassium high at 5.5 Treatment: 2L bolus In your professional opinion, can you please specify the etiology of the hypotension if known? Iatrogenic Hypotension Neurogenic Orthostatic Hypotension Dehydration Orthostatic Hypotension Postural Hypotension Idiopathic Hypotension Chronic Hypotension Other Condition, please specify Unable to determine MTDD
--- NOTE | 2020-09-05 13:40 | MISC ---
MISCELLANOUS REPORT ADDENDUM: Hypotension and dehydration. MMODL / IJN: [id number] /
== END 2020-08-31 13:32 | disposition home health service (06) | DRG 640 ==
LOC: EC 12:52 → 3SCARD 15:03
PROVIDERS: ADMIT Family Medicine; ATTEND Family Medicine
DX: E86.0 Dehydration (principal); G93.41 Metabolic encephalopathy; I13.0 Hypertensive heart and chronic kidney disease with heart failure and stage 1 through stage 4 chronic kidney disease, or unspecified chronic kidney disease; I50.32 Chronic diastolic (congestive) heart failure; I95.9 Hypotension, unspecified; E11.22 Type 2 diabetes mellitus with diabetic chronic kidney disease; E11.40 Type 2 diabetes mellitus with diabetic neuropathy, unspecified; N18.32 Chronic kidney disease, stage 3b; B94.8 Sequelae of other specified infectious and parasitic diseases; J44.9 Chronic obstructive pulmonary disease, unspecified; Z87.01 Personal history of pneumonia (recurrent); Z91.81 History of falling; F32.9 Major depressive disorder, single episode, unspecified; Z83.3 Family history of diabetes mellitus; Z82.61 Family history of arthritis; Z91.012 Allergy to eggs; Z79.4 Long term (current) use of insulin; Z79.899 Other long term (current) drug therapy; Z86.19 Personal history of other infectious and parasitic diseases
CPT/HCPCS: 36415; 70450; 71045; 80053; 81003; 82550; 83036; 83605; 83735; 83880; 84443; 84484; 85025; 85610; 85730; 93005; 96360; 96361; 99285

== ENCOUNTER 2020-10-04 05:43 | Emergency (ER) | payer MEDICARE, OTHER ==
[2020-10-04] MEDS ORDERED: MORPHINE SULFATE 4 MG/ML SYRINGE IV STA (05:55)
[2020-10-04] MEDS: MORPHINE SULFATE 4 MG/ML SYRINGE IM STA ×2 (06:11→07:15)
[2020-10-04 06:32] LABS: Glucose,Whole Blood 100 mg/dL (75-99)
--- NOTE | 2020-10-04 06:35 | ED ---
General Adult HPI - General Source: patient, EMS, RN notes reviewed Mode of arrival: EMS Limitations: no limitations <Hal Reid - Last Filed: 10/04/20 08:07> <Hay Roman - Last Filed: 10/04/20 08:38> - General Chief complaint: Fall Stated complaint: Fall Time Seen by Provider: 10/04/20 06:10 - History of Present Illness Initial comments: 70-year-old male with a past medical history of asthma, heart failure, COPD, diabetes mellitus, hyperlipidemia, hypertension presents to the emergency room for a chief complaint of fall. Patient states that this morning he woke up and was trying to the bathroom. States he felt very dizzy and lightheaded. Patient states he couldn't keep his balance and fell hitting his head and neck on the dresser. Patient states he broke his tooth. Patient also complaining of jaw pain. Patient complaining of lower abdominal pain as well. Denies hip pain. (Hal Sandoval) - Related Data Home Medications Medication Instructions Recorded Confirmed lisinopriL 40 mg PO DAILY 09/28/18 08/28/20 Ferrous Sulfate [Iron (65 MG 325 mg PO DAILY 12/16/18 08/28/20 Elemental)] Furosemide [Lasix] 20 mg PO DAILY 12/16/18 08/28/20 carvediloL [Coreg] 6.25 mg PO BID 12/16/18 08/28/20 Atorvastatin [Lipitor] 80 mg PO DAILY 07/30/20 08/28/20 Ergocalciferol (Vitamin D2) 50,000 unit PO Q30D 07/30/20 08/28/20 [Vitamin D2] Liraglutide [Victoza 3-Eugene] 1.8 mg SQ DAILY 08/13/20 08/28/20 Insulin Detemir [Levemir Flextouch] 60 units SQ DAILY 08/28/20 08/28/20 Previous Rx's Medication Instructions Recorded Sodium Polystyrene Sulfonate 15 gm PO DAILY #30 ml 08/08/20 [Kayexalate] Allergies Allergy/AdvReac Type Severity Reaction Status Date / Time egg Allergy Rash/Hives Verified 08/28/20 15:53 Review of Systems ROS Other: All systems not noted in ROS Statement are negative. <Hal Reid - Last Filed: 10/04/20 08:07> ROS Other: All systems not noted in ROS Statement are negative. <Hay Roman - Last Filed: 10/04/20 08:38> ROS Statement: Those systems with pertinent positive or pertinent negative responses have been documented in the HPI. Past Medical History Past Medical History: Asthma, Heart Failure, COPD, Diabetes Mellitus, Hyperlipidemia, Hypertension, Pneumonia Additional Past Medical History / Comment(s): heart murmur, diabetic neuropathy,"i think i had a small bleed behind rt eye". healed wound rt great toe History of Any Multi-Drug Resistant Organisms: MRSA Date of last positivie culture/infection: 11/26/18 MDRO Source:: toe Past Surgical History: Hernia Repair, Orthopedic Surgery, Tonsillectomy Additional Past Surgical History / Comment(s): rt foot Past Anesthesia/Blood Transfusion Reactions: No Reported Reaction Past Psychological History: Depression Smoking Status: Never smoker Past Alcohol Use History: None Reported Past Drug Use History: None Reported - Past Family History Father Family Medical History: No Reported History Additional Family Medical History / Comment(s): Father at age 65 and patient does not know his medical problems. Mother Family Medical History: Diabetes Mellitus, Rheumatoid Arthritis (RA) Additional Family Medical History / Comment(s): Mother at age 70 with history of rheumatoid arthritis. granmother also had ra Brother(s) Additional Family Medical History / Comment(s): Patient had 2 brothers and one during service and one from stillbirth. Patient does not have any sisters. Patient has 3 sons and 3 daughters with no major medical problems. <Hal Reid - Last Filed: 10/04/20 08:07> General Exam Limitations: no limitations General appearance: alert, in no apparent distress Head exam: Present: atraumatic, normocephalic, normal inspection Eye exam: Present: normal appearance, PERRL, EOMI. Absent: scleral icterus, conjunctival injection, periorbital swelling ENT exam: Present: normal exam, normal oropharynx, mucous membranes moist, TM's normal bilaterally, normal external ear exam, other (front tooth broken) Neck exam: Present: normal inspection, full ROM. Absent: tenderness, meningismus, lymphadenopathy Respiratory exam: Present: normal lung sounds bilaterally. Absent: respiratory distress, wheezes, rales, rhonchi, stridor Cardiovascular Exam: Present: regular rate, normal rhythm, normal heart sounds. Absent: systolic murmur, diastolic murmur, rubs, gallop, clicks GI/Abdominal exam: Present: soft, tenderness (mild lower abdominal tenderness), normal bowel sounds. Absent: distended, guarding, rebound, rigid Extremities exam: Present: full ROM (moving all extremities. ) Back exam: Absent: CVA tenderness (R), CVA tenderness (L), vertebral tenderness (no thoracic or lumbar spine tenderness) Neurological exam: Present: alert, oriented X3, other (GCS 15) <Hal Reid - Last Filed: 10/04/20 08:07> - General Exam Comments Initial Comments: No trauma to bilateral upper extremities. Full range of motion. No contusions. Patient complaining of left hip pain however he has full flexion of the left hip, DP pulse 2+. Patient does have some pain with external rotation of the left hip. (Hal Reid) Course Vital Signs 10/04/20 10/04/20 05:45 06:00 Temperature 97.8 F Pulse Rate 88 Respiratory 16 Rate Blood Pressure 87/61 86/59 O2 Sat by Pulse 97 Oximetry EKG Findings - EKG Comments: EKG Findings:: Normal sinus rhythm, ventricular rate 82, NV interval 196, QTC 401 <Hal Reid - Last Filed: 10/04/20 08:07> Medical Decision Making - Lab Data Result diagrams: 10/04/20 07:05 10/04/20 07:05 <Hal Reid - Last Filed: 10/04/20 08:07> - Lab Data Result diagrams: 10/04/20 07:05 10/04/20 07:05 <Hay Roman - Last Filed: 10/04/20 08:38> - Medical Decision Making Patient was seen at bedside. Patient was found to be hypotensive with a systolic in the 80s. priority one trauma was activated given patient's fall in junction with hypotension. Dr Kan did come evaluate. HPI and physical exam as documented. Pertinent for a minimal lower abdominal tenderness. Patient was immediately taken to CAT scan given priority [address] brain and C-spine shows no acute fracture or dislocation. No acute hemorrhage or midline shift is seen. No acute displaced facial bone fracture. C BC unremarkable. CMP does show potassium of 5.7 which could be traumatic. Patient does have KARLY which he does have a history of, patient will be hydrated. CT chest abdomen and pelvis was ordered given trauma mechanism and abdominal pain. This does show bilateral pulmonary emboli without evidence for right ventricular strain. No posttraumatic findings. There are multifocal lower lung peripheral groundglass opacities, correlate for Covid 19. Patient was admitted over 1 month ago for this. There is an unusual appearance to L2. Consider subacute or chronic pathologic fracture correlate clinically. There is also evidence of a thoracic aortic aneurysm measuring up to 4.[address] arted on high dose heparin given PE. Admission accepted by Dr Kan, recommends neuro consult in addition to pulm and medicine. Pulmonology recoomends vascular consult. Dr. Callahan spoke with Dr. Trotter, recommending transfer to [facility] for PKOS. Dr. Correa in the emergency room did accept. (Hal Reid) I saw this patient in conjunction with the physician optical assistant. I performed independent history and physical exam. Agree with case management. I did spend critical care time in caring for this patient, including performing history and physical, pit recorder, interpretation of studies, discussion with the trauma surgeon, the official greeter, the vascular surgeon, discussing results with patient (Hay Roman) - Lab Data Lab Results 10/04/20 10/04/20 10/04/20 Range/Units 06:30 07:05 07:05 WBC 5.8 (3.8-10.6) k/uL RBC 6.04 H (4.30-5.90) m/uL Hgb 13.2 (13.0-17.5) gm/dL Hct 42.4 (39.0-53.0) % MCV 70.3 L (80.0-100.0) fL MCH 21.9 L (25.0-35.0) pg MCHC 31.2 (31.0-37.0) g/dL RDW 16.5 H (11.5-15.5) % Plt Count 152 (150-450) k/uL MPV 9.4 Neutrophils % 65 % Lymphocytes % 25 % Monocytes % 5 % Eosinophils % 3 % Basophils % 1 % Neutrophils # 3.8 (1.3-7.7) k/uL Lymphocytes # 1.4 (1.0-4.8) k/uL Monocytes # 0.3 (0-1.0) k/uL Eosinophils # 0.2 (0-0.7) k/uL Basophils # 0.0 (0-0.2) k/uL Hypochromasia Slight Anisocytosis Slight Microcytosis Marked PT 11.4 (9.0-12.0) sec INR 1.1 (<1.2) APTT 22.6 (22.0-30.0) sec Sodium (137-145) mmol/L Potassium (3.5-5.1) mmol/L Chloride (98-107) mmol/L Carbon Dioxide (22-30) mmol/L Anion Gap mmol/L BUN (9-20) mg/dL Creatinine (0.66-1.25) mg/dL Est GFR (CKD-EPI)AfAm (>60 ml/min/1.73 sqM) Est GFR (CKD-EPI)NonAf (>60 ml/min/1.73 sqM) Glucose (74-99) mg/dL POC Glucose (mg/dL) 100 H (75-99) mg/dL POC Glu Pot Press Operator ID Nancy Callahan Plasma Lactic Acid Royce (0.7-2.0) mmol/L Calcium (8.4-10.2) mg/dL Total Bilirubin (0.2-1.3) mg/dL AST (17-59) U/L ALT (4-49) U/L Alkaline Phosphatase (38-126) U/L Troponin I (0.000-0.034) ng/mL Total Protein (6.3-8.2) g/dL Albumin (3.5-5.0) g/dL Serum Alcohol mg/dL Blood Type Blood Type Confirm Blood Type Recheck Bld Type Recheck Status Antibody Screen Spec Expiration Date 10/04/20 10/04/20 10/04/20 Range/Units 07:05 07:05 07:05 WBC (3.8-10.6) k/uL RBC (4.30-5.90) m/uL Hgb (13.0-17.5) gm/dL Hct (39.0-53.0) % MCV (80.0-100.0) fL MCH (25.0-35.0) pg MCHC (31.0-37.0) g/dL RDW (11.5-15.5) % Plt Count (150-450) k/uL MPV Neutrophils % % Lymphocytes % % Monocytes % % Eosinophils % % Basophils % % Neutrophils # (1.3-7.7) k/uL Lymphocytes # (1.0-4.8) k/uL Monocytes # (0-1.0) k/uL Eosinophils # (0-0.7) k/uL Basophils # (0-0.2) k/uL Hypochromasia Anisocytosis Microcytosis PT (9.0-12.0) sec INR (<1.2) APTT (22.0-30.0) sec Sodium 135 L (137-145) mmol/L Potassium 5.7 H (3.5-5.1) mmol/L Chloride 101 (98-107) mmol/L Carbon Dioxide 25 (22-30) mmol/L Anion Gap 9 mmol/L BUN 39 H (9-20) mg/dL Creatinine 2.80 H (0.66-1.25) mg/dL Est GFR (CKD-EPI)AfAm 25 (>60 ml/min/1.73 sqM) Est GFR (CKD-EPI)NonAf 22 (>60 ml/min/1.73 sqM) Glucose 115 H (74-99) mg/dL POC Glucose (mg/dL) (75-99) mg/dL POC Glu Pot Press Operator ID Plasma Lactic Acid Royce (0.7-2.0) mmol/L Calcium 10.0 (8.4-10.2) mg/dL Total Bilirubin 1.3 (0.2-1.3) mg/dL AST 44 (17-59) U/L ALT 67 H (4-49) U/L Alkaline Phosphatase 100 (38-126) U/L Troponin I <0.012 (0.000-0.034) ng/mL Total Protein 6.7 (6.3-8.2) g/dL Albumin 3.4 L (3.5-5.0) g/dL Serum Alcohol <10 mg/dL Blood Type O Positive Blood Type Confirm Blood Type Recheck No Previous Record Bld Type Recheck Status CABO Indicated Antibody Screen NEGATIVE Spec Expiration Date 10/07/2020201910/04/20 10/04/20 Range/Units 07:05 07:12 WBC (3.8-10.6) k/uL RBC (4.30-5.90) m/uL Hgb (13.0-17.5) gm/dL Hct (39.0-53.0) % MCV (80.0-100.0) fL MCH (25.0-35.0) pg MCHC (31.0-37.0) g/dL RDW (11.5-15.5) % Plt Count (150-450) k/uL MPV Neutrophils % % Lymphocytes % % Monocytes % % Eosinophils % % Basophils % % Neutrophils # (1.3-7.7) k/uL Lymphocytes # (1.0-4.8) k/uL Monocytes # (0-1.0) k/uL Eosinophils # (0-0.7) k/uL Basophils # (0-0.2) k/uL Hypochromasia Anisocytosis Microcytosis PT (9.0-12.0) sec INR (<1.2) APTT (22.0-30.0) sec Sodium (137-145) mmol/L Potassium (3.5-5.1) mmol/L Chloride (98-107) mmol/L Carbon Dioxide (22-30) mmol/L Anion Gap mmol/L BUN (9-20) mg/dL Creatinine (0.66-1.25) mg/dL Est GFR (CKD-EPI)AfAm (>60 ml/min/1.73 sqM) Est GFR (CKD-EPI)NonAf (>60 ml/min/1.73 sqM) Glucose (74-99) mg/dL POC Glucose (mg/dL) (75-99) mg/dL POC Glu Pot Press Operator ID Plasma Lactic Acid Royce 1.5 (0.7-2.0) mmol/L Calcium (8.4-10.2) mg/dL Total Bilirubin (0.2-1.3) mg/dL AST (17-59) U/L ALT (4-49) U/L Alkaline Phosphatase (38-126) U/L Troponin I (0.000-0.034) ng/mL Total Protein (6.3-8.2) g/dL Albumin (3.5-5.0) g/dL Serum Alcohol mg/dL Blood Type Blood Type Confirm O Positive Blood Type Recheck Bld Type Recheck Status Antibody Screen Spec Expiration Date Critical Care Time Critical Care Time: Yes Total Critical Care Time: 33 <Hal Reid - Last Filed: 10/04/20 08:07> Critical Care Time: Yes <Hay Roman - Last Filed: 10/04/20 08:38> Critical Care Time: Critical care time was spent on multiple bedside evaluations, activation of 31 trauma, initiation of high-dose heparin given coronary embolisms, and consult with several specialists including general surgery, pulmonology, and vascular surgery. (Hal Reid) Disposition Is patient prescribed a controlled substance at d/c from ED?: No Time of Disposition: 07:50 - Out of Hospital Transfer - Req. Specs Out of Hospital Transfer - Requested Specifics: Other Emergency Center ([facility]) <Hal Reid - Last Filed: 10/04/20 08:07> <Hay Roman - Last Filed: 10/04/20 08:38> Clinical Impression: Pulmonary embolism, Syncope, near, Fall, Acute hypotension, KARLY (acute kidney injury), Interstitial pneumonitis Disposition: TRANSFER TO PSYCH HOSP/UNIT Referrals: Cresencio Kim MD [Primary Care Provider] - 1-2 days
[2020-10-04] MEDS ORDERED: SODIUM CHLORIDE 0.9% 500 ML 500 ML IV STA ×2 (06:37→07:35)
[2020-10-04 07:18] LABS: Anisocytosis Slight; Basophils % (A) 1 %; Eosinophils # (A) 0.2 k/uL (0-0.7); Eosinophils % (A) 3 %; HCT 42.4 % (39.0-53.0); HGB 13.2 gm/dL (13.0-17.5); Hypochromasia Slight; Lymphocytes # (A) 1.4 k/uL (1.0-4.8); Lymphocytes % (A) 25 %; MCH 21.9 pg (25.0-35.0); MCHC 31.2 g/dL (31.0-37.0); MCV 70.3 fL (80.0-100.0); Mean Platelet Volume 9.4; Microcytosis Marked; Monocytes # (A) 0.3 k/uL (0-1.0); Monocytes % (A) 5 %; Neutrophils # (A) 3.8 k/uL (1.3-7.7); Neutrophils % (A) 65 %; Platelet Count 152 k/uL (150-450); RBC 6.04 m/uL (4.30-5.90); RDW 16.5 % (11.5-15.5); WBC 5.8 k/uL (3.8-10.6)
--- NOTE | 2020-10-04 07:26 | CT ---
EXAMINATION TYPE: CT brain cspine wo con, CT facial bones wo con DATE OF EXAM: 10/04/2020 COMPARISON: CT brain August 28, 2020. CT cervical spine July 28, 2020 HISTORY: Fall injury with headache, neck pain, and facial pain, CT DLP: 1216.3 (accession [id number]), Included in Brain & C spine (accession [id number]) mGycm. Automate d Exposure Control for Dose Reduction was Utilized. TECHNIQUE: CT scan of the head, facial bones, and cervical spine are performed without contrast. FINDINGS: There is no acute intracranial hemorrhage or midline shift identified. Moderate diffuse v entricular and sulcal prominence redemonstrated. Moderate low attenuation in deep and periventricular white matter again seen. 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 The calvarium is intac t. CT facial bones suboptimal as protocol is wrong. Nasal bones are intact. Orbital floors and wolff are intact. Globes appear intact bilaterally. Zygomatic arches are intact. The pterygoid plates are inta ct. The mandible is intact. Temporomandibular joints are maintained bilaterally. Paranasal sinuses ar e grossly clear. Small degree of cerumen in the bilateral external auditory canals right greater than left. Mastoid air cells show no suspicious opacification. Cervical spine is visualized in its entirety from C1 through upper thoracic levels and redemonstrates slight dextroconvex scoliotic curvature on coronal images. No acute fracture or dislocation is seen . Prevertebral soft tissue remains within normal limits. The C1-C2 articulation is within normal villaseñor its on the coronal images. Vertebral body heights and disc space heights are maintained. Spinal maren l is grossly preserved. Axial images show marginal spurring contributing to multilevel neural foramin al narrowing greatest left C4-C5 and right C5-C6 levels. Prominent anterior spurring near C6 vertebra right aspect is redemonstrated. Thyroid gland is stable and felt within normal limits. Lung apices s how no pneumothorax. IMPRESSION: 1. There is no acute fracture or dislocation evident in the cervical spine. 2. No acute intracranial hemorrhage or midline shift is seen. Background moderate diffuse cerebral at rophy and chronic small vessel ischemic changes redemonstrated. 3. No acute displaced facial bone fracture.
[2020-10-04 07:32] LABS: ALT 67 U/L (4-49); AST 44 U/L (17-59); African American GFR (CKD) 25 (>60 ml/min/1.73 sqM); Albumin 3.4 g/dL (3.5-5.0); Alcohol <10 mg/dL; Alkaline Phosphatase 100 U/L (38-126); Anion Gap 9 mmol/L; Blood Urea Nitrogen 39 mg/dL (9-20); Carbon Dioxide 25 mmol/L (22-30); Chloride 101 mmol/L (98-107); Glucose 115 mg/dL (74-99); Non-African American GFR(CKD) 22 (>60 ml/min/1.73 sqM); Potassium 5.7 mmol/L (3.5-5.1); Sodium 135 mmol/L (137-145); Total Bilirubin 1.3 mg/dL (0.2-1.3); Total Protein 6.7 g/dL (6.3-8.2)
[2020-10-04] MEDS ORDERED: HEPARIN SODIUM,PORCINE 5,000 UNIT/ML 1 ML VIAL IV PRN (07:33)
[2020-10-04] MEDS ORDERED: HEPARIN SODIUM,PORCINE 10,000 UNIT/ML 1 ML VIAL IV ONE (07:33)
--- NOTE | 2020-10-04 07:37 | CT ---
EXAMINATION TYPE: CT ChestAbdPelvis w con DATE OF EXAM: 10/04/2020 COMPARISON: None. HISTORY: Fall injury with pain. CT DLP: 1455.4 mGycm. Automated Exposure Control for Dose Reduction was Utilized. CONTRAST: CT scan of the thorax, abdomen and pelvis is performed with IV Contrast, patient injected with 100 mL of Isovue 300. Trauma protocol. FINDINGS: The evaluation slightly suboptimal due to artifact from scanning through adjacent upper ext remities. LUNGS: Multifocal areas of increased groundglass opacity in the mid to lower lungs greatest in the pe riphery are identified, for reference 1.9 cm area anterior right mid lung axial image 30. No pleural effusion or pneumothorax seen bilaterally. Low lung volumes are present. MEDIASTINUM: There are no greater than 1 cm hilar or mediastinal lymph nodes. No cardiomegaly or pe ricardial effusion is seen. Coronary artery calcifications and stents noted. Large clot in the dista l right pulmonary artery branching into upper middle and lower lobar branches begins axial image 22. There is smaller clot burden in the distal left pulmonary artery, there is left upper lung lobar bran ches with segmental extension. There is left lower lobe are partially occlusive embolism with segment al and subsegmental extension. No suspicious left ventricular dilatation. No enlarged main pulmonary artery. Root of aorta is dilated up to 4.6 cm coronal image 49. Ascending aorta measures 3.8 cm in di ameter LIVER/GB: There is diffusely low-density consistent with fatty infiltration. Subcentimeter lesion pos terior right hepatic lobe. PANCREAS: No significant abnormality is seen. SPLEEN: No significant abnormality is seen. ADRENALS: No significant abnormality is seen. KIDNEYS: No significant abnormality is seen. BOWEL: No significant abnormality is seen. GENITAL ORGANS: Enlarged prostate gland consistent with BPH LYMPH NODES: No greater than 1cm abdominal or pelvic lymph nodes are appreciated. OSSEOUS STRUCTURES: Abnormal appearance to the L2 vertebra. There is mild height loss with prominent trabeculation and surrounding periostitis. Slight posterior retropulsion. There is narrowing of the b ilateral sacroiliac joints right greater than left. There is moderate narrowing and acetabular spurri ng of both hips. There are some prominent right lateral spurring in the mid to lower thoracic spine. OTHER: No significant additional abnormality is seen. IMPRESSION: 1. No acute posttraumatic finding in particular no osseous fracture, suspicious free fluid, or eviden ce of solid organ injury. 2. Bilateral pulmonary emboli. No CT evidence for right ventricular strain. 3. Multifocal lower lung predominantly peripheral groundglass opacities, correlate for covid 19 infec tion. 4. Unusual appearance to the L2 vertebra. Consider subacute or chronic pathologic fracture with under lying Paget's disease. Correlate clinically. 5. Thoracic aortic aneurysm up to 4.6 cm at annulus or root. Case discussed with ER physician via telephone at time of dictation. Patient has history of recent co vid 19 infection 1 month earlier.
[2020-10-04 07:38] LABS: INR 1.1 (<1.2); Partial Thromboplastin Time 22.6 sec (22.0-30.0); Prothrombin Time 11.4 sec (9.0-12.0)
[2020-10-04] MEDS ORDERED: HEPARIN SOD,PORK IN 0.45% NACL 25,000 UNIT in 0.45% NACL 1 250ML.BAG IV SCH (07:45)
[2020-10-04 08:41] LABS: Appearance,Urine Clear (Clear); Bilirubin,Urine Negative (Negative); Blood,Urine Negative (Negative); Color,Urine Yellow; Glucose,Urine (UA) Negative (Negative); Hyaline Casts,Urine 86 /lpf (0-2); Ketones,Urine 1+ (Negative); Leukocyte Esterase,Urine Negative (Negative); Mucus,Urine Moderate /hpf; Nitrite,Urine Negative (Negative); PH, Urine 5.5 (5.0-8.0); Protein,Urine 1+ (Negative); RBC,Urine 1 /hpf (0-5); Specific Gravity,Urine 1.025 (1.001-1.035); Sperm,Urine Rare /hpf; Squamous Epithelial Cell,Urine <1 /hpf (0-4); WBC,Urine 2 /hpf (0-5)
[2020-10-04 09:58] VITALS: BP 120/70; PULSE 86; RESP 18; TEMP 97.7
--- NOTE | 2020-10-04 10:50 | P.GSCN ---
History of Present Illness Consult date: 10/04/20 History of present illness: 70-year-old male presents to the ED after a fall and states that he did hit his face and neck on a dresser. Initially, he was not called as a priority trauma, however due to hypotension episode, he was upgraded to a priority 1 trauma. I did present within 30 minutes of priority 1 trauma activation. On my arrival, the patient did have a GCS of 15 and was answering questions appropriately. He states that he did have a fall and hit his face and neck. He denied any loss of consciousness. He denied any recent fevers, chills, chest pain or shortness of breath. He states that he was feeling dizzy prior to his fall. He is complaining of some neck pain and thoracic and lumbar back pain. He denies any focal deficits and denies any chest or abdominal pain. He is noted not to have any abrasions or ecchymosis on the head. He is noted to have a mild laceration of the upper lip measuring less than 1 cm and not actively bleeding. He is concerned that he did chip a tooth and is noticed to have significantly poor dentition. He has no abrasions or ecchymosis on the neck or chest or abdomen. He is able to move all of his extremities and appears to have 5 out of 5 strength. He has no additional complaints at this time. He did mention that he was diagnosed with Covid in August. Review of Systems All systems: negative Past Medical History Past Medical History: Asthma, Heart Failure, COPD, Diabetes Mellitus, Hyperlipidemia, Hypertension, Pneumonia Additional Past Medical History / Comment(s): heart murmur, diabetic rohini ropathy,"i think i had a small bleed behind rt eye". healed wound rt great toe History of Any Multi-Drug Resistant Organisms: MRSA Year Discovered:: 11/26/18 MDRO Source:: toe Past Surgical History: Hernia Repair, Orthopedic Surgery, Tonsillectomy Additional Past Surgical History / Comment(s): rt foot Past Anesthesia/Blood Transfusion Reactions: No Reported Reaction Past Psychological History: Depression Smoking Status: Never smoker Past Alcohol Use History: None Reported Past Drug Use History: None Reported - Past Family History Father Family Medical History: No Reported History Additional Family Medical History / Comment(s): Father at age 65 and patient does not know his medical problems. Mother Family Medical History: Diabetes Mellitus, Rheumatoid Arthritis (RA) Additional Family Medical History / Comment(s): Mother at age 70 with history of rheumatoid arthritis. granmother also had ra Brother(s) Additional Family Medical History / Comment(s): Patient had 2 brothers and one during service and one from stillbirth. Patient does not have any sisters. Patient has 3 sons and 3 daughters with no major medical problems. Medications and Allergies Home Medications Medication Instructions Recorded Confirmed Type lisinopriL 40 mg PO DAILY 09/28/18 08/28/20 History Ferrous Sulfate [Iron (65 MG 325 mg PO DAILY 12/16/18 08/28/20 History Elemental)] Furosemide [Lasix] 20 mg PO DAILY 12/16/18 08/28/20 History carvediloL [Coreg] 6.25 mg PO BID 12/16/18 08/28/20 History Atorvastatin [Lipitor] 80 mg PO DAILY 07/30/20 08/28/20 History Ergocalciferol (Vitamin D2) 50,000 unit PO Q30D 07/30/20 08/28/20 History [Vitamin D2] Sodium Polystyrene Sulfonate 15 gm PO DAILY #30 ml 08/08/20 08/28/20 Rx [Kayexalate] Liraglutide [Victoza 3-Eugene] 1.8 mg SQ DAILY 08/13/20 08/28/20 History Insulin Detemir [Levemir Flextouch] 60 units SQ DAILY 08/28/20 08/28/20 History Allergies Allergy/AdvReac Type Severity Reaction Status Date / Time egg Allergy Rash/Hives Verified 08/28/20 15:53 Surgical - Exam Osteopathic Statement: *. No significant issues noted on an osteopathic structural exam other than those noted in the History and Physical/Consult. Vital Signs Temp Pulse Resp BP Pulse Ox 97.8 F 88 16 87/61 97 10/04/20 05:45 10/04/20 05:45 10/04/20 05:45 10/04/20 05:45 10/04/20 05:45 - General well developed, well nourished, no distress - Eyes PERRL, normal ocular movement - ENT No hearing loss, no obvious hemorrhage from the nares or from the ear canals, mild upper lip laceration of less than 1 cm with no active hemorrhage, extremely poor dentition - Neck no masses, no bruits, trachea midline - Respiratory normal respiratory effort - Abdomen Soft, nontender, nondistended, no rebound, no guarding, no ecchymosis, no abrasions, no lacerations - Integumentary no rash, no growths - Neurologic normal coordination, normal sensation - Psychiatric oriented to time, oriented to person, oriented to place Results - Labs 10/04/20 07:05 10/04/20 07:05 Abnormal Lab Results - Last 24 Hours (Table) 10/04/20 10/04/20 10/04/20 Range/Units 06:30 07:05 07:05 RBC 6.04 H (4.30-5.90) m/uL MCV 70.3 L (80.0-100.0) fL MCH 21.9 L (25.0-35.0) pg RDW 16.5 H (11.5-15.5) % Sodium 135 L (137-145) mmol/L Potassium 5.7 H (3.5-5.1) mmol/L BUN 39 H (9-20) mg/dL Creatinine 2.80 H (0.66-1.25) mg/dL Glucose 115 H (74-99) mg/dL POC Glucose (mg/dL) 100 H (75-99) mg/dL ALT 67 H (4-49) U/L Albumin 3.4 L (3.5-5.0) g/dL Urine Protein (Negative) Urine Ketones (Negative) Hyaline Casts (0-2) /lpf Urine Mucus (None) /hpf 10/04/20 Range/Units 07:51 RBC (4.30-5.90) m/uL MCV (80.0-100.0) fL MCH (25.0-35.0) pg RDW (11.5-15.5) % Sodium (137-145) mmol/L Potassium (3.5-5.1) mmol/L BUN (9-20) mg/dL Creatinine (0.66-1.25) mg/dL Glucose (74-99) mg/dL POC Glucose (mg/dL) (75-99) mg/dL ALT (4-49) U/L Albumin (3.5-5.0) g/dL Urine Protein 1+ H (Negative) Urine Ketones 1+ H (Negative) Hyaline Casts 86 H (0-2) /lpf Urine Mucus Moderate H (None) /hpf Diabetes panel 10/04/20 Range/Units 07:05 Sodium 135 L (137-145) mmol/L Potassium 5.7 H (3.5-5.1) mmol/L Chloride 101 (98-107) mmol/L Carbon Dioxide 25 (22-30) mmol/L BUN 39 H (9-20) mg/dL Creatinine 2.80 H (0.66-1.25) mg/dL Glucose 115 H (74-99) mg/dL Calcium 10.0 (8.4-10.2) mg/dL AST 44 (17-59) U/L ALT 67 H (4-49) U/L Alkaline Phosphatase 100 (38-126) U/L Total Protein 6.7 (6.3-8.2) g/dL Albumin 3.4 L (3.5-5.0) g/dL Calcium panel 10/04/20 Range/Units 07:05 Calcium 10.0 (8.4-10.2) mg/dL Albumin 3.4 L (3.5-5.0) g/dL Pituitary panel 10/04/20 Range/Units 07:05 Sodium 135 L (137-145) mmol/L Potassium 5.7 H (3.5-5.1) mmol/L Chloride 101 (98-107) mmol/L Carbon Dioxide 25 (22-30) mmol/L BUN 39 H (9-20) mg/dL Creatinine 2.80 H (0.66-1.25) mg/dL Glucose 115 H (74-99) mg/dL Calcium 10.0 (8.4-10.2) mg/dL Adrenal panel 10/04/20 Range/Units 07:05 Sodium 135 L (137-145) mmol/L Potassium 5.7 H (3.5-5.1) mmol/L Chloride 101 (98-107) mmol/L Carbon Dioxide 25 (22-30) mmol/L BUN 39 H (9-20) mg/dL Creatinine 2.80 H (0.66-1.25) mg/dL Glucose 115 H (74-99) mg/dL Calcium 10.0 (8.4-10.2) mg/dL Total Bilirubin 1.3 (0.2-1.3) mg/dL AST 44 (17-59) U/L ALT 67 H (4-49) U/L Alkaline Phosphatase 100 (38-126) U/L Total Protein 6.7 (6.3-8.2) g/dL Albumin 3.4 L (3.5-5.0) g/dL Assessment and Plan Plan: Patient did have full trauma imaging with CT of the head, C-spine, maxillofacial, chest, abdomen and pelvis. Patient was noted to have no obvious injury to the head, C-spine or maxillofacial area on imaging. Chest CT did reveal bilateral pulmonary emboli with a large clot specifically mentioned in the distal right pulmonary artery. Groundglass opacities were also noted bilaterally consistent with patient's history of covid infection. Patient was also noted to have an abnormality of the L2 spine that could be either a s ubacute or chronic finding. Initial plan was for admission, not secondary to any traumatic injury, however secondary to the patient's bilateral PE finding with evaluation by pulmonology and internal medicine. Case was discussed with pulmonology and recommendation was made for evaluation by vascular surgery due to the large nature of the pulmonary emboli. On evaluation by vascular surgery, recommendation was made for transfer for possible thrombectomy due to large pulmonary emboli. Plan is for transfer for higher level of vascular surgical care from the emergency department due to bilateral pulmonary emboli.
== END 2020-10-04 08:35 ==
LOC: EC 05:43
DX: I26.99 Other pulmonary embolism without acute cor pulmonale (principal); R55 Syncope and collapse; I95.9 Hypotension, unspecified; N17.9 Acute kidney failure, unspecified; J84.89 Other specified interstitial pulmonary diseases; I71.2 Thoracic aortic aneurysm, without rupture; R10.819 Abdominal tenderness, unspecified site; I11.0 Hypertensive heart disease with heart failure; I50.9 Heart failure, unspecified; E11.40 Type 2 diabetes mellitus with diabetic neuropathy, unspecified; E78.5 Hyperlipidemia, unspecified; Z79.899 Other long term (current) drug therapy; Z79.4 Long term (current) use of insulin; Z91.012 Allergy to eggs
CPT/HCPCS: 36415; 86900; 86901; 80053; 83605; 84484; 85025; 85610; 85730; 86850; 81001; 72125; 70486; 70450; 71260; 74177; 99285; 96365; 96375; 96361; 96372; G0480; J2270; J1644 ×2; Q9967; 80320; 93005

== ENCOUNTER 2020-11-04 17:09 | Emergency (ER) | payer MEDICARE, OTHER ==
[2020-11-04] MEDS ORDERED: SODIUM CHLORIDE 0.9% 500 ML 500 ML IV STA (17:45)
[2020-11-04 18:12] LABS: Albumin 4.1 g/dL (3.5-5.0); Magnesium 1.9 mg/dL (1.6-2.3); Potassium 5.3 mmol/L (3.5-5.1); Total Bilirubin 1.3 mg/dL (0.2-1.3)
[2020-11-04 18:15] LABS: D-Dimer 0.45 mg/L FEU (<0.60); Partial Thromboplastin Time 23.8 sec (22.0-30.0); Prothrombin Time 10.8 sec (9.0-12.0)
[2020-11-04 18:20] LABS: Anisocytosis Slight; Basophils % (A) 1 %; Eosinophils # (A) 0.2 k/uL (0-0.7); Eosinophils % (A) 3 %; HCT 40.3 % (39.0-53.0); Hypochromasia Marked; Lymphocytes # (A) 1.3 k/uL (1.0-4.8); Lymphocytes % (A) 29 %; MCH 22.5 pg (25.0-35.0); MCHC 29.8 g/dL (31.0-37.0); Mean Platelet Volume 7.2; Microcytosis Moderate; Monocytes # (A) 0.2 k/uL (0-1.0); Monocytes % (A) 5 %; Neutrophils # (A) 2.8 k/uL (1.3-7.7); Neutrophils % (A) 60 %; Platelet Count 259 k/uL (150-450); RBC 5.35 m/uL (4.30-5.90); RDW 17.8 % (11.5-15.5); WBC 4.6 k/uL (3.8-10.6)
[2020-11-04 18:24] LABS: MCV 75.4 fL (80.0-100.0)
--- NOTE | 2020-11-04 18:33 | ED ---
General Adult HPI - General Chief complaint: Weakness Stated complaint: Weakness, Confused Time Seen by Provider: 11/04/20 17:15 Source: patient, EMS Mode of arrival: EMS Limitations: altered mental status - History of Present Illness Initial comments: Patient is a 70-year-old male with multiple medical conditions to include heart failure, COPD, diabetes who presents to the emergency department after he had a syncopal episode. Patient has been recently discharged from [facility] and is residing at home. He does have home care nurses that come and check on him every day. It was reported that they were checking on him today. They attempted to get him up to ambulate when the patient passed out. He states he has been weak and dizzy. He was hospitalized and sent to rehab because of covid 19. Upon hospital arrival the patient is alert and oriented 3. Reports that he gets extremely dizzy upon standing. Patient reports that he did not want to be transported to the hospital however because he was altered he couldn't refused. Patient denies any chest pain or shortness of breath. Reports that his breathing has been markedly improved. Reports a good appetite. Denies any weakness in his extremities. No headaches or visual changes. No other alleviating, precipitating or modifying factors - Related Data Home Medications Medication Instructions Recorded Confirmed Furosemide [Lasix] 20 mg PO DAILY 12/16/18 11/07/20 carvediloL [Coreg] 6.25 mg PO BID 12/16/18 11/07/20 Liraglutide [Victoza 3-Eugene] 1.8 mg SQ DAILY 08/13/20 11/07/20 Insulin Detemir [Levemir Flextouch] 30 units SQ DAILY 08/28/20 11/07/20 Atorvastatin [Lipitor] 20 mg PO DAILY 11/07/20 11/07/20 Insuln Asp Prt/Insulin Aspart See Protocol SQ AC-TID 11/07/20 11/07/20 [NovoLOG MIX 70-30 VIAL] Pantoprazole Sodium [Protonix] 40 mg PO DAILY 11/07/20 11/07/20 Rivaroxaban [Xarelto] 15 mg PO DAILY 11/07/20 11/07/20 lisinopriL [Zestril] 10 mg PO DAILY 11/07/20 11/07/20 oxyCODONE HCL/ACETAMINOPHEN 1 tab PO Q8H PRN 11/07/20 11/07/20 [Percocet 2.5-325 mg] Allergies Allergy/AdvReac Type Severity Reaction Status Date / Time egg Allergy Rash/Hives Verified 11/07/20 09:31 Review of Systems ROS Statement: Those systems with pertinent positive or pertinent negative responses have been documented in the HPI. ROS Other: All systems not noted in ROS Statement are negative. Past Medical History Past Medical History: Asthma, Heart Failure, COPD, Diabetes Mellitus, Hyperlipidemia, Hypertension, Pneumonia Additional Past Medical History / Comment(s): heart murmur, diabetic neuropathy,"i think i had a small bleed behind rt eye". healed wound rt great toe History of Any Multi-Drug Resistant Organisms: MRSA Date of last positivie culture/infection: 11/26/18 MDRO Source:: toe Past Surgical History: Hernia Repair, Orthopedic Surgery, Tonsillectomy Additional Past Surgical History / Comment(s): rt foot Past Anesthesia/Blood Transfusion Reactions: No Reported Reaction Past Psychological History: Depression Smoking Status: Never smoker Past Alcohol Use History: None Reported Past Drug Use History: None Reported - Past Family History Father Family Medical History: No Reported History Additional Family Medical History / Comment(s): Father at age 65 and patient does not know his medical problems. Mother Family Medical History: Diabetes Mellitus, Rheumatoid Arthritis (RA) Additional Family Medical History / Comment(s): Mother at age 70 with history of rheumatoid arthritis. granmother also had ra Brother(s) Additional Family Medical History / Comment(s): Patient had 2 brothers and one during service and one from stillbirth. Patient does not have any sisters. Patient has 3 sons and 3 daughters with no major medical problems. General Exam Limitations: no limitations General appearance: alert, in no apparent distress Head exam: Present: atraumatic, normocephalic, normal inspection Eye exam: Present: normal appearance, PERRL, EOMI. Absent: scleral icterus, conjunctival injection, periorbital swelling ENT exam: Present: normal exam, mucous membranes moist Neck exam: Present: normal inspection. Absent: tenderness, meningismus, lymphadenopathy Respiratory exam: Present: normal lung sounds bilaterally. Absent: respiratory distress, wheezes, rales, rhonchi, stridor Cardiovascular Exam: Present: regular rate, normal rhythm, normal heart sounds. Absent: systolic murmur, diastolic murmur, rubs, gallop, clicks GI/Abdominal exam: Present: soft, normal bowel sounds. Absent: distended, tenderness, guarding, rebound, rigid Extremities exam: Present: normal inspection, full ROM, normal capillary refill. Absent: tenderness, pedal edema, joint swelling, calf tenderness Back exam: Present: normal inspection Neurological exam: Present: alert, oriented X3, CN II-XII intact Psychiatric exam: Present: normal affect, normal mood Skin exam: Present: warm, dry, intact, normal color. Absent: rash Course Vital Signs 11/04/20 11/04/20 11/04/20 17:12 17:20 17:28 Temperature 97.8 F Pulse Rate 93 Pulse Rate [ 85 88 Brand Analyst ] Respiratory 18 18 18 Rate Blood Pressure 95/68 Blood Pressure 63/51 [Left Arm Sitting] Blood Pressure 98/64 [Left Arm Supine] O2 Sat by Pulse 97 Oximetry 11/04/20 11/04/20 11/04/20 17:35 18:00 18:50 Temperature Pulse Rate 93 90 89 Pulse Rate [ Brand Analyst ] Respiratory 18 18 18 Rate Blood Pressure 102/68 107/68 100/70 Blood Pressure [Left Arm Sitting] Blood Pressure [Left Arm Supine] O2 Sat by Pulse 100 99 98 Oximetry 11/04/20 11/04/20 11/04/20 19:10 20:00 20:40 Temperature 98.8 F Pulse Rate 82 85 Pulse Rate [ Brand Analyst ] Respiratory 18 16 18 Rate Blood Pressure 114/66 123/79 Blood Pressure [Left Arm Sitting] Blood Pressure [Left Arm Supine] O2 Sat by Pulse 95 95 95 Oximetry EKG Findings - EKG Comments: EKG Findings:: EKG demonstrates normal sinus rhythm with ventricular rate of 90. [place] interval 180. QRS 82. QTC 442. No acute ST segment elevations or depressions concerning for ischemic changes Medical Decision Making - Medical Decision Making Upon arrival patient is placed into room 1. A thorough history and physical exam was performed. Patient is alert and oriented 3 and is able to provide a history at this time. We did perform orthostatics on the patient which are grossly positive. I did request to perform laboratory studies imaging for which the patient did agree to. Patient does have improvement in his kidney function at this time. Creatinine is 1.6. Troponin negative. BNP 194. Chest x-ray does demonstrate clearing of the infiltrate of the left lung. The results are discussed the patient. I did recommend hospitalization due to the significant drop in the patient's blood pressure however the patient refused. He is alert and oriented. His mind is free of any altering substances. The patient is informed that if he leaves here today he could have another syncopal episode. Patient is adamant that he is going home and has been too much time in the hospital. We did notify the patient's niece who does come and pick him up and realizes that he is leaving AGAINST MEDICAL ADVICE. The patient is instructed not to drive as I am concerned about his blood pressure dropping was driving. If the patient does agree to further evaluation he needs to return to the emergency department immediately. Patient was then discharged AGAINST MEDICAL ADVICE - Lab Data Result diagrams: 11/04/20 17:58 11/04/20 17:58 Lab Results 11/04/20 11/04/20 11/04/20 Range/Units 17:58 17:58 17:58 WBC 4.6 (3.8-10.6) k/uL RBC 5.35 (4.30-5.90) m/uL Hgb 12.0 L (13.0-17.5) gm/dL Hct 40.3 (39.0-53.0) % MCV 75.4 L D (80.0-100.0) fL MCH 22.5 L (25.0-35.0) pg MCHC 29.8 L (31.0-37.0) g/dL RDW 17.8 H (11.5-15.5) % Plt Count 259 (150-450) k/uL MPV 7.2 Neutrophils % 60 % Lymphocytes % 29 % Monocytes % 5 % Eosinophils % 3 % Basophils % 1 % Neutrophils # 2.8 (1.3-7.7) k/uL Lymphocytes # 1.3 (1.0-4.8) k/uL Monocytes # 0.2 (0-1.0) k/uL Eosinophils # 0.2 (0-0.7) k/uL Basophils # 0.0 (0-0.2) k/uL Hypochromasia Marked Anisocytosis Slight Microcytosis Moderate PT 10.8 (9.0-12.0) sec INR 1.0 (<1.2) APTT 23.8 (22.0-30.0) sec D-Dimer 0.45 (<0.60) mg/L FEU Sodium 137 (137-145) mmol/L Potassium 5.3 H (3.5-5.1) mmol/L Chloride 104 (98-107) mmol/L Carbon Dioxide 24 (22-30) mmol/L Anion Gap 9 mmol/L BUN 23 H (9-20) mg/dL Creatinine 1.63 H (0.66-1.25) mg/dL Est GFR (CKD-EPI)AfAm 48 (>60 ml/min/1.73 sqM) Est GFR (CKD-EPI)NonAf 42 (>60 ml/min/1.73 sqM) Glucose 156 H (74-99) mg/dL Plasma Lactic Acid Royce (0.7-2.0) mmol/L Calcium 10.0 (8.4-10.2) mg/dL Magnesium 1.9 (1.6-2.3) mg/dL Total Bilirubin 1.3 (0.2-1.3) mg/dL AST 30 (17-59) U/L ALT 17 (4-49) U/L Alkaline Phosphatase 117 (38-126) U/L Creatine Kinase 50 L (55-170) U/L Troponin I (0.000-0.034) ng/mL NT-Pro-B Natriuret Pep pg/mL Total Protein 8.0 (6.3-8.2) g/dL Albumin 4.1 (3.5-5.0) g/dL 11/04/20 11/04/20 11/04/20 Range/Units 17:58 17:58 18:20 WBC (3.8-10.6) k/uL RBC (4.30-5.90) m/uL Hgb (13.0-17.5) gm/dL Hct (39.0-53.0) % MCV (80.0-100.0) fL MCH (25.0-35.0) pg MCHC (31.0-37.0) g/dL RDW (11.5-15.5) % Plt Count (150-450) k/uL MPV Neutrophils % % Lymphocytes % % Monocytes % % Eosinophils % % Basophils % % Neutrophils # (1.3-7.7) k/uL Lymphocytes # (1.0-4.8) k/uL Monocytes # (0-1.0) k/uL Eosinophils # (0-0.7) k/uL Basophils # (0-0.2) k/uL Hypochromasia Anisocytosis Microcytosis PT (9.0-12.0) sec INR (<1.2) APTT (22.0-30.0) sec D-Dimer (<0.60) mg/L FEU Sodium (137-145) mmol/L Potassium (3.5-5.1) mmol/L Chloride (98-107) mmol/L Carbon Dioxide (22-30) mmol/L Anion Gap mmol/L BUN (9-20) mg/dL Creatinine (0.66-1.25) mg/dL Est GFR (CKD-EPI)AfAm (>60 ml/min/1.73 sqM) Est GFR (CKD-EPI)NonAf (>60 ml/min/1.73 sqM) Glucose (74-99) mg/dL Plasma Lactic Acid Royce 1.4 (0.7-2.0) mmol/L Calcium (8.4-10.2) mg/dL Magnesium (1.6-2.3) mg/dL Total Bilirubin (0.2-1.3) mg/dL AST (17-59) U/L ALT (4-49) U/L Alkaline Phosphatase (38-126) U/L Creatine Kinase (55-170) U/L Troponin I <0.012 (0.000-0.034) ng/mL NT-Pro-B Natriuret Pep 194 pg/mL Total Protein (6.3-8.2) g/dL Albumin (3.5-5.0) g/dL Disposition Clinical Impression: Orthostatic hypotension, Syncope and collapse Disposition: Left Against Medical Advice Condition: Serious Additional Instructions: I recommended hospital admission. You are leaving AGAINST MEDICAL ADVICE. Please return to the emergency department for further care Is patient prescribed a controlled substance at d/c from ED?: No Referrals: Cresencio Kim MD [Primary Care Provider] - 1-2 days Time of Disposition: 19:47
--- NOTE | 2020-11-04 18:38 | XR ---
EXAMINATION TYPE: XR chest 2V DATE OF EXAM: 11/04/2020 COMPARISON: 08/29/2020 HISTORY: Short of breath TECHNIQUE: 2 views FINDINGS: Heart and mediastinum are normal. Lungs are clear. Diaphragm is normal. Bony thorax appears normal. IMPRESSION: Normal chest. There is clearing of the mild infiltrate left lung base compared to old exa m.
[2020-11-04 20:08] VITALS: PULSE 85; TEMP 98.8
[2020-11-04 20:42] VITALS: BP 123/79; RESP 18
== END 2020-11-04 20:42 | disposition left against medical advice (07) ==
LOC: EC 17:09
DX: I95.1 Orthostatic hypotension (principal); Z53.29 Procedure and treatment not carried out because of patient's decision for other reasons; R91.8 Other nonspecific abnormal finding of lung field; E11.40 Type 2 diabetes mellitus with diabetic neuropathy, unspecified; E78.5 Hyperlipidemia, unspecified; I11.0 Hypertensive heart disease with heart failure; I50.9 Heart failure, unspecified; J44.9 Chronic obstructive pulmonary disease, unspecified; Z79.02 Long term (current) use of antithrombotics/antiplatelets; Z79.4 Long term (current) use of insulin; Z79.899 Other long term (current) drug therapy; Z91.012 Allergy to eggs
CPT/HCPCS: 36415; 71046; 80053; 82550; 83605; 83735; 83880; 84484; 85025; 85379; 85610; 85730; 93005; 96360; 99285

== ENCOUNTER 2020-11-07 08:33 | Inpatient (IN) | payer MEDICARE, OTHER ==
[2020-11-07] MEDS ORDERED: SODIUM CHLORIDE 0.9% 500 ML 500 ML IV STA (08:39)
--- NOTE | 2020-11-07 08:43 | ED ---
General Adult HPI - General Stated complaint: Fall, Weakness Time Seen by Provider: 11/07/20 08:33 Source: patient, RN notes reviewed, old records reviewed - History of Present Illness Initial comments: This is a 70-year-old male who presents emergency Department complaining of generalized weakness. Patient states he went up to go to the bathroom and he turned and slowly fell to the ground. Patient states he caught himself with his left arm. Patient states he did not hit his head he has no neck pain. Patient states he has no injury from the fall whatsoever. Patient states he was helped up by his nephew but he continued to feel weak so they called the symptoms. Patient states he was recently at a halfway for [facility] and he thinks he might need to go back. Patient denies any chest pain palpitations dif ficulty breathing shortness of breath. Patient denies any abdominal pain. Patient denies nausea vomiting diarrhea. Patient denies any recent fever chills or cough. - Related Data Home Medications Medication Instructions Recorded Confirmed Furosemide [Lasix] 20 mg PO DAILY 12/16/18 11/07/20 carvediloL [Coreg] 6.25 mg PO BID 12/16/18 11/07/20 Liraglutide [Victoza 3-Eugene] 1.8 mg SQ DAILY 08/13/20 11/07/20 Insulin Detemir [Levemir Flextouch] 30 units SQ DAILY 08/28/20 11/07/20 Atorvastatin [Lipitor] 20 mg PO DAILY 11/07/20 11/07/20 Insuln Asp Prt/Insulin Aspart See Protocol SQ AC-TID 11/07/20 11/07/20 [NovoLOG MIX 70-30 VIAL] Pantoprazole Sodium [Protonix] 40 mg PO DAILY 11/07/20 11/07/20 Rivaroxaban [Xarelto] 15 mg PO DAILY 11/07/20 11/07/20 lisinopriL [Zestril] 10 mg PO DAILY 11/07/20 11/07/20 oxyCODONE HCL/ACETAMINOPHEN 1 tab PO Q8H PRN 11/07/20 11/07/20 [Percocet 2.5-325 mg] Allergies Allergy/AdvReac Type Severity Reaction Status Date / Time egg Allergy Rash/Hives Verified 11/07/20 09:31 Review of Systems ROS Statement: Those systems with pertinent positive or pertinent negative responses have been documented in the HPI. ROS Other: All systems not noted in ROS Statement are negative. Past Medical History Past Medical History: Asthma, Heart Failure, COPD, Diabetes Mellitus, Hyperlipidemia, Hypertension, Pneumonia Additional Past Medical History / Comment(s): heart murmur, diabetic neuropathy,"i think i had a small bleed behind rt eye". healed wound rt great toe History of Any Multi-Drug Resistant Organisms: MRSA Date of last positivie culture/infection: 11/26/18 MDRO Source:: toe Past Surgical History: Hernia Repair, Orthopedic Surgery, Tonsillectomy Additional Past Surgical History / Comment(s): rt foot Past Anesthesia/Blood Transfusion Reactions: No Reported Reaction Past Psychological History: Depression Smoking Status: Never smoker Past Alcohol Use History: None Reported Past Drug Use History: None Reported - Past Family History Father Family Medical History: No Reported History Additional Family Medical History / Comment(s): Father at age 65 and patient does not know his medical problems. Mother Family Medical History: Diabetes Mellitus, Rheumatoid Arthritis (RA) Additional Family Medical History / Comment(s): Mother at age 70 with history of rheumatoid arthritis. granmother also had ra Brother(s) Additional Family Medical History / Comment(s): Patient had 2 brothers and one during service and one from stillbirth. Patient does not have any sisters. Patient has 3 sons and 3 daughters with no major medical problems. General Exam - General Exam Comments Initial Comments: GENERAL: Patient is well-developed and well-nourished. Patient is nontoxic and well- hydrated and is in no acute distress. ENT: Neck is soft and supple. No significant lymphadenopathy is noted. Oropharynx is clear. Moist mucous membranes. Neck has full range of motion without eliciting any pain. EYES: The sclera were anicteric and conjunctiva were pink and moist. Extraocular movements were intact and pupils were equal round and reactive to light. Eyelids were unremarkable. PULMONARY: Unlabored respirations. Good breath sounds bilaterally. No audible rales rhonchi or wheezing was noted. CARDIOVASCULAR: There is a regular rate and rhythm without any murmurs gallops or rubs. ABDOMEN: Soft and nontender with normal bowel sounds. SKIN: Skin is clear with no lesions or rashes and otherwise unremarkable. NEUROLOGIC: Patient is alert and oriented x3. Cranial nerves II through XII are grossly intact. Motor and sensory are also intact. Normal speech, volume and content. Symmetrical smile. MUSCULOSKELETAL: Normal extremities with adequate strength and full range of motion. LYMPHATICS: No significant lymphadenopathy is noted PSYCHIATRIC: Normal psychiatric evaluation. Course Vital Signs 11/07/20 11/07/20 11/07/20 08:34 09:41 09:48 Temperature 98 F Pulse Rate 113 H 103 H Pulse Rate [ 113 H Left Sitting Pulse Oximetery ] Pulse Rate [ 116 H Left Standing Pulse Oximetery ] Pulse Rate [ 103 H Left Supine Pulse Oximetery ] Respiratory 18 18 18 Rate Blood Pressure 109/76 124/84 Blood Pressure 95/65 [Left Arm Sitting] Blood Pressure 101/45 [Left Arm Standing] Blood Pressure 124/84 [Left Arm Supine] O2 Sat by Pulse 100 100 100 Oximetry 11/07/20 10:54 Temperature Pulse Rate Pulse Rate [ 96 Left Sitting Pulse Oximetery ] Pulse Rate [ 121 H Left Standing Pulse Oximetery ] Pulse Rate [ 91 Left Supine Pulse Oximetery ] Respiratory Rate Blood Pressure Blood Pressure 149/84 [Left Arm Sitting] Blood Pressure [Left Arm Standing] Blood Pressure 157/88 [Left Arm Supine] O2 Sat by Pulse Oximetry Medical Decision Making - Medical Decision Making EKG shows normal sinus rhythm at 90 bpm SD interval 180 QRS is 64 QT interval 334 QTC is 426. Patient's EKG shows no ST segment elevation or depression. Chest x-ray shows no acute abnormality. Patient was orthostatic on arrival I gave the patient liter half of fluid and he was still orthostatic. Patient did not feel comfortable going home at this time. Patient also was diagnosed with urinary tract infection so I gave the patient Rocephin. I spoke with Dr. Donaldson in and he agreed to admit the patient admitted the patient remaining orders - Lab Data Result diagrams: 11/07/20 08:58 11/07/20 08:58 Lab Results 11/07/20 11/07/20 11/07/20 Range/Units 08:58 08:58 08:58 WBC 5.5 (3.8-10.6) k/uL RBC 5.09 (4.30-5.90) m/uL Hgb 11.6 L (13.0-17.5) gm/dL Hct 38.0 L (39.0-53.0) % MCV 74.6 L (80.0-100.0) fL MCH 22.8 L (25.0-35.0) pg MCHC 30.5 L (31.0-37.0) g/dL RDW 17.8 H (11.5-15.5) % Plt Count 221 (150-450) k/uL MPV 7.2 Neutrophils % 72 % Lymphocytes % 19 % Monocytes % 5 % Eosinophils % 3 % Basophils % 1 % Neutrophils # 4.0 (1.3-7.7) k/uL Lymphocytes # 1.1 (1.0-4.8) k/uL Monocytes # 0.3 (0-1.0) k/uL Eosinophils # 0.2 (0-0.7) k/uL Basophils # 0.0 (0-0.2) k/uL Hypochromasia Marked Anisocytosis Slight Microcytosis Moderate PT 11.8 (9.0-12.0) sec INR 1.2 H (<1.2) APTT 27.2 (22.0-30.0) sec Sodium 141 (137-145) mmol/L Potassium 4.2 (3.5-5.1) mmol/L Chloride 107 (98-107) mmol/L Carbon Dioxide 26 (22-30) mmol/L Anion Gap 8 mmol/L BUN 19 (9-20) mg/dL Creatinine 1.57 H (0.66-1.25) mg/dL Est GFR (CKD-EPI)AfAm 51 (>60 ml/min/1.73 sqM) Est GFR (CKD-EPI)NonAf 44 (>60 ml/min/1.73 sqM) Glucose 121 H (74-99) mg/dL Plasma Lactic Acid Royce (0.7-2.0) mmol/L Calcium 10.2 (8.4-10.2) mg/dL Magnesium 1.7 (1.6-2.3) mg/dL Total Bilirubin 1.2 (0.2-1.3) mg/dL AST 21 (17-59) U/L ALT 18 (4-49) U/L Alkaline Phosphatase 102 (38-126) U/L Troponin I (0.000-0.034) ng/mL Total Protein 7.2 (6.3-8.2) g/dL Albumin 3.8 (3.5-5.0) g/dL Urine Color Urine Appearance (Clear) Urine pH (5.0-8.0) Ur Specific [place] (1.001-1.035) Urine Protein (Negative) Urine Glucose (UA) (Negative) Urine Ketones (Negative) Urine Blood (Negative) Urine Nitrite (Negative) Urine Bilirubin (Negative) Urine Urobilinogen (<2.0) mg/dL Ur Leukocyte Esterase (Negative) Urine RBC (0-5) /hpf Urine WBC (0-5) /hpf Ur Squamous Epith Cells (0-4) /hpf Urine Bacteria (None) /hpf Hyaline Casts (0-2) /lpf Urine Mucus (None) /hpf 11/07/20 11/07/20 11/07/20 Range/Units 08:58 08:58 09:17 WBC (3.8-10.6) k/uL RBC (4.30-5.90) m/uL Hgb (13.0-17.5) gm/dL Hct (39.0-53.0) % MCV (80.0-100.0) fL MCH (25.0-35.0) pg MCHC (31.0-37.0) g/dL RDW (11.5-15.5) % Plt Count (150-450) k/uL MPV Neutrophils % % Lymphocytes % % Monocytes % % Eosinophils % % Basophils % % Neutrophils # (1.3-7.7) k/uL Lymphocytes # (1.0-4.8) k/uL Monocytes # (0-1.0) k/uL Eosinophils # (0-0.7) k/uL Basophils # (0-0.2) k/uL Hypochromasia Anisocytosis Microcytosis PT (9.0-12.0) sec INR (<1.2) APTT (22.0-30.0) sec Sodium (137-145) mmol/L Potassium (3.5-5.1) mmol/L Chloride (98-107) mmol/L Carbon Dioxide (22-30) mmol/L Anion Gap mmol/L BUN (9-20) mg/dL Creatinine (0.66-1.25) mg/dL Est GFR (CKD-EPI)AfAm (>60 ml/min/1.73 sqM) Est GFR (CKD-EPI)NonAf (>60 ml/min/1.73 sqM) Glucose (74-99) mg/dL Plasma Lactic Acid Royce 2.0 (0.7-2.0) mmol/L Calcium (8.4-10.2) mg/dL Magnesium (1.6-2.3) mg/dL Total Bilirubin (0.2-1.3) mg/dL AST (17-59) U/L ALT (4-49) U/L Alkaline Phosphatase (38-126) U/L Troponin I <0.012 (0.000-0.034) ng/mL Total Protein (6.3-8.2) g/dL Albumin (3.5-5.0) g/dL Urine Color Yellow Urine Appearance Cloudy (Clear) Urine pH 6.0 (5.0-8.0) Ur Specific [place] 1.019 (1.001-1.035) Urine Protein 1+ H (Negative) Urine Glucose (UA) Negative (Negative) Urine Ketones 1+ H (Negative) Urine Blood Negative (Negative) Urine Nitrite Positive (Negative) Urine Bilirubin Negative (Negative) Urine Urobilinogen 3.0 (<2.0) mg/dL Ur Leukocyte Esterase Moderate H (Negative) Urine RBC 1 (0-5) /hpf Urine WBC 18 H (0-5) /hpf Ur Squamous Epith Cells <1 (0-4) /hpf Urine Bacteria Rare H (None) /hpf Hyaline Casts 11 H (0-2) /lpf Urine Mucus Moderate H (None) /hpf Disposition Clinical Impression: Fall, Urinary tract infection, Generalized weakness, Orthostatic hypotension Disposition: ADMITTED IP TO THIS [facility] Referrals: Cresencio Kim MD [Primary Care Provider] - 1-2 days Time of Disposition: 10:58
--- NOTE | 2020-11-07 09:03 | XR ---
EXAMINATION TYPE: XR chest 2V DATE OF EXAM: 11/07/2020 COMPARISON: Chest x-ray November 04, [address] October 04, 2020. HISTORY: Fall with weakness. TECHNIQUE: Frontal and lateral views of the chest are obtained. FINDINGS: Persistent somewhat low lung volumes. There is no new suspicious focal air space opacity, pleural effusion, or pneumothorax seen bilaterally. The cardiac silhouette size is stable and within normal limits. The osseous structures are intact. IMPRESSION: No acute cardiopulmonary process. No significant change from recent x-ray.
[2020-11-07 09:13] LABS: Anisocytosis Slight; Basophils % (A) 1 %; Eosinophils # (A) 0.2 k/uL (0-0.7); Eosinophils % (A) 3 %; HGB 11.6 gm/dL (13.0-17.5); Hypochromasia Marked; Lymphocytes # (A) 1.1 k/uL (1.0-4.8); Lymphocytes % (A) 19 %; MCH 22.8 pg (25.0-35.0); MCHC 30.5 g/dL (31.0-37.0); MCV 74.6 fL (80.0-100.0); Mean Platelet Volume 7.2; Microcytosis Moderate; Monocytes # (A) 0.3 k/uL (0-1.0); Monocytes % (A) 5 %; Neutrophils % (A) 72 %; Platelet Count 221 k/uL (150-450); RBC 5.09 m/uL (4.30-5.90); RDW 17.8 % (11.5-15.5); WBC 5.5 k/uL (3.8-10.6)
[2020-11-07 09:20] LABS: INR 1.2 (<1.2); Partial Thromboplastin Time 27.2 sec (22.0-30.0); Prothrombin Time 11.8 sec (9.0-12.0)
[2020-11-07 09:25] LABS: Potassium 4.2 mmol/L (3.5-5.1)
[2020-11-07 09:26] LABS: Albumin 3.8 g/dL (3.5-5.0); Calcium 10.2 mg/dL (8.4-10.2); Magnesium 1.7 mg/dL (1.6-2.3); Total Bilirubin 1.2 mg/dL (0.2-1.3); Total Protein 7.2 g/dL (6.3-8.2)
[2020-11-07 09:27] LABS: Appearance,Urine Cloudy (Clear); Bacteria,Urine Rare /hpf; Bilirubin,Urine Negative (Negative); Blood,Urine Negative (Negative); Color,Urine Yellow; Glucose,Urine (UA) Negative (Negative); Hyaline Casts,Urine 11 /lpf (0-2); Ketones,Urine 1+ (Negative); Leukocyte Esterase,Urine Moderate (Negative); Mucus,Urine Moderate /hpf; Nitrite,Urine Positive (Negative); Protein,Urine 1+ (Negative); RBC,Urine 1 /hpf (0-5); Specific Gravity,Urine 1.019 (1.001-1.035); Squamous Epithelial Cell,Urine <1 /hpf (0-4); WBC,Urine 18 /hpf (0-5)
[2020-11-07] MEDS ORDERED: cefTRIAXone IN SWFI 1,000 MG/10 ML SYRINGE IVP STA (09:39)
[2020-11-07] MEDS ORDERED: SODIUM CHLORIDE 0.9% 1,000 ML IV ONE ×2 (09:51→10:59)
[2020-11-07] MEDS ORDERED: ACETAMINOPHEN TAB 500 MG TAB PO PRN (16:14)
[2020-11-07 17:00] LABS: Glucose,Whole Blood 126 mg/dL (75-99)
[2020-11-07] MEDS: INSULIN ASPART (NovoLOG) 100 UNIT/ML VIAL SQ SCH ×2 (17:16→20:38)
[2020-11-07 20:13] LABS: Glucose,Whole Blood 178 mg/dL (75-99)
[2020-11-08 06:47] LABS: Glucose,Whole Blood 124 mg/dL (75-99)
[2020-11-08] MEDS: PANTOPRAZOLE 40 MG TABLET PO SCH (09:05)
[2020-11-08] MEDS: INSULIN ASPART (NovoLOG) 100 UNIT/ML VIAL SQ SCH ×4 (09:05→21:42)
[2020-11-08] MEDS: RIVAROXABAN 15 MG TAB PO SCH (09:05)
[2020-11-08 11:23] LABS: Glucose,Whole Blood 200 mg/dL (75-99)
[2020-11-08] MEDS: SODIUM CHLORIDE 0.9% 1,000 ML IV SCH ×2 (12:10→21:42)
[2020-11-08] MEDS: lisinopriL 20 MG TAB PO SCH (12:10)
[2020-11-08 12:54] LABS: Anisocytosis Slight; Basophils % (A) 1 %; Eosinophils # (A) 0.2 k/uL (0-0.7); Eosinophils % (A) 5 %; HCT 34.1 % (39.0-53.0); HGB 10.5 gm/dL (13.0-17.5); Hypochromasia Marked; Lymphocytes # (A) 1.1 k/uL (1.0-4.8); Lymphocytes % (A) 29 %; MCH 23.5 pg (25.0-35.0); MCHC 30.8 g/dL (31.0-37.0); MCV 76.3 fL (80.0-100.0); Mean Platelet Volume 6.9; Microcytosis Slight; Monocytes # (A) 0.2 k/uL (0-1.0); Monocytes % (A) 5 %; Neutrophils # (A) 2.3 k/uL (1.3-7.7); Neutrophils % (A) 59 %; Platelet Count 195 k/uL (150-450); RBC 4.47 m/uL (4.30-5.90); RDW 17.6 % (11.5-15.5); WBC 3.9 k/uL (3.8-10.6)
[2020-11-08 13:09] LABS: ALT 17 U/L (4-49); AST 18 U/L (17-59); African American GFR (CKD) 65 (>60 ml/min/1.73 sqM); Albumin 3.1 g/dL (3.5-5.0); Alkaline Phosphatase 89 U/L (38-126); Anion Gap 2 mmol/L; Blood Urea Nitrogen 12 mg/dL (9-20); Calcium 9.2 mg/dL (8.4-10.2); Carbon Dioxide 27 mmol/L (22-30); Chloride 109 mmol/L (98-107); Globulin 3.1 g/dL; Glucose 201 mg/dL (74-99); Non-African American GFR(CKD) 57 (>60 ml/min/1.73 sqM); Potassium 4.1 mmol/L (3.5-5.1); Sodium 138 mmol/L (137-145); Total Bilirubin 0.7 mg/dL (0.2-1.3); Total Protein 6.2 g/dL (6.3-8.2)
[2020-11-08 16:55] LABS: Glucose,Whole Blood 120 mg/dL (75-99)
[2020-11-08 21:36] LABS: Glucose,Whole Blood 177 mg/dL (75-99)
[2020-11-09 07:52] LABS: Glucose,Whole Blood 190 mg/dL (75-99)
[2020-11-09] MEDS: INSULIN ASPART (NovoLOG) 100 UNIT/ML VIAL SQ SCH ×4 (08:37→21:01)
[2020-11-09] MEDS: SODIUM CHLORIDE 0.9% 1,000 ML IV SCH ×2 (08:37→16:55)
[2020-11-09] MEDS: PANTOPRAZOLE 40 MG TABLET PO SCH (08:38)
[2020-11-09] MEDS: lisinopriL 20 MG TAB PO SCH ×2 (08:38→17:26)
[2020-11-09] MEDS: RIVAROXABAN 15 MG TAB PO SCH (08:38)
[2020-11-09 11:44] LABS: Glucose,Whole Blood 202 mg/dL (75-99)
[2020-11-09 16:43] LABS: Glucose,Whole Blood 198 mg/dL (75-99)
[2020-11-09] MEDS: amLODIPine 10 MG TAB PO SCH (17:26)
--- NOTE | 2020-11-09 19:44 | HP ---
HISTORY AND PHYSICAL CHIEF COMPLAINT: Generalized weakness, dehydration. HISTORY OF PRESENT ILLNESS: This is another admission for this gentleman who was in the hospital a number weeks ago with Covid 19. He went on to develop slurred speech and encephalopathy. He started to improve and was discharged home and was having some difficulty with weakness, ambulation and speech, but gradually improved. We then heard that he was in the hospital in [place]. This was apparently for progression of some of his Covid symptoms. He was discharged there and went to [facility] on the [place] where he continued to improve and was just recently discharged home. However, when he got home he was not moving about, eating or drinking and was extremely weak. His home care let us know that he was unable to get up off the couch, but he refused to go to the emergency room. Eventually, he did so where he was very dehydrated, weak, and orthostatically hypotensive. REVIEW OF SYSTEMS: He denied any headaches, change in vision or hearing, focal neurologic problems, chest pain, shortness of breath, cough, hemoptysis, fever, chills, abdominal pain, nausea, vomiting, hematemesis, melena, hematochezia, jaundice, dysuria, frequency, urgency, incontinence, etc. Past medical history, family history, personal and social histories are all otherwise unremarkable and unchanged from his recent admitting and discharge summaries. PHYSICAL EXAMINATION: Blood pressure is 102/64 with a pulse of 70, respirations of 32. He is afebrile. In general, he appeared to be dehydrated and weak. Skin was dry. Head, ears, eyes, nose, mouth, and throat were normal except for dry mucous membranes. Neck is supple. Neck veins not distended. Chest is clear. Cardiac exam demonstrated sinus rhythm and no murmurs or extra sounds. Abdomen is soft, nontender without any masses or visceromegaly. Extremities are normal. Neurologically he is intact. He was weak. IMPRESSION: He was admitted to the hospital with diagnoses of: 1. Dehydration. 2. Hypoglycemia. 3. Covid encephalopathy. PLAN: 1. Bed rest. 2. Rehydrate. 3. OT and PT. 4. Discharge planning. He will probably have to go back to the longterm. MMODL / IJN: [id number] /
[2020-11-09 20:51] LABS: Glucose,Whole Blood 184 mg/dL (75-99)
[2020-11-10] MEDS: SODIUM CHLORIDE 0.9% 1,000 ML IV SCH ×3 (02:16→20:57)
[2020-11-10 06:56] LABS: Glucose,Whole Blood 180 mg/dL (75-99)
[2020-11-10] MEDS: INSULIN ASPART (NovoLOG) 100 UNIT/ML VIAL SQ SCH ×4 (08:19→20:57)
[2020-11-10] MEDS: INSULIN DETEMIR (LEVEMIR) 100 UNIT/ML SYR SQ SCH (08:19)
[2020-11-10] MEDS: lisinopriL 20 MG TAB PO SCH (08:20)
[2020-11-10] MEDS: amLODIPine 10 MG TAB PO SCH (08:20)
[2020-11-10] MEDS: PANTOPRAZOLE 40 MG TABLET PO SCH (08:20)
[2020-11-10] MEDS: RIVAROXABAN 15 MG TAB PO SCH (08:20)
[2020-11-10 11:53] LABS: Glucose,Whole Blood 149 mg/dL (75-99)
[2020-11-10 16:37] LABS: Glucose,Whole Blood 179 mg/dL (75-99)
[2020-11-10 20:58] LABS: Glucose,Whole Blood 203 mg/dL (75-99)
[2020-11-11 06:37] LABS: Glucose,Whole Blood 127 mg/dL (75-99)
[2020-11-11] MEDS: INSULIN ASPART (NovoLOG) 100 UNIT/ML VIAL SQ SCH ×4 (07:05→21:04)
[2020-11-11] MEDS: INSULIN DETEMIR (LEVEMIR) 100 UNIT/ML SYR SQ SCH (07:16)
[2020-11-11] MEDS: lisinopriL 20 MG TAB PO SCH (07:16)
[2020-11-11] MEDS: PANTOPRAZOLE 40 MG TABLET PO SCH (07:16)
[2020-11-11] MEDS: amLODIPine 10 MG TAB PO SCH (07:16)
[2020-11-11] MEDS: RIVAROXABAN 15 MG TAB PO SCH (07:16)
[2020-11-11] MEDS: SODIUM CHLORIDE 0.9% 1,000 ML IV SCH ×3 (07:17→21:05)
--- NOTE | 2020-11-11 10:31 | PN ---
PROGRESS NOTE DATE OF SERVICE: 11/08/2020 CHIEF COMPLAINT: Dehydration, hypotension, encephalopathy, diabetes. HISTORY OF PRESENT ILLNESS: This gentleman is improved. He is still bedrest. Hydration is improved. Blood pressure has started to come up. REVIEW OF SYSTEMS: He is not complaining of any chest pain, shortness of breath, abdominal pain, etc. PHYSICAL EXAMINATION: Hydration is improved. Chest demonstrates only occasional rales. Cardiac exam is normal. Abdomen is soft, nontender. IMPRESSION: 1. Dehydration. 2. Orthostatic hypotension. 3. Recent COVID encephalopathy. PLAN: 1. PT, OT and increase activity. 2. Continue with IV fluids. 3. Repeat laboratory studies. 4. Discharge planning. MMODL / IJN: [id number] /
--- NOTE | 2020-11-11 10:34 | PN ---
PROGRESS NOTE DATE OF SERVICE: 11/09/2020 CHIEF COMPLAINT: General debility, weakness, hypotension, dehydration and COVID encephalopathy. HISTORY OF PRESENT ILLNESS: This gentleman is a little bit better and feels a little bit stronger. Vital signs have improved. Blood sugar and blood pressure elevated slightly and these will be addressed. PHYSICAL EXAMINATION: He is sitting up, awake and alert. He is oriented. Chest is clear. Cardiac exam is normal. Abdomen is soft, nontender. IMPRESSION: 1. Dehydration. 2. Hypotension. 3. Diabetes. 4. COVID encephalopathy. PLAN: Continue with physical therapy as well as occupational therapy and work on discharge planning back to [facility] for rehab. MMODL / IJN: [id number] /
[2020-11-11 11:34] LABS: Glucose,Whole Blood 157 mg/dL (75-99)
[2020-11-11 16:36] LABS: Glucose,Whole Blood 169 mg/dL (75-99)
[2020-11-11 20:46] LABS: Glucose,Whole Blood 169 mg/dL (75-99)
[2020-11-12 07:04] LABS: Glucose,Whole Blood 169 mg/dL (75-99)
[2020-11-12] MEDS: lisinopriL 20 MG TAB PO SCH (07:53)
[2020-11-12] MEDS: PANTOPRAZOLE 40 MG TABLET PO SCH (07:53)
[2020-11-12] MEDS: amLODIPine 10 MG TAB PO SCH (07:53)
[2020-11-12] MEDS: INSULIN DETEMIR (LEVEMIR) 100 UNIT/ML SYR SQ SCH (07:53)
[2020-11-12] MEDS: INSULIN ASPART (NovoLOG) 100 UNIT/ML VIAL SQ SCH ×4 (07:53→21:19)
[2020-11-12] MEDS: RIVAROXABAN 15 MG TAB PO SCH (07:53)
[2020-11-12 12:13] LABS: Glucose,Whole Blood 235 mg/dL (75-99)
--- NOTE | 2020-11-12 13:57 | CDI ---
Documentation Clarification Form Date: 11/12/2020 01:49:15 PM From: Gifty TapiaTHOR santana, CCDS Admit Date: 11/07/2020 10:59:00 AM Patient Name: Tex Jones Visit Number: [id number] Discharge Date: ATTENTION: The Clinical Documentation Specialists (CDI) and [facility] Coding Staff appreciate your assistance in clarifying documentation. Please respond to the clarification below the line at the bottom and electronically sign. The CDI & [facility] Coding staff will review the response and follow-up if needed. Please note: Queries are made part of the Legal Health Record. If you have any questions, please contact the author of this message via ITS. Dr. Cresencio Kim: Urinary Tract Infection is documented in the 11/07 ED note without subsequent documentation. History/Risk Factors: Asthma, CHF, COPD, DM & Diabetic Neuropathy, Hyperlipidemia, Hypertension, Pneumonia, Heart Murmur, MRSA. Clinical Indicators: Presented to the ED from home after a fall & weakness. ED Impression: Fall, UTI, Generalized Weakness & Orthostatic Hypotension. Vital Signs 11/07: T 98, P 113^, R 18, BP 109/76, PO 100 RA UA: Cloudy, 1+ protein, Positive Nitrite, Moderate Esterase, WBC 18, Hyaline Casts 11^ UA Culture 11/07 (Final): Staphylococcus epidermidis Treatment 11/07: IV fluid 500 mls @ 999 mls/hr q31M, IV Rocephin, IV fluid 1,000 mls @ 999 mls/hr q1H, IV fluid 1,000 mls @ 100 mls/hr q1H Please document the condition that these clinical indicators signify, whether Present on Admission, and cause if known: UTI Ruled Out UTI Ruled In o Please specify associated organism: Other, please specify Unable to determine Present on Admission: o Yes o No (Last Revision: August 2017) MTDD
[2020-11-12 16:49] LABS: Glucose,Whole Blood 176 mg/dL (75-99)
[2020-11-12] MEDS: SODIUM CHLORIDE 0.9% 1,000 ML IV SCH (17:37)
--- NOTE | 2020-11-12 19:09 | PN ---
PROGRESS NOTE DATE OF SERVICE: 11/12/2020 CHIEF COMPLAINT: General debility, weakness and Covid encephalopathy. HISTORY OF PRESENT ILLNESS: This gentleman is sitting in the chair. He is doing fairly well. Suddenly he has developed some pain in the left ankle. We are still working on intermediate placement. PHYSICAL EXAM: Neurologically he seems to be stable. Chest is clear. The cardiac exam is normal. Abdomen is soft, nontender. Left ankle is not swollen or tender and there is no sign of trauma. IMPRESSION: 1. Covid encephalopathy. 2. General debility and weakness. 3. Hypertension. 4. Diabetes. 5. Pain in the left ankle. PLAN: Continue to wait for a intermediate bed. He is slated to go to [facility], which is where he was before. MMODL / IJN: [id number] /
[2020-11-12 21:12] LABS: Glucose,Whole Blood 131 mg/dL (75-99)
[2020-11-13] MEDS: SODIUM CHLORIDE 0.9% 1,000 ML IV SCH ×3 (00:04→12:24)
[2020-11-13 07:12] LABS: Glucose,Whole Blood 198 mg/dL (75-99)
[2020-11-13] MEDS: INSULIN ASPART (NovoLOG) 100 UNIT/ML VIAL SQ SCH ×4 (07:58→22:57)
[2020-11-13] MEDS: INSULIN DETEMIR (LEVEMIR) 100 UNIT/ML SYR SQ SCH (07:58)
[2020-11-13] MEDS: lisinopriL 20 MG TAB PO SCH (08:00)
[2020-11-13] MEDS: PANTOPRAZOLE 40 MG TABLET PO SCH (08:00)
[2020-11-13] MEDS: amLODIPine 10 MG TAB PO SCH (08:00)
[2020-11-13] MEDS: RIVAROXABAN 15 MG TAB PO SCH (08:00)
[2020-11-13 11:29] LABS: Glucose,Whole Blood 228 mg/dL (75-99)
[2020-11-13 14:53] VITALS: BMI 32.1
[2020-11-13 17:04] LABS: Glucose,Whole Blood 219 mg/dL (75-99)
[2020-11-13 21:38] LABS: Glucose,Whole Blood 256 mg/dL (75-99)
[2020-11-14 07:10] LABS: Glucose,Whole Blood 112 mg/dL (75-99)
[2020-11-14] MEDS: SODIUM CHLORIDE 0.9% 1,000 ML IV SCH ×2 (07:17→12:36)
[2020-11-14] MEDS: INSULIN ASPART (NovoLOG) 100 UNIT/ML VIAL SQ SCH ×2 (07:18→12:36)
[2020-11-14] MEDS: PANTOPRAZOLE 40 MG TABLET PO SCH (07:20)
[2020-11-14] MEDS: INSULIN DETEMIR (LEVEMIR) 100 UNIT/ML SYR SQ SCH (07:20)
[2020-11-14] MEDS: amLODIPine 10 MG TAB PO SCH (07:21)
[2020-11-14] MEDS: lisinopriL 20 MG TAB PO SCH (07:21)
[2020-11-14] MEDS: RIVAROXABAN 15 MG TAB PO SCH (07:21)
[2020-11-14 08:20] VITALS: BP 154/80; PULSE 93; TEMP 97.9
[2020-11-14 09:23] VITALS: RESP 16
[2020-11-14 11:45] LABS: Glucose,Whole Blood 288 mg/dL (75-99)
--- NOTE | 2020-11-14 13:25 | MISC ---
MISCELLANOUS REPORT UTI ruled out. MMODL / IJN: [id number] /
--- NOTE | 2020-11-14 18:52 | PN ---
PROGRESS NOTE DATE OF SERVICE: 11/10/2020. CHIEF COMPLAINT: General weakness and debility. HISTORY OF PRESENT ILLNESS: This gentleman is doing fairly well. He is stable. We are only waiting on a discharge plan so he can go back to [facility]. REVIEW OF SYSTEMS: He is not complaining of any neurologic problems, headaches, chest pain, etc. PHYSICAL EXAMINATION: Vital signs are normal. Chest is clear. Cardiac exam is normal. The abdomen is soft and nontender. IMPRESSION: General weakness and debility following COVID encephalopathy. PLAN: Continue to wait for his discharge back to [facility]. MMODL / IJN: [id number] /
--- NOTE | 2020-11-14 18:55 | PN ---
PROGRESS NOTE DATE OF SERVICE: 11/11/2020 CHIEF COMPLAINT: COVID encephalopathy. HISTORY OF PRESENT ILLNESS: This gentleman seems to be doing well. We are still awaiting word from [facility] regarding discharge. His vital signs are normal. He is not febrile. Blood sugars are fluctuating somewhat, but they are overall fairly stable. PHYSICAL EXAMINATION: His chest is clear. There are no rales. Cardiac exam is normal. The abdomen is soft and protuberant. Extremities are normal. Neurologically he is intact. IMPRESSION: COVID encephalopathy with general weakness and debility. PLAN: Discharge to [facility] once arrangements are made. MMODL / IJN: [id number] /
--- NOTE | 2020-11-14 18:55 | PN ---
PROGRESS NOTE DATE OF SERVICE: 11/13/2020. CHIEF COMPLAINT: COVID pneumonia and encephalopathy. HISTORY OF PRESENT ILLNESS: This gentleman is stable. There is still no definite word on his transfer to the assisted. Apparently there may be a problem. There is something about his past history that apparently blocks his ability to get into rehab centers in the [facility]. He will either have to be willing to go to a facility in [place] or be discharged. This will be explored further. Physical exam is unchanged. He is doing well. IMPRESSION: 1. COVID encephalopathy. 2. General debility and weakness. 3. Diabetes. PLAN: Continue to work on discharge plan. MMODL / IJN: [id number] /
--- NOTE | 2020-11-14 23:26 | DS ---
DISCHARGE SUMMARY DATE OF SERVICE: 11/14/2020 CHIEF COMPLAINT: Generalized weakness and debility secondary to Covid encephalopathy. HISTORY OF PRESENT ILLNESS AND PHYSICAL EXAMINATION: Details of this man's history and physical can be found in the initial workup. LABORATORY STUDIES: While he was in the hospital, he had laboratory studies, details of which can be found in the laboratory section of chart. COURSE IN THE HOSPITAL: After admission, he was placed on bedrest, started on intravenous fluids and started on physical therapy. Blood sugars and vital signs were monitored. He did well and after rehydration had no further problems with weakness and hypotension. It was expected that he will go back to [facility] for rehab, but apparently there was a problem relating to some legal issues in the past and he only could be placed in the [facility] in the [place] area. He refused this and requested to be discharged and was sent home on the . He will go home on his usual activity, diet and medications and we will have him set up with home care. We will also follow him up through the office. FINAL DIAGNOSES: 1. Dehydration. 2. Orthostatic hypotension. 3. Covid encephalopathy. 4. General debility and failure to thrive. 5. Insulin-dependent diabetes mellitus. OPERATIONS: None. CONSULTATION: None. He is improved. MMODL / IJN: [id number] /
== END 2020-11-14 14:58 | disposition home health service (06) | DRG 641 ==
LOC: EC 08:33 → 4SSUR 10:59
PROVIDERS: ADMIT Family Medicine; ATTEND Family Medicine
DX: E86.0 Dehydration (principal); G93.49 Other encephalopathy; B94.8 Sequelae of other specified infectious and parasitic diseases; I95.1 Orthostatic hypotension; J44.9 Chronic obstructive pulmonary disease, unspecified; I50.9 Heart failure, unspecified; I11.0 Hypertensive heart disease with heart failure; E11.40 Type 2 diabetes mellitus with diabetic neuropathy, unspecified; E11.649 Type 2 diabetes mellitus with hypoglycemia without coma; E78.5 Hyperlipidemia, unspecified; R62.7 Adult failure to thrive; Z91.81 History of falling; Z79.01 Long term (current) use of anticoagulants; Z79.4 Long term (current) use of insulin; Z83.3 Family history of diabetes mellitus; Z90.89 Acquired absence of other organs; Z87.01 Personal history of pneumonia (recurrent); Z91.012 Allergy to eggs; M06.9 Rheumatoid arthritis, unspecified; Z82.61 Family history of arthritis; Z86.14 Personal history of Methicillin resistant Staphylococcus aureus infection; Z79.899 Other long term (current) drug therapy
CPT/HCPCS: 36415; 71046; 80053; 81001; 83605; 83735; 84484; 85025; 85610; 85730; 87077; 87086; 87186; 93005; 96361; 96374; 99285

== ENCOUNTER 2023-09-12 09:20 | Emergency (ER) | payer MEDICARE, OTHER ==
[2023-09-12] MEDS ORDERED: IPRATROPIUM-ALBUTEROL 3 ML NEB INHALATION STA (09:39)
--- NOTE | 2023-09-12 09:44 | ED ---
SOB HPI - General Chief Complaint: Upper Respiratory Infection Stated Complaint: cough-HTN Time Seen by Provider: 09/12/23 09:28 Source: patient, RN notes reviewed Mode of arrival: ambulatory Limitations: no limitations - History of Present Illness Initial Comments: This is a 73-year-old male who presents to the emergency department for coughing, shortness of breath, and elevated blood sugar. States over the last 4-5 days he has been dealing with upper respiratory symptoms such as coughing and congestion along with shortness of breath. Reports a history of asthma and COPD. Denies any sick contacts, fevers, or chills. Additionally, states that he has been out of his Victoza for 2 weeks due to lack of insurance coverage, and his blood sugar was 270 last night. He will not get his insurance coverage back until 10/06. He inquired about beginning Metformin instead to manage the diabetes. MD Complaint: shortness of breath, cough, chest pain - Related Data Home Medications Medication Instructions Recorded Confirmed carvediloL [Coreg] 6.25 mg PO BID 12/16/18 11/07/20 Liraglutide [Victoza 3-Eugene] 1.8 mg SQ DAILY 08/13/20 11/07/20 Insulin Detemir [Levemir Flextouch 30 units SQ DAILY 08/28/20 11/07/20 Pen] Atorvastatin [Lipitor] 20 mg PO DAILY 11/07/20 11/07/20 Pantoprazole Sodium [Protonix] 40 mg PO DAILY 11/07/20 11/07/20 Rivaroxaban [Xarelto] 15 mg PO DAILY 11/07/20 11/07/20 lisinopriL [Zestril] 10 mg PO DAILY 11/07/20 11/07/20 Previous Rx's Medication Instructions Recorded INSULIN ASPART (NovoLOG) [NovoLOG 8 unit SQ ACHS #120 vial 11/14/20 (formulary)] Cephalexin [Keflex] 500 mg PO Q6HR #28 cap 08/05/23 Albuterol Sulfate [Albuterol 1 puff PO Q4-6H PRN #8.5 gm 09/12/23 Sulfate Hfa] Promethazine/Dextromethorphan 5 ml PO Q4-6H PRN #473 ml 09/12/23 [Promethazine-Dm Syrup] metFORMIN HCL 500 mg PO BID #20 tablet 09/12/23 Allergies Allergy/AdvReac Type Severity Reaction Status Date / Time egg Allergy Rash/Hives Verified 09/12/23 09:25 Review of Systems ROS Statement: Those systems with pertinent positive or pertinent negative responses have been documented in the HPI. ROS Other: All systems not noted in ROS Statement are negative. Past Medical History Past Medical History: Asthma, Heart Failure, COPD, Diabetes Mellitus, Hyperlipidemia, Hypertension, Pneumonia Additional Past Medical History / Comment(s): heart murmur, diabetic neuropathy,"i think i had a small bleed behind rt eye". healed wound rt great toe History of Any Multi-Drug Resistant Organisms: MRSA Date of last positivie culture/infection: 11/26/18 MDRO Source:: toe Past Surgical History: Hernia Repair, Orthopedic Surgery, Tonsillectomy Additional Past Surgical History / Comment(s): rt foot Past Anesthesia/Blood Transfusion Reactions: No Reported Reaction Past Psychological History: Depression Smoking Status: Never smoker Past Alcohol Use History: None Reported Past Drug Use History: None Reported - Past Family History Father Family Medical History: No Reported History Additional Family Medical History / Comment(s): Father at age 65 and patient does not know his medical problems. Mother Family Medical History: Diabetes Mellitus, Rheumatoid Arthritis (RA) Additional Family Medical History / Comment(s): Mother at age 70 with history of rheumatoid arthritis. granmother also had ra Brother(s) Additional Family Medical History / Comment(s): Patient had 2 brothers and one during service and one from stillbirth. Patient does not have any sisters. Patient has 3 sons and 3 daughters with no major medical problems. General Exam Limitations: no limitations General appearance: alert, in no apparent distress Head exam: Present: atraumatic, normocephalic, normal inspection Respiratory exam: Present: decreased breath sounds, prolonged expiratory Cardiovascular Exam: Present: regular rate, normal rhythm, normal heart sounds. Absent: systolic murmur, diastolic murmur, rubs, gallop, clicks Neurological exam: Present: alert, oriented X3, CN II-XII intact Psychiatric exam: Present: normal affect, normal mood Skin exam: Present: warm, dry, intact, normal color. Absent: rash Course Vital Signs 09/12/23 09/12/23 09/12/23 09:23 11:31 11:32 Temperature 98.4 F Pulse Rate 74 66 57 L Respiratory 22 18 20 Rate Blood Pressure 108/65 121/67 O2 Sat by Pulse 98 Oximetry 09/12/23 11:47 Temperature Pulse Rate 56 L Respiratory 16 Rate Blood Pressure O2 Sat by Pulse Oximetry Medical Decision Making - Medical Decision Making This is a 73-year-old male who presents to the emergency department for coughing and shortness of breath. Was pt. sent in by a medical professional or institution? @ -No Did you speak to anyone other than the patient for history? @ -No Did you review nursing and triage notes? @ -Yes, and I agree, it is accurate with regards to the patient's symptoms. Were old charts reviewed? @ -No Differential Diagnosis? @ -Differential Dyspnea: Coronary syndrome, arrhythmia, tamponade, asthma, COPD, pulmonary embolism, pneumonia, pneumothorax, pulmonary effusion, anaphylaxis, diabetic ketoacidosis, flailed chest, pulmonary contusion, diaphragmatic rupture, anemia, neuromuscular, this is not meant to be an all-inclusive list. EKG interpreted by me (3pts min.)? @ -Not obtained X-rays interpreted by me (1pt min.)? @ -Chest x-ray obtained, my interpretation identifies no localized consolidations or infiltrates. CT interpreted by me (1pt min.)? @ -Not obtained U/S interpreted by me (1pt. min.)? @ -Not obtained What testing was considered but not performed? (CT, X-rays, U/S, labs)? Why? @ -None What meds were considered but not given? Why? @ -None Did you discuss the management of the patient with other professionals? @ -No Did you reconcile home meds? @ -No Was smoking cessation discussed for >3mins.? @ -No Was critical care preformed (if so, how long)? @ -No Were there social determinants of health that impacted care today? How? (Homelessness, low income, unemployed, alcoholism, drug addiction, transportation, low edu. Level, literacy, decrease access to med. care, shelter, rehab)? @ -No Was there de-escalation of care discussed even if they declined? (Discuss DNR or withdrawal of care, Hospice)? @ -No What co-morbidities impacted this encounter? (DM, HTN, Smoking, COPD, CAD, Cancer, CVA, Hep., AIDS, mental health diagnosis, sleep apnea, morbid obesity)? @ -Asthma, COPD, DM, HLD, HTN Was patient admitted / discharged? @ -Discharged. Lab work obtained revealing an elevated blood sugar of 292, however he was acetone negative and there was no evidence of DKA. He has slightly decreased kidney function, which is stable when compared with prior values. Covid, influenza, and RSV testing were negative. Chest x-ray reveals streaky atelectasis without any localized consolidations or infiltrates. Advised that this is likely a viral bronchitis. He was given a prescription for promethazine DM cough syrup and an albuterol inhaler. Patient did request to start metformin for management of the diabetes so it does not continue to get worse. I was willing to give him a prescription for metformin, and we discussed side effects such as diarrhea. Advised to follow-up with his PCP to discuss continuing this moving forward if he tolerates it well and it is effective. He was otherwise discharged home in stable condition. Undiagnosed new problem with uncertain prognosis? @ -None Drug Therapy requiring intensive monitoring for toxicity (Heparin, Nitro, Insulin, Cardizem)? @ -None Were any procedures done? @ -None Diagnosis/symptom? @ -Viral bronchitis Acute, or Chronic, or Acute on Chronic? @ -Acute Uncomplicated (without systemic symptoms) or Complicated (systemic symptoms)? @ -Uncomplicated Side effects of treatment? @ -None Exacerbation, Progression, or Severe Exacerbation] @ -Not applicable Poses a threat to life or bodily function? @ -Unlikely Return precautions reviewed in depth, the patient is instructed to return to the emergency department with any new, worsening, or concerning symptoms. Patient verbalized understanding. This case was discussed in detail with the attending ED physician, Dr. Alonzo acosta. Presentation, findings, and treatment plan discussed in detail as well. - Lab Data Result diagrams: 09/12/23 10:15 09/12/23 10:15 Lab Results 09/12/23 09/12/23 09/12/23 Range/Units 10:15 10:15 10:15 WBC 5.1 (3.8-10.6) k/uL RBC 5.59 (4.30-5.90) m/uL Hgb 12.9 L (13.0-17.5) gm/dL Hct 41.5 (39.0-53.0) % MCV 74.2 L (80.0-100.0) fL MCH 23.1 L (25.0-35.0) pg MCHC 31.2 (31.0-37.0) g/dL RDW 15.2 (11.5-15.5) % Plt Count 106 L (150-450) k/uL MPV 9.3 Neutrophils % 72 % Lymphocytes % 17 % Monocytes % 5 % Eosinophils % 5 % Basophils % 0 % Neutrophils # 3.7 (1.3-7.7) k/uL Lymphocytes # 0.9 L (1.0-4.8) k/uL Monocytes # 0.3 (0-1.0) k/uL Eosinophils # 0.2 (0-0.7) k/uL Basophils # 0.0 (0-0.2) k/uL Hypochromasia Slight Microcytosis Slight Sodium 141 (137-145) mmol/L Potassium 4.3 (3.5-5.1) mmol/L Chloride 106 (98-107) mmol/L Carbon Dioxide 25 (22-30) mmol/L Anion Gap 10 mmol/L BUN 34 H (9-20) mg/dL Creatinine 1.59 H (0.66-1.25) mg/dL Est GFR (CKD-EPI)AfAm 49 (>60 ml/min/1.73 sqM) Est GFR (CKD-EPI)NonAf 42 (>60 ml/min/1.73 sqM) Glucose 292 H (74-99) mg/dL Plasma Lactic Acid Royce 1.5 (0.7-2.0) mmol/L Calcium 9.2 (8.4-10.2) mg/dL Magnesium 1.8 (1.6-2.3) mg/dL Total Bilirubin 0.6 (0.2-1.3) mg/dL AST 25 (17-59) U/L ALT 47 (4-49) U/L Alkaline Phosphatase 176 H (38-126) U/L Troponin I (0.000-0.034) ng/mL Total Protein 6.5 (6.3-8.2) g/dL Albumin 3.6 (3.5-5.0) g/dL Acetone, Qual Negative (Negative) Influenza Type A (PCR) (Not Detectd) Influenza Type B (PCR) (Not Detectd) RSV (PCR) (Not Detectd) SARS-CoV-2 (PCR) (Not Detectd) 09/12/23 09/12/23 Range/Units 10:15 10:15 WBC (3.8-10.6) k/uL RBC (4.30-5.90) m/uL Hgb (13.0-17.5) gm/dL Hct (39.0-53.0) % MCV (80.0-100.0) fL MCH (25.0-35.0) pg MCHC (31.0-37.0) g/dL RDW (11.5-15.5) % Plt Count (150-450) k/uL MPV Neutrophils % % Lymphocytes % % Monocytes % % Eosinophils % % Basophils % % Neutrophils # (1.3-7.7) k/uL Lymphocytes # (1.0-4.8) k/uL Monocytes # (0-1.0) k/uL Eosinophils # (0-0.7) k/uL Basophils # (0-0.2) k/uL Hypochromasia Microcytosis Sodium (137-145) mmol/L Potassium (3.5-5.1) mmol/L Chloride (98-107) mmol/L Carbon Dioxide (22-30) mmol/L Anion Gap mmol/L BUN (9-20) mg/dL Creatinine (0.66-1.25) mg/dL Est GFR (CKD-EPI)AfAm (>60 ml/min/1.73 sqM) Est GFR (CKD-EPI)NonAf (>60 ml/min/1.73 sqM) Glucose (74-99) mg/dL Plasma Lactic Acid Royce (0.7-2.0) mmol/L Calcium (8.4-10.2) mg/dL Magnesium (1.6-2.3) mg/dL Total Bilirubin (0.2-1.3) mg/dL AST (17-59) U/L ALT (4-49) U/L Alkaline Phosphatase (38-126) U/L Troponin I <0.012 (0.000-0.034) ng/mL Total Protein (6.3-8.2) g/dL Albumin (3.5-5.0) g/dL Acetone, Qual (Negative) Influenza Type A (PCR) Not Detected (Not Detectd) Influenza Type B (PCR) Not Detected (Not Detectd) RSV (PCR) Not Detected (Not Detectd) SARS-CoV-2 (PCR) Not Detected (Not Detectd) - Radiology Data Radiology results: report reviewed, image reviewed Disposition Clinical Impression: Bronchitis, Diabetes mellitus Disposition: HOME SELF-CARE Instructions (If sedation given, give patient instructions): Acute Bronchitis (ED) Additional Instructions: Return to the emergency department with any new, worsening, or concerning symptoms. You can start taking the metformin twice daily for the diabetes. Be aware that this will likely give you diarrhea and if it makes you feel too ill, you can stop taking it. You can take the promethazine DM cough syrup every 4-6 hours as needed. You can also use [id number] lozenges or cough drops. You can use the albuterol inhaler every 4-6 hours as needed for shortness of breath. Follow up with your primary care provider in 1-2 days. Prescriptions: Albuterol Sulfate [Albuterol Sulfate Hfa] 1 puff PO Q4-6H PRN #8.5 gm PRN Reason: Shortness Of Breath metFORMIN HCL 500 mg PO BID #20 tablet Promethazine/Dextromethorphan [Promethazine-Dm Syrup] 5 ml PO Q4-6H PRN #473 ml PRN Reason: Cough Is patient prescribed a controlled substance at d/c from ED?: No Referrals: Cresencio Kim MD [Primary Care Provider] - 1-2 days
--- NOTE | 2023-09-12 10:14 | XR ---
EXAMINATION TYPE: XR chest 2V DATE OF EXAM: 09/12/2023 COMPARISON: 11/07/2020 HISTORY: 73-year-old male cough, difficulty in breathing TECHNIQUE: PA and lateral views FINDINGS: Heart normal size. Aorta and pulmonary vasculature within normal limits. Some strandy atelectasis at the left lower lung. No consolidation or pleural effusion seen. IMPRESSION: Some strandy atelectasis at the left lower lung. No definite acute process.
[2023-09-12 10:58] LABS: Basophils % (A) 0 %; Eosinophils # (A) 0.2 k/uL (0-0.7); Eosinophils % (A) 5 %; HCT 41.5 % (39.0-53.0); HGB 12.9 gm/dL (13.0-17.5); Hypochromasia Slight; Lymphocytes # (A) 0.9 k/uL (1.0-4.8); Lymphocytes % (A) 17 %; MCH 23.1 pg (25.0-35.0); MCHC 31.2 g/dL (31.0-37.0); MCV 74.2 fL (80.0-100.0); Mean Platelet Volume 9.3; Microcytosis Slight; Monocytes # (A) 0.3 k/uL (0-1.0); Monocytes % (A) 5 %; Neutrophils # (A) 3.7 k/uL (1.3-7.7); Neutrophils % (A) 72 %; Platelet Count 106 k/uL (150-450); RBC 5.59 m/uL (4.30-5.90); RDW 15.2 % (11.5-15.5); WBC 5.1 k/uL (3.8-10.6)
[2023-09-12 11:10] LABS: ALT 47 U/L (4-49); AST 25 U/L (17-59); African American GFR (CKD) 49 (>60 ml/min/1.73 sqM); Albumin 3.6 g/dL (3.5-5.0); Alkaline Phosphatase 176 U/L (38-126); Anion Gap 10 mmol/L; Blood Urea Nitrogen 34 mg/dL (9-20); Calcium 9.2 mg/dL (8.4-10.2); Carbon Dioxide 25 mmol/L (22-30); Chloride 106 mmol/L (98-107); Glucose 292 mg/dL (74-99); Magnesium 1.8 mg/dL (1.6-2.3); Non-African American GFR(CKD) 42 (>60 ml/min/1.73 sqM); Potassium 4.3 mmol/L (3.5-5.1); Sodium 141 mmol/L (137-145); Total Bilirubin 0.6 mg/dL (0.2-1.3); Total Protein 6.5 g/dL (6.3-8.2)
[2023-09-12] MEDS ORDERED: SODIUM CHLORIDE 0.9% 1,000 ML IV STA (11:14)
[2023-09-12] MEDS ORDERED: DEXAMETHASONE SOD PHOSPHATE 10 MG/ML 1 ML VIAL IVP STA (12:25)
[2023-09-12 13:34] VITALS: BP 124/73; PULSE 60; RESP 20; TEMP 97.9
== END 2023-09-12 13:05 | disposition home or self-care (01) ==
LOC: EC 09:20
DX: J40 Bronchitis, not specified as acute or chronic (principal); E11.9 Type 2 diabetes mellitus without complications; I11.0 Hypertensive heart disease with heart failure; I50.9 Heart failure, unspecified; E78.5 Hyperlipidemia, unspecified; F32.A Depression, unspecified; Z91.012 Allergy to eggs; Z79.4 Long term (current) use of insulin; Z79.899 Other long term (current) drug therapy; Z79.01 Long term (current) use of anticoagulants; Z20.822 Contact with and (suspected) exposure to COVID-19
CPT/HCPCS: 36415; 71046; 80053; 82009; 83605; 83735; 84484; 85025; 87636; 94640; 96360; 99284

== ENCOUNTER 2025-03-21 09:25 | Emergency (ER) | payer MEDICARE, OTHER ==
[2025-03-21 09:31] LABS: Glucose,Whole Blood 61 mg/dL (70-110)
[2025-03-21 09:36] VITALS: TEMP 98.2
--- NOTE | 2025-03-21 10:12 | ED ---
General Adult HPI - General Chief complaint: Recheck/Abnormal Lab/Rx Stated complaint: Low sugar Time Seen by Provider: 03/21/25 09:43 Source: EMS Mode of arrival: EMS Limitations: no limitations - History of Present Illness Initial comments: 74-year-old male with multiple comorbid conditions including heart failure, COPD, diabetes and hypertension presenting emergency room via EMS for concerns of a syncopal event. Patient is a poor story in regard to the event however believes that he may have passed out. Is reported from nursing note and EMS that patient took his morning insulin however did not eat breakfast. States that he was in the kitchen vaccinated that his son was calling EMS. Currently patient states that he has a mild headache and neck pain. He denies visual disturbances, chest pain, difficulty breathing, heart palpitations, nausea, or vomiting. - Related Data Home Medications Medication Instructions Recorded Confirmed carvediloL [Coreg] 6.25 mg PO BID 12/16/18 03/21/25 lisinopriL [Zestril] 10 mg PO DAILY 11/07/20 03/21/25 Ergocalciferol (Vitamin D2) 1,250 mcg PO Q30D 03/21/25 03/21/25 [Drisdol (GEQ) 1,250 MCG (50,000 IU)] Ferrous Sulfate [Feosol] 325 mg PO DAILY@0900 03/21/25 03/21/25 Furosemide [Lasix] 40 mg PO DAILY 03/21/25 03/21/25 Ketorolac 0.5% Ophth Soln [Acular 1 drop RIGHT EYE QID 03/21/25 03/21/25 0.5%] Liraglutide 1.8 mg SQ DAILY 03/21/25 03/21/25 Rivaroxaban [Xarelto] 20 mg PO HS 03/21/25 03/21/25 Tamsulosin [Flomax] 0.4 mg PO HS 03/21/25 03/21/25 prednisoLONE ACETATE 1% OPHTH 1 drop RIGHT EYE QID 03/21/25 03/21/25 [Pred Forte 1%] Allergies Allergy/AdvReac Type Severity Reaction Status Date / Time egg Allergy Rash/Hives Verified 03/21/25 09:36 Review of Systems ROS Statement: Those systems with pertinent positive or pertinent negative responses have been documented in the HPI. ROS Other: All systems not noted in ROS Statement are negative. Past Medical History Past Medical History: Asthma, Heart Failure, COPD, Diabetes Mellitus, Hyperlipidemia, Hypertension, Pneumonia Additional Past Medical History / Comment(s): heart murmur, diabetic neur opathy,"i think i had a small bleed behind rt eye". healed wound rt great toe History of Any Multi-Drug Resistant Organisms: MRSA Date of last positivie culture/infection: 11/26/18 MDRO Source:: toe Past Surgical History: Hernia Repair, Orthopedic Surgery, Tonsillectomy Additional Past Surgical History / Comment(s): rt foot Past Anesthesia/Blood Transfusion Reactions: No Reported Reaction Past Psychological History: Depression Smoking Status: Never smoker Past Alcohol Use History: None Reported Past Drug Use History: None Reported - Past Family History Father Family Medical History: No Reported History Additional Family Medical History / Comment(s): Father at age 65 and patient does not know his medical problems. Mother Family Medical History: Diabetes Mellitus, Rheumatoid Arthritis (RA) Additional Family Medical History / Comment(s): Mother at age 70 with history of rheumatoid arthritis. granmother also had ra Brother(s) Additional Family Medical History / Comment(s): Patient had 2 brothers and one during service and one from stillbirth. Patient does not have any sisters. Patient has 3 sons and 3 daughters with no major medical problems. General Exam Limitations: no limitations Eye exam: Present: normal appearance, PERRL, EOMI. Absent: scleral icterus, conjunctival injection, periorbital swelling Neck exam: Present: normal inspection. Absent: tenderness, meningismus, lymphadenopathy Respiratory exam: Present: normal lung sounds bilaterally. Absent: respiratory distress, wheezes, rales, rhonchi, stridor Cardiovascular Exam: Present: regular rate, normal rhythm, normal heart sounds. Absent: systolic murmur, diastolic murmur, rubs, gallop, clicks GI/Abdominal exam: Present: soft, normal bowel sounds. Absent: distended, tenderness, guarding, rebound, rigid Extremities exam: Present: normal inspection, full ROM, normal capillary refill. Absent: tenderness, pedal edema, joint swelling, calf tenderness Back exam: Present: normal inspection Skin exam: Present: warm, dry, intact, normal color. Absent: rash Course Vital Signs 03/21/25 09:27 Temperature 98.2 F Pulse Rate 59 L Respiratory 17 Rate Blood Pressure 138/89 O2 Sat by Pulse 100 Oximetry Medical Decision Making - Medical Decision Making Was pt. sent in by a medical professional or institution (SHANDRA Cordova, ASSISTANT [employer]OR OF [employer]ANT [employer]PERATIONS, urgent care, hospital, or [facility]...) When possible be specific @ -No Did you speak to anyone other than the patient for history (EMS, parent, family, police, friend...)? What history was obtained from this source @ -No Did you review nursing and triage notes (agree or disagree)? Why? @ -I reviewed and agree with nursing and triage notes Were old charts reviewed (outside hosp., previous admission, EMS record, old EKG, old radiological studies, urgent care reports/EKG's, [facility] records)? Report findings @ -No old charts were reviewed Differential Diagnosis (chest pain, altered mental status, abdominal pain women, abdominal pain men, vaginal bleeding, weakness, fever, dyspnea, syncope, headache, dizziness, GI bleed, back pain, seizure, CVA, palpatations, mental health, musculoskeletal)? @ -Differential Syncope: Valvular disease, hypertrophic cardiomyopathy, pulmonary embolism, tamponade, tachycardia, bradycardia, KS, hypovolemia, hemorrhage, dissection, anemia, intracranial hemorrhage, seizure, hypoglycemia, carbon monoxide poisoning, this is not meant to be an all-inclusive list. EKG interpreted by me (3pts min.). @ -Completed at 936 sinus bradycardia with a ventricular rate of 57, MD interval 185, QRS 82, QT 424, QTc 418. X-rays interpreted by me (1pt min.). @ -None done CT interpreted by me (1pt min.). @ -CT of the brain and C-spine without contrast no acute intracranial or cervical spine process with incidental finding of bulging disc mildly narrowing spinal canal at C3-C4 U/S interpreted by me (1pt. min.). @ -None done What testing was considered but not performed or refused? (CT, X-rays, U/S, labs)? Why? @ -None What meds were considered but not given or refused? Why? @ -None Did you discuss the management of the patient with other professionals (professionals i.e. SHANDRA Cordova, [employer], lab, RT, psych nurse, social work instructor, unisaw operator, teacher, marine safety officer, foster care case manager)? Give summary @ -No Was smoking cessation discussed for >3mins.? @ -No Was critical care preformed (if so, how long)? @ -No Were there social determinants of health that impacted care today? How? (Homelessness, low income, unemployed, alcoholism, drug addiction, transportation, low edu. Level, literacy, decrease access to med. care, residential, rehab)? @ -No Was there de-escalation of care discussed even if they declined (Discuss DNR or withdrawal of care, Hospice)? DNR status @ -No What co-morbidities impacted this encounter? (DM, HTN, Smoking, COPD, CAD, Can cer, CVA, ARF, Chemo, Hep., AIDS, mental health diagnosis, sleep apnea, morbid obesity)? @ -None Was patient admitted / discharged? Hospital course, mention meds given and route, prescriptions, significant lab abnormalities, going to OR and other pertinent info. @ -Discharged. 74-year male presents emergency department via EMS with c-collar in place for concerns of a likely syncopal event with hypoglycemia. Patient's initial blood sugar is 61 and he is provided with a snack of sarah crackers, peanut butter, juice. Initial blood pressure is stable and overall patient is well-appearing in no signs distress. Patient alert and oriented x 4. Patient will undergo syncopal workup. EKG is in sinus rhythm. Laboratory testing reveals elevated potassium 5.9 with a hemolyzed specimen. Repeat BMP reveals a potassium of 5.5 that has slight hemolysis, patient has chronic hyperkalemia. Troponin unremarkable. Patient has chronic kidney disease labs appearing at baseline for his creatinine and GFR. Repeat blood sugars at 127. Patient is stable for discharge at this time. case discussed with Dr. Emerson Undiagnosed new problem with uncertain prognosis? @ -No Drug Therapy requiring intensive monitoring for toxicity (Heparin, Nitro, Insulin, Cardizem)? @ -No Were any procedures done? @ -No Diagnosis/symptom? @ -syncope, history of hypoglycemia Acute, or Chronic, or Acute on Chronic? @ -acute Uncomplicated (without systemic symptoms) or Complicated (systemic symptoms)? @ -uncomplicated Side effects of treatment? @ -No Exacerbation, Progression, or Severe Exacerbation? @ -No Poses a threat to life or bodily function? How? (Chest pain, USA, KS, pneumonia, PE, COPD, DKA, ARF, appy, cholecystitis, CVA, Diverticulitis, Homicidal, Suicidal, threat to staff... and all critical care pts) @ -No - Lab Data Result diagrams: 03/21/25 12:26 03/21/25 14:11 Lab Results 03/21/25 03/21/25 03/21/25 Range/Units 09:29 12:26 12:26 WBC (4.50-10.00) 10*3/uL RBC (4.40-5.60) 10*6/uL Hgb (13.0-17.0) g/dL Hct (39.6-50.0) % MCV (80.0-97.0) fL MCH (27.0-32.0) pg MCHC (32.0-37.0) g/dL Plt Count (140-440) 10*3/uL MPV (9.5-12.2) fL Immature Gran % (Auto) % Neutrophils % % Lymphocytes % % Monocytes % % Eosinophils % % Basophils % % Immature Gran # (0.00-0.04) 10*3/uL Neutrophils # (1.80-7.70) 10*3/uL Lymphocytes # (0.90-5.00) 10*3/uL Monocytes # (0.20-1.00) 10*3/uL Eosinophils # (0.04-0.35) 10*3/uL Basophils # (0.00-0.10) 10*3/uL Immature Plt Fraction (1.1-6.1) % PT (10.0-12.5) sec INR (<1.2) APTT (22.0-30.0) sec Sodium 141 (137-145) mmol/L Potassium 5.9 H (3.5-5.1) mmol/L Chloride 103 (98-107) mmol/L Carbon Dioxide 26 (22-30) mmol/L Anion Gap 12 mmol/L BUN 24 H (9-20) mg/dL Creatinine 1.42 H (0.66-1.25) mg/dL Est GFR (CKD-EPI)AfAm 56 (>60 ml/min/1.73 sqM) Est GFR (CKD-EPI)NonAf 48 (>60 ml/min/1.73 sqM) Glucose 90 (74-99) mg/dL POC Glucose (mg/dL) 61 L (70-110) mg/dL POC Glu Tobacco Sample Puller ID February Calcium 10.0 (8.4-10.2) mg/dL Magnesium 2.2 (1.6-2.3) mg/dL Total Bilirubin 0.8 (0.2-1.3) mg/dL AST 44 (17-59) U/L ALT 50 H (4-49) U/L Alkaline Phosphatase 233 H (38-126) U/L Troponin I <0.012 (0.000-0.034) ng/mL Total Protein 7.7 (6.3-8.2) g/dL Albumin 4.1 (3.5-5.0) g/dL 03/21/25 03/21/25 03/21/25 Range/Units 12:26 12:26 13:00 WBC 6.29 (4.50-10.00) 10*3/uL RBC 6.37 H (4.40-5.60) 10*6/uL Hgb 14.6 (13.0-17.0) g/dL Hct 47.1 (39.6-50.0) % MCV 73.9 L (80.0-97.0) fL MCH 22.9 L (27.0-32.0) pg MCHC 31.0 L (32.0-37.0) g/dL Plt Count 170 (140-440) 10*3/uL MPV 10.9 (9.5-12.2) fL Immature Gran % (Auto) 0.3 % Neutrophils % 83.0 % Lymphocytes % 11.6 % Monocytes % 4.0 % Eosinophils % 0.8 % Basophils % 0.3 % Immature Gran # 0.02 (0.00-0.04) 10*3/uL Neutrophils # 5.22 (1.80-7.70) 10*3/uL Lymphocytes # 0.73 L (0.90-5.00) 10*3/uL Monocytes # 0.25 (0.20-1.00) 10*3/uL Eosinophils # 0.05 (0.04-0.35) 10*3/uL Basophils # 0.02 (0.00-0.10) 10*3/uL Immature Plt Fraction 4.0 (1.1-6.1) % PT 17.7 H (10.0-12.5) sec INR 1.7 H (<1.2) APTT 35.5 H (22.0-30.0) sec Sodium (137-145) mmol/L Potassium (3.5-5.1) mmol/L Chloride (98-107) mmol/L Carbon Dioxide (22-30) mmol/L Anion Gap mmol/L BUN (9-20) mg/dL Creatinine (0.66-1.25) mg/dL Est GFR (CKD-EPI)AfAm (>60 ml/min/1.73 sqM) Est GFR (CKD-EPI)NonAf (>60 ml/min/1.73 sqM) Glucose (74-99) mg/dL POC Glucose (mg/dL) 127 H (70-110) mg/dL POC Glu Tobacco Sample Puller ID Macias Ivette Calcium (8.4-10.2) mg/dL Magnesium (1.6-2.3) mg/dL Total Bilirubin (0.2-1.3) mg/dL AST (17-59) U/L ALT (4-49) U/L Alkaline Phosphatase (38-126) U/L Troponin I (0.000-0.034) ng/mL Total Protein (6.3-8.2) g/dL Albumin (3.5-5.0) g/dL 03/21/25 Range/Units 14:11 WBC (4.50-10.00) 10*3/uL RBC (4.40-5.60) 10*6/uL Hgb (13.0-17.0) g/dL Hct (39.6-50.0) % MCV (80.0-97.0) fL MCH (27.0-32.0) pg MCHC (32.0-37.0) g/dL Plt Count (140-440) 10*3/uL MPV (9.5-12.2) fL Immature Gran % (Auto) % Neutrophils % % Lymphocytes % % Monocytes % % Eosinophils % % Basophils % % Immature Gran # (0.00-0.04) 10*3/uL Neutrophils # (1.80-7.70) 10*3/uL Lymphocytes # (0.90-5.00) 10*3/uL Monocytes # (0.20-1.00) 10*3/uL Eosinophils # (0.04-0.35) 10*3/uL Basophils # (0.00-0.10) 10*3/uL Immature Plt Fraction (1.1-6.1) % PT (10.0-12.5) sec INR (<1.2) APTT (22.0-30.0) sec Sodium 139 (137-145) mmol/L Potassium 5.5 H (3.5-5.1) mmol/L Chloride 106 (98-107) mmol/L Carbon Dioxide 27 (22-30) mmol/L Anion Gap 6 mmol/L BUN 23 H (9-20) mg/dL Creatinine 1.39 H (0.66-1.25) mg/dL Est GFR (CKD-EPI)AfAm 57 (>60 ml/min/1.73 sqM) Est GFR (CKD-EPI)NonAf 49 (>60 ml/min/1.73 sqM) Glucose 173 H (74-99) mg/dL POC Glucose (mg/dL) (70-110) mg/dL POC Glu Tobacco Sample Puller ID Calcium 9.4 (8.4-10.2) mg/dL Magnesium (1.6-2.3) mg/dL Total Bilirubin (0.2-1.3) mg/dL AST (17-59) U/L ALT (4-49) U/L Alkaline Phosphatase (38-126) U/L Troponin I (0.000-0.034) ng/mL Total Protein (6.3-8.2) g/dL Albumin (3.5-5.0) g/dL Disposition Clinical Impression: Hypoglycemia, Syncope Disposition: HOME SELF-CARE Condition: Stable Instructions (If sedation given, give patient instructions): Syncope (ED) Additional Instructions: Please return to the Emergency Department if symptoms worsen or any other concerns. Is patient prescribed a controlled substance at d/c from ED?: No Referrals: Cresencio Kim MD [Primary Care Provider] - 1-2 days Time of Disposition: 14:14
--- NOTE | 2025-03-21 10:42 | CT ---
EXAMINATION TYPE: CT brain cspine wo con DATE OF EXAM: 03/21/2025 10:22 AM COMPARISON: 11/03/2020 CLINICAL INDICATION: Male, 74 years old with history of fall, syncope, Fall, Syncope, pain Technique: Examination of the head was done in axial plane without intravenous contrast. Coronal and sagittal reconstructions performed. CT of the cervical spine was obtained in axial plane without intravenous injection of contrast mater ial. Coronal and sagittal reformatted images were obtained from the axial views for evaluation of f ractures, spinal alignment and canal. CT DLP: 1676 mGycm, Automated exposure control for dose reduction was used. 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 There is no e vidence of acute intracranial hemorrhage, acute ischemic changes, mass, mass-effect, or extra-axial fluid collection. There is no effacement of cerebral sulci or basal subarachnoid cisterns. There is no hydrocephalus. There is no midline shift. Short-white matter distinction is preserved. Moderate to severe mucosal thickening right maxillary sinus with layering fluid. Orbits and globes ap pear intact. Mastoid air cells well pneumatized. Scattered dental caries noted. Cervical spine: No craniocervical junction abnormality, predental space widening, or prevertebral soft tissue swellin g. Degenerative change at the C1 dens articulation. There is bridging anterior endplate spondylosis C5-C6. Scattered mild to moderate uncovertebral joint and facet arthropathy. Posterior disc bulge C3-C4 mildly narrows the spinal canal. No acute fractures seen. Alignment is maintained. At C3-C4, hyperostotic changes contribute to moderate to severe left and moderate right neuroforamina l stenosis. At C4-C5, hyperostotic changes result in severe left and mild to moderate right neural foraminal sten osis. At C5-C6, hyperostotic changes result in moderate right and mild left neuroforaminal stenosis. Sagittal and coronal reformatted images confirm above findings. COMBINED IMPRESSION: 1. Correlate for acute on chronic right maxillary sinusitis. 2. 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 No acute intracranial abnormality seen. 3. No acute fracture or malalignment of the cervical spine. Spondylotic change as above contribute to variable neuroforaminal stenoses. Bulging disc mildly narrowing the spinal canal at C3-C4. [facility], , 03/21/2025 10:39 AM
[2025-03-21 13:03] LABS: Glucose,Whole Blood 127 mg/dL (70-110)
[2025-03-21 13:08] LABS: Basophils # (A) 0.02 10*3/uL (0.00-0.10); Basophils % (A) 0.3 %; Eosinophils # (A) 0.05 10*3/uL (0.04-0.35); Eosinophils % (A) 0.8 %; HCT 47.1 % (39.6-50.0); HGB 14.6 g/dL (13.0-17.0); Lymphocytes # (A) 0.73 10*3/uL (0.90-5.00); Lymphocytes % (A) 11.6 %; MCH 22.9 pg (27.0-32.0); MCV 73.9 fL (80.0-97.0); Mean Platelet Volume 10.9 fL (9.5-12.2); Monocytes # (A) 0.25 10*3/uL (0.20-1.00); Neutrophils # (A) 5.22 10*3/uL (1.80-7.70); Platelet Count 170 10*3/uL (140-440); RBC 6.37 10*6/uL (4.40-5.60); RDW 18.6 % (11.5-14.5); WBC 6.29 10*3/uL (4.50-10.00)
[2025-03-21 13:16] LABS: INR 1.7 (<1.2); Partial Thromboplastin Time 35.5 sec (22.0-30.0); Prothrombin Time 17.7 sec (10.0-12.5)
[2025-03-21 13:21] LABS: ALT 50 U/L (4-49); African American GFR (CKD) 56 (>60 ml/min/1.73 sqM); Albumin 4.1 g/dL (3.5-5.0); Anion Gap 12 mmol/L; Blood Urea Nitrogen 24 mg/dL (9-20); Carbon Dioxide 26 mmol/L (22-30); Chloride 103 mmol/L (98-107); Glucose 90 mg/dL (74-99); Non-African American GFR(CKD) 48 (>60 ml/min/1.73 sqM); Sodium 141 mmol/L (137-145); Total Bilirubin 0.8 mg/dL (0.2-1.3); Total Protein 7.7 g/dL (6.3-8.2)
[2025-03-21 13:25] LABS: AST 44 U/L (17-59); Alkaline Phosphatase 233 U/L (38-126); Potassium 5.9 mmol/L (3.5-5.1)
[2025-03-21 13:26] LABS: Magnesium 2.2 mg/dL (1.6-2.3)
[2025-03-21 15:20] LABS: African American GFR (CKD) 57 (>60 ml/min/1.73 sqM); Anion Gap 6 mmol/L; Blood Urea Nitrogen 23 mg/dL (9-20); Calcium 9.4 mg/dL (8.4-10.2); Carbon Dioxide 27 mmol/L (22-30); Chloride 106 mmol/L (98-107); Glucose 173 mg/dL (74-99); Non-African American GFR(CKD) 49 (>60 ml/min/1.73 sqM); Sodium 139 mmol/L (137-145)
[2025-03-21 15:28] LABS: Potassium 5.5 mmol/L (3.5-5.1)
[2025-03-21 18:57] VITALS: BP 132/74; PULSE 60; RESP 18
== END 2025-03-21 15:17 | disposition home or self-care (01) ==
LOC: EC 09:25
DX: E11.649 Type 2 diabetes mellitus with hypoglycemia without coma (principal); E11.40 Type 2 diabetes mellitus with diabetic neuropathy, unspecified; I11.0 Hypertensive heart disease with heart failure; I50.9 Heart failure, unspecified; Z91.012 Allergy to eggs
CPT/HCPCS: 36415; 70450; 72125; 80048; 80053; 83735; 84484; 85025; 85610; 85730; 93005; 99285

== ENCOUNTER 2025-04-12 10:52 | Observation (INO) | payer MEDICARE, OTHER ==
--- NOTE | 2025-04-12 10:59 | ED ---
General Adult HPI - General Stated complaint: abn labs Time Seen by Provider: 04/12/25 10:55 Source: patient, EMS, RN notes reviewed Mode of arrival: EMS Limitations: no limitations - History of Present Illness Initial comments: Patient is a 74-year-old male present to the emergency department with concerns for hypoglycemia. History is taken by EMS. Patient is altered and does not provide significant history. Unclear patient took his medication or ate last. EMS found blood sugar of 42. Repeat blood sugar in the emergency department 44. - Related Data Home Medications Medication Instructions Recorded Confirmed carvediloL [Coreg] 6.25 mg PO BID 12/16/18 04/12/25 lisinopriL [Zestril] 10 mg PO DAILY 11/07/20 04/12/25 Ergocalciferol (Vitamin D2) 1,250 mcg PO Q30D 03/21/25 04/12/25 [Drisdol (GEQ) 1,250 MCG (50,000 IU)] Ferrous Sulfate [Feosol] 325 mg PO DAILY 03/21/25 04/12/25 Furosemide [Lasix] 40 mg PO DAILY 03/21/25 04/12/25 Ketorolac 0.5% Ophth Soln [Acular 1 drop LEFT EYE QID 03/21/25 04/12/25 0.5%] Liraglutide 1.8 mg SQ DAILY 03/21/25 04/12/25 Rivaroxaban [Xarelto] 20 mg PO DAILY 03/21/25 04/12/25 Tamsulosin [Flomax] 0.4 mg PO HS 03/21/25 04/12/25 prednisoLONE ACETATE 1% OPHTH 1 drop LEFT EYE QID 03/21/25 04/12/25 [Pred Forte 1%] Insulin Degludec [Tresiba] 80 units SQ DAILY 04/12/25 04/12/25 Pantoprazole [Protonix] 40 mg PO DAILY 04/12/25 04/12/25 Allergies Allergy/AdvReac Type Severity Reaction Status Date / Time egg Allergy Rash/Hives Verified 04/12/25 13:30 Review of Systems ROS Statement: Those systems with pertinent positive or pertinent negative responses have been documented in the HPI. ROS Other: All systems not noted in ROS Statement are negative. Limitations: ROS unobtainable due to patients medical condition Past Medical History Past Medical History: Asthma, Heart Failure, COPD, Diabetes Mellitus, Hyperlipidemia, Hypertension, Pneumonia Additional Past Medical History / Comment(s): heart murmur, diabetic neuropathy,"i think i had a small bleed behind rt eye". healed wound rt great toe History of Any Multi-Drug Resistant Organisms: MRSA Date of last positivie culture/infection: 11/26/18 MDRO Source:: toe Past Surgical History: Hernia Repair, Orthopedic Surgery, Tonsillectomy Additional Past Surgical History / Comment(s): rt foot Past Anesthesia/Blood Transfusion Reactions: No Reported Reaction Past Psychological History: Depression Smoking Status: Never smoker Past Alcohol Use History: None Reported Past Drug Use History: None Reported - Past Family History Father Family Medical History: No Reported History Additional Family Medical History / Comment(s): Father at age 65 and patient does not know his medical problems. Mother Family Medical History: Diabetes Mellitus, Rheumatoid Arthritis (RA) Additional Family Medical History / Comment(s): Mother at age 70 with history of rheumatoid arthritis. granmother also had ra Brother(s) Additional Family Medical History / Comment(s): Patient had 2 brothers and one during service and one from stillbirth. Patient does not have any sisters. Patient has 3 sons and 3 daughters with no major medical problems. General Exam Limitations: altered mental status General appearance: alert, in no apparent distress Head exam: Present: atraumatic Eye exam: Present: normal appearance, PERRL, EOMI ENT exam: Present: normal oropharynx Neck exam: Present: normal inspection Respiratory exam: Present: normal lung sounds bilaterally Cardiovascular Exam: Present: regular rate, normal rhythm GI/Abdominal exam: Present: soft. Absent: tenderness Extremities exam: Present: pedal edema. Absent: calf tenderness Neurological exam: Present: alert, altered, CN II-XII intact (as able to be tested), other (Limited verbal. Difficulty following commands, slow to respond. No focal weakness). Absent: motor sensory deficit Psychiatric exam: Present: flat affect Skin exam: Present: normal color Course Vital Signs 04/12/25 04/12/25 04/12/25 10:53 11:06 11:25 Temperature 92.1 F L Pulse Rate 61 63 63 Respiratory 18 18 18 Rate Blood Pressure 189/112 O2 Sat by Pulse 95 96 95 Oximetry 04/12/25 04/12/25 04/12/25 11:35 12:08 12:35 Temperature 92.7 F L 93.2 F L 93.6 F L Pulse Rate 61 62 66 Respiratory 20 20 16 Rate Blood Pressure 124/85 164/99 171/82 O2 Sat by Pulse 99 100 98 Oximetry 04/12/25 04/12/25 04/12/25 13:00 13:35 13:37 Temperature 94.8 F L 95 F L Pulse Rate 67 71 68 Respiratory 13 20 16 Rate Blood Pressure 152/84 142/79 O2 Sat by Pulse 99 99 98 Oximetry EKG Findings - EKG Results: EKG: interpreted by ERMD (Septal Q waves. Q wave in lead III.), normal axis, normal ST/T EKG shows: atrial fibrillation Medical Decision Making - Medical Decision Making Was pt. sent in by a medical professional or institution (, [facility], [employer], urgent care, hospital, or skilled nursing...) When possible be specific @ -No Did you speak to anyone other than the patient for history (EMS, parent, family, police, friend...)? What history was obtained from this source @ -EMS provides history as patient is confused Did you review nursing and triage notes (agree or disagree)? Why? @ -I reviewed and agree with nursing and triage notes Were old charts reviewed (outside hosp., previous admission, EMS record, old EKG, old radiological studies, urgent care reports/EKG's, skilled nursing records)? Report findings @ -No old charts were reviewed Differential Diagnosis (chest pain, altered mental status, abdominal pain women, abdominal pain men, vaginal bleeding, weakness, fever, dyspnea, syncope, headache, dizziness, GI bleed, back pain, seizure, CVA, palpatations, mental health, musculoskeletal)? @ -Differential Altered Mental Status: Hypoglycemia, DKA, hypercapnia, ETOH, overdose, CO poisoning, trauma, myxedema coma, HTN encephalopathy, infection, encephalitis, psychosis, intercranial hemorrhage, hepatic encephalopathy, meningitis, CVA, this is not meant to be an all-inclusive list EKG interpreted by me (3pts min.). @ -As above X-rays interpreted by me (1pt min.). @ -Chest x-ray shows no acute process CT interpreted by me (1pt min.). @ -None done U/S interpreted by me (1pt. min.). @ -None done What testing was considered but not performed or refused? (CT, X-rays, U/S, labs)? Why? @ -None What meds were considered but not given or refused? Why? @ -None Did you discuss the management of the patient with other professionals (professionals i.e. , PA, [employer], lab, RT, psych nurse, social sciences professor, truck striker, teacher, branch officer, pillowcase cleaner)? Give summary @ -Case discussed with Dr. Kim who will admit his patient Was smoking cessation discussed for >3mins.? @ -No Was critical care preformed (if so, how long)? @ -No Were there social determinants of health that impacted care today? How? (Homelessness, low income, unemployed, alcoholism, drug addiction, transportation, low edu. Level, literacy, decrease access to med. care, assisted, rehab)? @ -No Was there de-escalation of care discussed even if they declined (Discuss DNR or withdrawal of care, Hospice)? DNR status @ -No What co-morbidities impacted this encounter? (DM, HTN, Smoking, COPD, CAD, Cancer, CVA, ARF, Chemo, Hep., AIDS, mental health diagnosis, sleep apnea, morbid obesity)? @ -History of insulin-dependent diabetes Was patient admitted / discharged? Hospital course, mention meds given and route, prescriptions, significant lab abnormalities, going to OR and other p ertinent info. @ -Patient presents with hypoglycemia and confusion. On reevaluation patient significantly improved and appropriate. Patient admits to taking his medication this morning however not eating. Patient however has been hypothermic. On reevaluation temperature 94.9 rectally still on the Casey hugger. Secondary to this patient will be held for observation. Patient updated. Admission orders written. Undiagnosed new problem with uncertain prognosis? @ -No Drug Therapy requiring intensive monitoring for toxicity (Heparin, Nitro, Insulin, Cardizem)? @ -No Were any procedures done? @ -No Diagnosis/symptom? @ -Hypoglycemia, hypothermia Acute, or Chronic, or Acute on Chronic? @ -Acute, acute Uncomplicated (without systemic symptoms) or Complicated (systemic symptoms)? @ -Complicated with hypothermia, systemic Side effects of treatment? @ -No Exacerbation, Progression, or Severe Exacerbation? @ -No Poses a threat to life or bodily function? How? (Chest pain, [place], [place], pneumonia, PE, COPD, DKA, ARF, appy, cholecystitis, CVA, Diverticulitis, Homicidal, Suicidal, threat to staff... and all critical care pts) @ -No - Lab Data Result diagrams: 04/12/25 11:32 04/12/25 11:32 Lab Results 04/12/25 04/12/25 04/12/25 Range/Units 11:04 11:06 11:31 WBC (4.50-10.00) 10*3/uL RBC (4.40-5.60) 10*6/uL Hgb (13.0-17.0) g/dL Hct (39.6-50.0) % MCV (80.0-97.0) fL MCH (27.0-32.0) pg MCHC (32.0-37.0) g/dL Plt Count (140-440) 10*3/uL MPV (9.5-12.2) fL Immature Gran % (Auto) % Neutrophils % % Lymphocytes % % Monocytes % % Eosinophils % % Basophils % % Immature Gran # (0.00-0.04) 10*3/uL Neutrophils # (1.80-7.70) 10*3/uL Lymphocytes # (0.90-5.00) 10*3/uL Monocytes # (0.20-1.00) 10*3/uL Eosinophils # (0.04-0.35) 10*3/uL Basophils # (0.00-0.10) 10*3/uL PT (10.0-12.5) sec INR (<1.2) APTT (22.0-30.0) sec Sodium (137-145) mmol/L Potassium (3.5-5.1) mmol/L Chloride (98-107) mmol/L Carbon Dioxide (22-30) mmol/L Anion Gap mmol/L BUN (9-20) mg/dL Creatinine (0.66-1.25) mg/dL Est GFR (CKD-EPI)AfAm (>60 ml/min/1.73 sqM) Est GFR (CKD-EPI)NonAf (>60 ml/min/1.73 sqM) Glucose (74-99) mg/dL POC Glucose (mg/dL) 27 L* 28 L* 102 (70-110) mg/dL POC Glu Supervisor Finishing JORDAN Rodas Calcium (8.4-10.2) mg/dL Total Bilirubin (0.2-1.3) mg/dL AST (17-59) U/L ALT (4-49) U/L Alkaline Phosphatase (38-126) U/L Troponin I (0.000-0.034) ng/mL Total Protein (6.3-8.2) g/dL Albumin (3.5-5.0) g/dL Urine Color Urine Appearance (Clear) Urine pH (5.0-8.0) Ur Specific [place] (1.001-1.035) Urine Protein (Negative) Urine Glucose (UA) (Negative) Urine Ketones (Negative) Urine Blood (Negative) Urine Nitrite (Negative) Urine Bilirubin (Negative) Urine Urobilinogen (<2.0) mg/dL Ur Leukocyte Esterase (Negative) Urine RBC (0-5) /hpf Urine WBC (0-5) /hpf Urine Mucus (None) /hpf 04/12/25 04/12/25 04/12/25 Range/Units 11:32 11:32 11:32 WBC 4.42 L (4.50-10.00) 10*3/uL RBC 6.28 H (4.40-5.60) 10*6/uL Hgb 14.5 (13.0-17.0) g/dL Hct 45.9 (39.6-50.0) % MCV 73.1 L (80.0-97.0) fL MCH 23.1 L (27.0-32.0) pg MCHC 31.6 L (32.0-37.0) g/dL Plt Count 162 (140-440) 10*3/uL MPV 10.5 (9.5-12.2) fL Immature Gran % (Auto) 0.2 % Neutrophils % 79.6 % Lymphocytes % 15.2 % Monocytes % 4.1 % Eosinophils % 0.7 % Basophils % 0.2 % Immature Gran # 0.01 (0.00-0.04) 10*3/uL Neutrophils # 3.52 (1.80-7.70) 10*3/uL Lymphocytes # 0.67 L (0.90-5.00) 10*3/uL Monocytes # 0.18 L (0.20-1.00) 10*3/uL Eosinophils # 0.03 L (0.04-0.35) 10*3/uL Basophils # 0.01 (0.00-0.10) 10*3/uL PT 16.0 H (10.0-12.5) sec INR 1.5 H (<1.2) APTT 34.5 H (22.0-30.0) sec Sodium 146 H (137-145) mmol/L Potassium 4.1 (3.5-5.1) mmol/L Chloride 109 H (98-107) mmol/L Carbon Dioxide 26 (22-30) mmol/L Anion Gap 11 mmol/L BUN 26 H (9-20) mg/dL Creatinine 1.25 (0.66-1.25) mg/dL Est GFR (CKD-EPI)AfAm 65 (>60 ml/min/1.73 sqM) Est GFR (CKD-EPI)NonAf 56 (>60 ml/min/1.73 sqM) Glucose 46 L* (74-99) mg/dL POC Glucose (mg/dL) (70-110) mg/dL POC Glu Supervisor Finishing ID Calcium 9.8 (8.4-10.2) mg/dL Total Bilirubin 0.9 (0.2-1.3) mg/dL AST 54 (17-59) U/L ALT 83 H (4-49) U/L Alkaline Phosphatase 221 H (38-126) U/L Troponin I (0.000-0.034) ng/mL Total Protein 7.8 (6.3-8.2) g/dL Albumin 4.3 (3.5-5.0) g/dL Urine Color Urine Appearance (Clear) Urine pH (5.0-8.0) Ur Specific [place] (1.001-1.035) Urine Protein (Negative) Urine Glucose (UA) (Negative) Urine Ketones (Negative) Urine Blood (Negative) Urine Nitrite (Negative) Urine Bilirubin (Negative) Urine Urobilinogen (<2.0) mg/dL Ur Leukocyte Esterase (Negative) Urine RBC (0-5) /hpf Urine WBC (0-5) /hpf Urine Mucus (None) /hpf 06/05/3004/12/25 04/12/25 Range/Units 11:32 11:32 12:03 WBC (4.50-10.00) 10*3/uL RBC (4.40-5.60) 10*6/uL Hgb (13.0-17.0) g/dL Hct (39.6-50.0) % MCV (80.0-97.0) fL MCH (27.0-32.0) pg MCHC (32.0-37.0) g/dL Plt Count (140-440) 10*3/uL MPV (9.5-12.2) fL Immature Gran % (Auto) % Neutrophils % % Lymphocytes % % Monocytes % % Eosinophils % % Basophils % % Immature Gran # (0.00-0.04) 10*3/uL Neutrophils # (1.80-7.70) 10*3/uL Lymphocytes # (0.90-5.00) 10*3/uL Monocytes # (0.20-1.00) 10*3/uL Eosinophils # (0.04-0.35) 10*3/uL Basophils # (0.00-0.10) 10*3/uL PT (10.0-12.5) sec INR (<1.2) APTT (22.0-30.0) sec Sodium (137-145) mmol/L Potassium (3.5-5.1) mmol/L Chloride (98-107) mmol/L Carbon Dioxide (22-30) mmol/L Anion Gap mmol/L BUN (9-20) mg/dL Creatinine (0.66-1.25) mg/dL Est GFR (CKD-EPI)AfAm (>60 ml/min/1.73 sqM) Est GFR (CKD-EPI)NonAf (>60 ml/min/1.73 sqM) Glucose (74-99) mg/dL POC Glucose (mg/dL) 112 H (70-110) mg/dL POC Glu Supervisor Finishing ID Daniela Kuhn Calcium (8.4-10.2) mg/dL Total Bilirubin (0.2-1.3) mg/dL AST (17-59) U/L ALT (4-49) U/L Alkaline Phosphatase (38-126) U/L Troponin I <0.012 (0.000-0.034) ng/mL Total Protein (6.3-8.2) g/dL Albumin (3.5-5.0) g/dL Urine Color Colorless Urine Appearance Clear (Clear) Urine pH 6.5 (5.0-8.0) Ur Specific [place] 1.017 (1.001-1.035) Urine Protein 1+ H (Negative) Urine Glucose (UA) Negative (Negative) Urine Ketones Negative (Negative) Urine Blood Trace H (Negative) Urine Nitrite Negative (Negative) Urine Bilirubin Negative (Negative) Urine Urobilinogen <2.0 (<2.0) mg/dL Ur Leukocyte Esterase Negative (Negative) Urine RBC 4 (0-5) /hpf Urine WBC 1 (0-5) /hpf Urine Mucus Rare H (None) /hpf 04/12/25 Range/Units 13:02 WBC (4.50-10.00) 10*3/uL RBC (4.40-5.60) 10*6/uL Hgb (13.0-17.0) g/dL Hct (39.6-50.0) % MCV (80.0-97.0) fL MCH (27.0-32.0) pg MCHC (32.0-37.0) g/dL Plt Count (140-440) 10*3/uL MPV (9.5-12.2) fL Immature Gran % (Auto) % Neutrophils % % Lymphocytes % % Monocytes % % Eosinophils % % Basophils % % Immature Gran # (0.00-0.04) 10*3/uL Neutrophils # (1.80-7.70) 10*3/uL Lymphocytes # (0.90-5.00) 10*3/uL Monocytes # (0.20-1.00) 10*3/uL Eosinophils # (0.04-0.35) 10*3/uL Basophils # (0.00-0.10) 10*3/uL PT (10.0-12.5) sec INR (<1.2) APTT (22.0-30.0) sec Sodium (137-145) mmol/L Potassium (3.5-5.1) mmol/L Chloride (98-107) mmol/L Carbon Dioxide (22-30) mmol/L Anion Gap mmol/L BUN (9-20) mg/dL Creatinine (0.66-1.25) mg/dL Est GFR (CKD-EPI)AfAm (>60 ml/min/1.73 sqM) Est GFR (CKD-EPI)NonAf (>60 ml/min/1.73 sqM) Glucose (74-99) mg/dL POC Glucose (mg/dL) 129 H (70-110) mg/dL POC Glu Supervisor Finishing ID [place] Calcium (8.4-10.2) mg/dL Total Bilirubin (0.2-1.3) mg/dL AST (17-59) U/L ALT (4-49) U/L Alkaline Phosphatase (38-126) U/L Troponin I (0.000-0.034) ng/mL Total Protein (6.3-8.2) g/dL Albumin (3.5-5.0) g/dL Urine Color Urine Appearance (Clear) Urine pH (5.0-8.0) Ur Specific [place] (1.001-1.035) Urine Protein (Negative) Urine Glucose (UA) (Negative) Urine Ketones (Negative) Urine Blood (Negative) Urine Nitrite (Negative) Urine Bilirubin (Negative) Urine Urobilinogen (<2.0) mg/dL Ur Leukocyte Esterase (Negative) Urine RBC (0-5) /hpf Urine WBC (0-5) /hpf Urine Mucus (None) /hpf Disposition Clinical Impression: Hypothermia, Hypoglycemia Disposition: ADMITTED IP TO THIS HOSP Is patient prescribed a controlled substance at d/c from ED?: No Referrals: Cresencio Kim MD [Primary Care Provider] - 1-2 days Time of Disposition: 13:53
[2025-04-12 11:06] LABS: Glucose,Whole Blood 27 mg/dL (70-110)
[2025-04-12 11:07] LABS: Glucose,Whole Blood 28 mg/dL (70-110)
[2025-04-12] MEDS: DEXTROSE 50% SYRINGE 50 ML IVP STA (11:13)
[2025-04-12 11:32] LABS: Glucose,Whole Blood 102 mg/dL (70-110)
[2025-04-12] MEDS: SODIUM CHLORIDE 0.9% 1,000 ML IV ONE (11:37)
[2025-04-12 11:41] LABS: Basophils # (A) 0.01 10*3/uL (0.00-0.10); Basophils % (A) 0.2 %; Eosinophils # (A) 0.03 10*3/uL (0.04-0.35); Eosinophils % (A) 0.7 %; HCT 45.9 % (39.6-50.0); HGB 14.5 g/dL (13.0-17.0); Lymphocytes # (A) 0.67 10*3/uL (0.90-5.00); Lymphocytes % (A) 15.2 %; MCH 23.1 pg (27.0-32.0); MCHC 31.6 g/dL (32.0-37.0); MCV 73.1 fL (80.0-97.0); Mean Platelet Volume 10.5 fL (9.5-12.2); Monocytes # (A) 0.18 10*3/uL (0.20-1.00); Monocytes % (A) 4.1 %; Neutrophils # (A) 3.52 10*3/uL (1.80-7.70); Neutrophils % (A) 79.6 %; Platelet Count 162 10*3/uL (140-440); RBC 6.28 10*6/uL (4.40-5.60); RDW 18.5 % (11.5-14.5); WBC 4.42 10*3/uL (4.50-10.00)
[2025-04-12 11:50] LABS: INR 1.5 (<1.2); Partial Thromboplastin Time 34.5 sec (22.0-30.0)
[2025-04-12 11:51] LABS: ALT 83 U/L (4-49); AST 54 U/L (17-59); African American GFR (CKD) 65 (>60 ml/min/1.73 sqM); Albumin 4.3 g/dL (3.5-5.0); Alkaline Phosphatase 221 U/L (38-126); Anion Gap 11 mmol/L; Blood Urea Nitrogen 26 mg/dL (9-20); Calcium 9.8 mg/dL (8.4-10.2); Carbon Dioxide 26 mmol/L (22-30); Chloride 109 mmol/L (98-107); Non-African American GFR(CKD) 56 (>60 ml/min/1.73 sqM); Potassium 4.1 mmol/L (3.5-5.1); Sodium 146 mmol/L (137-145); Total Bilirubin 0.9 mg/dL (0.2-1.3); Total Protein 7.8 g/dL (6.3-8.2)
[2025-04-12 11:52] LABS: Appearance,Urine Clear (Clear); Bilirubin,Urine Negative (Negative); Blood,Urine Trace (Negative); Color,Urine Colorless; Glucose,Urine (UA) Negative (Negative); Ketones,Urine Negative (Negative); Leukocyte Esterase,Urine Negative (Negative); Mucus,Urine Rare /hpf; Nitrite,Urine Negative (Negative); PH, Urine 6.5 (5.0-8.0); Protein,Urine 1+ (Negative); RBC,Urine 4 /hpf (0-5); Specific Gravity,Urine 1.017 (1.001-1.035); Urobilinogen,Urine <2.0 mg/dL (<2.0); WBC,Urine 1 /hpf (0-5)
[2025-04-12 11:55] LABS: Glucose 46 mg/dL (74-99)
[2025-04-12 12:05] LABS: Glucose,Whole Blood 112 mg/dL (70-110)
--- NOTE | 2025-04-12 12:36 | XR ---
EXAMINATION TYPE: XR chest 2V DATE OF EXAM: 04/12/2025 12:28 PM COMPARISON: 09/12/2023 CLINICAL INDICATION: Male, 74 years old with history of altered mental status, TECHNIQUE: XR chest 2V view(s) obtained. FINDINGS: The heart size is normal. The pulmonary vasculature is normal. The lungs are clear. IMPRESSION: 1. No acute pulmonary process. [facility], , 04/12/2025 12:33 PM
--- NOTE | 2025-04-12 12:37 | CT ---
EXAMINATION TYPE: CT brain wo con DATE OF EXAM: 04/12/2025 12:29 PM COMPARISON: 03/21/2025 CLINICAL INDICATION: Male, 74 years old with history of ams, AMS TECHNIQUE: CT of the brain is performed utilizing 3 mm thick sections through the posterior fossa and 3 mm thick sections through the remaining calvarium. Study is performed within 24 hours of arrival to the hospital. Contrast used: mL of , (none if empty) CT DLP: 1171.4 mGycm, Automated exposure control for dose reduction was used. FINDINGS: No abnormal hyperdensity is present to suggest an acute intracranial hemorrhage. No mass lesion is evident. No acute infarcts are evident. There is chronic white matter hypodensity in the left watershed region . This was present previously. Ventricles and sulci are prominent for the patient age. Paranasal sinuses and mastoid air cells within the [id number] are clear. IMPRESSION: 1. Atrophy with chronic left watershed region ischemic change. 2. No acute intracranial process radiographically. [facility], , 04/12/2025 12:34 PM
[2025-04-12 13:03] LABS: Glucose,Whole Blood 129 mg/dL (70-110)
[2025-04-12 13:37] VITALS: PULSE 68; RESP 16
[2025-04-12] MEDS ORDERED: NALOXONE 0.4 MG/ML 1 ML VIAL IV PRN (13:53)
[2025-04-12 14:24] VITALS: BP 134/84
[2025-04-12 15:09] LABS: Influenza A Not Detected (Not Detectd); Influenza B Not Detected (Not Detectd); RSV Not Detected (Not Detectd)
[2025-04-12 15:21] VITALS: TEMP 97.4
[2025-04-12] MEDS ORDERED: carvediloL 6.25 MG TAB PO SCH (17:30)
[2025-04-12] MEDS ORDERED: prednisoLONE ACETATE 1% OPHTH DROPS 5 ML BTL LEFT EYE SCH (18:00)
[2025-04-12] MEDS ORDERED: KETOROLAC 0.5% OPHTH DROPS 5 ML BTL LEFT EYE SCH (18:00)
[2025-04-12] MEDS ORDERED: TAMSULOSIN 0.4 MG CAP.ER.24H PO SCH (21:00)
[2025-04-13] MEDS ORDERED: FUROSEMIDE 40 MG TAB PO SCH (09:00)
[2025-04-13] MEDS ORDERED: PANTOPRAZOLE 40 MG TABLET PO SCH (09:00)
[2025-04-13] MEDS ORDERED: FERROUS SULFATE 325 MG TAB PO SCH (09:00)
[2025-04-13] MEDS ORDERED: lisinopriL 10 MG TAB PO SCH (09:00)
--- NOTE | 2025-04-14 08:20 | HP ---
HISTORY AND PHYSICAL CHIEF COMPLAINT: Mental status changes, hypoglycemia, hypothermia. HISTORY OF PRESENT ILLNESS: This is another admission for this 74-year-old gentleman. He has been in fairly good health and well managed for problems including hypertension and diabetes. He is brought into the emergency room, semicomatose with a blood sugar of 26. He was also hypothermic with a rectal temperature of 94.8 degrees Fahrenheit. There is no other history. REVIEW OF SYSTEMS: Unobtainable. Past medical history, family history, personal and social histories reveal that he is not allergic to any medications. MEDICATIONS: He takes; 1. Iron. 2. Tamsulosin 0.4 at night. 3. Lisinopril 10 mg once a day. 4. Carvedilol 6.25 twice a day. 5. Furosemide 40 mg once a day. 6. Pantoprazole 40 mg once a day. 7. Xarelto 20 mg once a day. 8. Tresiba 80 units once a day. 9. Atorvastatin 80 mg once a day. 10.Oxycodone q.6 p.r.n. He does have a past history of renal failure. He has never smoked and he does not drink alcohol. PHYSICAL EXAMINATION: HEAD, EARS, EYES, NOSE, MOUTH AND THROAT: Unremarkable. Pupils are equal, round. Gaze seems conjugate. CHEST: Clear. CARDIAC: Demonstrates what sounds like sinus rhythm. ABDOMEN: Soft and nontender. EXTREMITIES: Normal. NEUROLOGICAL: He is very lethargic. DIAGNOSES: Admitted to the hospital with diagnoses; 1. Hypoglycemia. 2. Hypothermia. 3. Insulin-dependent diabetes mellitus. 4. History of hypertension. 5. History of obstructive uropathy. PLAN: 1. Bedrest. 2. IV fluids. 3. IV glucose. 4. Warming blanket to bring temperature up to normal. 5. Monitor his neurologic status. MMODL / IJN: [id number] /
[2025-05-05] MEDS ORDERED: ERGOCALCIFEROL 1,250 MCG (50,000 IU) CAPSULE PO SCH (09:00)
== END 2025-04-12 20:14 | disposition left against medical advice (07) ==
LOC: EC 10:52 → 6NMEDSUR 13:53
PROVIDERS: ADMIT Family Medicine; ATTEND Family Medicine
DX: E11.649 Type 2 diabetes mellitus with hypoglycemia without coma (principal); R68.0 Hypothermia, not associated with low environmental temperature; I48.91 Unspecified atrial fibrillation; I11.0 Hypertensive heart disease with heart failure; I50.9 Heart failure, unspecified; N13.9 Obstructive and reflux uropathy, unspecified; Z79.01 Long term (current) use of anticoagulants; Z79.4 Long term (current) use of insulin; Z79.85 Long-term (current) use of injectable non-insulin antidiabetic drugs; Z79.899 Other long term (current) drug therapy; Z91.012 Allergy to eggs
CPT/HCPCS: 96361; 96374; 99285; 36415; 93005; 80053; 84484; 85025; 85610; 85730; 81001; 87636; 71046; 70450; G0378

== ENCOUNTER 2025-04-14 04:34 | Observation (INO) | payer MEDICARE, OTHER ==
[2025-04-14 04:41] LABS: Glucose,Whole Blood 34 mg/dL (70-110)
[2025-04-14] MEDS: DEXTROSE 50% SYRINGE 50 ML IVP STA (04:51)
--- NOTE | 2025-04-14 04:53 | ED ---
General Adult HPI - General Chief complaint: Recheck/Abnormal Lab/Rx Stated complaint: low blood sugar Time Seen by Provider: 04/14/25 04:41 Source: EMS Mode of arrival: EMS - History of Present Illness Initial comments: Patient is a 74-year-old medical history of diabetes presenting today for recurrent hypoglycemia. Called his son and EMS tonight due to low blood sugar. Was dizzy on his initial blood sugar check. On EMS arrival blood glucose was 41. He was given 15 g oral glucose, blood glucose, up to approximately 50, he was given another 15 g with blood glucose up to 60. Patient denies associated symptoms, currently is asymptomatic. - Related Data Home Medications Medication Instructions Recorded Confirmed carvediloL [Coreg] 6.25 mg PO BID 12/16/18 04/17/25 lisinopriL [Zestril] 10 mg PO DAILY 11/07/20 04/17/25 Ergocalciferol (Vitamin D2) 1,250 mcg PO Q30D 03/21/25 04/17/25 [Drisdol (GEQ) 1,250 MCG (50,000 IU)] Ferrous Sulfate [Iron (65 MG 325 mg PO DAILY 03/21/25 04/17/25 Elemental)] Furosemide [Lasix] 40 mg PO DAILY 03/21/25 04/17/25 Ketorolac 0.5% Ophth Soln [Acular 1 drop LEFT EYE QID 03/21/25 04/17/25 0.5%] Liraglutide 1.8 mg SQ DAILY 03/21/25 04/17/25 Rivaroxaban [Xarelto] 20 mg PO DAILY 03/21/25 04/17/25 Tamsulosin [Flomax] 0.4 mg PO HS 03/21/25 04/17/25 prednisoLONE ACETATE 1% OPHTH 1 drop LEFT EYE QID 03/21/25 04/17/25 [Pred Forte 1%] Pantoprazole [Protonix] 40 mg PO DAILY 04/12/25 04/17/25 Previous Rx's Medication Instructions Recorded Insulin Degludec [Tresiba] 40 units SQ DAILY #30 each 04/15/25 Allergies Allergy/AdvReac Type Severity Reaction Status Date / Time egg Allergy Rash/Hives Verified 04/14/25 08:07 Review of Systems ROS Statement: Those systems with pertinent positive or pertinent negative responses have been documented in the HPI. ROS Other: All systems not noted in ROS Statement are negative. Past Medical History Past Medical History: Asthma, Heart Failure, COPD, Diabetes Mellitus, Hyperlipidemia, Hypertension, Pneumonia Additional Past Medical History / Comment(s): heart murmur, diabetic neuropathy,"i think i had a small bleed behind rt eye". healed wound rt great toe History of Any Multi-Drug Resistant Organisms: MRSA Date of last positivie culture/infection: 11/26/18 MDRO Source:: toe Past Surgical History: Hernia Repair, Orthopedic Surgery, Tonsillectomy Additional Past Surgical History / Comment(s): rt foot Past Anesthesia/Blood Transfusion Reactions: No Reported Reaction Past Psychological History: Depression Smoking Status: Never smoker - Past Family History Father Family Medical History: No Reported History Additional Family Medical History / Comment(s): Father at age 65 and patient does not know his medical problems. Mother Family Medical History: Diabetes Mellitus, Rheumatoid Arthritis (RA) Additional Family Medical History / Comment(s): Mother at age 70 with history of rheumatoid arthritis. granmother also had ra Brother(s) Additional Family Medical History / Comment(s): Patient had 2 brothers and one during service and one from stillbirth. Patient does not have any sisters. Patient has 3 sons and 3 daughters with no major medical problems. General Exam - General Exam Comments Initial Comments: PE: CONSTITUTIONAL: No apparent distress, well appearing SKIN: Warm, dry, no jaundice, hives or petechiae EYES: Pupils are equally round, extraocular movements intact without nystagmus, clear conjunctiva, non-icteric sclera HENT: Normocephalic, atraumatic, moist mucus membranes, oropharynx clear without exudates NECK: , Full range of motion, normal appearance PULMONARY: Clear to auscultation without wheezes, rhonchi, or rales, normal excu rsion, no accessory muscle use and no stridor CARDIOVASCULAR: Regular rate, rhythm, normal S1 and S2. No appreciated murmurs, rubs or gallops. Strong radial pulses with intact distal perfusion. No lower extremity edema GASTROINTESTINAL: Soft, active bowel sounds throughout, non-tender, non-distended, no palpable masses, no rebound or guarding. No hepatosplenomegaly GENITOURINARY: MUSCULOSKELETAL: Extremities have no gross deformity, no edema, redness, or swelling. NEUROLOGIC:_a/o x 3, GCS 15, normal mentation and speech. Moves all extremities x 4 without motor or sensory deficit PSYCHIATRIC:_normal mood and affect, thought process is clear and linear Course Vital Signs 04/14/25 04/14/25 04/14/25 04:38 06:00 07:30 Temperature 95 F L Pulse Rate 67 Respiratory 18 Rate Blood Pressure 141/92 139/78 O2 Sat by Pulse 100 Oximetry 04/14/25 04/14/25 04/14/25 11:00 13:07 15:46 Temperature 96.9 F L 97.9 F Pulse Rate 111 H 117 H Respiratory 16 17 Rate Blood Pressure 109/90 110/98 O2 Sat by Pulse 96 98 Oximetry Medical Decision Making - Medical Decision Making Was pt. sent in by a medical professional or institution (, PA, BILLBOARD INSTALLER, urgent care, hospital, or shelter...) When possible be specific @ -No Did you speak to anyone other than the patient for history (EMS, parent, family, police, friend...)? What history was obtained from this source @ -Yes spoke with pt's son who states pt was supposed to be admitted when he had presented for similar 2 days ago however pt ultimately wanted to go home, against recommendations from ER physician and Dr. Kim Did you review nursing and triage notes (agree or disagree)? Why? @ -I reviewed and agree with nursing and triage notes Were old charts reviewed (outside hosp., previous admission, EMS record, old EKG, old radiological studies, urgent care reports/EKG's, shelter records)? Report findings @ -Medical records reviewed-Of note, it appears patient decided. 04/12/2025, reviewed ER note from that time, patient had presented for hypoglycemia, was found have a blood glucose of 42 with repeat blood sugar in the ER 44, upon review of this note it appears patient was admitted for observation however upon further discussion with patient and his son, patient ultimately elected to be discharged instead Differential Diagnosis (chest pain, altered mental status, abdominal pain women, abdominal pain men, vaginal bleeding, weakness, fever, dyspnea, syncope, headache, dizziness, GI bleed, back pain, seizure, CVA, palpatations, mental health, musculoskeletal)? @Differential diagnosis remains broad however top considerations include malnutrition/decreased food intake, accidental insulin overdose, sulfonylurea toxicity, sepsis, insulinoma this is not an all-inclusive list EKG interpreted by me (3pts min.). @ -As above X-rays interpreted by me (1pt min.). @ -None done CT interpreted by me (1pt min.). @ -None done U/S interpreted by me (1pt. min.). @ -None done What testing was considered but not performed or refused? (CT, X-rays, U/S, labs)? Why? @ -None What meds were considered but not given or refused? Why? glucagon was considered however IV access was able to be established quickly for D50 administration and pt able to tolerate po intake Did you discuss the management of the patient with other professionals (professionals i.e. , PA, BILLBOARD INSTALLER, lab, RT, psych nurse, social director, waste oil pumper, teacher, senior credit officer, case assembler)? Give summary @ -No Was smoking cessation discussed for >3mins.? @ -No Was critical care preformed (if so, how long)? @Yes, 35 minutes Were there social determinants of health that impacted care today? How? (Homelessness, low income, unemployed, alcoholism, drug addiction, transportation, low edu. Level, literacy, decrease access to med. care, intermediate, rehab)? @ -No Was there de-escalation of care discussed even if they declined (Discuss DNR or withdrawal of care, Hospice)? @ -No What co-morbidities impacted this encounter? (DM, HTN, Smoking, COPD, CAD, Cancer, CVA, ARF, Chemo, Hep., AIDS, mental health diagnosis, sleep apnea, morbid obesity)? @Diabetes Was patient admitted / discharged? Hospital course, mention meds given and route, prescriptions, significant lab abnormalities, going to OR and other pertinent info. @Admission- Patient is a 74-year-old gentleman presenting today for recurrent hypoglycemia. Patient states that he felt dizzy and sweaty this evening, checked his blood sugar and it was found to be low. Patient was given 15 mg x 2 of oral glucose. On arrival here patient's blood glucose 34. IV access was established and he was given 1 amp of D50, 1 cup of orange juice.On recheck glucose came up to 97, 1 hour later was 127, 1 hour after this without further intervention came down to 81. Due to recurrent hypoglycemia, this is patient's second visit last 48 hours for similar, plan for admission for observation. I discussed this with the patient and his son to which they are both agreeable. Of note patient has been taking 40 units insulin twice daily. Denies recent illness. He does state that he has not been eating much recently, patient son states that he feels the patient should eat more protein. Patient started on D5 normal saline infusion at 50 cc an hour every hour blood sugar checks, to be admitted for observation. Pt was admitted to Dr. Kim in stable condition. Undiagnosed new problem with uncertain prognosis? @ -No Drug Therapy requiring intensive monitoring for toxicity (Heparin, Nitro, Insulin, Cardizem)? @ -No Were any procedures done? @ -No Diagnosis/symptom? @ Recurrent hypoglycemia Acute, or Chronic, or Acute on Chronic? @ acute Uncomplicated (without systemic symptoms) or Complicated (systemic symptoms)? @complicated Side effects of treatment? @ -No Exacerbation, Progression, or Severe Exacerbation? @ -No Poses a threat to life or bodily function? How? (Chest pain, USA, CA, pneumonia, PE, COPD, DKA, ARF, appy, cholecystitis, CVA, Diverticulitis, Homicidal, Suicidal, threat to staff... and all critical care pts) yes - Lab Data Result diagrams: 04/14/25 04:54 04/14/25 04:54 Lab Results 04/14/25 04/14/25 04/14/25 Range/Units 04:38 04:54 04:54 WBC 5.16 (4.50-10.00) 10*3/uL RBC 5.30 (4.40-5.60) 10*6/uL Hgb 11.8 L (13.0-17.0) g/dL Hct 38.3 L (39.6-50.0) % MCV 72.3 L (80.0-97.0) fL MCH 22.3 L (27.0-32.0) pg MCHC 30.8 L (32.0-37.0) g/dL Plt Count 129 L (140-440) 10*3/uL MPV 10.8 (9.5-12.2) fL Immature Gran % (Auto) 0.2 % Neutrophils % 74.6 % Lymphocytes % 15.7 % Monocytes % 6.0 % Eosinophils % 3.1 % Basophils % 0.4 % Immature Gran # 0.01 (0.00-0.04) 10*3/uL Neutrophils # 3.85 (1.80-7.70) 10*3/uL Lymphocytes # 0.81 L (0.90-5.00) 10*3/uL Monocytes # 0.31 (0.20-1.00) 10*3/uL Eosinophils # 0.16 (0.04-0.35) 10*3/uL Basophils # 0.02 (0.00-0.10) 10*3/uL Immature Plt Fraction 4.4 (1.1-6.1) % PT 19.7 H (10.0-12.5) sec INR 1.9 H (<1.2) APTT 37.6 H (22.0-30.0) sec Sodium (137-145) mmol/L Potassium (3.5-5.1) mmol/L Chloride (98-107) mmol/L Carbon Dioxide (22-30) mmol/L Anion Gap mmol/L BUN (9-20) mg/dL Creatinine (0.66-1.25) mg/dL Est GFR (CKD-EPI)AfAm (>60 ml/min/1.73 sqM) Est GFR (CKD-EPI)NonAf (>60 ml/min/1.73 sqM) Glucose (74-99) mg/dL POC Glucose (mg/dL) 34 L* (70-110) mg/dL POC Glu Car Framer ID Aleksandr Fajardo Calcium (8.4-10.2) mg/dL Total Bilirubin (0.2-1.3) mg/dL AST (17-59) U/L ALT (4-49) U/L Alkaline Phosphatase (38-126) U/L Total Protein (6.3-8.2) g/dL Albumin (3.5-5.0) g/dL TSH (0.465-4.680) mIU/L 04/14/25 04/14/25 04/14/25 Range/Units 04:54 04:54 05:09 WBC (4.50-10.00) 10*3/uL RBC (4.40-5.60) 10*6/uL Hgb (13.0-17.0) g/dL Hct (39.6-50.0) % MCV (80.0-97.0) fL MCH (27.0-32.0) pg MCHC (32.0-37.0) g/dL Plt Count (140-440) 10*3/uL MPV (9.5-12.2) fL Immature Gran % (Auto) % Neutrophils % % Lymphocytes % % Monocytes % % Eosinophils % % Basophils % % Immature Gran # (0.00-0.04) 10*3/uL Neutrophils # (1.80-7.70) 10*3/uL Lymphocytes # (0.90-5.00) 10*3/uL Monocytes # (0.20-1.00) 10*3/uL Eosinophils # (0.04-0.35) 10*3/uL Basophils # (0.00-0.10) 10*3/uL Immature Plt Fraction (1.1-6.1) % PT (10.0-12.5) sec INR (<1.2) APTT (22.0-30.0) sec Sodium 140 (137-145) mmol/L Potassium 4.4 (3.5-5.1) mmol/L Chloride 107 (98-107) mmol/L Carbon Dioxide 24 (22-30) mmol/L Anion Gap 9 mmol/L BUN 33 H (9-20) mg/dL Creatinine 1.42 H (0.66-1.25) mg/dL Est GFR (CKD-EPI)AfAm 56 (>60 ml/min/1.73 sqM) Est GFR (CKD-EPI)NonAf 48 (>60 ml/min/1.73 sqM) Glucose 38 L* (74-99) mg/dL POC Glucose (mg/dL) 97 (70-110) mg/dL POC Glu Car Framer ID SELIMOVIC DA Calcium 9.4 (8.4-10.2) mg/dL Total Bilirubin 1.1 (0.2-1.3) mg/dL AST 92 H (17-59) U/L ALT 110 H (4-49) U/L Alkaline Phosphatase 145 H (38-126) U/L Total Protein 6.6 (6.3-8.2) g/dL Albumin 3.5 (3.5-5.0) g/dL TSH 2.140 (0.465-4.680) mIU/L 04/14/25 04/14/25 04/14/25 Range/Units 05:40 06:41 06:52 WBC (4.50-10.00) 10*3/uL RBC (4.40-5.60) 10*6/uL Hgb (13.0-17.0) g/dL Hct (39.6-50.0) % MCV (80.0-97.0) fL MCH (27.0-32.0) pg MCHC (32.0-37.0) g/dL Plt Count (140-440) 10*3/uL MPV (9.5-12.2) fL Immature Gran % (Auto) % Neutrophils % % Lymphocytes % % Monocytes % % Eosinophils % % Basophils % % Immature Gran # (0.00-0.04) 10*3/uL Neutrophils # (1.80-7.70) 10*3/uL Lymphocytes # (0.90-5.00) 10*3/uL Monocytes # (0.20-1.00) 10*3/uL Eosinophils # (0.04-0.35) 10*3/uL Basophils # (0.00-0.10) 10*3/uL Immature Plt Fraction (1.1-6.1) % PT (10.0-12.5) sec INR (<1.2) APTT (22.0-30.0) sec Sodium (137-145) mmol/L Potassium (3.5-5.1) mmol/L Chloride (98-107) mmol/L Carbon Dioxide (22-30) mmol/L Anion Gap mmol/L BUN (9-20) mg/dL Creatinine (0.66-1.25) mg/dL Est GFR (CKD-EPI)AfAm (>60 ml/min/1.73 sqM) Est GFR (CKD-EPI)NonAf (>60 ml/min/1.73 sqM) Glucose (74-99) mg/dL POC Glucose (mg/dL) 127 H 87 91 (70-110) mg/dL POC Glu Car Framer ID Aleksandr ROBERSON Calcium (8.4-10.2) mg/dL Total Bilirubin (0.2-1.3) mg/dL AST (17-59) U/L ALT (4-49) U/L Alkaline Phosphatase (38-126) U/L Total Protein (6.3-8.2) g/dL Albumin (3.5-5.0) g/dL TSH (0.465-4.680) mIU/L Disposition Clinical Impression: Hypoglycemia Disposition: ADMITTED IP TO THIS [facility] Condition: Good
[2025-04-14 05:10] LABS: Glucose,Whole Blood 97 mg/dL (70-110)
[2025-04-14 05:41] LABS: Glucose,Whole Blood 127 mg/dL (70-110)
[2025-04-14 05:55] LABS: Basophils # (A) 0.02 10*3/uL (0.00-0.10); Basophils % (A) 0.4 %; Eosinophils # (A) 0.16 10*3/uL (0.04-0.35); Eosinophils % (A) 3.1 %; HCT 38.3 % (39.6-50.0); HGB 11.8 g/dL (13.0-17.0); Immature Platelet Fraction 4.4 % (1.1-6.1); Lymphocytes # (A) 0.81 10*3/uL (0.90-5.00); Lymphocytes % (A) 15.7 %; MCH 22.3 pg (27.0-32.0); MCHC 30.8 g/dL (32.0-37.0); MCV 72.3 fL (80.0-97.0); Mean Platelet Volume 10.8 fL (9.5-12.2); Monocytes # (A) 0.31 10*3/uL (0.20-1.00); Neutrophils # (A) 3.85 10*3/uL (1.80-7.70); Neutrophils % (A) 74.6 %; Platelet Count 129 10*3/uL (140-440); RDW 17.2 % (11.5-14.5); WBC 5.16 10*3/uL (4.50-10.00)
[2025-04-14 06:07] LABS: INR 1.9 (<1.2); Partial Thromboplastin Time 37.6 sec (22.0-30.0); Prothrombin Time 19.7 sec (10.0-12.5)
[2025-04-14 06:24] LABS: ALT 110 U/L (4-49); African American GFR (CKD) 56 (>60 ml/min/1.73 sqM); Anion Gap 9 mmol/L; Blood Urea Nitrogen 33 mg/dL (9-20); Calcium 9.4 mg/dL (8.4-10.2); Carbon Dioxide 24 mmol/L (22-30); Chloride 107 mmol/L (98-107); Non-African American GFR(CKD) 48 (>60 ml/min/1.73 sqM); Sodium 140 mmol/L (137-145); Total Bilirubin 1.1 mg/dL (0.2-1.3)
[2025-04-14 06:31] LABS: Glucose 38 mg/dL (74-99)
[2025-04-14 06:32] LABS: AST 92 U/L (17-59); Albumin 3.5 g/dL (3.5-5.0); Alkaline Phosphatase 145 U/L (38-126); Potassium 4.4 mmol/L (3.5-5.1); Total Protein 6.6 g/dL (6.3-8.2)
[2025-04-14 06:54] LABS: Glucose,Whole Blood 87 mg/dL (70-110)
[2025-04-14 06:54] LABS: Glucose,Whole Blood 91 mg/dL (70-110)
[2025-04-14] MEDS ORDERED: NALOXONE 0.4 MG/ML 1 ML VIAL IV PRN (07:17)
[2025-04-14] MEDS ORDERED: ACETAMINOPHEN TAB 325 MG TAB PO PRN (07:17)
[2025-04-14 09:14] LABS: Glucose,Whole Blood 130 mg/dL (70-110)
[2025-04-14] MEDS: DEXTROSE 5%-0.9% NACL 1,000 ML IV SCH (09:37)
[2025-04-14] MEDS: FAMOTIDINE 20 MG TAB PO SCH (09:37)
[2025-04-14 11:38] LABS: Glucose,Whole Blood 139 mg/dL (70-110)
[2025-04-14 12:28] LABS: Glucose,Whole Blood 138 mg/dL (70-110)
[2025-04-14] MEDS: prednisoLONE ACETATE 1% OPHTH DROPS 5 ML BTL LEFT EYE SCH (13:06)
[2025-04-14] MEDS: KETOROLAC 0.5% OPHTH DROPS 5 ML BTL LEFT EYE SCH (13:06)
[2025-04-14 13:24] LABS: Glucose,Whole Blood 108 mg/dL (70-110)
[2025-04-14 15:49] LABS: Glucose,Whole Blood 152 mg/dL (70-110)
[2025-04-14 16:58] LABS: Glucose,Whole Blood 129 mg/dL (70-110)
[2025-04-14 20:29] LABS: Glucose,Whole Blood 128 mg/dL (70-110)
--- NOTE | 2025-04-14 21:48 | HP ---
HISTORY AND PHYSICAL CHIEF COMPLAINT: Hypoglycemia and hypothermia. HISTORY OF PRESENT ILLNESS: This gentleman was admitted to the hospital 2 days ago with the same symptoms. He was placed on the floor and signed out the next day. He is now back in with blood sugar of 34 and body temperature 94 degrees. REVIEW OF SYSTEMS: He denies chest pain, fever, chills, abdominal pain, vomiting, diarrhea, etc. Past medical history, family history and personal and social histories are all otherwise unremarkable or unchanged. PHYSICAL EXAMINATION: VITAL SIGNS: Temperature is 94 degrees Fahrenheit. Vital signs were otherwise normal. HEAD, EARS, EYES, NOSE, MOUTH AND THROAT: Normal. CHEST: Clear. CARDIAC: Normal. ABDOMEN: Soft, nontender. EXTREMITIES: Normal. IMPRESSION: 1. Hypoglycemia. 2. Hypothermia. 3. History of hypertension. 4. Hyperlipidemia. 5. Chronic kidney disease. PLAN: 1. Bedrest. 2. IV fluids. 3. IV glucose. 4. Withhold insulin. MMODL / IJN: [id number] /
[2025-04-14] MEDS: carvediloL 6.25 MG TAB PO SCH (21:59)
[2025-04-14] MEDS: TAMSULOSIN 0.4 MG CAP.ER.24H PO SCH (21:59)
[2025-04-15 02:00] LABS: Glucose,Whole Blood 113 mg/dL (70-110)
[2025-04-15 07:23] LABS: Glucose,Whole Blood 133 mg/dL (70-110)
[2025-04-15 08:01] VITALS: BP 126/76; PULSE 63; RESP 14; TEMP 97.7
[2025-04-15] MEDS: RIVAROXABAN 20 MG TAB PO SCH (09:00)
[2025-04-15] MEDS: lisinopriL 10 MG TAB PO SCH (09:00)
[2025-04-15] MEDS: PANTOPRAZOLE 40 MG TABLET PO SCH (09:00)
[2025-04-15] MEDS: FERROUS SULFATE 325 MG TAB PO SCH (09:00)
--- NOTE | 2025-04-17 02:24 | DS ---
DISCHARGE SUMMARY CHIEF COMPLAINT: Hypoglycemia and hypothermia. HISTORY OF PRESENT ILLNESS AND PHYSICAL EXAM: Details of this man's history and physical can be found in the initial workup. LABORATORY STUDIES: While he was in a hospital he had laboratory studies, details of which can be found in the laboratory section of his chart. COURSE IN HOSPITAL: After admission, he was placed on bedrest and started on intravenous fluids and IV glucose. Blood sugars came up. Temperature returned to normal. He was stable and doing well. It was felt that he could go home and he will be discharged on a lower dose of insulin and follow up in the office several days. FINAL DIAGNOSES: 1. Hypoglycemia. 2. Type 2 diabetes mellitus. 3. Hypothermia. OPERATIONS: None. CONSULTATION: None. MMZEFERINO / YENIFER: [id number] /
== END 2025-04-15 11:30 | disposition home or self-care (01) ==
LOC: EC 04:34 → 5NMEDONC 07:17
PROVIDERS: ADMIT Family Medicine; ATTEND Family Medicine
DX: E11.649 Type 2 diabetes mellitus with hypoglycemia without coma (principal); T68.XXXA Hypothermia, initial encounter; X31.XXXA Exposure to excessive natural cold, initial encounter; I13.0 Hypertensive heart and chronic kidney disease with heart failure and stage 1 through stage 4 chronic kidney disease, or unspecified chronic kidney disease; I50.9 Heart failure, unspecified; N18.9 Chronic kidney disease, unspecified; E78.5 Hyperlipidemia, unspecified; J44.89 Other specified chronic obstructive pulmonary disease; E11.40 Type 2 diabetes mellitus with diabetic neuropathy, unspecified; F32.A Depression, unspecified; E11.22 Type 2 diabetes mellitus with diabetic chronic kidney disease; Z79.01 Long term (current) use of anticoagulants; Z79.4 Long term (current) use of insulin; Z79.899 Other long term (current) drug therapy
CPT/HCPCS: 96374; 99285; 36415; 80053; 84443; 85025; 85610; 85730; G0378 ×2

== ENCOUNTER 2025-04-17 08:00 | Observation (INO) | payer MEDICARE, OTHER ==
[2025-04-17] MEDS: DEXTROSE 50% SYRINGE 50 ML IVP STA ×3 (08:00→11:13)
[2025-04-17 08:11] LABS: Glucose,Whole Blood 24 mg/dL (70-110)
[2025-04-17 08:29] LABS: Glucose,Whole Blood 123 mg/dL (70-110)
[2025-04-17 08:34] LABS: Basophils # (A) 0.01 10*3/uL (0.00-0.10); Basophils % (A) 0.2 %; Eosinophils # (A) 0.06 10*3/uL (0.04-0.35); Eosinophils % (A) 1.1 %; HCT 44.8 % (39.6-50.0); HGB 13.7 g/dL (13.0-17.0); Lymphocytes # (A) 1.42 10*3/uL (0.90-5.00); Lymphocytes % (A) 26.7 %; MCH 22.8 pg (27.0-32.0); MCHC 30.6 g/dL (32.0-37.0); MCV 74.5 fL (80.0-97.0); Mean Platelet Volume 11.3 fL (9.5-12.2); Monocytes # (A) 0.34 10*3/uL (0.20-1.00); Monocytes % (A) 6.4 %; Neutrophils # (A) 3.47 10*3/uL (1.80-7.70); Neutrophils % (A) 65.4 %; Platelet Count 164 10*3/uL (140-440); RBC 6.01 10*6/uL (4.40-5.60); RDW 18.7 % (11.5-14.5); WBC 5.31 10*3/uL (4.50-10.00)
[2025-04-17] MEDS: SODIUM CHLORIDE 0.9% 1,000 ML IV ONE (08:39)
[2025-04-17 08:49] LABS: ALT 103 U/L (4-49); AST 53 U/L (17-59); African American GFR (CKD) 46 (>60 ml/min/1.73 sqM); Albumin 4.2 g/dL (3.5-5.0); Alcohol <10 mg/dL; Alkaline Phosphatase 207 U/L (38-126); Anion Gap 14 mmol/L; Blood Urea Nitrogen 30 mg/dL (9-20); Calcium 9.6 mg/dL (8.4-10.2); Carbon Dioxide 26 mmol/L (22-30); Chloride 110 mmol/L (98-107); Glucose 140 mg/dL (74-99); Non-African American GFR(CKD) 40 (>60 ml/min/1.73 sqM); Potassium 4.1 mmol/L (3.5-5.1); Sodium 150 mmol/L (137-145); Total Bilirubin 0.8 mg/dL (0.2-1.3); Total Protein 7.5 g/dL (6.3-8.2)
[2025-04-17 08:53] LABS: INR 1.9 (<1.2); Partial Thromboplastin Time 35.2 sec (22.0-30.0); Prothrombin Time 19.8 sec (10.0-12.5)
[2025-04-17 08:55] LABS: Bacteria,Urine Rare /hpf; Hyaline Casts,Urine 1 /lpf (0-2); Mucus,Urine Rare /hpf
[2025-04-17 09:05] LABS: Glucose,Whole Blood 59 mg/dL (70-110); Glucose,Whole Blood 61 mg/dL (70-110)
[2025-04-17 09:11] LABS: Amphetamine Screen,Urine Not Detected (NotDetected); Barbiturate Screen,Urine Not Detected (NotDetected); Benzodiazepines Screen,Urine Not Detected (NotDetected); Cocaine Screen,Urine Not Detected (NotDetected); Methadone Screen, Urine Not Detected (NotDetected); Opiate Screen,Urine Not Detected (NotDetected); Oxycodone Screen, Urine Not Detected (NotDetected); Phencyclidine Screen,Urine Not Detected (NotDetected); Tricyclic Antidepressant,Urine Not Detected (NotDetected); Urn Cannabinoid Scrn Not Detected (NotDetected)
--- NOTE | 2025-04-17 09:22 | CT ---
EXAMINATION TYPE: CT brain wo con DATE OF EXAM: 04/17/2025 9:00 AM COMPARISON: 04/12/2025, 03/21/2025, 10/04/2020 CLINICAL INDICATION: Male, 74 years old with history of Altered mental status, Altered mental status TECHNIQUE: CT of the brain is performed utilizing 3 mm thick sections through the posterior fossa and 3 mm thick sections through the remaining calvarium. Study is performed within 24 hours of arrival to the hospital. Contrast used: mL of , (none if empty) CT DLP: 1156.7 mGycm, Automated exposure control for dose reduction was used. FINDINGS: No abnormal hyperdensity is present to suggest an acute intracranial hemorrhage. No mass lesion is evident. There is hypodensity within the posterior left parietal lobe white matter. Positioning appears slight ly different likely related to the gantry angle for this exam. MRI can be performed for additional ev aluation. Ventricles and sulci are appropriate for the patient age. Paranasal sinuses and mastoid air cells within the [id number] are clear. IMPRESSION: 1. Persistent hypodensity within the posterior left parietal lobe. 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 Consider MRI for additional evaluation. [facility], , 04/17/2025 9:20 AM
[2025-04-17 09:33] LABS: Appearance,Urine Clear (Clear); Bilirubin,Urine Negative (Negative); Blood,Urine Negative (Negative); Color,Urine Colorless; Glucose,Urine (UA) Trace (Negative); Ketones,Urine Negative (Negative); Leukocyte Esterase,Urine Negative (Negative); Nitrite,Urine Negative (Negative); PH, Urine 6.5 (5.0-8.0); Protein,Urine Trace (Negative); Specific Gravity,Urine 1.013 (1.001-1.035); Urobilinogen,Urine <2.0 mg/dL (<2.0); WBC,Urine <1 /hpf (0-5)
[2025-04-17 09:34] LABS: RBC,Urine <1 /hpf (0-5)
[2025-04-17 09:54] LABS: Glucose,Whole Blood 97 mg/dL (70-110)
--- NOTE | 2025-04-17 09:57 | XR ---
EXAMINATION TYPE: XR chest 1V DATE OF EXAM: 04/17/2025 9:43 AM COMPARISON: 04/12/2025 CLINICAL INDICATION: Male, 74 years old with history of altered mental status, TECHNIQUE: XR chest 1V view(s) obtained. FINDINGS: The heart size is normal. The pulmonary vasculature is normal. The lungs are clear. IMPRESSION: 1. No acute pulmonary process. [facility], , 04/17/2025 9:54 AM
[2025-04-17 10:27] LABS: Glucose,Whole Blood 74 mg/dL (70-110)
[2025-04-17] MEDS ORDERED: NALOXONE 0.4 MG/ML 1 ML VIAL IV PRN (10:38)
[2025-04-17] MEDS ORDERED: ONDANSETRON 4 MG/2 ML VIAL IVP PRN (10:38)
--- NOTE | 2025-04-17 10:40 | ED ---
General Adult HPI - General Chief complaint: Altered Mental Status Stated complaint: Irrg Labs Time Seen by Provider: 04/17/25 08:08 Source: patient, RN notes reviewed, old records reviewed Mode of arrival: EMS Limitations: altered mental status - History of Present Illness Initial comments: Patient is a 74-year-old male presents emergency department for altered mental status. Patient was found by family unresponsive and altered on the couch this morning. Blood sugar was found to be in the 20s. EMS was unable to obtain an IV and transferred him here for further evaluation. He has a history of asthma, heart failure, COPD, diabetes, hypertension, hyperlipidemia. Patient came but not provide any history at this time. Presents for further evaluation at this time. - Related Data Home Medications Medication Instructions Recorded Confirmed carvediloL [Coreg] 6.25 mg PO BID 12/16/18 04/17/25 lisinopriL [Zestril] 10 mg PO DAILY 11/07/20 04/17/25 Ergocalciferol (Vitamin D2) 1,250 mcg PO Q30D 03/21/25 04/17/25 [Drisdol (GEQ) 1,250 MCG (50,000 IU)] Ferrous Sulfate [Iron (65 MG 325 mg PO DAILY 03/21/25 04/17/25 Elemental)] Furosemide [Lasix] 40 mg PO DAILY 03/21/25 04/17/25 Ketorolac 0.5% Ophth Soln [Acular 1 drop LEFT EYE QID 03/21/25 04/17/25 0.5%] Liraglutide 1.8 mg SQ DAILY 03/21/25 04/17/25 Rivaroxaban [Xarelto] 20 mg PO DAILY 03/21/25 04/17/25 Tamsulosin [Flomax] 0.4 mg PO HS 03/21/25 04/17/25 prednisoLONE ACETATE 1% OPHTH 1 drop LEFT EYE QID 03/21/25 04/17/25 [Pred Forte 1%] Pantoprazole [Protonix] 40 mg PO DAILY 04/12/25 04/17/25 Previous Rx's Medication Instructions Recorded Insulin Degludec [Tresiba] 40 units SQ DAILY #30 each 04/15/25 Allergies Allergy/AdvReac Type Severity Reaction Status Date / Time egg Allergy Rash/Hives Verified 04/14/25 08:07 Review of Systems ROS Statement: Those systems with pertinent positive or pertinent negative responses have been documented in the HPI. ROS Other: All systems not noted in ROS Statement are negative. Past Medical History Past Medical History: Asthma, Heart Failure, COPD, Diabetes Mellitus, Hyp erlipidemia, Hypertension, Pneumonia Additional Past Medical History / Comment(s): heart murmur, diabetic neuropathy,"i think i had a small bleed behind rt eye". healed wound rt great toe History of Any Multi-Drug Resistant Organisms: MRSA Date of last positivie culture/infection: 11/26/18 MDRO Source:: toe Past Surgical History: Hernia Repair, Orthopedic Surgery, Tonsillectomy Additional Past Surgical History / Comment(s): rt foot Past Anesthesia/Blood Transfusion Reactions: No Reported Reaction Past Psychological History: Depression Smoking Status: Never smoker Past Alcohol Use History: None Reported Past Drug Use History: None Reported - Past Family History Father Family Medical History: No Reported History Additional Family Medical History / Comment(s): Father at age 65 and patient does not know his medical problems. Mother Family Medical History: Diabetes Mellitus, Rheumatoid Arthritis (RA) Additional Family Medical History / Comment(s): Mother at age 70 with history of rheumatoid arthritis. granmother also had ra Brother(s) Additional Family Medical History / Comment(s): Patient had 2 brothers and one during service and one from stillbirth. Patient does not have any sisters. Patient has 3 sons and 3 daughters with no major medical problems. General Exam - General Exam Comments Initial Comments: General: Appears altered. HEAD: Normal with no signs of head trauma. EYES: PERRLA, EOMI, conjunctiva normal, no discharge. Pupils are 3 mm and equal bilaterally. ENT: Hearing grossly intact, normal oropharynx. RESPIRATORY: Clear breath sounds bilaterally. No wheezes, rales, or rhonchi. C/V: Regular rate and rhythm. S1 and S2 auscultated, no edema, peripheral pulses 2+ and intact throughout ABD: Abd is soft, nontender, nondistended EXT: Normal range of motion, no obvious deformity SKIN: No rashes or lesions observed on exposed skin. NEURO: Altered, not oriented. Moving all 4 extremities. GCS is 12. Limitations: altered mental status Course Vital Signs 04/17/25 04/17/25 04/17/25 08:03 08:32 09:00 Temperature 96 F L Pulse Rate 61 62 Respiratory 16 20 16 Rate Blood Pressure 187/101 133/70 O2 Sat by Pulse 96 100 Oximetry 04/17/25 04/17/25 04/17/25 09:06 09:54 11:00 Temperature 96 F L Pulse Rate 72 73 73 Respiratory 20 20 20 Rate Blood Pressure 180/103 195/110 179/105 O2 Sat by Pulse 99 100 99 Oximetry 04/17/25 13:00 Temperature Pulse Rate 86 Respiratory 16 Rate Blood Pressure 175/100 O2 Sat by Pulse 98 Oximetry Medical Decision Making - Medical Decision Making Was pt. sent in by a medical professional or institution (, PA, MIDDLE SCHOOL DIRECTOR, urgent care, hospital, or residential...) When possible be specific @ -No Did you speak to anyone other than the patient for history (EMS, parent, family, police, friend...)? What history was obtained from this source @ -No Did you review nursing and triage notes (agree or disagree)? Why? @ -I reviewed and agree with nursing and triage notes Were old charts reviewed (outside hosp., previous admission, EMS record, old EKG, old radiological studies, urgent care reports/EKG's, residential records)? Report findings @ -Reviewed charts and patient was recently evaluated for similar complaints and discharged from the hospital within the last few days. Differential Diagnosis (chest pain, altered mental status, abdominal pain women, abdominal pain men, vaginal bleeding, weakness, fever, dyspnea, syncope, headache, dizziness, GI bleed, back pain, seizure, CVA, palpatations, mental health, musculoskeletal)? @ -Differential Altered Mental Status: Hypoglycemia, DKA, hypercapnia, ETOH, overdose, CO poisoning, trauma, myxedema coma, HTN encephalopathy, infection, encephalitis, psychosis, intercranial hemorrhage, hepatic encephalopathy, meningitis, CVA, this is not meant to be an all-inclusive list EKG interpreted by me (3pts min.). @ -As above X-rays interpreted by me (1pt min.). @ -Chest x-ray reveals no obvious acute cardiopulmonary process. CT interpreted by me (1pt min.). @ -CT brain shows no obvious acute intracranial process. Chronic findings present. U/S interpreted by me (1pt. min.). @ -None done What testing was considered but not performed or refused? (CT, X-rays, U/S, labs)? Why? @ -None What meds were considered but not given or refused? Why? @ -None Did you discuss the management of the patient with other professionals (professionals i.e. , PA, MIDDLE SCHOOL DIRECTOR, lab, RT, psych nurse, 7th grade social studies teacher, bi analyst, teacher, complaint evaluation officer, case technician)? Give summary @ -Discussed with Dr. Kim who accepted the admission. Was smoking cessation discussed for >3mins.? @ -No Was critical care preformed (if so, how long)? @ -Yes, 32 minutes. Frequent reevaluations. Were there social determinants of health that impacted care today? How? (Homelessness, low income, unemployed, alcoholism, drug addiction, transportat ion, low edu. Level, literacy, decrease access to med. care, long term, rehab)? @ -No Was there de-escalation of care discussed even if they declined (Discuss DNR or withdrawal of care, Hospice)? DNR status @ -No What co-morbidities impacted this encounter? (DM, HTN, Smoking, COPD, CAD, Cancer, CVA, ARF, Chemo, Hep., AIDS, mental health diagnosis, sleep apnea, morbid obesity)? @ -Insulin-dependent diabetes Was patient admitted / discharged? Hospital course, mention meds given and route, prescriptions, significant lab abnormalities, going to OR and other pertinent info. @ -Patient presents with altered mental status from hypoglycemia. Blood sugar was 20 at his home and was 24 upon arrival. We will obtain general labs as well as CT brain and chest x-ray. Patient administered an amp of D50 after IV access was obtained. Given a 1 L fluid bolus as well. Vitals are within acceptable limits. Patient did respond to the 1 amp of D50. Labs returned with no obvious acute finding that is concerning. Slight elevation in coags. CT brain showed no obvious acute intracranial process. Chest x-ray shows no obvious acute cardiopulmonary process. EKG unremarkable. Patient required a second amp of D50 as blood sugar dropped down to 61. Patient then ate food and the blood sugar once again dropped down to 68 after period of observation. At this time patient was placed on D10 half-normal saline drip. Patient will be admitted to the hospital. He was in agreement this plan. He has been alert and oriented since the initial amp of D50 was administered. No focal deficits. Feels well. Feels that his hypoglycemic episode likely secondary to him not eating last night. He still took his normal medications. I discussed the case with the admitting provider, Dr. Kim who accepted the admission. Undiagnosed new problem with uncertain prognosis? @ -No Drug Therapy requiring intensive monitoring for toxicity (Heparin, Nitro, Insulin, Cardizem)? @ -No Were any procedures done? @ -No Diagnosis/symptom? @ -Hypoglycemia in the setting of insulin-dependent diabetes Acute, or Chronic, or Acute on Chronic? @ -Acute Uncomplicated (without systemic symptoms) or Complicated (systemic symptoms)? @ -Complicated Side effects of treatment? @ -No Exacerbation, Progression, or Severe Exacerbation? @ -No Poses a threat to life or bodily function? How? (Chest pain, [place], [place], pneumonia, PE, COPD, DKA, ARF, appy, cholecystitis, CVA, Diverticulitis, Homicidal, Suicidal, threat to staff... and all critical care pts) @ -Potentially yes - Lab Data Result diagrams: 04/17/25 08:18 04/17/25 08:18 Lab Results 04/17/25 04/17/25 04/17/25 Range/Units 08:05 08:18 08:18 WBC 5.31 (4.50-10.00) 10*3/uL RBC 6.01 H (4.40-5.60) 10*6/uL Hgb 13.7 (13.0-17.0) g/dL Hct 44.8 (39.6-50.0) % MCV 74.5 L (80.0-97.0) fL MCH 22.8 L (27.0-32.0) pg MCHC 30.6 L (32.0-37.0) g/dL Plt Count 164 (140-440) 10*3/uL MPV 11.3 (9.5-12.2) fL Immature Gran % (Auto) 0.2 % Neutrophils % 65.4 % Lymphocytes % 26.7 % Monocytes % 6.4 % Eosinophils % 1.1 % Basophils % 0.2 % Immature Gran # 0.01 (0.00-0.04) 10*3/uL Neutrophils # 3.47 (1.80-7.70) 10*3/uL Lymphocytes # 1.42 (0.90-5.00) 10*3/uL Monocytes # 0.34 (0.20-1.00) 10*3/uL Eosinophils # 0.06 (0.04-0.35) 10*3/uL Basophils # 0.01 (0.00-0.10) 10*3/uL PT 19.8 H (10.0-12.5) sec INR 1.9 H (<1.2) APTT 35.2 H (22.0-30.0) sec Sodium (137-145) mmol/L Potassium (3.5-5.1) mmol/L Chloride (98-107) mmol/L Carbon Dioxide (22-30) mmol/L Anion Gap mmol/L BUN (9-20) mg/dL Creatinine (0.66-1.25) mg/dL Est GFR (CKD-EPI)AfAm (>60 ml/min/1.73 sqM) Est GFR (CKD-EPI)NonAf (>60 ml/min/1.73 sqM) Glucose (74-99) mg/dL POC Glucose (mg/dL) 24 L* (70-110) mg/dL POC Glu Diesel Tractor Operator ID [place] Calcium (8.4-10.2) mg/dL Total Bilirubin (0.2-1.3) mg/dL AST (17-59) U/L ALT (4-49) U/L Alkaline Phosphatase (38-126) U/L Ammonia (<30) umol/L Total Protein (6.3-8.2) g/dL Albumin (3.5-5.0) g/dL Urine Color Urine Appearance (Clear) Urine pH (5.0-8.0) Ur Specific [place] (1.001-1.035) Urine Protein (Negative) Ur Protein Confirm Urine Glucose (UA) (Negative) Urine Ketones (Negative) Urine Blood (Negative) Urine Nitrite (Negative) Urine Bilirubin (Negative) Ur Bilirubin Confirm Urine Urobilinogen (<2.0) mg/dL Ur Leukocyte Esterase (Negative) Urine RBC (0-5) /hpf Urine WBC (0-5) /hpf Urine Bacteria (None) /hpf Hyaline Casts (0-2) /lpf Urine Mucus (None) /hpf Urine Opiates Screen (NotDetected) Ur Oxycodone Screen (NotDetected) Urine Methadone Screen (NotDetected) Ur Barbiturates Screen (NotDetected) U Tricyclic Antidepress (NotDetected) Ur Phencyclidine Scrn (NotDetected) Ur Amphetamines Screen (NotDetected) U Methamphetamines Scrn (NotDetected) U Benzodiazepines Scrn (NotDetected) Urine Cocaine Screen (NotDetected) U Marijuana (THC) Screen (NotDetected) Serum Alcohol mg/dL 04/17/25 04/17/25 04/17/25 Range/Units 08:18 08:18 08:18 WBC (4.50-10.00) 10*3/uL RBC (4.40-5.60) 10*6/uL Hgb (13.0-17.0) g/dL Hct (39.6-50.0) % MCV (80.0-97.0) fL MCH (27.0-32.0) pg MCHC (32.0-37.0) g/dL Plt Count (140-440) 10*3/uL MPV (9.5-12.2) fL Immature Gran % (Auto) % Neutrophils % % Lymphocytes % % Monocytes % % Eosinophils % % Basophils % % Immature Gran # (0.00-0.04) 10*3/uL Neutrophils # (1.80-7.70) 10*3/uL Lymphocytes # (0.90-5.00) 10*3/uL Monocytes # (0.20-1.00) 10*3/uL Eosinophils # (0.04-0.35) 10*3/uL Basophils # (0.00-0.10) 10*3/uL PT (10.0-12.5) sec INR (<1.2) APTT (22.0-30.0) sec Sodium 150 H (137-145) mmol/L Potassium 4.1 (3.5-5.1) mmol/L Chloride 110 H (98-107) mmol/L Carbon Dioxide 26 (22-30) mmol/L Anion Gap 14 mmol/L BUN 30 H (9-20) mg/dL Creatinine 1.65 H (0.66-1.25) mg/dL Est GFR (CKD-EPI)AfAm 46 (>60 ml/min/1.73 sqM) Est GFR (CKD-EPI)NonAf 40 (>60 ml/min/1.73 sqM) Glucose 140 H (74-99) mg/dL POC Glucose (mg/dL) (70-110) mg/dL POC Glu Diesel Tractor Operator ID Calcium 9.6 (8.4-10.2) mg/dL Total Bilirubin 0.8 (0.2-1.3) mg/dL AST 53 (17-59) U/L ALT 103 H (4-49) U/L Alkaline Phosphatase 207 H (38-126) U/L Ammonia 30 H (<30) umol/L Total Protein 7.5 (6.3-8.2) g/dL Albumin 4.2 (3.5-5.0) g/dL Urine Color Colorless Urine Appearance Clear (Clear) Urine pH 6.5 (5.0-8.0) Ur Specific [place] 1.013 (1.001-1.035) Urine Protein Trace H (Negative) Ur Protein Confirm Not Reportable Urine Glucose (UA) Trace H (Negative) Urine Ketones Negative (Negative) Urine Blood Negative (Negative) Urine Nitrite Negative (Negative) Urine Bilirubin Negative (Negative) Ur Bilirubin Confirm Not Reportable Urine Urobilinogen <2.0 (<2.0) mg/dL Ur Leukocyte Esterase Negative (Negative) Urine RBC <1 (0-5) /hpf Urine WBC <1 (0-5) /hpf Urine Bacteria Rare H (None) /hpf Hyaline Casts 1 (0-2) /lpf Urine Mucus Rare H (None) /hpf Urine Opiates Screen Not Detected (NotDetected) Ur Oxycodone Screen Not Detected (NotDetected) Urine Methadone Screen Not Detected (NotDetected) Ur Barbiturates Screen Not Detected (NotDetected) U Tricyclic Antidepress Not Detected (NotDetected) Ur Phencyclidine Scrn Not Detected (NotDetected) Ur Amphetamines Screen Not Detected (NotDetected) U Methamphetamines Scrn Not Detected (NotDetected) U Benzodiazepines Scrn Not Detected (NotDetected) Urine Cocaine Screen Not Detected (NotDetected) U Marijuana (THC) Screen Not Detected (NotDetected) Serum Alcohol <10 mg/dL 04/17/25 04/17/25 04/17/25 Range/Units 08:23 09:03 09:03 WBC (4.50-10.00) 10*3/uL RBC (4.40-5.60) 10*6/uL Hgb (13.0-17.0) g/dL Hct (39.6-50.0) % MCV (80.0-97.0) fL MCH (27.0-32.0) pg MCHC (32.0-37.0) g/dL Plt Count (140-440) 10*3/uL MPV (9.5-12.2) fL Immature Gran % (Auto) % Neutrophils % % Lymphocytes % % Monocytes % % Eosinophils % % Basophils % % Immature Gran # (0.00-0.04) 10*3/uL Neutrophils # (1.80-7.70) 10*3/uL Lymphocytes # (0.90-5.00) 10*3/uL Monocytes # (0.20-1.00) 10*3/uL Eosinophils # (0.04-0.35) 10*3/uL Basophils # (0.00-0.10) 10*3/uL PT (10.0-12.5) sec INR (<1.2) APTT (22.0-30.0) sec Sodium (137-145) mmol/L Potassium (3.5-5.1) mmol/L Chloride (98-107) mmol/L Carbon Dioxide (22-30) mmol/L Anion Gap mmol/L BUN (9-20) mg/dL Creatinine (0.66-1.25) mg/dL Est GFR (CKD-EPI)AfAm (>60 ml/min/1.73 sqM) Est GFR (CKD-EPI)NonAf (>60 ml/min/1.73 sqM) Glucose (74-99) mg/dL POC Glucose (mg/dL) 123 H 59 L 61 L (70-110) mg/dL POC Glu Diesel Tractor Operator ID [facility] Nuñez Calcium (8.4-10.2) mg/dL Total Bilirubin (0.2-1.3) mg/dL AST (17-59) U/L ALT (4-49) U/L Alkaline Phosphatase (38-126) U/L Ammonia (<30) umol/L Total Protein (6.3-8.2) g/dL Albumin (3.5-5.0) g/dL Urine Color Urine Appearance (Clear) Urine pH (5.0-8.0) Ur Specific [place] (1.001-1.035) Urine Protein (Negative) Ur Protein Confirm Urine Glucose (UA) (Negative) Urine Ketones (Negative) Urine Blood (Negative) Urine Nitrite (Negative) Urine Bilirubin (Negative) Ur Bilirubin Confirm Urine Urobilinogen (<2.0) mg/dL Ur Leukocyte Esterase (Negative) Urine RBC (0-5) /hpf Urine WBC (0-5) /hpf Urine Bacteria (None) /hpf Hyaline Casts (0-2) /lpf Urine Mucus (None) /hpf Urine Opiates Screen (NotDetected) Ur Oxycodone Screen (NotDetected) Urine Methadone Screen (NotDetected) Ur Barbiturates Screen (NotDetected) U Tricyclic Antidepress (NotDetected) Ur Phencyclidine Scrn (NotDetected) Ur Amphetamines Screen (NotDetected) U Methamphetamines Scrn (NotDetected) U Benzodiazepines Scrn (NotDetected) Urine Cocaine Screen (NotDetected) U Marijuana (THC) Screen (NotDetected) Serum Alcohol mg/dL 04/17/25 04/17/25 Range/Units 09:52 10:25 WBC (4.50-10.00) 10*3/uL RBC (4.40-5.60) 10*6/uL Hgb (13.0-17.0) g/dL Hct (39.6-50.0) % MCV (80.0-97.0) fL MCH (27.0-32.0) pg MCHC (32.0-37.0) g/dL Plt Count (140-440) 10*3/uL MPV (9.5-12.2) fL Immature Gran % (Auto) % Neutrophils % % Lymphocytes % % Monocytes % % Eosinophils % % Basophils % % Immature Gran # (0.00-0.04) 10*3/uL Neutrophils # (1.80-7.70) 10*3/uL Lymphocytes # (0.90-5.00) 10*3/uL Monocytes # (0.20-1.00) 10*3/uL Eosinophils # (0.04-0.35) 10*3/uL Basophils # (0.00-0.10) 10*3/uL PT (10.0-12.5) sec INR (<1.2) APTT (22.0-30.0) sec Sodium (137-145) mmol/L Potassium (3.5-5.1) mmol/L Chloride (98-107) mmol/L Carbon Dioxide (22-30) mmol/L Anion Gap mmol/L BUN (9-20) mg/dL Creatinine (0.66-1.25) mg/dL Est GFR (CKD-EPI)AfAm (>60 ml/min/1.73 sqM) Est GFR (CKD-EPI)NonAf (>60 ml/min/1.73 sqM) Glucose (74-99) mg/dL POC Glucose (mg/dL) 97 74 (70-110) mg/dL POC Glu Diesel Tractor Operator ID [place] Calcium (8.4-10.2) mg/dL Total Bilirubin (0.2-1.3) mg/dL AST (17-59) U/L ALT (4-49) U/L Alkaline Phosphatase (38-126) U/L Ammonia (<30) umol/L Total Protein (6.3-8.2) g/dL Albumin (3.5-5.0) g/dL Urine Color Urine Appearance (Clear) Urine pH (5.0-8.0) Ur Specific [place] (1.001-1.035) Urine Protein (Negative) Ur Protein Confirm Urine Glucose (UA) (Negative) Urine Ketones (Negative) Urine Blood (Negative) Urine Nitrite (Negative) Urine Bilirubin (Negative) Ur Bilirubin Confirm Urine Urobilinogen (<2.0) mg/dL Ur Leukocyte Esterase (Negative) Urine RBC (0-5) /hpf Urine WBC (0-5) /hpf Urine Bacteria (None) /hpf Hyaline Casts (0-2) /lpf Urine Mucus (None) /hpf Urine Opiates Screen (NotDetected) Ur Oxycodone Screen (NotDetected) Urine Methadone Screen (NotDetected) Ur Barbiturates Screen (NotDetected) U Tricyclic Antidepress (NotDetected) Ur Phencyclidine Scrn (NotDetected) Ur Amphetamines Screen (NotDetected) U Methamphetamines Scrn (NotDetected) U Benzodiazepines Scrn (NotDetected) Urine Cocaine Screen (NotDetected) U Marijuana (THC) Screen (NotDetected) Serum Alcohol mg/dL - EKG Data -: EKG Interpreted by Me EKG Comments: 12-lead Electrocardiogram Interpretation Note EKG was reviewed and interpreted by myself. 12-lead ECG performed at 0846 is interpreted by me as revealing junctional rhythm at a rate of 63 beats per minute. [place] is normal. [place] interval is 124 ms, QRS duration is 86 ms, QTc is 1433 ms.. There were no ST or T wave abnormalities to suggest myocardial ischemia or injury. R wave progression across the precordium was satisfactory. By my interpretation this EKG is non-diagnostic for acute ischemia. Critical Care Time Critical Care Time: Yes Total Critical Care Time: 32 Disposition Clinical Impression: Hypoglycemic event in diabetes Disposition: ADMITTED IP TO THIS HOSP Condition: Stable Time of Disposition: 10:35
[2025-04-17 10:58] LABS: Glucose,Whole Blood 68 mg/dL (70-110)
[2025-04-17] MEDS: carvediloL 6.25 MG TAB PO SCH (11:21)
[2025-04-17] MEDS: FERROUS SULFATE 325 MG TAB PO SCH (11:21)
[2025-04-17] MEDS: lisinopriL 10 MG TAB PO SCH (11:21)
[2025-04-17] MEDS: FUROSEMIDE 40 MG TAB PO SCH (11:21)
[2025-04-17] MEDS: DEXTROSE 10% IN WATER 1,000 ML with SODIUM CHLORIDE 4MEQ/ML VIAL 77 MEQ IV ONE (11:27)
[2025-04-17 11:59] LABS: Glucose,Whole Blood 161 mg/dL (70-110)
[2025-04-17] MEDS: prednisoLONE ACETATE 1% OPHTH DROPS 5 ML BTL LEFT EYE SCH (13:17)
[2025-04-17 13:41] LABS: Glucose,Whole Blood 185 mg/dL (70-110)
[2025-04-17 17:14] LABS: Glucose,Whole Blood 158 mg/dL (70-110)
[2025-04-17 20:36] LABS: Glucose,Whole Blood 208 mg/dL (70-110)
[2025-04-17] MEDS: TAMSULOSIN 0.4 MG CAP.ER.24H PO SCH (20:37)
[2025-04-17 22:02] LABS: Glucose,Whole Blood 225 mg/dL (70-110)
--- NOTE | 2025-04-17 22:50 | HP ---
HISTORY AND PHYSICAL CHIEF COMPLAINT: Hypoglycemia. HISTORY OF PRESENT ILLNESS: This is another admission. This gentleman just went home after he was admitted twice for hypoglycemia. He was not to be on insulin. Apparently, he is taking it. He presented back to the emergency room with a blood sugar of 20 and he was delirious. REVIEW OF SYSTEMS: Not obtained. Past medical history, family history and personal and social histories are otherwise unremarkable and unchanged from his recent admitting and discharge summaries. PHYSICAL EXAMINATION: GENERAL: He is pale. He is lethargic. HEAD, EARS, EYES, NOSE AND MOUTH: Normal. CHEST: Clear. CARDIAC: Reveals tachycardia. ABDOMEN: Soft and nontender. EXTREMITIES: Normal. IMPRESSION: 1. Hypoglycemia. 2. Mental status changes. PLAN: 1. Bedrest. 2. IV fluids. 3. Correct hypoglycemia. 4. Stop insulin. NATALIA / YENIFER: [id number] /
[2025-04-17] MEDS: HYDROcodone/APAP 5-325MG 1 EACH TAB PO PRN (23:48)
[2025-04-18 01:01] LABS: Glucose,Whole Blood 179 mg/dL (70-110)
[2025-04-18 04:57] LABS: Glucose,Whole Blood 177 mg/dL (70-110)
[2025-04-18] MEDS ORDERED: INSULIN GLARGINE (LANTUS) 100 UNIT/ML SYR SQ SCH (07:00)
[2025-04-18 07:05] LABS: Glucose,Whole Blood 150 mg/dL (70-110)
[2025-04-18] MEDS: INSULIN LISPRO (HumaLOG) 100 UNIT/ML 10 mL VL SQ SCH (07:09)
[2025-04-18 07:52] VITALS: BP 112/64; PULSE 83; RESP 18; TEMP 97.6
[2025-04-18 08:21] LABS: ALT 71 U/L (10-49); AST 29 U/L (14-35); Albumin 3.2 g/dL (3.8-4.9); Albumin/Globulin Ratio 1.45 Ratio (1.60-3.17); Alkaline Phosphatase 175 U/L (41-126); BUN/Creat Ratio 16.14 Ratio (12.00-20.00); Blood Urea Nitrogen 22.6 mg/dL (9.0-27.0); Calcium 8.7 mg/dL (8.7-10.3); Carbon Dioxide 24.1 mmol/L (21.6-31.8); Chloride 109 mmol/L (96-109); Globulin 2.2 g/dL (1.6-3.3); Glucose 183 mg/dL (70-110); Potassium 4.3 mmol/L (3.5-5.5); Sodium 141 mmol/L (135-145); Total Bilirubin 0.5 mg/dL (0.3-1.2); Total Protein 5.4 g/dL (6.2-8.2)
[2025-04-18] MEDS: PANTOPRAZOLE 40 MG TABLET PO SCH (08:43)
[2025-04-18 08:45] LABS: HCT 36.7 % (39.6-50.0); HGB 11.5 g/dL (13.0-17.0); MCH 23.1 pg (27.0-32.0); MCHC 31.3 g/dL (32.0-37.0); MCV 73.7 FL (80.0-97.0); NRBC Per 100 WBC 0 X 10*3/uL (0.00-0.01); Platelet Count 143 X 10*3/uL (140-440); RBC 4.98 X 10*6/uL (4.40-5.60); WBC 4.92 X 10*3/uL (4.50-10.00)
[2025-04-18 09:12] LABS: Glucose,Whole Blood 223 mg/dL (70-110)
[2025-04-18] MEDS: RIVAROXABAN 20 MG TAB PO SCH (10:17)
[2025-04-18 10:45] LABS: Basophils # (A) 0.02 X 10*3/uL (0.00-0.10); Basophils % (A) 0.4 %; Elliptocytes 2+ (None Seen); Eosinophils # (A) 0.18 X 10*3/uL (0.04-0.35); Eosinophils % (A) 3.7 %; Lymphocytes # (A) 1.01 X 10*3/uL (0.90-5.00); Lymphocytes % (A) 20.5 %; Microcytosis (M) 2+ (None Seen); Monocytes # (A) 0.38 X 10*3/uL (0.20-1.00); Monocytes % (A) 7.7 %; Neutrophils # (A) 3.31 X 10*3/uL (1.80-7.70); Neutrophils % (A) 67.3 %
--- NOTE | 2025-04-21 21:35 | P.DS ---
Providers Date of admission: 04/17/25 10:38 Attending physician: Cresencio Kim Primary care physician: Cresencio Kim Hospital Course: Final Diagnosis Hypoglycemia Diabetes Mellitus type 2 Altered mental status due to the hypoglycemia Hx asthma stable Hx COPD stable Hypertension Hyperlipidemia Heart failure Hx with no acute exacerbation History of stroke in the past. Discharge Disposition Patient is stable for discharge home. Patient to remain off insulin. He has been started on oral metformin instead for management of his blood glucose. Repeat BMP 2 to 3 days. Follow up with Dr Kim. Hospital Course This is a 74-year-old male with history of asthma, COPD, hypertension, hyperlipidemia, heart failure chronic, diabetes mellitus type 2. Patient was recently mid to the hospital on 2 separate occasions secondary to hypoglycemia he was not closely taking his insulin but states that he was taking it. He came into the ER with a blood glucose of 20 and was found to be altered. He had a chest x-ray which reveals no acute pulmonary process. Brain CT reveals persistent hypodensity within the posterior left parietal lobe. Old subcortical infarct is favored. Consider MRI for additional evaluation. EKG reveals normal sinus rhythm with a heart rate of 63. He was monitored off insulin and blood glucose improved. Patient was discharged home on oral metformin twice daily. Review of Systems Constitutional: Denied any fatigue denied any fever. Cardio vascular: denied any chest pain, palpitations Gastrointestinal: denied any nausea, vomiting, diarrhea Pulmonary: Denied any shortness of breath cough Neurologic denied any new focal deficits All inpatient medications were reviewed and appropriate changes in these medications as dictated in the interval history and assessment and plan. PHYSICAL EXAMINATION: GENERAL: The patient is alert and oriented x3, not in any acute distress. Well developed, well nourished. HEENT: Pupils are round and equally reacting to light. EOMI. No scleral icterus. No conjunctival pallor. Normocephalic, atraumatic. No pharyngeal erythema. No thyromegaly. CARDIOVASCULAR: S1 and S2 present. No murmurs, rubs, or gallops. PULMONARY: Chest is clear to auscultation, no wheezing or crackles. ABDOMEN: Soft, nontender, nondistended, normoactive bowel sounds. No palpable organomegaly. MUSCULOSKELETAL: No joint swelling or deformity. EXTREMITIES: No cyanosis, clubbing, or pedal edema. NEUROLOGICAL: Gross neurological examination did not reveal any focal deficits. SKIN: No rashes. Please see medication reconciliation for a list of current medications. Thank you for allowing us to participate in the care of this patient. The impression and plan of care has been dictated by Chelsea Dejesus, Nurse Practitioner as directed. Dr. Jaymie MD I have performed a history and physical examination and medical decision making of this patient, discussed the same with the dictator, and agree with the dictators assessment and plan as written, documented as a scribe. Based on total visit time, I have performed more than 50% of this visit. Patient Condition at Discharge: Stable Plan - Discharge Summary Discharge Rx Participant: Yes New Discharge Prescriptions: New metFORMIN HCL ER [Glucophage XR] 500 mg PO BID #60 tab Continue carvediloL [Coreg] 6.25 mg PO BID lisinopriL [Zestril] 10 mg PO DAILY Ferrous Sulfate [Iron (65 MG Elemental)] 325 mg PO DAILY Rivaroxaban [Xarelto] 20 mg PO DAILY Tamsulosin [Flomax] 0.4 mg PO HS Ergocalciferol (Vitamin D2) [Drisdol (GEQ) 1,250 MCG (50,000 IU)] 1,250 mcg PO Q30D Furosemide [Lasix] 40 mg PO DAILY Ketorolac 0.5% Ophth Soln [Acular 0.5%] 1 drop LEFT EYE QID Liraglutide 1.8 mg SQ DAILY prednisoLONE ACETATE 1% OPHTH [Pred Forte 1%] 1 drop LEFT EYE QID Pantoprazole [Protonix] 40 mg PO DAILY Discontinued Insulin Degludec [Tresiba] 40 units SQ DAILY #30 each Discharge Medication List carvediloL [Coreg] 6.25 mg PO BID 12/16/18 [History] lisinopriL [Zestril] 10 mg PO DAILY 11/07/20 [History] Ergocalciferol (Vitamin D2) [Drisdol (GEQ) 1,250 MCG (50,000 IU)] 1,250 mcg PO Q30D 03/21/25 [History] Ferrous Sulfate [Iron (65 MG Elemental)] 325 mg PO DAILY 03/21/25 [History] Furosemide [Lasix] 40 mg PO DAILY 03/21/25 [History] Ketorolac 0.5% Ophth Soln [Acular 0.5%] 1 drop LEFT EYE QID 03/21/25 [History] Liraglutide 1.8 mg SQ DAILY 03/21/25 [History] Rivaroxaban [Xarelto] 20 mg PO DAILY 03/21/25 [History] Tamsulosin [Flomax] 0.4 mg PO HS 03/21/25 [History] prednisoLONE ACETATE 1% OPHTH [Pred Forte 1%] 1 drop LEFT EYE QID 03/21/25 [History] Pantoprazole [Protonix] 40 mg PO DAILY 04/12/25 [History] metFORMIN HCL ER [Glucophage XR] 500 mg PO BID #60 tab 04/18/25 [Rx] Follow up Appointment(s)/Referral(s): Cresencio Kim MD [Primary Care Provider] - 04/22/25 4:00 pm Ambulatory/Diagnostic Orders: Basic Metabolic Panel [LAB.AMB] Time Frame: 3 Days, Location: None Selected Activity/Diet/Wound Care/Special Instructions: Monitor your blood glucose Three times daily and keep log for follow up with Dr Kim in the office Discharge Disposition: HOME SELF-CARE
== END 2025-04-18 14:30 | disposition home or self-care (01) ==
LOC: EC 08:00 → 3SCARD 10:38 → 4SSUR 20:02
PROVIDERS: ADMIT Family Medicine; ATTEND Family Medicine
DX: E11.649 Type 2 diabetes mellitus with hypoglycemia without coma (principal); I11.0 Hypertensive heart disease with heart failure; I50.9 Heart failure, unspecified; J44.89 Other specified chronic obstructive pulmonary disease; E11.40 Type 2 diabetes mellitus with diabetic neuropathy, unspecified; E78.5 Hyperlipidemia, unspecified; Z86.73 Personal history of transient ischemic attack (TIA), and cerebral infarction without residual deficits; Z79.4 Long term (current) use of insulin; Z79.01 Long term (current) use of anticoagulants; Z79.899 Other long term (current) drug therapy
CPT/HCPCS: 99291; 36415; 93005; 80053 ×2; 82140 ×2; 85025 ×2; 85610; 85730; 81003; 80306; 71045; 70450; G0378 ×3; G0480; 80320